=== PATIENT | female | born 1940 | race Caucasian/White ===

== ENCOUNTER → 2019-05-25 | Outpatient (CLI) | payer MEDICARE ==
--- NOTE | 2019-05-25 11:21 | Diagnostic Imaging Report ---
PROCEDURE: CT head without contrast. TECHNIQUE: Multiple contiguous axial images were obtained through the brain without the use of intravenous contrast. Auto Exposure Controls were utilized during the CT exam to meet ALARA standards for radiation dose reduction. INDICATION: Fall with head trauma, dizziness, headache and confusion. No prior examinations are available for comparison. FINDINGS: There is mild prominence of the ventricles and sulci. There is mild chronic microvascular disease. There is no hydrocephalus. No midline shift. There is no intracranial mass, hemorrhage or extra-axial fluid collection. The calvarium is intact. Sinuses and mastoid air cells are clear. IMPRESSION: Atrophy and mild chronic microvascular disease however no acute intracranial abnormality. Dictated by: Dictated on workstation # [id number]
== END ==
LOC: RAD FS 11:00
PROVIDERS: ATTEND Nurse Practitioner Family
DX: G31.9 Degenerative disease of nervous system, unspecified (principal); I67.82 Cerebral ischemia
CPT/HCPCS: 70450

== ENCOUNTER 2019-10-30 19:55 | Emergency (ER) | payer MEDICARE, OTHER ==
[~2019-10-30] VITALS: Ht 157.4 cm; Wt 71.9 kg
--- NOTE | 2019-10-30 20:42 | ED General ---
General Chief Complaint: Fever-Adult/Adol Stated Complaint: POSS FLU Nursing Triage Note: PT. HAD A TEMP OF 103 AT HOME THAT STARTED LEAST NIGHT WITH A COUGH. PT. HAS BEEN AROUND PEOPLE WHO HAVE THE FLU. PT. TOOK TO BABY ASA LAST NIGHT. Nursing Sepsis Screen: Possible Severe Sepsis Risk Source of Information: Patient, Family Exam Limitations: No Limitations History of Present Illness Date Seen by Provider: Oct 30, 2019 Time Seen by Provider: 20:39 Initial Comments Patient presents with onset of fever and body aches starting last night. This afternoon states her fever was over 100. Has had a slight cough and exposed to grandchildren with the flu recently. However, doesn't think she has the flu but a urinary tract infection as she states she normally feels like this when she has a UTI. Denies any chest pain or shortness of air, denies abdominal pain vomiting or diarrhea. Allergies and Home Medications Allergies Uncoded Allergies: PCN (Allergy, Unknown, 10/30/19) Home Medications Sulfamethoxazole/Trimethoprim 1 Each Tablet, 1 EACH PO BID Prescribed by: SAMMY CONTRERAS on 10/30/192104 Patient Home Medication List Home Medication List Reviewed: Yes Review of Systems Review of Systems Constitutional: see HPI, chills; No dizziness; fever, malaise; No weakness Respiratory: see HPI, cough; No short of breath, No wheezing Cardiovascular: see HPI; No chest pain, No edema, No palpitations Gastrointestinal: No abdominal pain, No constipation, No diarrhea, No loss of appetite, No nausea, No vomiting Genitourinary: see HPI; No dysuria; frequency; No hematuria, No hesitancy, No pain Musculoskeletal: No back pain, No joint pain Skin: No change in color, No rash Past Esbtlaw-Vttggg-Lalpwn Hx Past Med/Social Hx: Reviewed Nursing Past Med/Soc Hx Patient Social History Recent Foreign Travel: No Contact w/Someone Who Travel: No Recent Infectious Disease Expo: No Physical Exam Vital Signs Vital Signs - First Documented 10/30/19 10/30/19 20:31 21:09 Temp 38.5 Pulse 99 Resp 22 B/P (MAP) 148/73 (98) Pulse Ox 95 O2 Delivery Room Air Capillary Refill : Less Than 3 Seconds Height, Weight, BMI Height: '" Weight: lbs. oz. kg; 29.00 BMI Method: General Appearance: No Apparent Distress, WD/WN HEENT: PERRL/EOMI, TMs Normal, Normal ENT Inspection, Pharynx Normal Respiratory: Chest Non Tender, Lungs Clear, Rhonci (scattered rhonchi, faint) Cardiovascular: Regular Rate, Rhythm, No Edema, No Gallop Gastrointestinal: Normal Bowel Sounds, Non Tender, Soft Back: Normal Inspection, No CVA Tenderness Extremity: Normal Capillary Refill, Non Tender Neurologic/Psychiatric: Alert, Oriented x3 Skin: Normal Color, Warm/Dry Progress/Results/Core Measures Suspected Sepsis Recent Fever Within 48 Hours: Yes Infection Criteria Present: Suspected New Infection New/Unexplained Altered Menta: No Sepsis Screen: Possible Severe Sepsis Risk SIRS Temperature: Pulse: 99 Respiratory Rate: 22 Blood Pressure 148 /73 Mean: 98 Results/Orders Lab Results Laboratory Tests Test 10/30/19 20:40 Range/Units Urine Color YELLOW Urine Clarity SLT CLOUDY Urine pH 7.0 5-9 Urine Specific [place] 1.015 L 1.016-1.022 Urine Protein NEGATIVE NEGATIVE Urine Glucose (UA) NEGATIVE NEGATIVE Urine Ketones NEGATIVE NEGATIVE Urine Nitrite POSITIVE H NEGATIVE Urine Bilirubin NEGATIVE NEGATIVE Urine Urobilinogen >=8.0 < = 1.0 MG/DL Urine Leukocyte Esterase 1+ H NEGATIVE Urine RBC (Auto) NEGATIVE NEGATIVE Urine RBC NONE /HPF Urine WBC 10-25 H /HPF Urine Squamous Epithelial Cells 2-5 /HPF Urine Crystals NONE /LPF Urine Bacteria MODERATE H /HPF Urine Casts NONE /LPF Urine Mucus NONE /LPF Urine Culture Indicated YES Micro Results Microbiology 10/30/19 Influenza Types A,B Antigen (TIFFANY) - Final, Complete My Orders Orders - SAMMY CONTRERAS DO Influenza A And B Antigens (10/30/19 20:31) Acetaminophen Tablet (Tylenol Tablet) (10/30/19 20:45) Urinalysis (10/30/19 20:37) Urine Culture (10/30/19 20:40) Sulfamethoxazole/Trimet Ds Tab (Bactrim (10/30/19 21:15) Sulfamethoxazole/Trimet Ds Tab (Bactrim (10/30/19 21:08) Medications Given in ED Current Medications Medications Dose Ordered Sig/Krysten Route Start Time Stop Time Status Last Admin Dose Admin Acetaminophen 1,000 mg ONCE ONCE PO 10/30/19 20:45 10/30/19 20:46 DC 10/30/19 20:59 1,000 MG Trimethoprim/ Sulfamethoxazole 1 ea ONCE ONCE PO 10/30/19 21:15 10/30/19 21:17 DC 10/30/19 21:13 1 EA Vital Signs/I&O 10/30/19 10/30/19 20:31 21:09 Temp 38.5 38.5 Pulse 99 99 Resp 22 22 B/P (MAP) 148/73 (98) 148/73 (98) Pulse Ox 95 O2 Delivery Room Air Room Air Capillary Refill : Less Than 3 Seconds Blood Pressure Mean: 98 Departure Impression Primary Impression: UTI (urinary tract infection) Qualified Codes: N30.00 - Acute cystitis without hematuria Disposition: HOME, SELF-CARE Condition: Stable Departure-Patient Inst. Referrals: [facility] (PCP) Primary Care Physician TILA SHARMA APRN (Family) Primary Care Physician Patient Instructions: Urinary Tract Infections in Adults Scripts Sulfamethoxazole/Trimethoprim (Bactrim Ds Tablet) 1 Each Tablet 1 EACH PO BID for 7 Days, #14 TAB Prov: SAMMY CONTRERAS DO 10/30/19 SAMMY CONTRERAS DO Oct 30, 2019 20:42
[2019-10-30] MEDS ORDERED: ACETAMINOPHEN 500 MG TAB (TYLENOL) PO ONE (20:45)
[2019-10-30 20:55] LABS: BILIRUBIN,URINE NEGATIVE (NEGATIVE); CLARITY,URINE SLT CLOUDY; COLOR,URINE YELLOW; GLUCOSE, URINE (UA) NEGATIVE (NEGATIVE); KETONES,URINE NEGATIVE (NEGATIVE); LEUKOCYTE ESTERASE ,URINE 1+ (NEGATIVE); NITRITE,URINE POSITIVE (NEGATIVE); PROTEIN,URINE NEGATIVE (NEGATIVE)
[2019-10-30 20:56] LABS: BACTERIA,URINE MODERATE /HPF
[2019-10-30] MEDS ORDERED: SULF1TAB35 PO (21:05)
[2019-10-30] MEDS ORDERED: TRIM/SULFAMETH 160/800 (SEPTRA DS) TAB PO ONE ×2 (21:08→21:15)
[2019-10-30 21:09] VITALS: BP 148/73
== END 2019-10-30 21:17 | disposition home or self-care (01) ==
LOC: EDUNIT# 19:55 → ER FS 19:56
DX: N39.0 Urinary tract infection, site not specified (principal); Z88.0 Allergy status to penicillin
CPT/HCPCS: 81000; 87088; 87804

== ENCOUNTER → 2020-02-16 | Outpatient (CLI) | payer MEDICARE, OTHER ==
[~2020-02-16] MED LIST: CATHETER FLUSH 10 ML SYR IV PRN; HOLD METFORMIN - RECEIVED CONTRAST 20 ML VIAL IV SCH; IOHEXOL 350 MG/ML 150 ML (OMNIPAQUE 350) VIAL IV ONE; NS 100 ML (IVPB) BAG IV ONE; SULF1TAB35 PO
--- NOTE | 2020-02-16 11:30 | Diagnostic Imaging Report ---
PROCEDURE: CT angiography of the chest with contrast. TECHNIQUE: Multiple contiguous axial images were obtained through the chest after uneventful bolus administration of intravenous contrast. 3D reconstructed CTA MIP acquisitions were also performed. Auto Exposure Controls were utilized during the CT exam to meet ALARA standards for radiation dose reduction. INDICATION: Shortness of breath x2 weeks. Elevated D-dimer. COMPARISON: There are no prior studies available comparison. There is no defect within the pulmonary arteries to indicate a pulmonary embolus. The aorta is not abnormally dilated and there is no sign of a dissection. The heart size is borderline enlarged. Coronary artery calcifications are evident. There is a small amount of atelectasis/infiltrate and fluid in each lung base particularly the left lung base. The fluid in the left lung base measures approximately 1.2 cm in maximum depth. There is also generalized prominence of the interstitial densities in both lungs. This may well be chronic in nature. The possibility that there is an element of mild pulmonary congestion present should also be considered. There is a 1.6 x 1.6 cm low density lymph node in the right hilum. There is another node involving the right hilum measuring 1.0 x 1.3 cm. There is also a 1.2 x 1.4 cm lymph node in the left suprahilar region. A 1.2 x 2.0 cm aorticopulmonary window node is noted, as well. These nodes are slightly enlarged but nonspecific in appearance. Whether these are reactive nodes or less likely nodes involving neoplasm is not certain. Unless there are previous exams available to demonstrate that these findings are stable, then a short-term (three-month) follow-up CT chest exam should be obtained. The thyroid gland was not well visualized. There is no obvious breast mass. The sections through the upper abdomen show that the liver is prominent but not enlarged. However, there is splenomegaly. The etiology of the splenomegaly is not certain. There is no acute abnormality of the upper abdomen. The bone windows show no sign of a fracture or of a destructive lesion. IMPRESSION: 1. There is no evidence for any aortic dissection or for a pulmonary embolus. However, the borderline cardiomegaly and the prominence of the interstitial densities in both lungs does raise the question of mild pulmonary edema. There is also small amount of atelectasis/infiltrate and fluid in each lung base. 2. There is mediastinal and hilar adenopathy. This is nonspecific. Considerations and recommendations as above. 3. There is splenomegaly. Dictated by: Dictated on workstation # [id number]
== END ==
LOC: RAD FS 10:04
PROVIDERS: ATTEND Nurse Practitioner Family
DX: R79.1 Abnormal coagulation profile (principal); R06.02 Shortness of breath; R59.0 Localized enlarged lymph nodes; R16.1 Splenomegaly, not elsewhere classified
CPT/HCPCS: 71275

== ENCOUNTER → 2020-03-06 | Outpatient (CLI) | payer MEDICARE, OTHER ==
[~2020-03-06] VITALS: Ht 157 cm; Wt 72.0 kg
[~2020-03-06] MED LIST changes: -HOLD METFORMIN - RECEIVED CONTRAST 20 ML VIAL IV SCH; -IOHEXOL 350 MG/ML 150 ML (OMNIPAQUE 350) VIAL IV ONE; -NS 100 ML (IVPB) BAG IV ONE; +REGADENOSON 0.4 MG/5 ML SYR (LEXISCAN) IV ONE
[2020-03-06 09:37] VITALS: BP 122/72
--- NOTE | 2020-03-06 15:28 | Cardiology Stress Test Report ---
Stress Test Report Date of Procedure/Referring: Date of Procedure: Mar 06, 2020 PCP Mariposa Argueta MD Admitting Physician Center/[facility] Indications: CHF Baseline Heart Rate: 67 Baseline Blood Pressure: Blood Pressure Systolic: 122 Blood Pressure Diastolic: 72 Baseline EKG: Baseline EKG: atrial fibrillation Summary: Patient received 0.4 mg Lexiscan for stress test, ECG, heart rate and blood pressure were monitored continuously. Resting and stress dose of radio tracer were injected, imaging was acquired and reviewed in short axis, horizontal long axis and vertical long axis views. TID 1.06 SSS 6 SDS 3 EF 66 Conclusion: 1. Patient tolerated Lexiscan well 2. Baseline atrial fibrillation persisted throughout test 3. Breast attenuation with mild decrease uptake at the mid to apical anterolateral wall with mild reversibility. No significant ischemia was noted 4. Normal left ventricular size, currently ejection fraction 66 percent, underlying atrial fibrillation affecting the calculation of ejection fraction MARIPOSA ARGUETA MD Mar 06, 2020 15:28
== END ==
LOC: CARD 08:05
PROVIDERS: ATTEND Internal Medicine Cardiovascular Disease
DX: I11.0 Hypertensive heart disease with heart failure (principal); I50.32 Chronic diastolic (congestive) heart failure; E78.2 Mixed hyperlipidemia
CPT/HCPCS: 78452; 93017

== ENCOUNTER → 2020-03-07 | Outpatient (CLI) | payer MEDICARE, OTHER ==
[~2020-03-07] MED LIST changes: -CATHETER FLUSH 10 ML SYR IV PRN; -REGADENOSON 0.4 MG/5 ML SYR (LEXISCAN) IV ONE
== END ==
LOC: CARD 12:16
PROVIDERS: ATTEND Internal Medicine Cardiovascular Disease
DX: I11.0 Hypertensive heart disease with heart failure (principal); I50.32 Chronic diastolic (congestive) heart failure; E78.2 Mixed hyperlipidemia; I07.1 Rheumatic tricuspid insufficiency
CPT/HCPCS: 93306

== ENCOUNTER → 2020-03-26 | Outpatient (CLI) | payer MEDICARE, OTHER ==
[~2020-03-26] MED LIST changes: +HOLD METFORMIN - RECEIVED CONTRAST 20 ML VIAL IV SCH; +IOHEXOL 350 MG/ML 100 ML (OMNIPAQUE 350) VIAL IV ONE; +NS 100 ML (IVPB) BAG IV ONE; +RT-ALBUTEROL SULF 2.5 MG/3 ML PRE-MIX VIAL INH ONE
[2020-03-26 09:14] LABS: BUN/CREATININE RATIO 17; CREATININE SERUM 0.87 MG/DL (0.60-1.30); GFR ESTIMATED > 60
--- NOTE | 2020-03-26 12:06 | Diagnostic Imaging Report ---
EXAMINATION: CT Chest with intravenous contrast. TECHNIQUE: Multiple contiguous axial images were obtained through the chest after the uneventful administration of intravenous contrast. All CT scans use one or more of the following dose optimizing techniques: automated exposure control, MA and/or KvP adjustment based on a patient size and exam type, or iterative reconstruction. HISTORY: Heart failure COMPARISON: 02/16/2020 FINDINGS: There is mild septal line thickening and groundglass consistent with mild pulmonary edema. There is mild atelectasis in the bases. No pneumonia. No pleural effusion. No pneumothorax. No suspicious nodules. The left atrium is dilated. There is thrombus in the left atrial appendage. There are mild coronary artery calcifications. No pericardial effusion. Aorta is normal in caliber. There is no axillary or supraclavicular lymphadenopathy. Mildly enlarged hilar lymph nodes are likely reactive. Limited views of the upper abdomen show splenomegaly. Bile duct is mildly dilated likely related to prior gallbladder resection. There are no suspicious osseus lesions. IMPRESSION: 1. Mild septal line thickening and groundglass consistent with pulmonary edema. 2. Dilated left atrium with left atrial appendage thrombus. 3. Mildly enlarged hilar lymph nodes are likely reactive and are unchanged. 4. Splenomegaly. Report was called/faxed to Evy/PERRI Prince by diane at 12:05PM. Dictated by: Dictated on workstation # [id number]
== END ==
LOC: RT 08:34
PROVIDERS: ATTEND Internal Medicine Critical Care Medicine
DX: Z01.812 Encounter for preprocedural laboratory examination (principal); I50.20 Unspecified systolic (congestive) heart failure; I51.7 Cardiomegaly; I23.6 Thrombosis of atrium, auricular appendage, and ventricle as current complications following acute myocardial infarction; R16.1 Splenomegaly, not elsewhere classified; R59.0 Localized enlarged lymph nodes
CPT/HCPCS: 36415; 71260; 82565; 84520; 94060; 94726; 94729

== ENCOUNTER → 2020-06-03 | Outpatient (CLI) | payer MEDICARE, OTHER ==
[~2020-06-03] MED LIST changes: +ASPI-999 PO; +CHOL100048 PO; +DABI150C5 PO; +FURO20TA4 PO; -HOLD METFORMIN - RECEIVED CONTRAST 20 ML VIAL IV SCH; -IOHEXOL 350 MG/ML 100 ML (OMNIPAQUE 350) VIAL IV ONE; +LEVO100T7 PO; +METO50TA15 PO; -NS 100 ML (IVPB) BAG IV ONE; -RT-ALBUTEROL SULF 2.5 MG/3 ML PRE-MIX VIAL INH ONE; +RUXO10TA PO
== END ==
LOC: LABNPT 05:58
PROVIDERS: ATTEND Internal Medicine Cardiovascular Disease
DX: Z01.818 Encounter for other preprocedural examination (principal); Z20.828 Contact with and (suspected) exposure to other viral communicable diseases
CPT/HCPCS: 87635

== ENCOUNTER 2020-06-05 07:31 | Day surgery (SDC) | payer MEDICARE, OTHER ==
[~2020-06-05] VITALS: Ht 157.5 cm; Wt 70.5 kg
[2020-06-05] VITALS (11 sets, daily range): BP systolic 133–164; BP diastolic 60–93
[~2020-06-05 07:31] MED LIST changes: -ASPI-999 PO; -CHOL100048 PO; -DABI150C5 PO; -FURO20TA4 PO; -LEVO100T7 PO; +LIDOCAINE 2% VISCOUS 15 ML UDC ONE; -METO50TA15 PO; +NS IV 1000 ML 1,000 ML ONE; -RUXO10TA PO
[2020-06-05] MEDS ORDERED: NS IV 1000 ML 1,000 ML IV ONE (07:36)
[2020-06-05] MEDS ORDERED: LIDOCAINE 2% VISCOUS 15 ML UDC PO ONE (07:45)
[2020-06-05 08:23] LABS: HEMOGLOBIN 8.4 G/DL (11.5-16.0); MEAN PLATELET VOLUME 11.9 FL (7.4-10.4); RED CELL DISTRIBUTION WIDTH 12.9 % (10.0-14.5); WHITE BLOOD COUNT 4.7 10^3/uL (4.3-11.0)
--- NOTE | 2020-06-05 08:24 | Diagnostic Imaging Report ---
INDICATION: Atrial fibrillation COMPARISON: CT dated 03/26/2020 TECHNIQUE: Single frontal radiograph of the chest dated 06/05/2020 FINDINGS: The cardiac silhouette is within normal limits in size. Minimal central pulmonary vascular congestion. The lungs are clear of focal pulmonary opacity. No pleural effusion. No pneumothorax. No acute osseous abnormality. IMPRESSION: Minimal central pulmonary vascular congestion without significant interstitial edema or pleural effusion. Dictated by: Dictated on workstation # [id number]
[2020-06-05] MEDS ORDERED: proPOfol 200 MG/20 ML (DIPRIVAN) VIAL IV ONE (08:36)
[2020-06-05] MEDS ORDERED: MIDAZOLAM 2 MG/2 ML (VERSED) VIAL ONE (08:36)
[2020-06-05 08:37] LABS: PROTHROMBIN TIME PATIENT 23.4 SEC (12.2-14.7)
[2020-06-05 08:48] LABS: ALBUMIN 3.7 GM/DL (3.2-4.5); BILIRUBIN,TOTAL 0.9 MG/DL (0.1-1.0); CREATININE SERUM 1.01 MG/DL (0.60-1.30); POTASSIUM 3.9 MMOL/L (3.6-5.0); TOTAL PROTEIN 6.7 GM/DL (6.4-8.2)
[2020-06-05] MEDS ORDERED: METO50TA15 PO (09:09)
[2020-06-05] MEDS ORDERED: CHOL100048 PO (09:09)
[2020-06-05] MEDS ORDERED: LEVO100T7 PO (09:09)
[2020-06-05] MEDS ORDERED: DABI150C5 PO (09:09)
[2020-06-05] MEDS ORDERED: ASPI-999 PO (09:09)
[2020-06-05] MEDS ORDERED: RUXO10TA PO (09:09)
[2020-06-05] MEDS ORDERED: FURO20TA4 PO (09:09)
--- NOTE | 2020-06-05 10:22 | Cardiac Procedure Note-CS/ASA ---
Pre-Procedure Note Pre-Op Procedure Note H&P Reviewed The H&P was reviewed, patient examined and no changes noted. Date H&P Reviewed: Jun 05, 2020 Time H&P Reviewed: 09:00 Conscious Sedation Pre-Proced Time 09:00 ASA Score 3 For ASA 3 and 4: Consider anesthesia and medical clearance. Also, for patients with a history of failed moderate sedation consider anesthesia. Airway Lungs Heart ASA score ASA 1: a normal healthy patient ASA 2: a patient with a mild systemic disease (mid diabetes, controlled hypertension, obesity x ASA 3: a patient with a severe systemic disease that limits activity (angina, COPD, prior Myocardial infarction) ASA 4: a patient with an incapacitating disease that is a constant threat to life (CHF, renal failure) ASA 5: a moribund patient not expected to survive 24 hrs. (ruptured aneurysm) ASA 6: a declared brain- patient whose organs are being harvested. For emergent operations, add the letter E after the classification Mallampati Classification Grade 3 Sedation Plan Analgesia, Amnesia, Plan communicated to team members, Discussed options with patient/fam, Discussed risks with patient/fam The patient is an appropriate candidate to undergo the planned procedure, sedation, and anesthesia. The patient immediately re-assessed prior to indication. MARIPOSA GALLAGHER MD Jun 05, 2020 10:22 am
--- NOTE | 2020-06-05 10:23 | Clinic Account Progress/Dx ---
Clinic Account Progress/Dx DIAGNOSIS: Date Seen by Provider: Jun 05, 2020 Time Seen by Provider: 10:23 Paroxysmal atrial fibrillation Mitral regurgitation Shortness of breath Hypertension MARIPOSA GALLAGHER MD Jun 05, 2020 10:23 am
--- NOTE | 2020-06-05 10:25 | Anesthesia-General Post-Op ---
MAC Patient Condition Mental Status/LOC: Same as Preop Cardiovascular: Satisfactory Nausea/Vomiting: Absent Respiratory: Satisfactory Pain: Controlled Complications: Absent Post Op Complications Complications None Follow Up Care/Instructions Patient Instructions None needed. Anesthesiology Discharge Order Discharge Order Patient is doing well, no complaints, stable vital signs, no apparent adverse anesthesia problems. No complications reported per nursing. JUDY NO CRNA Jun 05, 2020 10:25
--- NOTE | 2020-06-05 10:26 | NUR ---
I SPOKE WITH THE PATIENT, WENT THROUGH THE MED LIST THEY PROVIDED FROM HOME, AND CALLED [facility] TO COMPLETE THIS MED REC. POTASSIUM CHLORIDE 20MEQ DIRECTIONS FROM PHARMACY ARE BID BUT PATIENT ONLY TAKES DAILY METOPROLOL 50MG DIRECTIONS FROM PHARMACY ARE TID BUT PATIENT TAKES BID LANTUS LAST FILLED 04/25/2020 112DS LEVOTHYROXINE 75MCG LAST FILLED 04/15/2020 #90 90DS ATORVASTATIN 40MG LAST FILLED 04/24/2020 #90 90DS METOPROLOL 50MG LAST FILLED 03/25/2020 #270 90DS LOSARTAN 100MG LAST FILLED 05/11/2020 #90 90DS METFORMIN 500MG LAST FILLED 05/31/2020 #180 90DS POTASSIUM CHLORIDE 20MEQ LAST FILLED 01/05/2020 #180 90DS BENZONATATE 100MG LAST FILLED 11/13/2019 #21 7DS OTC: ASPIRIN CALCIUM VITAMIN D ER FISH OIL
--- NOTE | 2020-06-05 10:40 | NUR ---
HERE PER CALL FOR CONSULT FOR ANEMIA. HERE AND SPOKE WITH PT AND HER FAMILY REGARDING PLAN OF CARE.
--- NOTE | 2020-06-05 20:23 | Consultation - Surgery ---
History of Present Illness History of Present Illness Patient Consulted On(bryson/time) 06/05/20 20:18 Date Seen by Provider: Jun 05, 2020 Time Seen by Provider: 11:35 History of Present Illness Consult requested by Dr. Argueta for anemia. Patient is a 79 year old female who has had recent drop in hgb to about the 8 range. She has been on Pradaxa. She has had atrial fib which she is currently on Aspirin and Pradaxa, but is not having aspirin stopped. Patient still on Pradaxa but Dr. Argueta told me it was okay to stop Pradax 2 days prio for EGD/Colonoscopy. Family does not believe she has ever had any endoscopy. No blood in stool to knowledge. Allergies and Home Medications Allergies Coded Allergies: Penicillins (Unverified Allergy, Unknown, 02/16/20) Home Medications Cholecalciferol (Vitamin D3) 25 Mcg Capsule, 25 MCG PO DAILY, (Reported) Dabigatran Etexilate Mesylate 150 Mg Capsule, 150 MG PO BID, (Reported) Furosemide 20 Mg Tablet, 20 MG PO DAILY, (Reported) Levothyroxine Sodium 100 Mcg Tablet, 100 MCG PO DAILY, (Reported) Metoprolol Tartrate 50 Mg Tablet, 50 MG PO DAILY, (Reported) Ruxolitinib Phosphate 10 Mg Tablet, 10 MG PO BID, (Reported) Patient Home Medication List Home Medication List Reviewed: Yes Past Nvjxnlp-Jezefm-Zaimbt Hx Patient Social History Alcohol Use: Denies Use Recreational Drug Use: No Smoking Status: Never a Smoker Recent Foreign Travel: No Contact w/Someone Who Travel: No Recent Hopitalizations: No Immunizations Up To Date Date of Pneumonia Vaccine: Jun 05, 2018 Seasonal Allergies Seasonal Allergies: No Surgeries History of Surgeries: No Surgeries: Appendectomy, Bladder Surgery, Gallbladder, Hysterectomy, Oophorectomy Respiratory History of Respiratory Disorde: Yes Respiratory Disorders: Pneumonia, Sleep Apnea Cardiovascular History of Cardiac Disorders: Yes Cardiac Disorders: Atrial Fibrillation, Hypertension Neurological History of Neurological Disord: Yes Neurological Disorders: Concussion Genitourinary History of Genitourinary Disor: Yes Genitourinary Disorders: Kidney Infection Gastrointestinal History of Gastrointestinal Di: No Musculoskeletal History of Musculoskeletal Dis: No Endocrine History of Endocrine Disorders: No HEENT History of HEENT Disorders: No Cancer History of Cancer: No Psychosocial History of Psychiatric Problem: No Integumentary History of Skin or Integumenta: No Blood Transfusions History of Blood Disorders: Yes (MYELDYSPLASTIC SYNDROME) Reviewed Nursing Assessment Reviewed/Agree w Nursing PMH: Yes Family Medical History Significant Family History: No Pertinent Family Hx Review of Systems-General Constitutional: weakness All Other Systems Reviewed Negative Unless Noted: Yes (Negative excepted noted.) Physical Exam-General Problems Physical Exam Vital Signs Vital Signs - First Documented 06/05/20 06/05/20 10:10 11:30 Temp 36.4 Pulse 71 Resp 18 B/P (MAP) 150/76 (100) Pulse Ox 100 O2 Delivery Simple Mask O2 Flow Rate 6.00 Capillary Refill : General Appearance: no apparent distress, thin HEENT: PERRL/EOMI, normal ENT inspection Neck: non-tender, supple, normal inspection Respiratory: chest non-tender, no respiratory distress, no accessory muscle use Cardiovascular: regular rate, rhythm, no edema Gastrointestinal: non tender, soft, no organomegaly Back: no CVA tenderness, no vertebral tenderness Extremities: non-tender, normal inspection Neurologic/Psychiatric: alert, normal mood/affect Skin: normal color, warm/dry Lymphatic: no adenopathy Data Review Labs Laboratory Tests 06/05/20 08:18: White Blood Count 4.7, Red Blood Count 2.25L, Hemoglobin 8.4L, Hematocrit 26L, Mean Corpuscular Volume 117H, Mean Corpuscular Hemoglobin 37H, Mean Corpuscular Hemoglobin Concent 32, Red Cell Distribution Width 12.9, Platelet Count 221, Mean Platelet Volume 11.9H, Prothrombin Time 23.4H, INR Comment 2.0H, Activated Partial Thromboplast Time 65H, Sodium Level 142, Potassium Level 3.9, Chloride Level 105, Carbon Dioxide Level 26, Anion Gap 11, Blood Urea Nitrogen 17, Creatinine 1.01, Estimat Glomerular Filtration Rate 53, BUN/Creatinine Ratio 17, Glucose Level 91, Calcium Level 9.0, Corrected Calcium 9.2, Total Bilirubin 0.9, Aspartate Amino Transf (AST/SGOT) 13, Alanine Aminotransferase (ALT/SGPT) 17, Alkaline Phosphatase 119, Total Protein 6.7, Albumin 3.7, Triglycerides Level 110, Cholesterol Level 121, LDL Cholesterol Direct 81, VLDL Cholesterol 22, HDL Cholesterol 23L Assessment/Plan Assessment/Plan Assessment/Plan anemia a fib patient to be scheduled for EGD/Colonoscopy Risks and benefits discussed with family and wish to be scheduled Miralax prep instructions to be provided. Dr. Ellie coffey'd to stop Pradax 2 days prior to procedure. To be scheduled - EGD/Colonoscopy REJI GRIFFIN DO Jun 05, 2020 20:23
== END 2020-06-05 12:55 | disposition home or self-care (01) ==
LOC: CATH 07:31 → SDC 11:27 → CATH 12:55
PROVIDERS: ATTEND Internal Medicine Cardiovascular Disease
DX: I48.0 Paroxysmal atrial fibrillation (principal); I11.0 Hypertensive heart disease with heart failure; I50.42 Chronic combined systolic (congestive) and diastolic (congestive) heart failure; G47.33 Obstructive sleep apnea (adult) (pediatric); E03.9 Hypothyroidism, unspecified; E78.2 Mixed hyperlipidemia; I65.23 Occlusion and stenosis of bilateral carotid arteries; Z79.899 Other long term (current) drug therapy; Z79.82 Long term (current) use of aspirin; Z88.1 Allergy status to other antibiotic agents; Z88.0 Allergy status to penicillin; Z90.710 Acquired absence of both cervix and uterus; Z90.49 Acquired absence of other specified parts of digestive tract; Z83.3 Family history of diabetes mellitus
CPT/HCPCS: 36415; 71045; 80053; 80061; 85027; 85610; 85730; 87081; 93005; 93312; 93320; 93325

== ENCOUNTER 2020-06-14 05:38 | Outpatient (RCR) | payer MEDICARE, OTHER ==
[~2020-06-14] VITALS: Ht 157.5 cm; Wt 68.2 kg
== END 2020-06-14 12:59 | disposition home or self-care (01) ==
LOC: PREOP 05:38
PROVIDERS: ATTEND Surgery
DX: Z01.818 Encounter for other preprocedural examination (principal)

== ENCOUNTER → 2020-06-14 | Outpatient (CLI) | payer MEDICARE, OTHER ==
[~2020-06-14] MED LIST changes: +ASPI-999 PO; +CHOL100048 PO; +DABI150C5 PO; +FURO20TA4 PO; +LEVO100T7 PO; -LIDOCAINE 2% VISCOUS 15 ML UDC ONE; +METO50TA15 PO; -NS IV 1000 ML 1,000 ML ONE; +RUXO10TA PO
== END ==
LOC: LAB FS 10:00
PROVIDERS: ATTEND Surgery
DX: Z01.818 Encounter for other preprocedural examination (principal); D64.9 Anemia, unspecified; Z20.828 Contact with and (suspected) exposure to other viral communicable diseases
CPT/HCPCS: 87635

== ENCOUNTER 2020-06-18 10:48 | Day surgery (SDC) | payer MEDICARE, OTHER ==
[2020-06-18] VITALS (7 sets, daily range): BP systolic 105–132; BP diastolic 51–71
[~2020-06-18] VITALS: Ht 157 cm; Wt 68.0 kg
[2020-06-18] MEDS ORDERED: LACTATED RINGERS 1,000 ML IV ONE (10:50)
[2020-06-18] MEDS ORDERED: LACTATED RINGERS 1,000 ML IV STA (10:51)
[2020-06-18] MEDS ORDERED: HURRICAINE EXT TUBE (BENZOCAINE) XX ONE (11:00)
[2020-06-18] MEDS ORDERED: LIDOCAINE JELLY 2% 6 ML SYRINGE MM PRN (11:00)
[2020-06-18] MEDS ORDERED: PROPOFOL INJECTION 50 ML IV ONE (11:03)
[2020-06-18] MEDS ORDERED: MIDAZOLAM 2 MG/2 ML (VERSED) VIAL ONE (11:04)
--- NOTE | 2020-06-18 11:19 | Progress Note-Pre Operative ---
Pre-Operative Progress Note H&P Reviewed The H&P was reviewed, patient examined and no changes noted. Date Seen by Provider: Jun 18, 2020 Time Seen by Provider: : Date H&P Reviewed: Jun 18, 2020 Time H&P Reviewed: : Pre-Operative Diagnosis: anemia REJI GRIFFIN DO Jun 18, 2020 11:19
--- NOTE | 2020-06-18 12:04 | Progress Note-Post Operative ---
Post-Operative Progess Note Surgeon (s)/Supervisor [employer] (s) Surgeon REJI GRIFFIN DO Supervisor [employer]: na Pre-Operative Diagnosis anemia Post-Operative Diagnosis normal egd, diverticulosis Procedure & Operative Findings Date of Procedure 06/18/20 Procedure Performed/Findings egd colonoscopy Anesthesia Type per oil and gas principal Estimated Blood Loss Estimated blood loss (mL): na Specimens/Packing Specimens Removed na REJI GRIFFIN DO Jun 18, 2020 12:04
--- NOTE | 2020-06-18 12:05 | Discharge Inst-Simple/Standard ---
Discharge Inst-Standard Patient Instructions/Follow Up Plan of Care/Instructions/FU: Follow up on as needed basis. Activity as Tolerated: Yes Discharge Diet: Regular Diet REJI GRIFFIN DO Jun 18, 2020 12:05
--- NOTE | 2020-06-18 13:53 | Anesthesia-General Post-Op ---
MAC Patient Condition Mental Status/LOC: Same as Preop Cardiovascular: Satisfactory Nausea/Vomiting: Absent Respiratory: Satisfactory Pain: Controlled Complications: Absent Post Op Complications Complications None Follow Up Care/Instructions Patient Instructions None needed. Anesthesiology Discharge Order Discharge Order Patient is doing well, no complaints, stable vital signs, no apparent adverse anesthesia problems. No complications reported per nursing. JULIA TIMMONS CRNA Jun 18, 2020 13:53
--- NOTE | 2020-06-18 20:57 | OPERATIVE REPORT ---
DATE OF SERVICE: 06/18/2020 PREOPERATIVE DIAGNOSIS: Anemia. POSTOPERATIVE DIAGNOSIS: Diverticulosis. PROCEDURE: EGD and colonoscopy. SURGEON: Reji Rod DO ANESTHESIA: Per CREAM TESTER. ESTIMATED BLOOD LOSS: None. COMPLICATIONS: None. INDICATIONS: The patient is a 79-year-old female with anemia. Dr. Argueta had requested that I do an EGD and colonoscopy for. She understands risks and benefits and wishes to proceed. Consent was signed in the chart. DESCRIPTION OF PROCEDURE: The patient was taken to the endoscopy suite, placed in left lateral recumbent position. Timeout was performed. Scope was inserted down the mouth, esophagus, stomach and into the duodenum without difficulty. No polyps, masses or ulcerations within the duodenum. Scope was slowly retracted back into the stomach where it was further insufflated. No polyps, masses or ulcerations. Scope was retroflexed noting no other pathology. Scope was returned to its normal position, slowly withdrawn to distal esophagus, which had normal appearance. No polyps, masses or ulcerations. Scope was slowly retracted back to completely remove noting no other pathology. Digital rectal exam was performed. There were no palpable polyps, masses or ulcerations. Scope was inserted in the rectum, advanced all the way to cecum with minimal difficulty. The terminal ileum was intubated noting no other pathology. Scope was retracted back into the stomach and the cecum had no polyps, masses or ulcerations. Scope was slowly retracted back. There were no polyps, masses or ulcerations within the ascending transverse and descending colon, sigmoid colon, minimal amount of diverticulosis. No polyps, masses or ulcerations. Scope was then continuously retracted back into the rectum, where it was also retroflexed noting no other pathology. Scope was then returned to its normal position, slowly retracted until completely removed. The patient tolerated procedure well without any complications. She was taken to recovery room in stable condition. RECOMMENDATIONS: No source of bleeding was found. If continued to be anemic or has blood in stools, would consider repeating endoscopy source found. We can also consider capsule endoscopy. At this time, we will discuss this in 2 weeks. Job ID: [id number] DocumentID: [id number] Dictated Date: 06/18/2020 14:54:55 Cash Accountant Date: 06/18/2020 20:56:45 Dictated By: REJI ROD DO
== END 2020-06-18 13:00 | disposition home or self-care (01) ==
LOC: ENDO 10:48
PROVIDERS: ATTEND Surgery
DX: K57.30 Diverticulosis of large intestine without perforation or abscess without bleeding (principal); D64.9 Anemia, unspecified; I10 Essential (primary) hypertension; I48.91 Unspecified atrial fibrillation; G47.33 Obstructive sleep apnea (adult) (pediatric); D46.9 Myelodysplastic syndrome, unspecified; Z88.0 Allergy status to penicillin; Z88.1 Allergy status to other antibiotic agents; Z79.890 Hormone replacement therapy; Z79.899 Other long term (current) drug therapy; Z79.01 Long term (current) use of anticoagulants; Z87.01 Personal history of pneumonia (recurrent)

== ENCOUNTER 2020-06-19 16:14 | Emergency (ER) | payer MEDICARE, OTHER ==
--- NOTE | 2020-06-19 16:28 | NUR ---
Patient arrived to ED at 1614 per POV with family and registration took basic information. ER aware of pt presenting as just rec'd call from Katy RN with [facility] clinic advising this 79 yo lady was asked to come to their clinic for a repeat CBC from last CBC on 06/11/20 being 7.8. Pt was referred for scopes and had a colonoscopy done yesterday but some unforeseen reason couldn't get EGD done with it. The patient is refusing to go to the clinic. Then the patient reported she had fallen and hit her head but also had N/V but not clarifying which started first. The pt was refered to come to ER for CT head and get her labs drawn. Hx of Thrombocytopenia and under care of Dr Winston.
--- NOTE | 2020-06-19 16:28 | NUR ---
The PCCT went to waiting room to bring pt back at 1620. Family stop staff to ask numerous questions as they are not allowed to be in waiting room or ED with pt r/t COVID policy of [facility]. The dgt states the grandchildren are here all wanting to donate blood to be given the patient. The pt and here family notified she is sent her for a medical work up with lab draws and a proposed CT head from [facility]. They are made aware we have emergency uncrossmatched blood and regular stable transfusions are done at the [facility] where crossmatching gets completed or the hospital appropriate for the patient's medical needs if not [facility]. The family immediately turn patient around to go out ED entrance to their POV stating, "We are not staying to be set on for like 2 hours to then get transferred when we can drive somewhere ourselves!" The family depart before a signature given on LWBS/Refusal Treatment/Medical Screening exam.
--- NOTE | 2020-06-19 16:45 | NUR ---
Reached the [facility] and spoke with Katy RAYO to report everything that just happened and unsure where the patient is going. They report family is on the telephone with their provider at this time.
[2020-06-20] MEDS ORDERED: NITR-65 PO (12:25)
[2020-06-20] MEDS ORDERED: FERR325T18 PO (12:25)
== END 2020-06-19 16:28 | disposition left against medical advice (07) ==
LOC: EDUNIT# 16:14 → ER FS 16:16
DX: D64.9 Anemia, unspecified (principal)

== ENCOUNTER 2020-06-19 17:18 | Inpatient (IN) | payer MEDICARE, OTHER ==
[~2020-06-19] VITALS: Ht 157.5 cm; Wt 75.0 kg
[2020-06-19 17:20] VITALS: BP 133/52
[2020-06-19 18:30] LABS: BASOPHILS % (AUTO) 0 % (0-10); EOSINOPHILS # (AUTO) 0.1 10^3/uL (0.0-0.3); EOSINOPHILS % (AUTO) 1 % (0-10); HEMATOCRIT 24 % (35-52); HEMOGLOBIN 7.8 G/DL (11.5-16.0); LYMPHOCYTES # (AUTO) 0.6 X 10^3 (1.0-4.0); LYMPHOCYTES % (AUTO) 11 % (12-44); MEAN CORPUSCULAR HEMOGLOBIN 36 PG (25-34); MEAN CORPUSCULAR HGB CONC 32 G/DL (32-36); MEAN CORPUSCULAR VOLUME 113 FL (80-99); MEAN PLATELET VOLUME 12.4 FL (7.4-10.4); MONOCYTES # (AUTO) 0.4 X 10^3 (0.0-1.0); MONOCYTES % (AUTO) 7 % (0-12); NEUTROPHILS # (AUTO) 4.8 X 10^3 (1.8-7.8); NEUTROPHILS % (AUTO) 81 % (42-75); PLATELET COUNT 200 10^3/uL (130-400); WHITE BLOOD COUNT 5.9 10^3/uL (4.3-11.0)
[2020-06-19 18:35] LABS: BILIRUBIN,URINE NEGATIVE (NEGATIVE); CLARITY,URINE CLEAR; COLOR,URINE YELLOW; GLUCOSE, URINE (UA) NEGATIVE (NEGATIVE); KETONES,URINE NEGATIVE (NEGATIVE); LEUKOCYTE ESTERASE ,URINE NEGATIVE (NEGATIVE); NITRITE,URINE NEGATIVE (NEGATIVE); PH,URINE 5.5 (5-9); PROTEIN,URINE TRACE (NEGATIVE)
[2020-06-19 18:40] LABS: INR 2.6 (0.8-1.4); PROTHROMBIN TIME PATIENT 27.9 SEC (12.2-14.7)
[2020-06-19 18:42] LABS: BACTERIA,URINE TRACE /HPF; HYALINE CASTS, URINE RARE /LPF; RENAL EPITHELIAL CELLS,URINE RARE /HPF; SQUAMOUS EPITHELIAL CELL,UR RARE /HPF; WBC,URINE 0-2 /HPF
[2020-06-19 18:42] LABS: ALBUMIN 3.2 GM/DL (3.2-4.5); BILIRUBIN,TOTAL 1.6 MG/DL (0.1-1.0); CALCIUM 7.9 MG/DL (8.5-10.1); CREATININE SERUM 0.93 MG/DL (0.60-1.30); POTASSIUM 3.2 MMOL/L (3.6-5.0); TOTAL PROTEIN 6.3 GM/DL (6.4-8.2)
--- NOTE | 2020-06-19 18:48 | ED General ---
General Chief Complaint: Trauma-Non Activation Stated Complaint: FALL Nursing Triage Note: PATIENT ARRIVES VIA WC TO ER WITH C/O A FALL YESTERDAY. SHE HIT HER HEAD. TODAY SHE HAS BEEN CONFUSED WELL. DOCTOR CALLED HER TODAY WITH COLONOSCOPY RESULTS FROM 06/18 WITH RESULT OF ANEMIA. PATIENT HAD COLONOSCOPY D/T BLOOD LOSS FROM UNKNOWN SOURCE. PATIENT ALSO C/O STOMACH PAIN AND NAUSEA Nursing Sepsis Screen: No Definite Risk Source of Information: Patient Exam Limitations: No Limitations History of Present Illness Date Seen by Provider: Jun 19, 2020 Time Seen by Provider: 18:15 Initial Comments Here with report of fall last evening and hit her head. She had colonoscopy yesterday. She's been on prep for the last few days before that and states that that caused her to be quite weak. She apparently was found to have a urinary tract infection at the clinic earlier this week and has not been able to take her medicine due to the colonoscopy prep. She may have had a dose or 2 after the colonoscopy that she states that she is not felt well so she is actually unsure of that. Reports feeling weak. Also complains of abdominal discomfort. Does have history of anemia. She is on Pradaxa. Denies blood in her stool. Colonoscopy did not reveal any significant findings per the patient. Timing/Duration: 2-3 Days, Getting Worse Severity: Moderate Associated Systoms: No Chest Pain; Fever/Chills; No Headaches; Nausea/Vomiting; No Shortness of Air; Weakness Allergies and Home Medications Allergies Coded Allergies: Penicillins (Unverified Allergy, Unknown, 02/16/20) Home Medications Cholecalciferol (Vitamin D3) 25 Mcg Capsule, 25 MCG PO DAILY, (Reported) Dabigatran Etexilate Mesylate 150 Mg Capsule, 150 MG PO BID, (Reported) Furosemide 20 Mg Tablet, 20 MG PO DAILY, (Reported) Levothyroxine Sodium 100 Mcg Tablet, 100 MCG PO DAILY, (Reported) Metoprolol Tartrate 50 Mg Tablet, 50 MG PO DAILY, (Reported) Ruxolitinib Phosphate 10 Mg Tablet, 10 MG PO BID, (Reported) Patient Home Medication List Home Medication List Reviewed: Yes Review of Systems Review of Systems Constitutional: see HPI; No chills; fever, weakness EENTM: no symptoms reported Respiratory: No cough, No short of breath Cardiovascular: No chest pain, No palpitations Gastrointestinal: abdominal pain, nausea Genitourinary: see HPI, dysuria : No Musculoskeletal: No back pain; muscle weakness Skin: no symptoms reported Hematologic/Lymphatic: Anemia; Denies Easy Bleeding All Other Systems Reviewed Negative Unless Noted: Yes Past Neipoet-Gcgees-Voobnv Hx Past Med/Social Hx: Reviewed Nursing Past Med/Soc Hx Patient Social History Alcohol Use: Denies Use Recreational Drug Use: No Recent Foreign Travel: No Contact w/Someone Who Travel: No Recent Infectious Disease Expo: No Recent Hopitalizations: No Physical Abuse: No Sexual Abuse: No Mistreated: No Fear: No Immunizations Up To Date Date of Pneumonia Vaccine: Jun 05, 2018 Seasonal Allergies Seasonal Allergies: No Past Medical History Surgeries: Yes Appendectomy, Bladder Surgery, Gallbladder, Hysterectomy, Oophorectomy Respiratory: Yes Pneumonia, Sleep Apnea Currently Using CPAP: Yes Cardiac: Yes Atrial Fibrillation, Hypertension Neurological: Yes Concussion Genitourinary: Yes Kidney Infection Gastrointestinal: No Musculoskeletal: No Endocrine: Yes HEENT: No Cancer: No Psychosocial: No Integumentary: No Blood Disorders: Yes (MYELDYSPLASTIC SYNDROME, anemia) Family Medical History Reviewed Nursing Family Hx No Pertinent Family Hx Physical Exam-Suspected Sepsis Physical Exam Vital Signs Vital Signs - First Documented 06/19/20 17:20 Temp 38.0 Pulse 98 Resp 18 B/P (MAP) 133/52 (79) Pulse Ox 94 O2 Delivery Room Air Capillary Refill : NONE Blood Pressure Mean: 79 Height, Weight, BMI Height: '" Weight: lbs. oz. kg; 247.00 BMI Method: General Appearance: No Apparent Distress, WD/WN HEENT: PERRL/EOMI, Pharynx Normal Neck: Non Tender, Supple Respiratory: Crackles (bilateral bases); No Wheezing Cardiovascular: Regular Rate, Rhythm, No Murmur Gastrointestinal: Normal Bowel Sounds, Non Tender, Soft Back: Normal Inspection, No CVA Tenderness, No Vertebral Tenderness Extremity: Normal Range of Motion, Non Tender Neurologic/Psychiatric: Alert, Oriented x3 Skin: warm/dry, pallor Focused Exam Lactate Level 06/19/20 18:25: Lactic Acid Level 0.89 Lactic Acid Level Laboratory Tests Test 06/19/20 18:25 Lactic Acid Level 0.89 MMOL/L (0.50-2.00) Progress/Results/Core Measures Suspected Sepsis Recent Fever Within 48 Hours: No Infection Criteria Present: None New/Unexplained Altered Menta: Yes Sepsis Screen: No Definite Risk SIRS Temperature: Pulse: 98 Respiratory Rate: 18 Laboratory Tests 06/19/20 17:40: White Blood Count 5.9 Blood Pressure 133 /52 Mean: 79 06/19/20 18:25: Lactic Acid Level 0.89 Laboratory Tests 06/19/20 17:40: Creatinine 0.93, INR Comment 2.6H, Platelet Count 200, Total Bilirubin 1.6H Results/Orders Lab Results Laboratory Tests Test 06/19/20 17:40 06/19/20 18:25 Range/Units White Blood Count 5.9 4.3-11.0 10^3/uL Red Blood Count 2.15 L 4.35-5.85 10^6/uL Hemoglobin 7.8 L 11.5-16.0 G/DL Hematocrit 24 L 35-52 % Mean Corpuscular Volume 113 H 80-99 FL Mean Corpuscular Hemoglobin 36 H 25-34 PG Mean Corpuscular Hemoglobin Concent 32 32-36 G/DL Red Cell Distribution Width 14.9 H 10.0-14.5 % Platelet Count 200 130-400 10^3/uL Mean Platelet Volume 12.4 H 7.4-10.4 FL Neutrophils (%) (Auto) 81 H 42-75 % Lymphocytes (%) (Auto) 11 L 12-44 % Monocytes (%) (Auto) 7 0-12 % Eosinophils (%) (Auto) 1 0-10 % Basophils (%) (Auto) 0 0-10 % Neutrophils # (Auto) 4.8 1.8-7.8 X 10^3 Lymphocytes # (Auto) 0.6 L 1.0-4.0 X 10^3 Monocytes # (Auto) 0.4 0.0-1.0 X 10^3 Eosinophils # (Auto) 0.1 0.0-0.3 10^3/uL Basophils # (Auto) 0.0 0.0-0.1 10^3/uL Prothrombin Time 27.9 H 12.2-14.7 SEC INR Comment 2.6 H 0.8-1.4 Activated Partial Thromboplast Time 85 H 24-35 SEC Sodium Level 138 135-145 MMOL/L Potassium Level 3.2 L 3.6-5.0 MMOL/L Chloride Level 103 98-107 MMOL/L Carbon Dioxide Level 26 21-32 MMOL/L Anion Gap 9 5-14 MMOL/L Blood Urea Nitrogen 10 7-18 MG/DL Creatinine 0.93 0.60-1.30 MG/DL Estimat Glomerular Filtration Rate 58 BUN/Creatinine Ratio 11 Glucose Level 109 H 70-105 MG/DL Calcium Level 7.9 L 8.5-10.1 MG/DL Corrected Calcium 8.5 8.5-10.1 MG/DL Total Bilirubin 1.6 H 0.1-1.0 MG/DL Aspartate Amino Transf (AST/SGOT) 12 5-34 U/L Alanine Aminotransferase (ALT/SGPT) 10 0-55 U/L Alkaline Phosphatase 80 40-136 U/L Total Protein 6.3 L 6.4-8.2 GM/DL Albumin 3.2 3.2-4.5 GM/DL Urine Color YELLOW Urine Clarity CLEAR Urine pH 5.5 5-9 Urine Specific Jasper 1.015 L 1.016-1.022 Urine Protein TRACE H NEGATIVE Urine Glucose (UA) NEGATIVE NEGATIVE Urine Ketones NEGATIVE NEGATIVE Urine Nitrite NEGATIVE NEGATIVE Urine Bilirubin NEGATIVE NEGATIVE Urine Urobilinogen 1.0 < = 1.0 MG/DL Urine Leukocyte Esterase NEGATIVE NEGATIVE Urine RBC (Auto) NEGATIVE NEGATIVE Urine RBC NONE /HPF Urine WBC 0-2 /HPF Urine Squamous Epithelial Cells RARE /HPF Urine Renal Epithelial Cells RARE /HPF Urine Crystals NONE /LPF Urine Bacteria TRACE /HPF Urine Casts PRESENT /LPF Urine Hyaline Casts RARE /LPF Urine Mucus MODERATE H /LPF Urine Culture Indicated CULTURE PENDING Lactic Acid Level 0.89 0.50-2.00 MMOL/L My Orders Orders - GIOVANNI JIMENEZ MD Cbc With Automated Diff (06/19/20 18:21) Comprehensive Metabolic Panel (06/19/20 18:21) Blood Culture (06/19/20 18:21) Sputum Culture (06/19/20 18:21) Urinalysis (06/19/20 18:21) Urine Culture (06/19/20 18:21) Protime With Inr (06/19/20 18:21) Partial Thromboplastin Time (06/19/20 18:21) Chest 1 View, Ap/Pa Only (06/19/20 18:21) Ed Iv/Invasive Line Start (06/19/20 18:21) Vital Signs Adult Sepsis Patie Q15M (06/19/20 18:21) O2 (06/19/20 18:21) Remove Rings In Anticipation O (06/19/20 18:21) Lactic Acid Analyzer (06/19/20 18:21) Ct Head Wo (06/19/20 18:21) Straight Cath For Spec.-Adult (06/19/20 18:23) Ns Iv 500 Ml (Sodium Chloride 0.9%) (06/19/20 18:49) Acetaminophen Tablet/Caplet (Tylenol T (06/19/20 18:49) Coronavirus Sars-Cov-2 So 2018 (06/19/20 19:38) Azithromycin Injection (Zithromax Inject (06/19/20 19:40) Ceftriaxone For Iv Use (Rocephin For I (06/19/20 19:40) Vital Signs/I&O 06/19/20 06/19/20 17:20 17:24 Temp 38.0 38.0 Pulse 98 98 Resp 18 18 B/P (MAP) 133/52 (79) 133/52 (79) Pulse Ox 94 94 O2 Delivery Room Air Capillary Refill : NONE Blood Pressure Mean: 79 Progress Note : Progress Note Seen and evaluated. Sepsis workup initiated. UA obtained via straight catheter. Tylenol 1 g by mouth ordered. Will saline 500 mL bolus. Monitor patient. 1740: Labs and x-ray reviewed. Concerns about possible pneumonia. I discussed the case with Dr. Kong. She is recommending COVID-19 swab. This was ordered. We will initiate Rocephin and azithromycin in standard community-acquired pneumonia order protocol. I did discuss all of this with the patient and she agrees with plan. Admit, inpatient status, personality under investigation for COVID-19. Patient agrees with plan. Diagnostic Imaging Diagonstic Imaging: Xray Plain Films/CT/US/NM/MRI: chest Comments [facility] [place] NAME: URIAH GALDAMEZ [facility] REC#: [id number] PT STATUS: REG ER : 1940 PHYSICIAN: GIOVANNI JIMENEZ MD ADMIT DATE: 06/19/20/ER Signed Date of Exam:06/19/20 CHEST 1 VIEW, AP/PA ONLY EXAMINATION: Chest radiograph, portable AP view. DATE: 06/19/2020 6:51 PM hours. INDICATION: 79-year-old female, sepsis. COMPARISON: June 05, 2020. FINDINGS: Heart size and mediastinal contours are unchanged. There is no identified pneumothorax. There is no large pleural effusion. There are multifocal bilateral predominantly interstitial appearing opacities, this appearance is similar to the prior chest radiograph. IMPRESSION: Bilateral interstitial appearing opacities which may relate to pulmonary interstitial edema or atypical infection. This is similar in appearance to June 05, 2020. Dictated by: Dictated on workstation # [id number] Dict: 06/19/201851 Trans: 06/19/201857 [facility] [id number] Interpreted by: MELANI NEELY MD Electronically signed by: MELANI NEELY MD 06/19/201857 Diagonstic Imaging: CT Plain Films/CT/US/NM/MRI: head Comments [facility] [place] NAME: URIAH GALDAMEZ [facility] REC#: [id number] PT STATUS: REG ER : 1940 PHYSICIAN: GIOVANNI JIMENEZ MD ADMIT DATE: 06/19/20/ER Signed Date of Exam:06/19/20 CT HEAD WO PROCEDURE: CT head without contrast. TECHNIQUE: Multiple contiguous axial images were obtained through the brain without the use of intravenous contrast. Auto Exposure Controls were utilized during the CT exam to meet ALARA standards for radiation dose reduction. DATE: June 19, 2020. COMPARISON: CT head May 25, 2019. INDICATION: 79-year-old female, fall. Hit head. Headache and dizziness. FINDINGS: There is a small CSF-like attenuation focus in the region of the right external capsule which may relate to a prominent perivascular cyst versus a remote prior infarct. This is unchanged since prior exam. The ventricles and cerebral spinal fluid spaces are of normal size and configuration for the patient's age. There is no mass effect or midline shift. There is no acute intracranial hemorrhage. There is no abnormal extra-axial fluid collection. There is nonspecific opacification in the posterior aspect of the left sphenoid sinus. This is also present on prior exam. IMPRESSION: No identified acute intracranial abnormality. Dictated by: Dictated on workstation # [id number] Dict: 06/19/20 184 Trans: 06/19/201857 [facility] [id number] Interpreted by: MELANI NEELY MD Electronically signed by: MELANI NEELY MD 06/19/201857 Departure Communication (Admissions) Time/Spoke to Admitting Phy: 17:40 Impression Primary Impression: Bilateral pneumonia Additional Impression: COVID-19 evaluation Disposition: ADMITTED INPATIENT Condition: Stable Admissions Decision to Admit Reason: Admit from ER (General) Decision to Admit/Date: Jun 19, 2020 Time/Decision to Admit Time: 17:40 Departure-Patient Inst. Referrals: [facility] (PCP) Primary Care Physician TILA SHARMA APRN (Family) Primary Care Physician GIOVANNI JIMENEZ MD Jun 19, 2020 18:48
[2020-06-19] MEDS ORDERED: ACETAMINOPHEN 325 MG TABLET PO STA (18:49)
[2020-06-19] MEDS ORDERED: NS IV 500 ML 500 ML IV ONE (18:49)
--- NOTE | 2020-06-19 18:54 | Diagnostic Imaging Report ---
PROCEDURE: CT head without contrast. TECHNIQUE: Multiple contiguous axial images were obtained through the brain without the use of intravenous contrast. Auto Exposure Controls were utilized during the CT exam to meet ALARA standards for radiation dose reduction. DATE: June 19, 2020. COMPARISON: CT head May 25, 2019. INDICATION: 79-year-old female, fall. Hit head. Headache and dizziness. FINDINGS: There is a small CSF-like attenuation focus in the region of the right external capsule which may relate to a prominent perivascular cyst versus a remote prior infarct. This is unchanged since prior exam. The ventricles and cerebral spinal fluid spaces are of normal size and configuration for the patient's age. There is no mass effect or midline shift. There is no acute intracranial hemorrhage. There is no abnormal extra-axial fluid collection. There is nonspecific opacification in the posterior aspect of the left sphenoid sinus. This is also present on prior exam. IMPRESSION: No identified acute intracranial abnormality. Dictated by: Dictated on workstation # [id number]
--- NOTE | 2020-06-19 18:58 | Diagnostic Imaging Report ---
EXAMINATION: Chest radiograph, portable AP view. DATE: 06/19/2020 6:51 PM hours. INDICATION: 79-year-old female, sepsis. COMPARISON: June 05, 2020. FINDINGS: Heart size and mediastinal contours are unchanged. There is no identified pneumothorax. There is no large pleural effusion. There are multifocal bilateral predominantly interstitial appearing opacities, this appearance is similar to the prior chest radiograph. IMPRESSION: Bilateral interstitial appearing opacities which may relate to pulmonary interstitial edema or atypical infection. This is similar in appearance to June 05, 2020. Dictated by: Dictated on workstation # [id number]
[2020-06-19] MEDS ORDERED: AZITHROMYCIN INJECTION 500 MG in NS (IVPB) 250 ML IV STA (19:40)
[2020-06-19] MEDS ORDERED: cefTRIAXone FOR IV USE 1,000 MG in WATER (STERILE) FOR INJECTION 10 ML IV STA (19:40)
--- NOTE | 2020-06-19 21:50 | NUR ---
URIAH GALDAMEZ admitted to room 424-1, with an admitting diagnosis of PNA, JEFF CONDON, on 06/19/20 from [place] via WHEELCHAIR, accompanied by STAFF.URIAH GALDAMEZ introduced to surroundings, call light, bed controls, phone, TV, temperature control, lights, meal times, smoking policy, visitor policy, side rail policy, bathrooms and showers. Patient Rights given to patient in the handbook. URIAH GALDAMEZ verbalizes understanding that [facility] is not responsible for the loss or damage to any personal effects or valuables that are kept in the patients posession during their hospitalization. URIAH GALDAMEZ verbalizes understanding of Interdisciplinary Patient Education. Patient and/or family were informed about the Rapid Response Team and its purpose.
[2020-06-19 21:51] VITALS: BP 111/54
[2020-06-19] MEDS ORDERED: ONDANSETRON 4 MG/2 ML (SDV) Z0FRAN IV PRN (22:45)
[2020-06-19] MEDS ORDERED: ACETAMINOPHEN 325 MG TABLET PO PRN (22:45)
--- NOTE | 2020-06-19 22:51 | NUR ---
pt states she takes Pradaxa 150mg PO BID, reports last dose was this morning. dosage verified over the phone with pt daughter and . Dr. Kong notified, ordered to restart it.
[2020-06-19] MEDS ORDERED: DABIGATRAN 150 MG (PRADAXA) CAPSULE PO ONE (22:55)
--- NOTE | 2020-06-19 23:10 | NUR ---
this nurse reviewed labs saw hgb 7.8, notified dr Kong about that and the Pradaxa, ordered to hold for now
[2020-06-19 23:31] VITALS: BP 106/50
[2020-06-19 23:36] VITALS: BP 133/52
--- NOTE | 2020-06-19 23:50 | NUR ---
Albuterol MDI prn. Initiate 02 to keep sats greater than 92%. RT to reevaluate or reassess in 72 hours or as needed. Addendum: 06/19/20 at 2350 by TORRI HALEY RT Amended: Links added.
[2020-06-20] VITALS (7 sets, daily range): BP systolic 97–148; BP diastolic 53–68
[2020-06-20] MEDS ORDERED: RT-ALBUTEROL INHALER HFA (VENTOLIN HFA) 18 GM IH PRN
[2020-06-20 05:49] LABS: BASOPHILS % (AUTO) 0 % (0-10); EOSINOPHILS # (AUTO) 0.1 10^3/uL (0.0-0.3); EOSINOPHILS % (AUTO) 2 % (0-10); HEMATOCRIT 24 % (35-52); HEMOGLOBIN 7.4 G/DL (11.5-16.0); LYMPHOCYTES # (AUTO) 0.4 X 10^3 (1.0-4.0); LYMPHOCYTES % (AUTO) 9 % (12-44); MEAN CORPUSCULAR HEMOGLOBIN 35 PG (25-34); MEAN CORPUSCULAR HGB CONC 31 G/DL (32-36); MEAN CORPUSCULAR VOLUME 113 FL (80-99); MEAN PLATELET VOLUME 11.5 FL (7.4-10.4); MONOCYTES # (AUTO) 0.2 X 10^3 (0.0-1.0); MONOCYTES % (AUTO) 5 % (0-12); NEUTROPHILS # (AUTO) 3.4 X 10^3 (1.8-7.8); NEUTROPHILS % (AUTO) 84 % (42-75); PLATELET COUNT 160 10^3/uL (130-400)
[2020-06-20 06:08] LABS: ALANINE AMINOTRANSFERASE 9 U/L (0-55); ALKALINE PHOSPHATASE 89 U/L (40-136); BILIRUBIN,TOTAL 1.2 MG/DL (0.1-1.0); BUN/CREATININE RATIO 13; CALCIUM 7.9 MG/DL (8.5-10.1); CARBON DIOXIDE 27 MMOL/L (21-32); CHLORIDE 106 MMOL/L (98-107); CREATININE SERUM 0.83 MG/DL (0.60-1.30); GFR ESTIMATED > 60; GLUCOSE 100 MG/DL (70-105); POTASSIUM 3.3 MMOL/L (3.6-5.0); SODIUM 142 MMOL/L (135-145)
[2020-06-20] MEDS ORDERED: DABIGATRAN 150 MG (PRADAXA) CAPSULE PO SCH (09:00)
--- NOTE | 2020-06-20 11:25 | NUR ---
pt denies any respiratory distress. no breathing tx given at this time. Addendum: 06/20/20 at 1128 by ADAM JIMENEZ RT Amended: Links added.
[2020-06-20] MEDS ORDERED: NITR-65 PO (12:25)
[2020-06-20] MEDS ORDERED: FERR325T18 PO (12:25)
--- NOTE | 2020-06-20 12:26 | NUR ---
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
[2020-06-20 13:08] LABS: HEMATOCRIT 23 % (35-52); HEMOGLOBIN 7.1 G/DL (11.5-16.0); MEAN CORPUSCULAR HEMOGLOBIN 36 PG (25-34); MEAN CORPUSCULAR HGB CONC 32 G/DL (32-36); MEAN CORPUSCULAR VOLUME 113 FL (80-99); MEAN PLATELET VOLUME 12.1 FL (7.4-10.4); PLATELET COUNT 173 10^3/uL (130-400); WHITE BLOOD COUNT 4.8 10^3/uL (4.3-11.0)
[2020-06-20 13:22] LABS: ABSOLUTE RETIC # 48 10e9/L (24-90); BASOPHILS % (AUTO) 0 % (0-10); EOSINOPHILS # (AUTO) 0.1 10^3/uL (0.0-0.3); EOSINOPHILS % (AUTO) 1 % (0-10); LYMPHOCYTES # (AUTO) 0.5 X 10^3 (1.0-4.0); LYMPHOCYTES % (AUTO) 10 % (12-44); MONOCYTES # (AUTO) 0.3 X 10^3 (0.0-1.0); MONOCYTES % (AUTO) 5 % (0-12); NEUTROPHILS % (AUTO) 83 % (42-75); RETICULOCYTE % 2.39 % (0.50-2.40)
[2020-06-20 14:49] LABS: NEUTROPHILS % (MANUAL) 86 %
[2020-06-20 14:50] LABS: ANISOCYTOSIS MODERATE; EOSINOPHILS % (MANUAL) 1 %; HYPOCHROMASIA MARKED; LYMPHOCYTES % (MANUAL) 9 %; METAMYELOCYTES % 1 %; MONOCYTES % (MANUAL) 3 %; NUCLEATED RED BLOOD CELLS 1
--- NOTE | 2020-06-20 15:58 | History & Physical ---
HPI History of Present Illness: 79 yo female came to ER due to lightheadedness, dizziness and weakness. She has been so dizzy that she fell forward when trying to use the toilet and hit her head against the wall in front of her. She does note she had progressively decreasing hemoglobin over the last few weeks or so, and due to that her Screening Technician had changed her from hydroxyurea to Jakafi for her polycythemia. She had bad side effects with Jakafi and felt terrible on it, so much that she asked him to take her off, which they did and she stopped it about a week ago. She has continued to feel weak and dizzy, however. She had a colonoscopy and EGD a few days ago to look for internal bleeding, and she states there were no abnor malities that she knows of, but she was told the doctor only saw the lower half of the colon. She also has had some issue going on with her heart, had an echo earlier this month and there was a possibility that she had a clot in her heart, but was not clearly diagnosed and she is not sure what is going on with that. She is usually on Pradaxa for atrial fibrillation and has been taking that since her colnoscopy, was off 2 days prior. She denies fever at home, cough, shortness of breath, nasal congestion. She admits sore throat after using CPAP at night sometimes, and occasional upper chest sharp pain. She did have cough and vomiting when she was drinking colonoscopy prep, but none since. Source: patient Date seen by provider: Jun 20, 2020 Time Seen by Provider: 15:57 Attending Physician Dom Kong MD [facility] [place] [facility] Consult Date of Admission Jun 19, 2020 at 19:45 Home Medications Home Medications Reviewed patient Home Medication Reconciliation performed by pharmacy medication reconciliations environmental health technician and/or nursing. Patients Allergies have been reviewed. Allergies Coded Allergies: Penicillins (Unverified Allergy, Unknown, 02/16/20) PVH-Vnoznq-Ijcyeq Hx Patient Social History Alcohol Use: Denies Use Recreational Drug Use: No Smoking Status: Never a Smoker Recent Foreign Travel: No Contact w/other who traveled: No Recent Hopitalizations: No Recent Infectious Disease Expo: No Immunizations Up To Date Date of Pneumonia Vaccine: Jun 05, 2018 Past Medical History PMHx: A fib ROM Polycythemia Family Medical History Significant Family History: No Pertinent Family Hx Review of Systems ([facility]) Constitutional: No fever EENTM: No nose congestion Respiratory: No cough, No short of breath Cardiovascular: see HPI Gastrointestinal: No abdominal pain, No constipation, No diarrhea Genitourinary: No dysuria Musculoskeletal: joint pain ("not enough to complain about") Skin: No rash Reviewed Test Results Reviewed Test Results Lab Laboratory Tests Test 06/19/20 17:40 06/19/20 18:25 06/19/20 19:45 06/20/20 05:05 Range/Units White Blood Count 5.9 4.0 L 4.3-11.0 10^3/uL Red Blood Count 2.15 L 2.09 L 4.35-5.85 10^6/uL Hemoglobin 7.8 L 7.4 L 11.5-16.0 G/DL Hematocrit 24 L 24 L 35-52 % Mean Corpuscular Volume 113 H 113 H 80-99 FL Mean Corpuscular Hemoglobin 36 H 35 H 25-34 PG Mean Corpuscular Hemoglobin Concent 32 31 L 32-36 G/DL Red Cell Distribution Width 14.9 H 15.0 H 10.0-14.5 % Platelet Count 200 160 130-400 10^3/uL Mean Platelet Volume 12.4 H 11.5 H 7.4-10.4 FL Neutrophils (%) (Auto) 81 H 84 H 42-75 % Lymphocytes (%) (Auto) 11 L 9 L 12-44 % Monocytes (%) (Auto) 7 5 0-12 % Eosinophils (%) (Auto) 1 2 0-10 % Basophils (%) (Auto) 0 0 0-10 % Neutrophils # (Auto) 4.8 3.4 1.8-7.8 X 10^3 Lymphocytes # (Auto) 0.6 L 0.4 L 1.0-4.0 X 10^3 Monocytes # (Auto) 0.4 0.2 0.0-1.0 X 10^3 Eosinophils # (Auto) 0.1 0.1 0.0-0.3 10^3/uL Basophils # (Auto) 0.0 0.0 0.0-0.1 10^3/uL Prothrombin Time 27.9 H 12.2-14.7 SEC INR Comment 2.6 H 0.8-1.4 Activated Partial Thromboplast Time 85 H 24-35 SEC Sodium Level 138 142 135-145 MMOL/L Potassium Level 3.2 L 3.3 L 3.6-5.0 MMOL/L Chloride Level 103 106 98-107 MMOL/L Carbon Dioxide Level 26 27 21-32 MMOL/L Anion Gap 9 9 5-14 MMOL/L Blood Urea Nitrogen 10 11 7-18 MG/DL Creatinine 0.93 0.83 0.60-1.30 MG/DL Estimat Glomerular Filtration Rate 58 > 60 BUN/Creatinine Ratio 11 13 Glucose Level 109 H 100 70-105 MG/DL Calcium Level 7.9 L 7.9 L 8.5-10.1 MG/DL Corrected Calcium 8.5 8.7 8.5-10.1 MG/DL Total Bilirubin 1.6 H 1.2 H 0.1-1.0 MG/DL Aspartate Amino Transf (AST/SGOT) 12 9 5-34 U/L Alanine Aminotransferase (ALT/SGPT) 10 9 0-55 U/L Alkaline Phosphatase 80 89 40-136 U/L Total Protein 6.3 L 6.0 L 6.4-8.2 GM/DL Albumin 3.2 3.0 L 3.2-4.5 GM/DL Urine Color YELLOW Urine Clarity CLEAR Urine pH 5.5 5-9 Urine Specific [place] 1.015 L 1.016-1.022 Urine Protein TRACE H NEGATIVE Urine Glucose (UA) NEGATIVE NEGATIVE Urine Ketones NEGATIVE NEGATIVE Urine Nitrite NEGATIVE NEGATIVE Urine Bilirubin NEGATIVE NEGATIVE Urine Urobilinogen 1.0 < = 1.0 MG/DL Urine Leukocyte Esterase NEGATIVE NEGATIVE Urine RBC (Auto) NEGATIVE NEGATIVE Urine RBC NONE /HPF Urine WBC 0-2 /HPF Urine Squamous Epithelial Cells RARE /HPF Urine Renal Epithelial Cells RARE /HPF Urine Crystals NONE /LPF Urine Bacteria TRACE /HPF Urine Casts PRESENT /LPF Urine Hyaline Casts RARE /LPF Urine Mucus MODERATE H /LPF Urine Culture Indicated CULTURE PENDING Lactic Acid Level 0.89 0.50-2.00 MMOL/L Coronavirus (COVID-19)(PCR) Negative Negative Test 06/20/20 06:05 06/20/20 13:00 Range/Units White Blood Count 4.8 4.3-11.0 10^3/uL Red Blood Count 1.99 L 4.35-5.85 10^6/uL Hemoglobin 7.1 L 11.5-16.0 G/DL Hematocrit 23 L 35-52 % Mean Corpuscular Volume 113 H 80-99 FL Mean Corpuscular Hemoglobin 36 H 25-34 PG Mean Corpuscular Hemoglobin Concent 32 32-36 G/DL Red Cell Distribution Width 14.9 H 10.0-14.5 % Platelet Count 173 130-400 10^3/uL Mean Platelet Volume 12.1 H 7.4-10.4 FL Neutrophils (%) (Auto) 83 H 42-75 % Lymphocytes (%) (Auto) 10 L 12-44 % Monocytes (%) (Auto) 5 0-12 % Eosinophils (%) (Auto) 1 0-10 % Basophils (%) (Auto) 0 0-10 % Neutrophils # (Auto) 4.0 1.8-7.8 X 10^3 Lymphocytes # (Auto) 0.5 L 1.0-4.0 X 10^3 Monocytes # (Auto) 0.3 0.0-1.0 X 10^3 Eosinophils # (Auto) 0.1 0.0-0.3 10^3/uL Basophils # (Auto) 0.0 0.0-0.1 10^3/uL Neutrophils % (Manual) 86 % Lymphocytes % (Manual) 9 % Monocytes % (Manual) 3 % Eosinophils % (Manual) 1 % Metamyelocytes % 1 % Nucleated Red Blood Cells 1 Hypochromasia MARKED Anisocytosis MODERATE Absolute Reticulocyte Count 48 24-90 10e9/L Percent Reticulocyte Count 2.39 0.50-2.40 % Radiology CT head 06/19 with no acute abnormalities CXR 06/19 IMPRESSION: Bilateral interstitial appearing opacities which may relate to pulmonary interstitial edema or atypical infection. This is similar in appearance to June 05, 2020. Physical Exam-([facility]) Physical Exam Vital Signs VS - Last 72 Hours, by Label 06/19/20 06/19/20 06/19/20 06/19/20 17:20 17:24 21:00 21:02 Temp 38.0 38.0 38.0 37.2 Pulse 98 98 98 80 Resp 18 18 18 17 B/P (MAP) 133/52 (79) 133/52 (79) 133/52 (79) 110/58 Pulse Ox 94 94 94 96 O2 Delivery Room Air Room Air 9/06/19/20 06/19/20 06/19/20 21:51 21:55 23:31 23:36 Temp 36.4 35.3 38.0 Pulse 88 75 98 Resp 20 20 B/P (MAP) 111/54 106/50 (68) Pulse Ox 96 94 94 O2 Delivery Room Air Room Air Room Air FiO2 21 06/20/20 06/20/20 06/20/20 06/20/20 03:23 07:53 08:00 09:16 Temp 35.7 36.1 37.3 Pulse 84 82 97 Resp 18 19 20 B/P (MAP) 127/61 (83) 148/65 (92) Pulse Ox 95 92 O2 Delivery Nasal Cannula Nasal Cannula Nasal Cannula Nasal Cannula O2 Flow Rate 2.00 2.00 2.00 2.00 06/20/20 06/20/20 06/20/20 12:11 14:42 14:43 Temp 37.6 36.5 36.5 Pulse 104 Resp 22 B/P (MAP) 127/58 (81) Pulse Ox 97 O2 Delivery Nasal Cannula O2 Flow Rate 2.00 Capillary Refill : Less Than 3 Seconds General Appearance: thin Respiratory: no respiratory distress, crackles; No rhonchi, No wheezing Cardiovascular: no murmur, irregularly irregular Gastrointestinal: normal bowel sounds, non tender, soft Extremities: no pedal edema Neurologic/Psychiatric: alert, normal mood/affect Skin: normal color, warm/dry Assessment/Plan Assessment/Plan Admission Status: Inpatient Order (span 2 midnights) Reason for Inpatient Admission: Pneumonia, severe anemia with multiple underlying comorbidities (1) Bilateral pneumonia Status: Acute Assessment & Plan: Started on ceftriaxone and azithromycin, suspect atypical pneumonia given CXR findings. She has been febrile overnight. No evidence of severe sepsis. No hypoxia currently. (2) Afib Status: Chronic Assessment & Plan: Holding Pradaxa due to marked anemia. Will try to resume beta constantin with caution as she does have mild tachycardia, but also normal to low normal blood pressure. Qualifiers: Qualified Codes: I48.11 - Longstanding persistent atrial fibrillation (3) Anemia Status: Acute Assessment & Plan: Suspect may be due to medications, hydroxyurea was already stopped, but Jakafi could also cause anemia, thrombocytopenia and neutropenia and was stopped more recently. Iron studies, B12, folate, peripheral smear and retic count pending. No clear source of bleeding on EGD/colo. Follow hemoglobin closely, will likely need transfusion given symptomatology and decreasing hemoglobin. Qualifiers: Qualified Codes: D64.9 - Anemia, unspecified (4) Hypertension Status: Chronic Assessment & Plan: Currently normal BP, resume home meds as needed. Qualifiers: Qualified Codes: I10 - Essential (primary) hypertension (5) Person under investigation for COVID-19 Status: Resolved Assessment & Plan: Due to fever and respiratory symptoms, COVID19 swab done, was negative. (6) Obstructive sleep apnea Status: Chronic Assessment & Plan: CPAP at night. (7) Hypothyroidism Status: Chronic (8) Polycythemia Status: Chronic Assessment & Plan: Currently not on suppressive treatment due to anemia. (9) DVT prophylaxis Status: Acute Assessment & Plan: No pharmacologic prophylaxis due to severe anemia. Clinical Quality Measures DVT/VTE Risk/Contraindication: Risk Factor Score Per Nursin RFS Level Per Nursing on Admit: 4+=Very High DOM KONG MD Jun 20, 2020 15:58
--- NOTE | 2020-06-20 16:30 | NUR ---
BP 98/[address] ANDERSON NOTIFIED AND WILL PLACE NEW ORDERS IN EMR. PT RESTING IN RECLINER AWAITING FOR DINNER, NEEDS MET AT THIS TIME.
[2020-06-20] MEDS ORDERED: NS IV 500 ML 500 ML IV SCH ×2 (16:32→16:45)
[2020-06-20] MEDS ORDERED: cefTRIAXone 1,000 MG/SWFI 10 ML IV PUSH IV SCH ×2 (20:00)
[2020-06-20] MEDS ORDERED: AZITHROMYCIN 500 MG/NS 250 ML IVPB IV SCH ×2 (21:00)
[2020-06-20] MEDS: meTOprolol TARTRATE 50 MG (LOPRESSOR) TAB PO SCH (21:00)
[2020-06-21 01:17] VITALS: BP 122/80
[2020-06-21 01:18] VITALS: BP 122/80
[2020-06-21 04:00] VITALS: BP 129/83
[2020-06-21 05:49] LABS: BASOPHILS % (AUTO) 0 % (0-10); EOSINOPHILS # (AUTO) 0.1 10^3/uL (0.0-0.3); EOSINOPHILS % (AUTO) 2 % (0-10); HEMATOCRIT 27 % (35-52); HEMOGLOBIN 8.6 G/DL (11.5-16.0); LYMPHOCYTES # (AUTO) 0.6 X 10^3 (1.0-4.0); LYMPHOCYTES % (AUTO) 13 % (12-44); MEAN CORPUSCULAR HGB CONC 32 G/DL (32-36); MEAN CORPUSCULAR VOLUME 100 FL (80-99); MEAN PLATELET VOLUME 12.3 FL (7.4-10.4); MONOCYTES # (AUTO) 0.3 X 10^3 (0.0-1.0); MONOCYTES % (AUTO) 6 % (0-12); NEUTROPHILS # (AUTO) 3.5 X 10^3 (1.8-7.8); NEUTROPHILS % (AUTO) 79 % (42-75); PLATELET COUNT 181 10^3/uL (130-400); WHITE BLOOD COUNT 4.4 10^3/uL (4.3-11.0)
[2020-06-21 05:55] LABS: MEAN CORPUSCULAR HEMOGLOBIN 32 PG (25-34)
[2020-06-21 06:04] LABS: CHLORIDE 105 MMOL/L (98-107); POTASSIUM 3.9 MMOL/L (3.6-5.0); SODIUM 139 MMOL/L (135-145)
[2020-06-21 06:06] LABS: GLUCOSE 97 MG/DL (70-105); TOTAL PROTEIN 6.2 GM/DL (6.4-8.2)
[2020-06-21 06:07] LABS: CARBON DIOXIDE 25 MMOL/L (21-32)
[2020-06-21 06:08] LABS: BILIRUBIN,TOTAL 1.5 MG/DL (0.1-1.0)
[2020-06-21 06:09] LABS: ALKALINE PHOSPHATASE 79 U/L (40-136)
[2020-06-21 06:10] LABS: CREATININE SERUM 0.79 MG/DL (0.60-1.30); GFR ESTIMATED > 60
[2020-06-21 06:11] LABS: BUN/CREATININE RATIO 14
[2020-06-21 06:12] LABS: ALANINE AMINOTRANSFERASE 12 U/L (0-55)
[2020-06-21 08:00] VITALS: BP 116/71
[2020-06-21] MEDS: meTOprolol TARTRATE 50 MG (LOPRESSOR) TAB PO SCH (08:28)
[2020-06-21] MEDS ORDERED: LEVOTHYROXINE 100 MCG (LEVOTHROID) TAB PO SCH (09:00)
--- NOTE | 2020-06-21 10:23 | Physical Therapy Evaluation ---
PT Evaluation-General Medical Diagnosis Admission Date Jun 19, 2020 at 19:45 Medical Diagnosis: pneumonia Onset Date: Jun 19, 2020 Therapy Diagnosis Therapy Diagnosis: debility/weakness Precautions Precautions/Isolations: Fall Prevention, Standard Precautions Referral Physician: Dilan Reason for Referral: Evaluation/Treatment Medical History Pertinent Medical History: Atrial Fib, HTN Current History ER secondary to fall at home/increased weakness and dizziness Reviewed History: Yes Social History Home: Single Level Current Living Status: Spouse Entry Into Home: Stairs With Railing PT Steps Into Home: 2 Prior Prior Level of Function SCALE: Activities may be completed with or without assistive devices. 7-Yoqwhpmyjl-bsfpcxm completes the activity by him/herself with no assistance from a helper. 5-Set-up or Clean-up Assistance-helper sets up or cleans up; patient completes activity. [place] assists only prior to or following the activity. 4-Supervision or Touching Assistance-helper provides verbal cues and/or touching/steadying and/or contact guard assistance as patient completes act ivity. Assistance may be provided throughout the activity or intermittently. 3-Partial/Moderate Assistance-helper does LESS THAN HALF the effort. [place] lifts, holds or supports trunk or limbs, but provides less than half the effort. 2-Substantial/Maximal Assistance-helper does MORE THAN HALF the effort. [place] lifts or holds trunk or limbs and provides more than half the effort. 5-Xuwbueaht-yqftyk does ALL the effort. Patient does none of the effort to complete the activity. Or, the assistance of 2 or more helpers is required for the patient to complete the activity. If activity was not attempted, code reason: 7-Patient Refused. 9-Not Applicable-not attempted and the patient did not perform the activity before the current illness, exacerbation or injury. 10-Not Attempted due to Environmental Limitations-(lack of equipment, weather restraints, etc.). 88-Not Attempted due to Medical Conditions or Safety Concerns. Bed Mobility: 6 Transfers (B,C,W/C): 6 Gait: 6 Stairs: 6 Indoor Mobility (Ambulation): Independent Stairs: Independent Prior Devices Use: Other-see list below Prior Device Use: 3 wheeled rollator PT Evaluation-Current Subjective Patient agrees to PT. She reports she is feeling better. Pain Numeric Pain Scale: 0-No Pain Location: No Pain Reported Objective Patient Orientation: Normal For Age Attachments: Oxygen ROM/Strength ROM Lower Extremities bilateral LE WFL Strength Lower Extremities 4/5 grossly bilateral LE Integumentary/Posture Integumentary refer to nursing notes Bowel Incontinence: No Bladder Incontinence: No (toileted self without difficulty) Posture WFL Neuromuscular (Tone, Coordination, Reflexes) grossly intact Sensory Vision: Wears Glasses Hearing: Functional Transfers Roll Left to Right (QC): 6 Sit to Lying (QC): 6 Lying to Sitting/Side of Bed(Q: 6 Sit to Stand (QC): 6 Chair/Qyu-ov-Fvnsw Xfer(QC): 6 Toilet Transfer (QC): 6 Gait Does the Patient Walk?: Yes Mode of Locomotion: Walk Anticipated Mode of Locomotion: Walk Walk 10 feet (QC): 6 Walk 50 ft with 2 Turns(QC): 6 Walk 150 ft (QC): 6 Distance: 400' Gait Assistive Device: FWW Comments/Gait Description safe and functional with no deviation Wheelchair Training Does the Pt Use a Wheelchair?: No Balance Sitting Static: Normal Sitting Dynamic: Normal Standing Static: Normal Standing Dynamic: Normal Assessment/Needs 79 y.o. female is currently at [facility] with all gross motor skills safely and does not require skilled therapy intervention. Rehab Potential: Fair PT Plan Treatment/Plan Treatment Plan: Discontinue PT, goals met Treatment Duration: Jun 21, 2020 Frequency: 1 time per week Estimated Hrs Per Day: .25 hour per day Patient and/or Family Agrees t: Yes Discharge Recommendations Therapy Discharge Recommendati: Home & Family Time/GCodes Time In: 923 Time Out: 940 Total Billed Treatment Time: 17 Total Billed Treatment 1 visit EVMod 17 min GUSTAVO PEGUERO PT Jun 21, 2020 10:23
[2020-06-21 12:00] VITALS: BP 96/59
[2020-06-21] MEDS ORDERED: FERROUS SULF 325 MG (IRON) TAB PO SCH (12:00)
[2020-06-21] MEDS ORDERED: METO-333 PO (12:24)
[2020-06-21] MEDS ORDERED: AZIT250T12 PO (12:24)
--- NOTE | 2020-06-21 13:16 | NUR ---
RD ASSESSMENT PMHx: afib; ROM PT INTERACTION: Pt was awake and pleasant during nutrition assessment. Pt states current appetite is "not good" and has been this way for the last 3mon. Note avg PO intake <10% x2meal, per chart review. Pt states following a regular diet at home, and has no issues with chewing/swallowing food. Note pt has dentures. Pt states some issues with nausea, vomiting, constipation, and diarrhea. Note last BM was 06/20 and pt not currently on bowel regimen per chart review. Pt states recent wt loss, but is unsure of amount/timeframe. Pt states it is intentional wt loss as she stated she needed to lose some weight. Note recent 7# wt gain x3mon, per chart review. ABNORMAL NUTRITION-RELATED LAB VALUES LOW: Ca 8.0; Pro 6.2; alb 3.0 HIGH: bili 1.5 Est. kcal needs: 1500 kcal | 20 kcal/kg Est. Pro needs: 60 g Pro | 0.8 g Pro/kg PES STATEMENT: Inadequate oral intake (NI-2.1) related to loss of appetite | nausea | vomiting | constipation | diarrhea as evidenced by pt interview | avg PO intake <10% x2meal INTERVENTION: Continue with current diet order of Regular diet. Pt may benefit from nutrition supplementation if PO intake remains low. Note pt does not prefer Ensure Enlive or HP, as she does not prefer milk products. If supplementation is needed, would recommend Ensure Clear. Ensure Clear provides 240 kcal and 8 g Pro per serving. Encouraged pt to eat when able. Will continue to follow and reassess as pt needs, intake, and status change. Loreto Guzmán, MS, RD, LD
--- NOTE | 2020-06-21 13:59 | Discharge Summary ---
Discharge Summary Hospital Course Problems/Diagnosis: (1) Bilateral pneumonia Status: Acute Assessment & Plan: Started on ceftriaxone and azithromycin, suspect atypical pneumonia given CXR findings. She has been febrile overnight. No evidence of severe sepsis. 06/21 discharged on azithromycin to complete course. (2) Afib Status: Chronic Assessment & Plan: Holding Pradaxa due to marked anemia. Will try to resume beta constantin with caution as she does have mild tachycardia, but also normal to low normal blood pressure. Pradaxa held on d/c, discussed with Dr. Argueta, will need to try to resume as soon as possible, but currently risk of severe anemia is too high. Resume metoprolol at 25 mg due to still having borderline low blood pressure. Qualifiers: Qualified Codes: I48.11 - Longstanding persistent atrial fibrillation (3) Anemia Status: Acute Assessment & Plan: Suspect may be due to medications, hydroxyurea was already stopped, but Jakafi could also cause anemia, thrombocytopenia and neutropenia and was stopped more recently. Iron studies, B12, folate, peripheral smear and retic count pending. No clear source of bleeding on EGD/colo. Follow hemoglobin closely, will likely need transfusion given symptomatology and decreasing hemoglobin. 06/21 transfused last night and feeling better today. Iron studies do not suggest iron deficiency, vitamin B12 and folate pending. Suspect medication related, unsure how long effects will last, will need repeat lab on Wednesday. Qualifiers: Qualified Codes: D64.9 - Anemia, unspecified (4) Hypertension Status: Chronic Qualifiers: Qualified Codes: I10 - Essential (primary) hypertension (5) Person under investigation for COVID-19 Status: Resolved Resolution Date/Time: 06/20/20 @ 16:31 Assessment & Plan: Due to fever and respiratory symptoms, COVID19 swab done, was negative. (6) Obstructive sleep apnea Status: Chronic Assessment & Plan: CPAP at night. (7) Hypothyroidism Status: Chronic (8) Polycythemia Status: Chronic Assessment & Plan: Currently not on suppressive treatment due to anemia. Hospital Course Date of Admission: Jun 19, 2020 at 19:45 Admission Diagnosis : See problem list Family Physician/Provider: Caridad Moses Aprn Date of Discharge: 06/21/20 Discharge Diagnosis: See problem list Hospital Course: See problem list Labs and Pending Lab Test: Laboratory Tests 06/21/20 05:34: White Blood Count 4.4, Red Blood Count 2.65L, Hemoglobin 8.6#L, Hematocrit 27L, Mean Corpuscular Volume 100H, Mean Corpuscular Hemoglobin 32, Mean Corpuscular Hemoglobin Concent 32, Red Cell Distribution Width , Platelet Count 181, Mean Platelet Volume 12.3H, Neutrophils (%) (Auto) 79H, Lymphocytes (%) (Auto) 13, Monocytes (%) (Auto) 6, Eosinophils (%) (Auto) 2, Basophils (%) (Auto) 0, Neutrophils # (Auto) 3.5, Lymphocytes # (Auto) 0.6L, Monocytes # (Auto) 0.3, Eosinophils # (Auto) 0.1, Basophils # (Auto) 0.0, Sodium Level 139, Potassium Level 3.9, Chloride Level 105, Carbon Dioxide Level 25, Anion Gap 9, Blood Urea Nitrogen 11, Creatinine 0.79, Estimat Glomerular Filtration Rate > 60, BUN/Creatinine Ratio 14, Glucose Level 97, Calcium Level 8.0L, Corrected Calcium 8.8, Total Bilirubin 1.5H, Aspartate Amino Transf (AST/SGOT) 19, Alanine Aminotransferase (ALT/SGPT) 12, Alkaline Phosphatase 79, Total Protein 6.2L, Albumin 3.0L, Vitamin B12 Level Pending, Folate [Pending] Microbiology 06/19/20 Blood Culture - Preliminary, Resulted No growth 06/19/20 Urine Culture - Final, Complete NO GROWTH Home Meds Active Azithromycin 250 Mg Tablet 250 Mg PO HS Metoprolol Tartrate 25 Mg Tablet 25 Mg PO BID Reported Macrobid 100 mg Capsule (Nitrofurantoin Monohyd/M-Cryst) 100 Mg Capsule 1 Tab PO BID FILLED 06-17-2020 #14/7 DAY SUPPLY Ferrous Sulfate 325 Mg Tablet 325 Mg PO 1200 Pradaxa (Dabigatran Etexilate Mesylate) 150 Mg Capsule 150 Mg PO BID Furosemide 20 Mg Tablet 20 Mg PO DAILY Levothyroxine Sodium 100 Mcg Tablet 100 Mcg PO DAILY Vitamin D3 (Cholecalciferol (Vitamin D3)) 25 Mcg Capsule 25 Mcg PO DAILY Assessment/Pt DC Instructions Follow up with Caridad Moses on 06/25 at 10 am. Get CBC drawn on Wednesday. Discharge Diet: Cardiac Diet Activity as Tolerated: Yes Discharge Physical Examination Allergies: Coded Allergies: Penicillins (Unverified Allergy, Unknown, 02/16/20) General Appearance: No Apparent Distress Respiratory: Lungs Clear, Normal Breath Sounds Cardiovascular: Irregularly Irregular Gastrointestinal: Normal Bowel Sounds, Non Tender, Soft Extremity: No Pedal Edema Skin: Normal Color, Warm/Dry Neurologic/Psychiatric: Alert, Normal Mood/Affect Copy Copies To 1: Caridad Moses APRN Clinical Quality Measures DVT/VTE Risk/Contraindication: Risk Factor Score Per Nursin RFS Level Per Nursing on Admit: 4+=Very High DOM ANDERSON MD Jun 21, 2020 13:55
[2020-06-21 16:25] VITALS: BP 96/59
[2020-06-21] MEDS ORDERED: AZITHROMYCIN 250 MG TAB (ZITHROMAX) PO SCH (21:00)
== END 2020-06-21 16:25 | disposition home or self-care (01) | DRG 194 ==
LOC: EDUNIT# 17:18 → ER 17:19 → 4TH 19:45
PROVIDERS: ADMIT Family Medicine; ATTEND Internal Medicine
DX: J18.9 Pneumonia, unspecified organism (principal); I48.11 Longstanding persistent atrial fibrillation; D75.1 Secondary polycythemia; S09.90XA Unspecified injury of head, initial encounter; R41.0 Disorientation, unspecified; R53.1 Weakness; G47.33 Obstructive sleep apnea (adult) (pediatric); E03.9 Hypothyroidism, unspecified; I10 Essential (primary) hypertension; D46.9 Myelodysplastic syndrome, unspecified; W19.XXXA Unspecified fall, initial encounter; Z20.828 Contact with and (suspected) exposure to other viral communicable diseases; Z79.01 Long term (current) use of anticoagulants
CPT/HCPCS: 36415; 51701; 70450; 71045; 80053; 81000; 82607; 82728; 82746; 83540; 83605; 85007; 85025; 85027; 85045; 85610; 85730; 86850; 86900; 86901; 86920; 87040; 87088; 87635

== ENCOUNTER → 2020-09-24 | Outpatient (CLI) | payer MEDICARE, OTHER ==
[~2020-09-24] MED LIST changes: +AZIT250T12 PO; +CATHETER FLUSH 10 ML SYR IV PRN; +FERR325T18 PO; +HOLD METFORMIN - RECEIVED CONTRAST 20 ML VIAL IV SCH; +IOHEXOL 350 MG/ML 150 ML (OMNIPAQUE 350) VIAL IV ONE; +METO-333 PO; +NITR-65 PO; +NS 100 ML (IVPB) BAG IV ONE
[2020-09-24 10:28] LABS: CARBON DIOXIDE 26 MMOL/L (21-32); CHLORIDE 106 MMOL/L (98-107); SODIUM 141 MMOL/L (135-145)
[2020-09-24 10:29] LABS: BUN/CREATININE RATIO 17; CALCIUM 9.3 MG/DL (8.5-10.1); CREATININE SERUM 1.04 MG/DL (0.60-1.30); GFR ESTIMATED 51; GLUCOSE 101 MG/DL (70-105)
[2020-09-24 10:30] LABS: ALANINE AMINOTRANSFERASE < 5 U/L (0-55); ALBUMIN 3.8 GM/DL (3.2-4.5); ALKALINE PHOSPHATASE 81 U/L (40-136); TOTAL PROTEIN 6.9 GM/DL (6.4-8.2)
--- NOTE | 2020-09-24 12:01 | Diagnostic Imaging Report ---
EXAMINATION: CT angiography of the chest. TECHNIQUE: Contrast enhanced thin section helical images were obtained through the chest with intravenous contrast timed for the optimal opacification of the arterial structures per CTA protocol. Post-processing, reconstructions and interpretation of angiographic images of the vessels was performed. 3D MIP reconstructions were performed and reviewed. All CT scans use one or more of the following dose optimizing techniques: automated exposure control, MA and/or KvP adjustment based on a patient size and exam type, or iterative reconstruction. HISTORY: Shortness of breath and cough. COMPARISON: 03/26/2020 FINDINGS: There is no pulmonary embolism. Paraseptal line thickening with fairly extensive groundglass throughout both lungs. No pleural effusion. No pneumothorax. No suspicious nodules. There is no axillary or supraclavicular lymphadenopathy. There are mildly enlarged hilar lymph nodes measuring up to 15 mm on the right and 12 mm on the left. Left atrium is dilated and there is thrombus within the left atrial appendage. There are mild coronary artery calcifications. No pericardial effusion. Aorta is normal in caliber. Limited views of the upper abdomen show splenomegaly. There is biliary ductal dilation which is likely related to prior cholecystectomy. There are no suspicious osseus lesions. IMPRESSION: 1. Septal line thickening and groundglass throughout both lungs most consistent with moderate pulmonary edema. 2. Splenomegaly of the upper abdomen. 2. Enlarged left atrium with thrombus in the left atrial appendage. 4. Hilar and mediastinal lymphadenopathy is likely reactive to cardiac disease. 5. No pulmonary embolism. Dictated by: Dictated on workstation # [id number]
== END ==
LOC: RAD FS 09:24
PROVIDERS: ATTEND Nurse Practitioner Family
DX: J98.4 Other disorders of lung (principal); I51.7 Cardiomegaly; R16.1 Splenomegaly, not elsewhere classified; R59.0 Localized enlarged lymph nodes
CPT/HCPCS: 36415; 71275; 80053

== ENCOUNTER 2021-01-19 20:05 | Inpatient (IN) | payer MEDICARE, OTHER ==
[~2021-01-19] VITALS: Ht 157.4 cm; Wt 36.9 kg
[~2021-01-19 20:05] MED LIST changes: -CATHETER FLUSH 10 ML SYR IV PRN; -HOLD METFORMIN - RECEIVED CONTRAST 20 ML VIAL IV SCH; -IOHEXOL 350 MG/ML 150 ML (OMNIPAQUE 350) VIAL IV ONE; -NS 100 ML (IVPB) BAG IV ONE
[2021-01-19 20:49] LABS: BASOPHILS # (AUTO) 0.1 10^3/uL (0.0-0.1); BASOPHILS % (AUTO) 0 % (0-10); EOSINOPHILS # (AUTO) 0.2 10^3/uL (0.0-0.3); EOSINOPHILS % (AUTO) 1 % (0-10); HEMATOCRIT 30 % (35-52); HEMOGLOBIN 8.8 g/dL (11.5-16.0); LYMPHOCYTES # (AUTO) 0.6 10^3/uL (1.0-4.0); LYMPHOCYTES % (AUTO) 3 % (12-44); MEAN CORPUSCULAR HEMOGLOBIN 33 pg (25-34); MEAN CORPUSCULAR HGB CONC 30 g/dL (32-36); MEAN CORPUSCULAR VOLUME 112 fL (80-99); MEAN PLATELET VOLUME 11.7 fL (9.0-12.2); MONOCYTES % (AUTO) 5 % (0-12); NEUTROPHILS # (AUTO) 17.9 10^3/uL (1.8-7.8); NEUTROPHILS % (AUTO) 89 % (42-75); PLATELET COUNT 814 10^3/uL (130-400)
--- NOTE | 2021-01-19 20:53 | ED Respiratory ---
General Chief Complaint: Respiratory Problems Stated Complaint: PUI, SOB,CONFUSED,WEAK,LOSS OF APPETITE,DIARRHEA Source: patient Exam Limitations: no limitations History of Present Illness Date Seen by Provider: Jan 19, 2021 Time Seen by Provider: 20:28 Initial Comments Patient is a 80-year-old female who presents to the emergency department today with a chief complaint of fever, shortness of breath, cough, generalized malaise and not feeling well for the course of the last week. Patient states that she believes she saw her primary care practitioner about a week ago and was diagnosed with a urinary tract infection. She states she was put on antibiotics at that time. Patient states she has continued to feel unwell over the course of the last week. Her children are the ones who convinced her to come to the emergency department this evening. Patient states she has not taken any Tylenol for her fever at home. She states that she does not believe she has been e xposed to anyone with coronavirus her is the one who goes out and does the shopping and he could have brought it home to her. Patient states she has not had the vaccine and does not wish to have it. Patient also did not have a flu vaccine this year. She denies abdominal pain, nausea or vomiting. She did have 3 falls last weekend and did hit her head she states "pretty hard". No loss of consciousness was reported. Patient describes a bruising to her bilateral lower extremities and left hip. She is chronically anticoagulated on Pradaxa. She has a history of atrial fibrillation and follows with Dr. Argueta as her domestic travel consultant. Patient is currently not having any chest pain. She reports no productive cough but is coughing in the room. She states that she has a "clot in her heart" and that is why she is on the blood thinner. She states it has been there for years. She is noted to have a temp on presentation of 101 oral. She is also tachycardic with atrial fibrillation with rapid ventricular response in the 120s. My plan is to give her some IV fluids and Tylenol for her fever and hopefully this will resolve on its own. Blood pressure is good. At this time she does meet sepsis criteria with her fever, tachycardia and shortness of breath. Timing/Duration: week, getting worse Severity: moderate Associated Symptoms: cough, shortness of breath Allergies and Home Medications Allergies Coded Allergies: Penicillins (Unverified Allergy, Unknown, 02/16/20) Home Medications Aspirin 81 Mg Tablet.dr, 162-243 MG PO DAILY PRN for PAIN-MILD (1-4), (Reported) Last Action: Continued Dabigatran Etexilate Mesylate 150 Mg Capsule, 150 MG PO BID, (Reported) Last Action: Held Ergocalciferol (Vitamin D2) 1,250 Mcg Capsule, 1,250 MCG PO WED, (Reported) Last Action: Held Furosemide 20 Mg Tablet, 40 MG PO DAILY, (Reported) TAKES 2 (20MG) TABS Last Action: Held Hydroxyurea 500 Mg Capsule, 500 MG PO BID, (Reported) Last Action: Held Levothyroxine Sodium 100 Mcg Tablet, 100 MCG PO DAILY, (Reported) Last Action: Continued Metoprolol Tartrate 25 Mg Tablet, 25 MG PO DAILY, (Reported) Last Action: Held Nitrofurantoin Monohyd/M-Cryst 100 Mg Capsule, 100 MG PO BID, (Reported) FILLED 01-15-2021 #14/7 DAY SUPPLY Last Action: Held Pantoprazole Sodium 40 Mg Tablet.dr, 40 MG PO DAILY, (Reported) Last Action: Continued Patient Home Medication List Home Medication List Reviewed: Yes Review of Systems Review of Systems Constitutional: see HPI, chills, fever, malaise, weakness EENTM: no symptoms reported Respiratory: cough, short of breath Cardiovascular: no symptoms reported Gastrointestinal: No abdominal pain, No diarrhea, No nausea, No vomiting Genitourinary: no symptoms reported Musculoskeletal: joint pain (knees and left hip from the fall) Skin: other (bruising) All Other Systems Reviewed Negative Unless Noted: Yes Past Tyciqfe-Xxfcxe-Elqsbv Hx Patient Social History Recent Hopitalizations: No Immunizations Up To Date Date of Pneumonia Vaccine: Jun 05, 2018 Seasonal Allergies Seasonal Allergies: No Past Medical History Surgeries: Yes Appendectomy, Bladder Surgery, Gallbladder, Hysterectomy, Oophorectomy Respiratory: Yes Pneumonia, Sleep Apnea Currently Using CPAP: Yes Cardiac: Yes Atrial Fibrillation, Hypertension Neurological: Yes Concussion Genitourinary: Yes Kidney Infection Gastrointestinal: No Musculoskeletal: No Endocrine: Yes HEENT: No Cancer: No Psychosocial: No Integumentary: No Blood Disorders: Yes (MYELDYSPLASTIC SYNDROME, anemia) Family Medical History No Pertinent Family Hx Physical Exam Vital Signs - First Documented 01/19/21 20:45 Temp 38.3 Pulse 124 Resp 22 B/P (MAP) 129/91 (104) Pulse Ox 86 O2 Delivery Room Air O2 Flow Rate 3.00 Capillary Refill : Height: '" Weight: lbs. oz. kg; 30.23 BMI Method: General Appearance: WD/WN, no apparent distress Eyes: Bilateral Eye Normal Inspection, Bilateral Eye PERRL, Bilateral Eye EOMI HEENT: PERRL/EOMI Neck: full range of motion Respiratory: rales (bilateral bases posteriorly), other (mild overall increased work of breathing; persistent cough) Cardiovascular: regular rate, rhythm Gastrointestinal: non tender, soft Extremities: non-tender, normal inspection, no calf tenderness Neurologic/Psychiatric: alert, normal mood/affect, oriented x 3 Skin: normal color, warm/dry Focused Exam Lactate Level 01/19/21 20:38: Lactic Acid Level 1.97 Lactic Acid Level Laboratory Tests Test 01/19/21 20:38 Lactic Acid Level 1.97 MMOL/L (0.50-2.00) Progress/Results/Core Measures Suspected Sepsis SIRS Temperature: Pulse: Respiratory Rate: Laboratory Tests 01/19/21 20:38: White Blood Count 20.0H Blood Pressure / Mean: 01/19/21 20:38: Lactic Acid Level 1.97 Laboratory Tests 01/19/21 20:38: Creatinine 1.25, INR Comment 2.1H, Platelet Count 814H, Total Bilirubin 2.4H Results/Orders Lab Results Laboratory Tests Test 01/19/21 20:38 01/19/21 21:11 01/19/21 21:21 Range/Units White Blood Count 20.0 H 4.3-11.0 10^3/uL Red Blood Count 2.66 L 3.80-5.11 10^6/uL Hemoglobin 8.8 L 11.5-16.0 g/dL Hematocrit 30 L 35-52 % Mean Corpuscular Volume 112 H 80-99 fL Mean Corpuscular Hemoglobin 33 25-34 pg Mean Corpuscular Hemoglobin Concent 30 L 32-36 g/dL Red Cell Distribution Width 17.4 H 10.0-14.5 % Platelet Count 814 H 130-400 10^3/uL Mean Platelet Volume 11.7 9.0-12.2 fL Immature Granulocyte % (Auto) 2 % Neutrophils (%) (Auto) 89 H 42-75 % Lymphocytes (%) (Auto) 3 L 12-44 % Monocytes (%) (Auto) 5 0-12 % Eosinophils (%) (Auto) 1 0-10 % Basophils (%) (Auto) 0 0-10 % Neutrophils # (Auto) 17.9 H 1.8-7.8 10^3/uL Lymphocytes # (Auto) 0.6 L 1.0-4.0 10^3/uL Monocytes # (Auto) 1.0 0.0-1.0 10^3/uL Eosinophils # (Auto) 0.2 0.0-0.3 10^3/uL Basophils # (Auto) 0.1 0.0-0.1 10^3/uL Immature Granulocyte # (Auto) 0.3 H 0.0-0.1 10^3/uL Neutrophils % (Manual) 86 % Lymphocytes % (Manual) 5 % Monocytes % (Manual) 9 % Polychromasia SLIGHT Blood Morphology Comment Prothrombin Time 23.8 H 12.2-14.7 SEC INR Comment 2.1 H 0.8-1.4 Activated Partial Thromboplast Time 75 H 24-35 SEC Sodium Level 134 L 135-145 MMOL/L Potassium Level 3.8 3.6-5.0 MMOL/L Chloride Level 98 98-107 MMOL/L Carbon Dioxide Level 19 L 21-32 MMOL/L Anion Gap 17 H 5-14 MMOL/L Blood Urea Nitrogen 21 H 7-18 MG/DL Creatinine 1.25 0.60-1.30 MG/DL Estimat Glomerular Filtration Rate 41 BUN/Creatinine Ratio 17 Glucose Level 91 70-105 MG/DL Lactic Acid Level 1.97 0.50-2.00 MMOL/L Calcium Level 8.2 L 8.5-10.1 MG/DL Corrected Calcium 8.8 8.5-10.1 MG/DL Total Bilirubin 2.4 H 0.1-1.0 MG/DL Aspartate Amino Transf (AST/SGOT) 31 5-34 U/L Alanine Aminotransferase (ALT/SGPT) 25 0-55 U/L Alkaline Phosphatase 122 40-136 U/L Total Protein 6.5 6.4-8.2 GM/DL Albumin 3.3 3.2-4.5 GM/DL Urine Color ORANGE Urine Clarity SL CLOUDY Urine pH 5.5 5-9 Urine Specific [place] 1.015 L 1.016-1.022 Urine Protein NEGATIVE NEGATIVE Urine Glucose (UA) NEGATIVE NEGATIVE Urine Ketones NEGATIVE NEGATIVE Urine Nitrite NEGATIVE NEGATIVE Urine Bilirubin NEGATIVE NEGATIVE Urine Urobilinogen 1.0 < = 1.0 MG/DL Urine Leukocyte Esterase TRACE H NEGATIVE Urine RBC (Auto) NEGATIVE NEGATIVE Urine RBC NONE /HPF Urine WBC 2-5 /HPF Urine Crystals PRESENT H /LPF Urine Amorphous Sediment RARE TATE URATES H /LPF Urine Bacteria TRACE /HPF Urine Casts NONE /LPF Urine Mucus NEGATIVE /LPF Urine Culture Indicated NO Coronavirus 2019 (BONNY) Not Detected Not Detecte Micro Results Microbiology 01/19/21 Urine Culture - Preliminary, Resulted Culture In Progress 01/19/21 Blood Culture - Preliminary, Resulted No growth 01/19/21 Influenza Types A,B Antigen (TIFFANY) - Final, Complete 01/19/21 Blood Culture - Preliminary, Resulted No growth My Orders Orders - SHIRAZ CASTRO MD Cbc With Automated Diff (01/19/21 20:39) Comprehensive Metabolic Panel (01/19/21 20:39) Blood Culture (01/19/21 20:39) Sputum Culture (01/19/21 20:39) Urinalysis (01/19/21 20:39) Urine Culture (01/19/21 20:39) Protime With Inr (01/19/21 20:39) Partial Thromboplastin Time (01/19/21 20:39) Chest 1 View, Ap/Pa Only (01/19/21 20:39) Ed Iv/Invasive Line Start (01/19/21 20:39) Ed Iv/Invasive Line Start (01/19/21 20:39) Vital Signs Adult Sepsis Patie Q15M (01/19/21 20:39) O2 (01/19/21 20:39) Remove Rings In Anticipation O (01/19/21 20:39) Lactic Acid Analyzer (01/19/21 20:39) Influenza A And B Antigens (01/19/21 20:39) Covid 19 Inhouse Test (01/19/21 20:39) Manual Differential (01/19/21 20:38) Ns Iv 1000 Ml (Sodium Chloride 0.9%) (01/19/21 21:45) Levofloxacin 750 Mg/150 Ml Iv (Levaquin (01/19/21 21:45) Acetaminophen Tablet (Tylenol Tablet) (01/19/21 22:00) Medications Given in ED Vital Signs/I&O 01/19/21 01/19/21 01/19/21 20:45 20:49 22:15 Temp 38.3 Pulse 124 116 Resp 18 B/P (MAP) 129/91 (104) 96/51 Pulse Ox 86 94 98 O2 Delivery Room Air Nasal Cannula Nasal Cannula O2 Flow Rate 3.00 3.00 Capillary Refill : Progress Note : Time: 22:39 Progress Note Reevaluated patient. Her blood pressure is down to about 92/65 with a heart rate of 104. Oxygen saturations are 96 to 99% on 2 L per nasal cannula. Patient states that she is feeling much better. She is no longer having chills. She is no longer quite as short of breath as she was. Patient has had 2 L of fluids IV bolus. She has had 750 mg of Levaquin IV. Case is discussed with Dr. Chung who accepts the patient for admission. Recommends continued fluid hydration. Continue Levaquin. Tylenol as needed for fever. Patient's lactic acid is less than 2 at this time. She has sepsis. Will be admitted to the cardiac stepdown with IV fluids running. Departure Communication (Admissions) Time/Spoke to Admitting Phy: 22:[address] Chung on for [facility], accepts the patient for admission. Impression Primary Impression: PNA (pneumonia) Qualified Codes: J18.9 - Pneumonia, unspecified organism Additional Impressions: Hypoxia Sepsis Qualified Codes: A41.9 - Sepsis, unspecified organism; R65.20 - Severe sepsis without septic shock; J96.01 - Acute respiratory failure with hypoxia Disposition: ADMITTED INPATIENT Condition: Stable Admissions Decision to Admit Reason: Admit from ER (General) Decision to Admit/Date: Jan 19, 2021 Time/Decision to Admit Time: 22:39 Departure-Patient Inst. Referrals: [facility] [place] (PCP) Primary Care Physician TILA SHARMA APRN (Family) Primary Care Physician SHIRAZ CASTRO MD Jan 19, 2021 20:53
--- NOTE | 2021-01-19 21:02 | Diagnostic Imaging Report ---
EXAMINATION: Chest 1 view. HISTORY: Covid, sepsis. COMPARISON: 06/19/2020. FINDINGS: The lung volumes are normal. Hazy opacities are visualized throughout the lungs. No large pleural effusion or pneumothorax is seen. There is cardiomegaly. No acute osseous abnormality is seen. IMPRESSION: 1. Hazy opacities throughout the lungs, consistent with history of Covid. Edema may also be present. 2. Cardiomegaly. Dictated by: Dictated on workstation # [id number]
[2021-01-19 21:04] LABS: INR 2.1 (0.8-1.4); PROTHROMBIN TIME PATIENT 23.8 SEC (12.2-14.7)
[2021-01-19 21:09] LABS: LYMPHOCYTES % (MANUAL) 5 %; MONOCYTES % (MANUAL) 9 %; NEUTROPHILS % (MANUAL) 86 %; POLYCHROMASIA SLIGHT
[2021-01-19 21:13] LABS: ALBUMIN 3.3 GM/DL (3.2-4.5); BILIRUBIN,TOTAL 2.4 MG/DL (0.1-1.0); CALCIUM 8.2 MG/DL (8.5-10.1); CREATININE SERUM 1.25 MG/DL (0.60-1.30); POTASSIUM 3.8 MMOL/L (3.6-5.0); TOTAL PROTEIN 6.5 GM/DL (6.4-8.2)
[2021-01-19 21:18] LABS: BILIRUBIN,URINE NEGATIVE (NEGATIVE); CLARITY,URINE SL CLOUDY; COLOR,URINE ORANGE; GLUCOSE, URINE (UA) NEGATIVE (NEGATIVE); KETONES,URINE NEGATIVE (NEGATIVE); LEUKOCYTE ESTERASE ,URINE TRACE (NEGATIVE); NITRITE,URINE NEGATIVE (NEGATIVE); PH,URINE 5.5 (5-9); PROTEIN,URINE NEGATIVE (NEGATIVE)
[2021-01-19 21:31] LABS: AMORPHOUS SEDIMENT,UR RARE AMOR URATES /LPF; BACTERIA,URINE TRACE /HPF
[2021-01-19] MEDS ORDERED: ACETAMINOPHEN 500 MG TAB (TYLENOL) PO ONE (22:00)
[2021-01-19] MEDS: NS IV 1000 ML 1,000 ML IV SCH (22:01)
[2021-01-19 23:05] VITALS: BP 98/59
[2021-01-19] MEDS ORDERED: ACETAMINOPHEN 325 MG TABLET PO PRN (23:45)
[2021-01-19] MEDS ORDERED: NS IV 1000 ML 1,000 ML IV SCH (23:45)
[2021-01-20] VITALS (25 sets, daily range): BP systolic 82–140; BP diastolic 41–104
[2021-01-20] MEDS: NS IV 1000 ML 1,000 ML IV SCH (00:17)
[2021-01-20] MEDS: DABIGATRAN 150 MG (PRADAXA) CAPSULE PO SCH ×3 (00:22→21:44)
[2021-01-20] MEDS ORDERED: NS IV 1000 ML 1,000 ML IV SCH (01:15)
[2021-01-20] MEDS ORDERED: RT-ALBUTEROL INHALER HFA (VENTOLIN HFA) 18 GM IH PRN (01:45)
[2021-01-20 02:29] LABS: BASOPHILS % (AUTO) 0 % (0-10); EOSINOPHILS # (AUTO) 0.2 10^3/uL (0.0-0.3); EOSINOPHILS % (AUTO) 1 % (0-10); HEMATOCRIT 23 % (35-52); LYMPHOCYTES # (AUTO) 0.5 10^3/uL (1.0-4.0); LYMPHOCYTES % (AUTO) 4 % (12-44); MEAN CORPUSCULAR HGB CONC 28 g/dL (32-36); MEAN CORPUSCULAR VOLUME 116 fL (80-99); MEAN PLATELET VOLUME 11.6 fL (9.0-12.2); MONOCYTES # (AUTO) 0.8 10^3/uL (0.0-1.0); MONOCYTES % (AUTO) 6 % (0-12); NEUTROPHILS # (AUTO) 11.9 10^3/uL (1.8-7.8); NEUTROPHILS % (AUTO) 88 % (42-75); PLATELET COUNT 481 10^3/uL (130-400); WHITE BLOOD COUNT 13.5 10^3/uL (4.3-11.0)
[2021-01-20 02:41] LABS: MEAN CORPUSCULAR HEMOGLOBIN 35 pg (25-34)
[2021-01-20] MEDS ORDERED: RT-ALBUTEROL INHALER HFA (VENTOLIN HFA) 18 GM IH SCH (03:00)
[2021-01-20] MEDS ORDERED: RT-ALBUTEROL SULF 2.5 MG/3 ML PRE-MIX VIAL ONE (03:07)
[2021-01-20] MEDS ORDERED: RT-ALBUTEROL SULF 2.5 MG/3 ML PRE-MIX VIAL INH PRN (03:30)
--- NOTE | 2021-01-20 04:27 | Pulmonary Consultation ---
History of Present Illness History of Present Illness Date Seen by Provider: Jan 20, 2021 Time Seen by Provider: 04:21 Date of Admission Allergies and Home Medications Allergies Coded Allergies: Penicillins (Unverified Allergy, Unknown, 02/16/20) Home Medications Azithromycin 250 Mg Tablet, 250 MG PO HS Prescribed by: DOM ANDERSON on 06/21/20 1224 Cholecalciferol (Vitamin D3) 25 Mcg Capsule, 25 MCG PO DAILY, (Reported) Ferrous Sulfate 325 Mg Tablet, 325 MG PO 1200, (Reported) Furosemide 20 Mg Tablet, 20 MG PO DAILY, (Reported) Levothyroxine Sodium 100 Mcg Tablet, 100 MCG PO DAILY, (Reported) Metoprolol Tartrate 25 Mg Tablet, 25 MG PO BID Prescribed by: DOM ANDERSON on 06/21/20 1224 Past Aydnatw-Wjdmqb-Zrbhfh Hx Patient Social History Alcohol Use: Denies Use Smoking Status: Never a Smoker Recent Infectious Disease Expo: No Recent Hopitalizations: No Have you traveled recently?: No Alcohol Use?: No Immunizations Up To Date Date of Pneumonia Vaccine: Jun 05, 2018 Seasonal Allergies Seasonal Allergies: No Past Medical History Surgeries: Yes Appendectomy, Bladder Surgery, Gallbladder, Hysterectomy, Oophorectomy Respiratory: Yes Pneumonia, Sleep Apnea Currently Using CPAP: Yes Cardiac: Yes Atrial Fibrillation, Hypertension Neurological: Yes Concussion Genitourinary: Yes Kidney Infection Gastrointestinal: No Musculoskeletal: No Endocrine: Yes HEENT: No Cancer: No Psychosocial: No Integumentary: No Blood Disorders: Yes (MYELDYSPLASTIC SYNDROME, anemia) Family Medical History No Pertinent Family Hx Review of Systems Time Seen by Provider: 04:29 Sepsis Event Evaluation Height, Weight, BMI Height: '" Weight: lbs. oz. kg; 28.13 BMI Method: Exam Exam Vital Signs Date Time Temp Pulse Resp B/P (MAP) Pulse Ox O2 Delivery O2 Flow Rate FiO2 01/20/21 03:46 36.6 Nasal Cannula 2.00 01/20/21 03:44 97 Nasal Cannula 2.00 01/20/21 03:11 98 2.00 01/20/21 03:07 92 16 82/41 (55) 96 Nasal Cannula 2.00 01/20/21 01:13 36.6 91 95 28 01/20/21 01:07 97 14 82/44 (57) 98 Nasal Cannula 2.00 01/20/21 00:32 97 Nasal Cannula 2.00 01/20/21 00:24 91 01/20/21 00:00 96 22 82/58 (66) 95 Nasal Cannula 2.00 01/19/21 23:05 36.6 106 21 98/59 (72) 99 Nasal Cannula 2.00 01/19/21 23:05 36.6 01/19/21 23:05 96 Nasal Cannula 2.00 01/19/21 23:04 97 Nasal Cannula 2.00 01/19/21 22:55 105 20 96/51 98 Nasal Cannula 01/19/21 22:15 116 18 96/51 98 Nasal Cannula 01/19/21 20:49 94 Nasal Cannula 3.00 01/19/21 20:45 38.3 124 22 129/91 (104) 86 Room Air 3.00 I & O 01/20/21 07:00 Intake Total 2270 ml Output Total 150 ml Balance 2120 ml Height & Weight Height: '" Weight: lbs. oz. kg; 28.13 BMI Method: Capillary Refill: Less Than 3 Seconds Results Lab Laboratory Tests 01/19/21 20:38 01/20/21 02:23 Assessment/Plan Assessment/Plan PNA with hypoxia and sepsis -Change IVF to LR -Change Levaquin to Cefepime -Garcia cultures pending -Chem pending Hypotension -s/p 4 liters [place] -KAYLEY Campos DO Jan 20, 2021 04:27
[2021-01-20 04:33] LABS: ALBUMIN 2.6 GM/DL (3.2-4.5); POTASSIUM 3.5 MMOL/L (3.6-5.0)
[2021-01-20 04:35] LABS: TOTAL PROTEIN 4.7 GM/DL (6.4-8.2)
[2021-01-20 04:37] LABS: BILIRUBIN,TOTAL 1.7 MG/DL (0.1-1.0)
[2021-01-20 04:38] LABS: PHOSPHORUS 3.6 MG/DL (2.3-4.7)
[2021-01-20 04:39] LABS: CREATININE SERUM 1.09 MG/DL (0.60-1.30)
[2021-01-20 04:42] LABS: MAGNESIUM 1.8 MG/DL (1.6-2.4)
[2021-01-20] MEDS: LACTATED RINGERS 1,000 ML IV SCH ×3 (05:49→17:51)
[2021-01-20] MEDS: POTASSIUM CL 10MEQ/50ML IVPB 50 ML IV SCH ×2 (05:49→05:50)
[2021-01-20] MEDS: LEVOTHYROXINE 100 MCG (LEVOTHROID) TAB PO SCH (05:50)
[2021-01-20] MEDS ORDERED: POTASSIUM CL 10MEQ/50ML IVPB 50 ML IV SCH (06:00)
[2021-01-20] MEDS ORDERED: MAGNESIUM 1 GM/100 ML IVPB 100 ML IV SCH (06:00)
[2021-01-20] MEDS ORDERED: KCL 20 MEQ TAB (K-DUR) PO SCH (06:00)
[2021-01-20] MEDS ORDERED: CEFEPIME 1 GM/10 ML (MAXIPIME) VIAL ONE ×2 (06:01→18:13)
[2021-01-20] MEDS ORDERED: WATER (STERILE) FOR INJECTION 10 ML ONE ×2 (06:01→18:13)
[2021-01-20] MEDS: CEFEPIME INJECTION 1,000 MG in WATER (STERILE) FOR INJECTION 10 ML IV SCH ×2 (06:09→18:23)
[2021-01-20] MEDS: NOREPINEPHRINE 8 MG/250 ML 250 ML IV SCH (06:17)
[2021-01-20] MEDS ORDERED: FUROSEMIDE 20 MG (LASIX) TAB PO SCH (07:00)
[2021-01-20] MEDS ORDERED: NS IV 500 ML 500 ML IV SCH (09:15)
[2021-01-20 09:28] LABS: RETICULOCYTE % 3.76 % (0.50-2.40)
--- NOTE | 2021-01-20 09:37 | Consultation-Cardiology ---
HPI-Cardiology Cardiology Consultation: Date of Consultation 01/20/21 Time Seen by a Provider: 09:15 Date of Admission 01-19-21 Attending Physician Lashonda Mcleod DO Admitting Physician [facility] Consulting Physician Lee Aguilar MD Primary Racking Machine Operator: Dr. Argueta HPI: Chief Complaint: Progressive dyspnea of undetermined etiology Ms. Galdamez is a 80 yr old female admitted to ICU 12 from the ED with increasing SOB. She reports she has had a cough, fever as high as 101 in the past, but none recently. She reports increasing weakness. She reports chest heaviness which has been present for several weeks. She reporting bilat LE swelling. No c/o palpitations. No c/o v/d. She does report nausea this morning and some abdominal discomfort Review of Systems-Cardiology Review of Systems Constitutional: chills, fever, malaise Eyes: No vision change Ears/Nose/Throat: No recent hearing loss Respiratory: As described under HPI Cardiovascular: As described under HPI Gastrointestinal: No constipation, No diarrhea; nausea; No vomiting Genitourinary: No dysuria Musculoskeletal: no symptoms reported Skin: No rash on exposed areas, No ulcerations on exposed areas Psychiatric/Neurological: No anxiety, No depression, No seizure, No focal weakness, No syncope Hematologic: No bleeding abnormalities All Other Systems Reviewed Negative Unless Noted: Yes GHW-Minvxt-Kwvswu Hx Patient Social History Smoking Status: Never a Smoker Have you traveled recently?: No Alcohol Use?: No Pt feels they are or have been: No Immunizations Up To Date Date of Pneumonia Vaccine: Jun 05, 2018 Past Medical History PMH As described under Assessment. Family Medical History Family Medical History: Reports family h/o mother having CAD. Allergies and Home Medications Allergies Coded Allergies: Penicillins (Unverified Allergy, Unknown, 02/16/20) Home Medications Aspirin 81 Mg Tablet.dr, 162-243 MG PO DAILY PRN for PAIN-MILD (1-4), (Reported) Last Action: Continued Dabigatran Etexilate Mesylate 150 Mg Capsule, 150 MG PO BID, (Reported) Last Action: Held Ergocalciferol (Vitamin D2) 1,250 Mcg Capsule, 1,250 MCG PO WED, (Reported) Last Action: Held Furosemide 20 Mg Tablet, 40 MG PO DAILY, (Reported) TAKES 2 (20MG) TABS Last Action: Held Hydroxyurea 500 Mg Capsule, 500 MG PO BID, (Reported) Last Action: Held Levothyroxine Sodium 100 Mcg Tablet, 100 MCG PO DAILY, (Reported) Last Action: Continued Metoprolol Tartrate 25 Mg Tablet, 25 MG PO DAILY, (Reported) Last Action: Held Nitrofurantoin Monohyd/M-Cryst 100 Mg Capsule, 100 MG PO BID, (Reported) FILLED 01-15-2021 #14/7 DAY SUPPLY Last Action: Held Pantoprazole Sodium 40 Mg Tablet.dr, 40 MG PO DAILY, (Reported) Last Action: Continued Physical Exam-Cardiology Physical Exam Vital Signs/I&O 01/20/21 01/20/21 01/20/21 01/21/21 22:51 23:00 23:42 00:00 Temp 36.8 Pulse 105 92 Resp 31 19 B/P (MAP) 136/73 (94) 113/70 (84) Pulse Ox 93 96 91 O2 Delivery Room Air Room Air Room Air 01/21/21 01/21/21 01/21/21 01/21/21 01:00 01:00 02:00 02:17 Pulse 86 92 99 Resp 19 25 B/P (MAP) 123/74 (90) 112/69 (83) Pulse Ox 91 91 97 O2 Delivery Room Air Room Air Room Air 01/21/21 01/21/21 01/21/21 01/21/21 03:13 03:39 04:00 04:00 Temp 36.5 Pulse 134 97 Resp 29 23 B/P (MAP) 134/93 (107) 122/64 (83) Pulse Ox 96 95 94 O2 Delivery Room Air Room Air Room Air Room Air 01/21/21 01/21/21 01/21/21 01/21/21 05:00 06:00 06:37 07:47 Temp 36.6 Pulse 73 85 143 Resp 32 B/P (MAP) 133/66 (88) 140/69 (92) Pulse Ox 90 89 O2 Delivery Room Air Room Air 01/21/21 01/21/21 08:00 09:35 Pulse 121 Resp 20 B/P (MAP) 135/72 (93) Pulse Ox 95 97 O2 Delivery Room Air Room Air 01/21/21 00:00 Intake Total 2405 ml Output Total 1500 ml Balance 905 ml Capillary Refill : Less Than 3 Seconds Constitutional: AAO x 3, well-developed, well-nourished HEENT: PERRL, hearing is well preserved, oral hygience is good Neck: No carotid bruit; carotid pulses are 2 + bilaterally Respiratory: No accessory muscle use, No respiratory distress; chest expansion is symmetric, chest is bilaterally symmetric, crackles (lower lobes), other (occ non-productive cough) Cardiovascular: irregularly irregular; No JVD; S1 and S2 Gastrointestinal: tender (epigastric tenderness), soft, round, audible bowel sounds Extremities: swelling (bilat LE swelling) Neurologic/Psychiatric: grossly intact (moves all extremities) Skin: No rash on exposed areas, No ulcerations on exposed areas Data Review Labs Laboratory Tests 01/21/21 03:12: White Blood Count 10.2, Red Blood Count 2.59L, Hemoglobin 8.4L, Hematocrit 29L, Mean Corpuscular Volume 110H, Mean Corpuscular Hemoglobin 32, Mean Corpuscular Hemoglobin Concent 30L, Red Cell Distribution Width 21.2H, Platelet Count 551H, Mean Platelet Volume 11.3, Immature Granulocyte % (Auto) 1, Neutrophils (%) (Auto) 81H, Lymphocytes (%) (Auto) 10L, Monocytes (%) (Auto) 5, Eosinophils (%) (Auto) 3, Basophils (%) (Auto) 1, Neutrophils # (Auto) 8.3H, Lymphocytes # (Auto) 1.0, Monocytes # (Auto) 0.5, Eosinophils # (Auto) 0.3, Basophils # (Auto) 0.1, Immature Granulocyte # (Auto) 0.1, Sodium Level 140, Potassium Level 3.3L, Chloride Level 106, Carbon Dioxide Level 22, Anion Gap 12, Blood Urea Nitrogen 18, Creatinine 1.07, Estimat Glomerular Filtration Rate 50, BUN/Creatinine Ratio 17, Glucose Level 100, Calcium Level 7.9L, Phosphorus Level 3.0, Magnesium Level 1.9 Microbiology 01/19/21 Urine Culture - Preliminary, Resulted Culture In Progress 01/19/21 Blood Culture - Preliminary, Resulted No growth 01/19/21 Influenza Types A,B Antigen (TIFFANY) - Final, Complete Radiology NAME: URIAH GALDAMEZ [facility] REC#: [id number] PT STATUS: REG ER : 1940 PHYSICIAN: SHIRAZ CASTRO MD ADMIT DATE: 01/19/21/ER Signed Date of Exam:01/19/21 CHEST 1 VIEW, AP/PA ONLY EXAMINATION: Chest 1 view. HISTORY: Covid, sepsis. COMPARISON: 06/19/2020. FINDINGS: The lung volumes are normal. Hazy opacities are visualized throughout the lungs. No large pleural effusion or pneumothorax is seen. There is cardiomegaly. No acute osseous abnormality is seen. IMPRESSION: 1. Hazy opacities throughout the lungs, consistent with history of Covid. Edema may also be present. 2. Cardiomegaly. Dictated by: Dictated on workstation # [id number] Dict: 01/19/212099 Trans: 01/19/212106 [facility] [id number] Interpreted by: AMAN GLORIA DO Electronically signed by: AMAN GLORIA DO 01/19/212106 ECG Impression ECG Initial ECG Impression: Atrial Fibrillation A/P-Cardiology Assessment/Admission Diagnosis Pneumonia with possible h/o COVID in the past - medical/pulmonary services managing Chronic Atrial fibrillation - rate controlled - [id number] score of 4, yearly risk of stroke without oral anticoagulation is 4 percent - Currently maintained on Pradaxa and ASA Echocardiogram showed normal LV size with EF 55-65 percent, left atrial dilatation 5.1 cm, [id number] tricuspid regurgitation, trivial aortic regurgitation, PA pressure 35-[address] Argueta in Jun 2020. [place] to not be a a candidate for SHEBA and cardioversion due to recurrent GI bleed Dyspnea on exertion H/O Stress test was abnormal with breast attenuation mild decrease uptake at the mid to apical anterolateral wall with mild reversibility. No significant ischemia, cardiac catheterization in the future if she become symptomatic at this time Dr. Argueta her primary sports intern has been avoiding cardiac catheterization due to the left atrial appendage thrombus. H/O severe anemia, with previous hospitalizations for blood transfusion - colonoscopy did not show the source - Underwent capsule endoscopy with Dr. Latif in the past - details unknown Hypertension Hyperlipidemia Hypothyroidism Mild bilateral carotid stenosis, ultrasound was done in February [address] Argueta History of cholecystectomy, hysterectomy, bladder surgery, all of nephrectomy and appendectomy History of myelodysplastic syndrome Discussion and Recomendations Echocardiogram today to eval structure and function Anemia - management per medical - plan to transfuse today Advise IV Lasix Management of pneumonia is per medical/ICU services Advise continuation of OAC d/t chronic a-fib, for stroke prophylaxis Monitor lab closely D/t Further recs will be based on her hospital course We would like to thank medical services for this consult Further recs will be based on her hospital course GALILEO SCHNEIDER Jan 20, 2021 09:37
[2021-01-20] MEDS: RT-ALBUTEROL SULF 2.5 MG/3 ML PRE-MIX VIAL INH SCH ×3 (09:45→18:29)
[2021-01-20] MEDS ORDERED: FUROSEMIDE 40 MG/4 ML INJ (LASIX) IVP ONE (10:00)
--- NOTE | 2021-01-20 10:01 | Diagnostic Imaging Report ---
EXAMINATION: CT head without contrast. TECHNIQUE: Multiple contiguous axial images were obtained through the brain without the use of intravenous contrast. All CT scans use one or more of the following dose optimizing techniques: automated exposure control, MA and/or KvP adjustment based on a patient size and exam type, or iterative reconstruction. HISTORY: Fall. COMPARISON: None available. FINDINGS: The graves-white matter differentiation is normal. No mass effect or midline shift. The ventricles are normal in size and configuration. Basilar cisterns are patent. There are no intra- or extra-axial fluid collections. There is no intracranial hemorrhage. The orbits are normal. There is sphenoid sinus debris. Mastoid air cells are clear. No soft tissue abnormality is seen. No osseus lesions or fractures are seen. IMPRESSION: No acute intracranial abnormality. Dictated by: Dictated on workstation # [id number]
--- NOTE | 2021-01-20 10:45 | History & Physical-Hospitalist ---
CARLOS RIVAS MED STUDENT 01/20/21 1045: History of Present Illness HPI/Chief Complaint CC: Fever, malaise, cough and shortness of breath HPI: Mrs. Page is a 80yoWF clinic pt of [facility] w/ hx of AFib, HTN, hypothyroidism, and myelodysplastic syndrome who presented to [facility] ED via EMS last night with a 1 week complaint of malaise, fever, cough and shortness of breath. She visited her pcp 1 week prior and was diagnosed with a UTI and given a course of abx. She reports multiple falls last weekend and one episode of hitting her head. In the ED she was found to be hypotensive, anemic, hypoxic with leukocytosis (20k) and in afib with RVR rate in the 120s. CXR negative but shows sign of post-COVID changes although the patient does not recall being ill. Rapid COVID and Influenza A and B were negative. Pt was admitted with IVF and IV abx to the ICU and did require pressors last night for hypotension. Cardiology is consulted to perform echo and treat afib. CT non-contrast of head will be performed to rule out injury from last weekend's falls. Hgb 7 today so will be given 1 unit PRBC and iron studies are pending. Patient is currently stable, feeling better with less shortness of air and maintained on 2L of O2. Source: patient, old records Exam Limitations: no limitations Date Seen 01/20/21 Attending Physician Lashonda Chávez DO [facility] Referring Physician Date of Admission Jan 20, 2021 at 03:14 Home Medications & Allergies Home Medications Reviewed patient Home Medication Reconciliation performed by pharmacy medication reconciliations debug technician and/or nursing. Patients Allergies have been reviewed. 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) Tobacco Use?: No Smoking Status: Never a Smoker Smokeless Tobacco Frequency: Never a User Use of E-Cig and/or Vaping dev: No Substance use?: No Alcohol Use?: No Pt stated abuse/neglect: No Immunizations Up To Date Influenza Vaccine Up-to-Date: No; Not Current Tetanus Booster (TDap): More Than 5 Years Hepatitis A: No Hepatitis B: No TB Skin Test: None Date of Pneumonia Vaccine: Jun 05, 2018 Current Status status: No status: No Do you have an Advance Directi: No Communicates: Verbally Primary Language: Pakistani Preferred Spoken Language: Pakistani Is interpretation needed?: No Sensory deficits: Vision impairment Past Medical History PMHx: A fib HTN Hypothyroidism Myelodysplastic syndrome Review of Systems Constitutional: No chills, No diaphoresis, No dizziness, No fever; malaise, weakness EENTM: hoarseness, other (post nasal drip); No ear pain, No double vision, No eye pain Respiratory: cough; No hemoptysis; phlegm, short of breath; No wheezing Cardiovascular: No chest pain, No syncope Gastrointestinal: No abdominal pain, No diarrhea, No nausea, No vomiting Genitourinary: No dysuria, No hematuria Musculoskeletal: No joint pain, No neck pain Skin: No dryness, No pruritus, No rash Psychiatric/Neurological: Denies Anxiety, Denies Depressed, Denies Headache, Denies Tingling Physical Exam Physical Exam Vital Signs Vital Signs - First Documented 01/19/21 01/20/21 20:45 01:13 Temp 38.3 Pulse 124 Resp 22 B/P (MAP) 129/91 (104) Pulse Ox 86 O2 Delivery Room Air O2 Flow Rate 3.00 FiO2 28 Capillary Refill : Less Than 3 Seconds Height, Weight, BMI Height: '" Weight: lbs. oz. kg; 28.13 BMI Method: General Appearance: No Apparent Distress, WD/WN HEENT: PERRL/EOMI, Moist Mucous Membranes Neck: Full Range of Motion, Normal Inspection, Non Tender Respiratory: Lungs Clear, Normal Breath Sounds, No Accessory Muscle Use, No Respiratory Distress Cardiovascular: No JVD, No Murmur, Normal Peripheral Pulses, Irregularly Irregular Gastrointestinal: Normal Bowel Sounds, No Pulsatile Mass, Non Tender, Soft Back: No CVA Tenderness, No Vertebral Tenderness Extremity: Normal Capillary Refill, Non Tender, No Calf Tenderness, Pedal Edema (1+ b/l) Neurologic/Psychiatric: Alert, Oriented x3, No Motor/Sensory Deficits, Normal Mood/Affect Skin: Normal Color, Warm/Dry Lymphatic: No Adenopathy Results Results/Procedures Labs Laboratory Tests 01/19/21 20:38 01/20/21 02:23 Patient resulted labs reviewed. Imaging: Reviewed Imaging Report Assessment/Plan Admission Diagnosis PNA with hypoxia and sepsis, afib, anemia Admission Status: Inpatient Order (span 2 midnights) Reason for Inpatient Admission: PNA and sepsis Hypoxia Afib Anemia Assessment and Plan Assessment: * Afib * Afib with RVR upon admission - RVR now resolved but afib continues. * Dr. 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 Will consult cardiology for echo and further guidance * Pradaxa 150 mg * PNA w sepsis and hypoxia * IV Cefepime * IVF (LR) * 2L NC * Hypotension * Required pressors in the night * NE as needed * Myelodysplastic syndrome * Anemic today hgb 7. Transfuse 1 unit PRBC * Iron studies ordered * Hx of HTN * Hold home meds * Hypothyroidism * Home meds * UTI * CXR post-COVID changes * Hx of recent fall and head injury * CT head non-contrast ordered Plan: ICU for close monitoring Echo and cardioversion Transfuse 1 unit of blood today CT head non-contrast Lasix per cardiology IV abx Continue IVF Diagnosis/Problems Diagnosis/Problems (1) Hypoxia Status: Acute (2) Afib Status: Chronic (3) Anemia Status: Chronic (4) Hypertension Status: Chronic (5) Hypothyroidism Status: Chronic (6) Myelodysplasia (myelodysplastic syndrome) Status: Chronic LASHONDA CHÁVEZ DO 01/21/21 0522: History of Present Illness HPI/Chief Complaint CC: Fever with SOB HPI: This is a 80yoWF [address] Dr[address] Argueta for chronic AF and Dr. Rey for myelodysplastic syndrome who presents with shortness or breath, fever, and hypoxia of 80%. CXR revealed post-Covid lung appearance. She does not recall getting Covid. Cefepime was initiated, changed over from Levaquin and AF with RVR will be managed by cardiology. Echocardiogram was ordered, Hgb was 7 so will give blood. 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) Review of Systems Constitutional: see HPI Physical Exam Physical Exam General Appearance: No Apparent Distress, Chronically ill Respiratory: Lungs Clear, Decreased Breath Sounds Cardiovascular: Irregularly Irregular, Tachycardia Neurologic/Psychiatric: Alert, Oriented x3 Assessment/Plan Admission Diagnosis Abx O2 ECHO Transfuse Admission Status: Inpatient Order (span 2 midnights) Reason for Inpatient Admission: pna Supervisory-Addendum Brief Verification & Attestation Participated in pt care: history, MDM, physical Personally performed: exam, history, MDM, supervision of care Care discussed with: Medical Student Procedures: n/a Results interpretation: Verified all documentation Verification and Attestation of Medical Student E/M Service A medical student performed and documented this service in my presence. I reviewed and verified all information documented by the medical student and made modifications to such information, when appropriate. I personally performed the physical exam and medical decision making. Lashonda Chávez, Jan 21, 2021,05:22 CARLOS RIVAS MED STUDENT Jan 20, 2021 10:45 LASHONDA CHÁVEZ DO Jan 21, 2021 05:22
[2021-01-20] MEDS ORDERED: METO-333 PO (11:12)
[2021-01-20] MEDS ORDERED: NITR100C10 PO (11:12)
[2021-01-20] MEDS ORDERED: HYDR500C2 PO (11:12)
[2021-01-20] MEDS ORDERED: DABI150C5 PO (11:12)
[2021-01-20] MEDS ORDERED: PANT40TA52 PO (11:12)
[2021-01-20] MEDS ORDERED: ERGO50006 PO (11:12)
[2021-01-20] MEDS ORDERED: ASPI-1238 PO (11:12)
[2021-01-20] MEDS ORDERED: NS (IVPB) 250 ML ONE (12:25)
[2021-01-20] MEDS ORDERED: FUROSEMIDE 40 MG/4 ML INJ (LASIX) ONE (16:18)
[2021-01-20] MEDS ORDERED: NYSTATIN ORAL SUSP 5 ML UDC ONE (17:23)
[2021-01-20] MEDS: NYSTATIN ORAL SUSP 5 ML UDC PO SCH ×2 (18:23→22:52)
--- NOTE | 2021-01-20 18:32 | Consultation-Cardiology ---
HPI-Cardiology Cardiology Consultation: Date of Consultation 01/20/21 Time Seen by a Provider: 09:30 Date of Admission Attending Physician Lashonda Mcleod DO Admitting Physician [place] Consulting Physician RODRI KESSLER MD, MA, FACP, FACC, FSCAI, CCDS HPI: Chief Complaint: CC: Progressive dyspnea of undetermined etiology HPI Ms. Page is a 80 yr old female admitted to ICU 12 from the ED with increasing SOB. She reports she has had a cough, fever as high as 101 in the past, but none recently. She reports increasing weakness. She reports chest heaviness which has been present for several weeks. She reporting bilat LE swelling. No c/o palpitations. No c/o v/d. She does report nausea this morning and some abdominal discomfort Review of Systems-Cardiology Review of Systems Constitutional: chills, fever, malaise Eyes: No vision change Ears/Nose/Throat: No recent hearing loss Respiratory: As described under HPI Cardiovascular: As described under HPI Gastrointestinal: No constipation, No diarrhea; nausea; No vomiting Genitourinary: No dysuria Musculoskeletal: no symptoms reported Skin: No rash on exposed areas, No ulcerations on exposed areas Psychiatric/Neurological: No anxiety, No depression, No seizure, No focal weakness, No syncope Hematologic: No bleeding abnormalities All Other Systems Reviewed Negative Unless Noted: Yes [id number] Hx Patient Social History Marrital Status: 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 Family Medical History Family Medical History: Reports family h/o mother having CAD. Allergies and Home Medications Allergies Coded Allergies: Penicillins (Unverified Allergy, Unknown, 02/16/20) Home Medications Aspirin 81 Mg Tablet.dr, 162-243 MG PO DAILY PRN for PAIN-MILD (1-4), (Reported) Last Action: Reviewed Dabigatran Etexilate Mesylate 150 Mg Capsule, 150 MG PO BID, (Reported) Last Action: Reviewed Ergocalciferol (Vitamin D2) 1,250 Mcg Capsule, 1,250 MCG PO WED, (Reported) Last Action: Reviewed Furosemide 20 Mg Tablet, 40 MG PO DAILY, (Reported) TAKES 2 (20MG) TABS Last Action: Reviewed Hydroxyurea 500 Mg Capsule, 500 MG PO BID, (Reported) Last Action: Reviewed Levothyroxine Sodium 100 Mcg Tablet, 100 MCG PO DAILY, (Reported) Last Action: Reviewed Metoprolol Tartrate 25 Mg Tablet, 25 MG PO DAILY, (Reported) Last Action: Reviewed Nitrofurantoin Monohyd/M-Cryst 100 Mg Capsule, 100 MG PO BID, (Reported) FILLED 01-15-2021 #14/7 DAY SUPPLY Last Action: Reviewed Pantoprazole Sodium 40 Mg Tablet.dr, 40 MG PO DAILY, (Reported) Last Action: Reviewed Patient Home Medication List Home Medication List Reviewed: Yes Physical Exam-Cardiology Physical Exam Vital Signs/I&O 01/20/21 01/20/21 01/20/21 01/20/21 07:00 07:00 07:04 08:00 Pulse 97 79 57 B/P (MAP) 96/58 (71) 97/57 (70) Pulse Ox 98 97 99 O2 Delivery Nasal Cannula Nasal Cannula Nasal Cannula O2 Flow Rate 2.00 2.00 2.00 01/20/21 01/20/21 01/20/21 01/20/21 09:00 09:45 10:00 11:00 Pulse 83 70 87 Resp 25 B/P (MAP) 103/80 (88) 109/58 (75) 112/62 (79) Pulse Ox 100 100 100 100 O2 Delivery Nasal Cannula Nasal Cannula Nasal Cannula Nasal Cannula O2 Flow Rate 2.00 1.50 2.00 2.00 01/20/21 01/20/21 01/20/21 01/20/21 12:00 12:00 13:00 13:00 Pulse 91 88 98 Resp 26 16 B/P (MAP) 112/51 (71) 115/60 (78) Pulse Ox 97 100 100 O2 Delivery Nasal Cannula Nasal Cannula Nasal Cannula O2 Flow Rate 2.00 2.00 2.00 01/20/21 01/20/21 01/20/21 01/20/21 13:03 13:20 14:00 15:00 Temp 36.8 37.0 Pulse 99 90 88 80 Resp 22 23 22 20 B/P (MAP) 124/84 115/60 119/63 (81) 126/71 (89) Pulse Ox 98 96 95 97 O2 Delivery Room Air Room Air Nasal Cannula Nasal Cannula O2 Flow Rate 2.00 2.00 01/20/21 01/20/21 01/20/21 01/20/21 15:17 15:48 16:00 16:00 Temp 36.9 Pulse 101 Resp 32 B/P (MAP) 122/104 (110) Pulse Ox 97 96 97 O2 Delivery Room Air Nasal Cannula Nasal Cannula O2 Flow Rate 2.00 2.00 01/20/21 01/20/21 01/20/21 16:31 17:00 18:00 Temp 37.0 Pulse 110 115 113 Resp 22 17 29 B/P (MAP) 123/67 133/63 (86) Pulse Ox 96 95 94 O2 Delivery Room Air Nasal Cannula Nasal Cannula O2 Flow Rate 2.00 2.00 01/20/21 00:00 Intake Total 1150 ml Balance 1150 ml Capillary Refill : Less Than 3 Seconds Constitutional: AAO x 3, well-developed, well-nourished HEENT: PERRL, hearing is well preserved, oral hygience is good Neck: No carotid bruit; carotid pulses are 2 + bilaterally Respiratory: No accessory muscle use, No respiratory distress; chest expansion is symmetric, chest is bilaterally symmetric, crackles (lower lobes), other (occ non-productive cough) Cardiovascular: irregularly irregular; No JVD; S1 and S2 Gastrointestinal: tender (epigastric tenderness), soft, round, audible bowel sounds Extremities: swelling (bilat LE swelling) Neurologic/Psychiatric: grossly intact (moves all extremities) Skin: No rash on exposed areas, No ulcerations on exposed areas Data Review Labs Laboratory Tests 01/19/21 20:38: White Blood Count 20.0H, Red Blood Count 2.66L, Hemoglobin 8.8L, Hematocrit 30L, Mean Corpuscular Volume 112H, Mean Corpuscular Hemoglobin 33, Mean Corpuscular Hemoglobin Concent 30L, Red Cell Distribution Width 17.4H, Platelet Count 814H, Mean Platelet Volume 11.7, Immature Granulocyte % (Auto) 2, Neutrophils (%) (Auto) 89H, Lymphocytes (%) (Auto) 3L, Monocytes (%) (Auto) 5, Eosinophils (%) (Auto) 1, Basophils (%) (Auto) 0, Neutrophils # (Auto) 17.9H, Lymphocytes # (Auto) 0.6L, Monocytes # (Auto) 1.0, Eosinophils # (Auto) 0.2, Basophils # (Auto) 0.1, Immature Granulocyte # (Auto) 0.3H, Neutrophils % (Manual) 86, Lymp hocytes % (Manual) 5, Monocytes % (Manual) 9, Polychromasia SLIGHT, Blood Morphology Comment , Prothrombin Time 23.8H, INR Comment 2.1H, Activated Partial Thromboplast Time 75H, Sodium Level 134L, Potassium Level 3.8, Chloride Level 98, Carbon Dioxide Level 19L, Anion Gap 17H, Blood Urea Nitrogen 21H, Creatinine 1.25, Estimat Glomerular Filtration Rate 41, BUN/Creatinine Ratio 17, Glucose Level 91, Lactic Acid Level 1.97, Calcium Level 8.2L, Corrected Calcium 8.8, Total Bilirubin 2.4H, Aspartate Amino Transf (AST/SGOT) 31, Alanine Aminotransferase (ALT/SGPT) 25, Alkaline Phosphatase 122, Total Protein 6.5, Albumin 3.3 01/19/21 21:11: Urine Color ORANGE, Urine Clarity SL CLOUDY, Urine pH 5.5, Urine Specific [place] 1.015L, Urine Protein NEGATIVE, Urine Glucose (UA) NEGATIVE, Urine Ke tones NEGATIVE, Urine Nitrite NEGATIVE, Urine Bilirubin NEGATIVE, Urine Urobilinogen 1.0, Urine Leukocyte Esterase TRACEH, Urine RBC (Auto) NEGATIVE, Urine RBC NONE, Urine WBC 2-5, Urine Crystals PRESENTH, Urine Amorphous Sediment RARE TATE URATESH, Urine Bacteria TRACE, Urine Casts NONE, Urine Mucus NEGATIVE, Urine Culture Indicated NO 01/19/21 21:21: Coronavirus 2019 (BONNY) Not Detected 01/20/21 02:23: White Blood Count 13.5H, Red Blood Count 1.93L, Hemoglobin 7.0L, Hematocrit 23L, Mean Corpuscular Volume 116H, Mean Corpuscular Hemoglobin 35H, Mean Corpuscular Hemoglobin Concent 28L, Red Cell Distribution Width 17.2H, Platelet Count 481H, Mean Platelet Volume 11.6, Immature Granulocyte % (Auto) 1, Neutrophils (%) (Auto) 88H, Lymphocytes (%) (Auto) 4L, Monocytes (%) (Auto) 6, Eosinophils (%) (Auto) 1, Basophils (%) (Auto) 0, Neutrophils # (Auto) 11.9H, Lymphocytes # (Auto) 0.5L, Monocytes # (Auto) 0.8, Eosinophils # (Auto) 0.2, Basophils # (Auto) 0.0, Immature Granulocyte # (Auto) 0.1, Sodium Level 135, Potassium Level 3.5L, Chloride Level 102, Carbon Dioxide Level 22, Anion Gap 11, Blood Urea Nitrogen 21H, Creatinine 1.09, Estimat Glomerular Filtration Rate 49, BUN/Creatinine Ratio 19, Glucose Level 108H, Calcium Level 7.0L, Corrected Calcium 8.1L, Total Bilirubin 1.7H, Aspartate Amino Transf (AST/SGOT) 18, Alanine Aminotransferase (ALT/SGPT) 16, Alkaline Phosphatase 82, Total Protein 4.7L, Albumin 2.6L, Absolute Reticulocyte Count 73, Percent Reticulocyte Count 3.76H, Phosphorus Level 3.6, Magnesium Level 1.8, Lactate Dehydrogenase 333H Microbiology 01/19/21 Urine Culture - Preliminary, Resulted Culture In Progress 01/19/21 Blood Culture - Preliminary, Resulted No growth 01/19/21 Influenza Types A,B Antigen (TIFFANY) - Final, Complete A/P-Cardiology Assessment/Admission Diagnosis Pneumonia with possible h/o COVID in the past - medical/pulmonary services managing Chronic Atrial fibrillation - rate controlled - [id number] score of 4, yearly risk of stroke without oral anticoagulation is 4 percent - Currently maintained on Pradaxa and ASA Echocardiogram showed normal LV size with EF 55-65 percent, left atrial dilatation 5.1 cm, [id number] tricuspid regurgitation, trivial aortic regurgitation, PA pressure 35-[address] Argueta in Jun 2020. Vergas to not be a a candidate for SHEBA and cardioversion due to recurrent GI bleed Dyspnea on exertion H/O abnormal stress test: breast attenuation mild decrease uptake at the mid to apical anterolateral wall with mild reversibility, no significant ischemia. Dr Argueta, her ranch manager, has recommended conservative therapy H/O severe anemia, with previous hospitalizations for blood transfusion - colonoscopy did not show the source - Underwent capsule endoscopy with Dr. Latif in the past - details unknown Hypertension Hyperlipidemia Hypothyroidism Mild bilateral carotid stenosis, ultrasound was done in February [address] Argueta History of cholecystectomy, hysterectomy, bladder surgery, all of nephrectomy and appendectomy History of myelodysplastic syndrome Discussion and Recomendations Echocardiogram today to eval structure and function Anemia - management per medical - plan to transfuse today Advise IV Lasix Management of pneumonia is per medical/ICU services Advise continuation of OAC d/t chronic a-fib, for stroke prophylaxis Monitor lab closely D/t Further recs will be based on her hospital course We would like to thank Medical services for this consult Further recs will be based on her hospital course RODRI KESSLER MD FACP FACC CCDS Jan 20, 2021 18:32
[2021-01-20] MEDS ORDERED: ASPIRIN E.C. 81 MG (ECOTRIN) TAB PO PRN (21:00)
[2021-01-21] VITALS (11 sets, daily range): BP systolic 112–146; BP diastolic 64–93
[2021-01-21] MEDS: RT-ALBUTEROL SULF 2.5 MG/3 ML PRE-MIX VIAL INH SCH ×4 (02:16→20:41)
[2021-01-21] MEDS: NOREPINEPHRINE 8 MG/250 ML 250 ML IV SCH (03:01)
[2021-01-21 03:21] LABS: BASOPHILS # (AUTO) 0.1 10^3/uL (0.0-0.1); BASOPHILS % (AUTO) 1 % (0-10); EOSINOPHILS # (AUTO) 0.3 10^3/uL (0.0-0.3); EOSINOPHILS % (AUTO) 3 % (0-10); HEMATOCRIT 29 % (35-52); HEMOGLOBIN 8.4 g/dL (11.5-16.0); LYMPHOCYTES % (AUTO) 10 % (12-44); MEAN CORPUSCULAR HEMOGLOBIN 32 pg (25-34); MEAN CORPUSCULAR HGB CONC 30 g/dL (32-36); MEAN CORPUSCULAR VOLUME 110 fL (80-99); MEAN PLATELET VOLUME 11.3 fL (9.0-12.2); MONOCYTES # (AUTO) 0.5 10^3/uL (0.0-1.0); MONOCYTES % (AUTO) 5 % (0-12); NEUTROPHILS # (AUTO) 8.3 10^3/uL (1.8-7.8); NEUTROPHILS % (AUTO) 81 % (42-75); PLATELET COUNT 551 10^3/uL (130-400); WHITE BLOOD COUNT 10.2 10^3/uL (4.3-11.0)
[2021-01-21 03:41] LABS: POTASSIUM 3.3 MMOL/L (3.6-5.0)
[2021-01-21 03:42] LABS: CALCIUM 7.9 MG/DL (8.5-10.1)
[2021-01-21 03:47] LABS: CREATININE SERUM 1.07 MG/DL (0.60-1.30)
[2021-01-21 03:49] LABS: MAGNESIUM 1.9 MG/DL (1.6-2.4)
--- NOTE | 2021-01-21 04:58 | Pulmonary Progress Note ---
Subjective Time Seen by a Provider: 04:56 Subjective/Events-last exam No complications noted. Sepsis Event Evaluation Height, Weight, BMI Height: '" Weight: lbs. oz. kg; 28.13 BMI Method: Focused Exam Lactate Level 01/19/21 20:38: Lactic Acid Level 1.97 Exam Exam Vital Signs Date Time Temp Pulse Resp B/P (MAP) Pulse Ox O2 Delivery O2 Flow Rate FiO2 01/21/21 04:00 95 Room Air 01/21/21 03:13 36.5 Room Air 01/21/21 02:17 97 Room Air 01/21/21 00:00 92 19 113/70 (84) 91 Room Air 01/20/21 23:42 96 Room Air 01/20/21 23:00 105 31 136/73 (94) 93 Room Air 01/20/21 22:51 36.8 01/20/21 22:00 117 26 140/91 (107) 96 Room Air 01/20/21 21:00 109 118/77 (91) 94 Room Air 01/20/21 20:29 37.2 01/20/21 20:00 97 Room Air 01/20/21 20:00 111 34 94 Room Air 01/20/21 19:00 Room Air 01/20/21 19:00 124 25 118/77 (91) 89 Room Air 01/20/21 19:00 124 01/20/21 18:30 97 Room Air 01/20/21 18:00 113 29 94 Nasal Cannula 2.00 01/20/21 17:00 115 17 133/63 (86) 95 Nasal Cannula 2.00 01/20/21 16:31 37.0 110 22 123/67 96 Room Air 01/20/21 16:00 97 Nasal Cannula 2.00 01/20/21 16:00 101 32 122/104 (110) 96 Nasal Cannula 2.00 01/20/21 15:48 36.9 01/20/21 15:17 97 Room Air 01/20/21 15:00 80 20 126/71 (89) 97 Nasal Cannula 2.00 01/20/21 14:00 88 22 119/63 (81) 95 Nasal Cannula 2.00 01/20/21 13:20 37.0 90 23 115/60 96 Room Air 01/20/21 13:03 36.8 99 22 124/84 98 Room Air 01/20/21 13:00 98 01/20/21 13:00 88 16 115/60 (78) 100 Nasal Cannula 2.00 01/20/21 12:00 91 26 112/51 (71) 100 Nasal Cannula 2.00 01/20/21 12:00 97 Nasal Cannula 2.00 01/20/21 11:00 87 25 112/62 (79) 100 Nasal Cannula 2.00 01/20/21 10:00 70 109/58 (75) 100 Nasal Cannula 2.00 01/20/21 09:45 100 Nasal Cannula 1.50 01/20/21 09:00 83 103/80 (88) 100 Nasal Cannula 2.00 01/20/21 08:00 57 97/57 (70) 99 Nasal Cannula 2.00 01/20/21 07:04 97 Nasal Cannula 2.00 01/20/21 07:00 79 01/20/21 07:00 97 96/58 (71) 98 Nasal Cannula 2.00 01/20/21 06:00 81 23 101/66 (78) 98 Nasal Cannula 2.00 01/20/21 05:00 78 15 93/56 (68) 100 Nasal Cannula 2.00 I & O 01/21/21 07:00 Intake Total 2725 ml Output Total 2625 ml Balance 100 ml Height & Weight Height: '" Weight: lbs. oz. kg; 28.13 BMI Method: General Appearance: No Apparent Distress, WD/WN HEENT: PERRL/EOMI, Moist Mucous Membranes Neck: Full Range of Motion, Normal Inspection, Non Tender Respiratory: Lungs Clear, Normal Breath Sounds, No Accessory Muscle Use, No Respiratory Distress Cardiovascular: No JVD, No Murmur, Normal Peripheral Pulses, Irregularly Irregular Capillary Refill: Less Than 3 Seconds Extremity: Normal Capillary Refill, Non Tender, No Calf Tenderness, Pedal Edema (1+ b/l) Neurologic/Psychiatric: Alert, Oriented x3, No Motor/Sensory Deficits, Normal Mood/Affect Skin: Normal Color, Warm/Dry Lymphatic: No Adenopathy Results Lab Laboratory Tests 01/19/21 20:38 01/20/21 02:23 01/21/21 03:12 Assessment/Plan Assessment/Plan PNA with hypoxia and sepsis -Change IVF to LR -Change Levaquin to Cefepime -Garcia cultures pending -Chem pending Hypokalemia -Replace Vaginal yeast infection -Pt is requesting tx -Will start Diflucan Afib -Pradaxa KAYLEY HALEY DO Jan 21, 2021 04:58
[2021-01-21] MEDS ORDERED: POTASSIUM CL 10MEQ/50ML IVPB 50 ML IV SCH (05:00)
[2021-01-21] MEDS ORDERED: FLUCONAZOLE 200 MG/100 ML 100 ML IV ONE (05:15)
[2021-01-21] MEDS ORDERED: CEFEPIME 1 GM/10 ML (MAXIPIME) VIAL ONE ×2 (06:15→18:14)
--- NOTE | 2021-01-21 06:22 | Diagnostic Imaging Report ---
EXAMINATION: Portable erect AP chest at 3:35 AM INDICATION: Respiratory distress, pneumonia The heart is stable in size when compared to the prior exam of 01/19/2021. The previous study did note alveolar/interstitial infiltrates involving both lungs. On this study, there has been an increase in the density in both lungs, particularly the right lung. This does suggest worsening pneumonia/atelectasis. There is still no significant pleural effusion identified. The mediastinum is not widened. The osseous structures are intact. IMPRESSION: The appearance of the chest has worsened since the prior exam as there is greater involvement of both lungs by pneumonia/atelectasis, particularly the right lung. A followup study would be recommended for continued evaluation. Dictated by: Dictated on workstation # [id number]
[2021-01-21] MEDS: NYSTATIN ORAL SUSP 5 ML UDC PO SCH ×3 (06:24→18:23)
[2021-01-21] MEDS: LEVOTHYROXINE 100 MCG (LEVOTHROID) TAB PO SCH (06:24)
[2021-01-21] MEDS: CEFEPIME INJECTION 1,000 MG in WATER (STERILE) FOR INJECTION 10 ML IV SCH ×2 (06:25→18:24)
[2021-01-21] MEDS ORDERED: KCL 20 MEQ TAB (K-DUR) PO ONE (08:00)
[2021-01-21] MEDS: PANTOPRAZOLE 40 MG (PROTONIX) TAB PO SCH (08:44)
[2021-01-21] MEDS: DABIGATRAN 150 MG (PRADAXA) CAPSULE PO SCH ×2 (08:44→19:55)
[2021-01-21] MEDS: meTOprolol TARTRATE 25 MG (LOPRESSOR) TABLET PO SCH ×2 (08:44→19:56)
[2021-01-21] MEDS ORDERED: LEVOTHYROXINE 100 MCG (LEVOTHROID) TAB PO SCH (09:00)
--- NOTE | 2021-01-21 10:27 | Progress Note - Cardiology ---
Cardiology SOAP Progress Note Objective: I&O/Vital Signs 01/22/21 01/22/21 01/22/21 01/22/21 00:09 02:04 08:00 08:00 Temp 36.5 36.3 Pulse 91 94 Resp 18 22 B/P (MAP) 157/74 (101) 139/72 (94) Pulse Ox 94 96 96 O2 Delivery Nasal Cannula Nasal Cannula Room Air Room Air O2 Flow Rate 1.00 1.00 01/22/21 00:00 Intake Total 1220 ml Output Total 300 ml Balance 920 ml Constitutional: AAO x 3, well-developed, well-nourished Respiratory: No accessory muscle use, No respiratory distress; chest expansion is symmetric, chest is bilaterally symmetric, crackles (lower lobes), other (occ non-productive cough) Cardiovascular: irregularly irregular; No JVD; S1 and S2 Gastrointestional: tender (epigastric tenderness), soft, round, audible bowel sounds Extremities: swelling (bilat LE swelling) Neurologic/Psychiatric: grossly intact (moves all extremities) Skin: No rash on exposed areas, No ulcerations on exposed areas Results/Procedures: Labs Laboratory Tests 01/22/21 06:27: White Blood Count 14.3H, Red Blood Count 3.04L, Hemoglobin 9.9L, Hematocrit 34L, Mean Corpuscular Volume 111H, Mean Corpuscular Hemoglobin 33, Mean Corpuscular Hemoglobin Concent 30L, Red Cell Distribution Width 20.6H, Platelet Count 626H, Mean Platelet Volume 11.0, Immature Granulocyte % (Auto) 2, Neutrophils (%) (Auto) 78H, Lymphocytes (%) (Auto) 10L, Monocytes (%) (Auto) 7, Eosinophils (%) (Auto) 3, Basophils (%) (Auto) 1, Neutrophils # (Auto) 11.1H, Lymphocytes # (Auto) 1.5, Monocytes # (Auto) 0.9, Eosinophils # (Auto) 0.5H, Basophils # (Auto) 0.1, Immature Granulocyte # (Auto) 0.3H, Sodium Level 137, Potassium Level 4.3, Chloride Level 104, Carbon Dioxide Level 23, Anion Gap 10, Blood Urea Nitrogen 14, Creatinine 1.09, Estimat Glomerular Filtration Rate 49, BUN/Creatinine Ratio 13, Glucose Level 110H, Calcium Level 8.8, Corrected Calcium 9.4, Total Bilirubin 1.4H, Aspartate Amino Transf (AST/SGOT) 19, Alanine Aminotransferase (ALT/SGPT) 19, Alkaline Phosphatase 104, Total Protein 6.2L, Albumin 3.2 Microbiology 01/19/21 Urine Culture - Final, Complete Strep anginosus 01/19/21 Blood Culture - Preliminary, Resulted No growth 01/19/21 Influenza Types A,B Antigen (TIFFANY) - Final, Complete A/P: Assessment: Pneumonia with probable h/o COVID in the past - medical/pulmonary services managing Chronic Atrial fibrillation - rate controlled - [id number] score of 4, yearly risk of stroke without oral anticoagulation is 4 percent - Currently maintained on Pradaxa and ASA Echocardiogram of 01-21-20 showed LVEF 55-60%. LA and RA dilated. Mod calcified mitral valve. Mild to mod TR. PASP 55-60mmHg [place] to not be a a candidate for SHEBA and cardioversion due to recurrent GI bleed per Dr. Argueta H/O abnormal stress test: breast attenuation mild decrease uptake at the mid to apical anterolateral wall with mild reversibility, no significant ischemia. 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 Latif in the past - details unknown Hypertension Hyperlipidemia Hypothyroidism Mild bilateral carotid stenosis, ultrasound was done in February [address] Argueta History of cholecystectomy, hysterectomy, bladder surgery, all of nephrectomy and appendectomy History of myelodysplastic syndrome Plan: Anemia - management per medical Management of pneumonia is with medical/pulmonary services IV diuretics as indicated Replace electrolytes Advise continuation of OAC d/t chronic a-fib, for stroke prophylaxis Monitor lab closely GALILEO SCHNEIDER Jan 21, 2021 10:27
--- NOTE | 2021-01-21 12:31 | Progress Note - Hospitalist ---
CARLOS RIVAS MED STUDENT 01/21/21 1231: Subjective HPI/CC On Admission Date Seen by Provider: Jan 21, 2021 Time Seen by Provider: 08:45 CC: Fever with SOB HPI: This is a 80yoWF [address] Dr[address] Argueta for chronic AF and Dr. Rey for myelodysplastic syndrome who presents with shortness or breath, fever, and hy poxia of 80%. CXR revealed post-Covid lung appearance. She does not recall getting Covid. Cefepime was initiated, changed over from Levaquin and AF with RVR will be managed by cardiology. Subjective/Events-last exam 01/21/21 Pt feeling much better today after transfusion yesterday (hgb 8.4 up from 7) Still in afib - rate getting into low 100s so home med Metoprolol restarted today Cardiology consulted; echo yesterday. Chronic afib and does not think pt candidate for cardioversion Oral thrush - given Nystatin rinse and Fluconazole CXR worsened and crackles now audible on exam Pt reports hourly use of IS Leukocytosis improving; on Cefepime will continue Will move to 4th floor today and have PT/OT Focused Exam Lactate Level 01/19/21 20:38: Lactic Acid Level 1.97 Objective Exam Vital Signs Vital Signs Date Time Temp Pulse Resp B/P (MAP) Pulse Ox O2 Delivery O2 Flow Rate FiO2 01/21/21 12:00 78 19 Room Air 01/21/21 09:35 97 01/21/21 07:47 36.6 01/20/21 18:00 2.00 01/20/21 01:13 28 Capillary Refill : Less Than 3 Seconds General Appearance: No Apparent Distress, WD/WN HEENT: PERRL/EOMI, Moist Mucous Membranes Neck: Full Range of Motion, Non Tender Respiratory: Chest Non Tender, No Accessory Muscle Use, No Respiratory Dis tress, Crackles (throughout R lung) Cardiovascular: Normal Peripheral Pulses, Irregularly Irregular, Tachycardia Gastrointestinal: Normal Bowel Sounds, Non Tender, Soft Extremity: Normal Capillary Refill, Non Tender, Pedal Edema (1+ b/l) Neurologic/Psychiatric: Alert, Oriented x3, Normal Mood/Affect Skin: Normal Color, Warm/Dry Lymphatic: No Adenopathy Results/Procedures Lab Laboratory Tests 01/21/21 03:12 Patient resulted labs reviewed. Imaging: Reviewed Imaging Report Assessment/Plan Assessment and Plan Assess & Plan/Chief Complaint Assessment: * Chronic Afib * Afib with RVR upon admission - RVR now resolved but afib continues * Dr. Argueta is her brusher hand. Echo performed; not a candidate for cardioversion * Pradaxa 150 mg * PNA w sepsis and hypoxia * IV Cefepime * IVF (LR) * 2L NC * Oral thrush * Oral Nystatin and Fluconazole * Hypotension * Resolved * NE d/c * Myelodysplastic syndrome * Today hgb 8.4 up from 7 after 1 unit PRBC yesterday * Iron studies ordered and WNL * Hx of HTN * Hold home meds * Hypothyroidism * Home meds * UTI * CXR post-COVID changes * Hx of recent fall and head injury * CT head non-contrast negative Plan: Move to 4th floor Monitor heart rate IV abx Continue IVF PT Encourage IS use Diagnosis/Problems Diagnosis/Problems (1) Hypoxia Status: Acute (2) Afib Status: Chronic (3) Anemia Status: Chronic (4) Hypertension Status: Chronic (5) Hypothyroidism Status: Chronic (6) Myelodysplasia (myelodysplastic syndrome) Status: Chronic LASHONDA CHÁVEZ DO 01/22/21 0626: Subjective Subjective/Events-last exam Pt doing a lot better Potassium 3.3 is being supplemented Hgb 8.4 after one unit of blood BP stable, off pressers Metoprolol was restarted Echocardiogram was reviewed Overall feels like she is doing okay Review of Systems General: Fatigue Objective Exam General Appearance: No Apparent Distress, WD/WN Respiratory: Crackles (throughout R lung) Cardiovascular: Irregularly Irregular Assessment/Plan Assessment and Plan Assess & Plan/Chief Complaint Monitor closely 4th floor status Supervisory-Addendum Brief Verification & Attestation Participated in pt care: history, MDM, physical Personally performed: exam, history, MDM, supervision of care Care discussed with: Medical Student Procedures: n/a Results interpretation: Verified all documentation Verification and Attestation of Medical Student E/M Service A medical student performed and documented this service in my presence. I reviewed and verified all information documented by the medical student and made modifications to such information, when appropriate. I personally performed the physical exam and medical decision making. Lashonda Chávez Jan 22, 2021,06:25 CARLOS RIVAS MED STUDENT Jan 21, 2021 12:31 LASHONDA CHÁVEZ DO Jan 22, 2021 06:26
[2021-01-21] MEDS ORDERED: WATER (STERILE) FOR INJECTION 10 ML ONE (18:14)
--- NOTE | 2021-01-21 18:16 | Progress Note - Cardiology ---
Cardiology SOAP Progress Note Subjective: Some gen malaise, but improving No cp or palp or syncope Some shortness of breath with exertion No n/v/d Objective: I&O/Vital Signs 01/21/21 01/21/21 01/21/21 01/21/21 06:37 07:47 08:00 08:00 Temp 36.6 Pulse 143 121 Resp 20 B/P (MAP) 135/72 (93) Pulse Ox 95 95 O2 Delivery Room Air Room Air 01/21/21 01/21/21 01/21/21 01/21/21 09:35 12:00 12:00 12:28 Pulse 78 86 Resp 19 B/P (MAP) Pulse Ox 97 95 O2 Delivery Room Air Room Air Room Air 01/21/21 01/21/21 14:42 16:16 Temp 36.2 Pulse 79 Resp 18 B/P (MAP) 139/84 (102) Pulse Ox 94 93 O2 Delivery Room Air Room Air 01/20/21 23:59 Intake Total 2405 ml Output Total 1500 ml Balance 905 ml Constitutional: AAO x 3, well-developed, well-nourished Respiratory: No accessory muscle use, No respiratory distress; chest expansion is symmetric, chest is bilaterally symmetric, crackles (lower lobes), other (occ non-productive cough) Cardiovascular: irregularly irregular; No JVD; S1 and S2 Gastrointestional: tender (epigastric tenderness), soft, round, audible bowel sounds Extremities: swelling (bilat LE swelling) Neurologic/Psychiatric: grossly intact (moves all extremities) Skin: No rash on exposed areas, No ulcerations on exposed areas Results/Procedures: Labs Laboratory Tests 01/21/21 03:12: White Blood Count 10.2, Red Blood Count 2.59L, Hemoglobin 8.4L, Hematocrit 29L, Mean Corpuscular Volume 110H, Mean Corpuscular Hemoglobin 32, Mean Corpuscular Hemoglobin Concent 30L, Red Cell Distribution Width 21.2H, Platelet Count 551H, Mean Platelet Volume 11.3, Immature Granulocyte % (Auto) 1, Neutrophils (%) (Auto) 81H, Lymphocytes (%) (Auto) 10L, Monocytes (%) (Auto) 5, Eosinophils (%) (Auto) 3, Basophils (%) (Auto) 1, Neutrophils # (Auto) 8.3H, Lymphocytes # (Auto) 1.0, Monocytes # (Auto) 0.5, Eosinophils # (Auto) 0.3, Basophils # (Auto) 0.1, Immature Granulocyte # (Auto) 0.1, Sodium Level 140, Potassium Level 3.3L, Chloride Level 106, Carbon Dioxide Level 22, Anion Gap 12, Blood Urea Nitrogen 18, Creatinine 1.07, Estimat Glomerular Filtration Rate 50, BUN/Creatinine Ratio 17, Glucose Level 100, Calcium Level 7.9L, Phosphorus Level 3.0, Magnesium Level 1.9 Microbiology 01/19/21 Urine Culture - Final, Complete Strep anginosus 01/19/21 Blood Culture - Preliminary, Resulted No growth 01/19/21 Influenza Types A,B Antigen (TIFFANY) - Final, Complete Laboratory Tests 01/19/21 20:38 01/20/21 02:23 01/21/21 03:12 A/P: Assessment: Pneumonia with probable h/o COVID in the past - medical/pulmonary services managing Chronic Atrial fibrillation - rate controlled - [id number] score of 4, yearly risk of stroke without oral anticoagulation is 4 percent - Currently maintained on Pradaxa and ASA Echocardiogram of 01-21-20 showed LVEF 55-60%. LA and RA dilated. Mod calcified mitral valve. Mild to mod TR. PASP 55-60mmHg [place] to not be a a candidate for SHEBA and cardioversion due to recurrent GI bleed per Dr. Argueta H/O abnormal stress test: breast attenuation mild decrease uptake at the mid to apical anterolateral wall with mild reversibility, no significant ischemia. 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 Latif in the past - details unknown Hypertension Hyperlipidemia Hypothyroidism Mild bilateral carotid stenosis, ultrasound was done in February [address] Argueta History of cholecystectomy, hysterectomy, bladder surgery, all of nephrectomy and appendectomy History of myelodysplastic syndrome Plan: Anemia - management per medical Management of pneumonia is with medical/pulmonary services IV diuretics as indicated Replace electrolytes Advise continuation of OAC d/t chronic a-fib, for stroke prophylaxis Monitor lab closely RODRI KESSLER MD FACP FAC CCDS Jan 21, 2021 18:16
[2021-01-22 00:09] VITALS: BP 157/74
[2021-01-22] MEDS: NYSTATIN ORAL SUSP 5 ML UDC PO SCH ×5 (00:18→23:24)
[2021-01-22] MEDS ORDERED: CALCIUM CARBONATE 500 MG (TUMS) TAB.CHEW ONE (01:09)
[2021-01-22] MEDS ORDERED: CALCIUM CARBONATE 500 MG (TUMS) TAB.CHEW PO PRN (01:15)
[2021-01-22] MEDS: RT-ALBUTEROL SULF 2.5 MG/3 ML PRE-MIX VIAL INH SCH ×2 (02:07→21:08)
[2021-01-22] MEDS ORDERED: CEFEPIME 1 GM/10 ML (MAXIPIME) VIAL ONE ×2 (05:44→18:16)
[2021-01-22] MEDS: PANTOPRAZOLE 40 MG (PROTONIX) TAB PO SCH (05:54)
[2021-01-22] MEDS: LEVOTHYROXINE 100 MCG (LEVOTHROID) TAB PO SCH (05:54)
[2021-01-22] MEDS: CEFEPIME INJECTION 1,000 MG in WATER (STERILE) FOR INJECTION 10 ML IV SCH ×2 (05:55→18:26)
[2021-01-22 06:39] LABS: BASOPHILS # (AUTO) 0.1 10^3/uL (0.0-0.1); BASOPHILS % (AUTO) 1 % (0-10); EOSINOPHILS # (AUTO) 0.5 10^3/uL (0.0-0.3); EOSINOPHILS % (AUTO) 3 % (0-10); HEMATOCRIT 34 % (35-52); HEMOGLOBIN 9.9 g/dL (11.5-16.0); LYMPHOCYTES # (AUTO) 1.5 10^3/uL (1.0-4.0); LYMPHOCYTES % (AUTO) 10 % (12-44); MEAN CORPUSCULAR HEMOGLOBIN 33 pg (25-34); MEAN CORPUSCULAR HGB CONC 30 g/dL (32-36); MEAN CORPUSCULAR VOLUME 111 fL (80-99); MONOCYTES # (AUTO) 0.9 10^3/uL (0.0-1.0); MONOCYTES % (AUTO) 7 % (0-12); NEUTROPHILS # (AUTO) 11.1 10^3/uL (1.8-7.8); NEUTROPHILS % (AUTO) 78 % (42-75); PLATELET COUNT 626 10^3/uL (130-400); WHITE BLOOD COUNT 14.3 10^3/uL (4.3-11.0)
[2021-01-22 07:01] LABS: ALBUMIN 3.2 GM/DL (3.2-4.5); POTASSIUM 4.3 MMOL/L (3.6-5.0)
[2021-01-22 07:02] LABS: CALCIUM 8.8 MG/DL (8.5-10.1)
[2021-01-22 07:03] LABS: TOTAL PROTEIN 6.2 GM/DL (6.4-8.2)
[2021-01-22 07:05] LABS: BILIRUBIN,TOTAL 1.4 MG/DL (0.1-1.0)
[2021-01-22 07:07] LABS: CREATININE SERUM 1.09 MG/DL (0.60-1.30)
[2021-01-22] MEDS: FLUCONAZOLE 200 MG/100 ML 50 ML, EMPTY IV BAG (PVC) 1 EA IV SCH ×2 (07:57)
[2021-01-22] MEDS: DABIGATRAN 150 MG (PRADAXA) CAPSULE PO SCH ×2 (07:57→20:17)
[2021-01-22] MEDS: meTOprolol TARTRATE 25 MG (LOPRESSOR) TABLET PO SCH ×2 (07:57→20:17)
[2021-01-22 08:00] VITALS: BP 139/72
--- NOTE | 2021-01-22 11:25 | Progress Note - Hospitalist ---
CARLOS RIVAS MED STUDENT 01/22/21 1125: Subjective HPI/CC On Admission Date Seen by Provider: Jan 22, 2021 Time Seen by Provider: 08:30 CC: Fever with SOB HPI: This is a 80yoWF who sees Dr. Argueta for chronic AF and Dr. Rey for myelodysplastic syndrome who presents with shortness or breath, fever, and hy poxia of 80%. CXR revealed post-Covid lung appearance. She does not recall getting Covid. Cefepime was initiated, changed over from Levaquin and AF with RVR will be managed by cardiology. Subjective/Events-last exam 01/22/21 Pt states that she is feeling much better Appears to have more energy WBC 14,300 up from 10,200 yesterday and maintained on Cefepime Thrombocytosis (platelets 626K) Has productive cough and reports hourly use of IS Developed diarrhea last night which she attributes to food she ate; will monitor this in case secondary to abx use Moving around well but feels weak PT/OT today possibly discharge tomorrow Focused Exam Lactate Level 01/19/21 20:38: Lactic Acid Level 1.97 Objective Exam Vital Signs Vital Signs Date Time Temp Pulse Resp B/P (MAP) Pulse Ox O2 Delivery O2 Flow Rate FiO2 01/22/21 10:09 96 Room Air 01/22/21 08:00 36.3 94 22 139/72 (94) 01/22/21 02:04 1.00 01/20/21 01:13 28 Capillary Refill : Less Than 3 Seconds General Appearance: No Apparent Distress HEENT: PERRL/EOMI, Moist Mucous Membranes Neck: Normal Inspection, Non Tender, Supple Respiratory: Chest Non Tender, No Accessory Muscle Use, No Respiratory Distress, Crackles (RLL) Cardiovascular: No Edema, No JVD, No Murmur, Normal Peripheral Pulses, Irregularly Irregular Gastrointestinal: Normal Bowel Sounds, Non Tender, Soft Extremity: Normal Capillary Refill, Non Tender, No Calf Tenderness, No Pedal Edema Neurologic/Psychiatric: Alert, Oriented x3, Normal Mood/Affect Skin: Normal Color, Warm/Dry Lymphatic: No Adenopathy Results/Procedures Lab Laboratory Tests 01/22/21 06:27 Patient resulted labs reviewed. 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 Echo performed; not a candidate for cardioversion * Pradaxa 150 mg * PNA w sepsis and hypoxia * Continue IV Cefepime * Breathing treatments * IS use encouraged * IVF (LR) * Oral thrush * Oral Nystatin and Fluconazole * Hypotension * Resolved * NE d/c * Myelodysplastic syndrome * Today hgb 9.9 up from 8.4 after 1 unit PRBC 2 days ago * Iron studies ordered and WNL * Hx of HTN * Hold home meds * Hypothyroidism * Home meds * UTI * CXR post-COVID changes * Hx of recent fall and head injury * CT head non-contrast negative Plan: PT/OT Monitor heart rate IV abx PT Monitor diarrhea frequency and send for culture if needed Encourage IS use Diagnosis/Problems Diagnosis/Problems (1) Hypoxia Status: Acute (2) Afib Status: Chronic (3) Anemia Status: Chronic (4) Hypertension Status: Chronic (5) Hypothyroidism Status: Chronic (6) Myelodysplasia (myelodysplastic syndrome) Status: Chronic LASHONDA CHÁVEZ DO 01/23/21 0532: Subjective Subjective/Events-last exam Pt doing a lot better Upright and in a chair and son are at the bedside Will initiated PT today since she is still a little bit weak IV antibiotics maintained on Cefepime Hgb 9.5 Review of Systems General: Fatigue, Malaise Pulmonary: Dyspnea, Cough Objective Exam General Appearance: No Apparent Distress, WD/WN, Chronically ill Respiratory: Crackles (RLL) Cardiovascular: Irregularly Irregular Neurologic/Psychiatric: Alert, Oriented x3, No Motor/Sensory Deficits, Normal Mood/Affect Assessment/Plan Assessment and Plan Assess & Plan/Chief Complaint PT OT Monitor lungs Check labs and CXR in am Supervisory-Addendum Brief Verification & Attestation Participated in pt care: history, MDM, physical Personally performed: exam, history, MDM, supervision of care Care discussed with: Medical Student Procedures: n/a Results interpretation: Verified all documentation Verification and Attestation of Medical Student E/M Service A medical student performed and documented this service in my presence. I reviewed and verified all information documented by the medical student and made modifications to such information, when appropriate. I personally performed the physical exam and medical decision making. Lashonda Chávez, Jan 23, 2021,05:31 CARLOS RIVAS MED STUDENT Jan 22, 2021 11:25 LASHONDA CHÁVEZ DO Jan 23, 2021 05:32
[2021-01-22] MEDS ORDERED: LOPERAMIDE 2 MG (IMODIUM) TABLET PO ONE (11:30)
[2021-01-22] MEDS ORDERED: LOPERAMIDE 2 MG (IMODIUM) TABLET PO PRN (11:30)
[2021-01-22 12:00] VITALS: BP 131/68
--- NOTE | 2021-01-22 13:23 | Progress Note - Cardiology ---
Cardiology SOAP Progress Note Subjective: No cp or palp or syncope No shortness of breath at rest Some gen malaise Has been having diarrhea today Objective: I&O/Vital Signs 01/22/21 01/22/21 01/22/21 01/22/21 02:04 08:00 08:00 10:09 Temp 36.3 Pulse 94 Resp 22 B/P (MAP) 139/72 (94) Pulse Ox 96 96 96 O2 Delivery Nasal Cannula Room Air Room Air Room Air O2 Flow Rate 1.00 01/22/21 12:00 Temp 35.8 Pulse 63 Resp 20 B/P (MAP) 131/68 (89) Pulse Ox 90 O2 Delivery Room Air 01/22/21 00:00 Intake Total 1220 ml Output Total 300 ml Balance 920 ml Constitutional: AAO x 3, well-developed, well-nourished Respiratory: No accessory muscle use, No respiratory distress; chest expansion is symmetric, chest is bilaterally symmetric, crackles (lower lobes), other (occ non-productive cough) Cardiovascular: irregularly irregular; No JVD; S1 and S2 Gastrointestional: tender (epigastric tenderness), soft, round, audible bowel sounds Extremities: swelling (bilat LE swelling) Neurologic/Psychiatric: grossly intact (moves all extremities) Skin: No rash on exposed areas, No ulcerations on exposed areas Results/Procedures: Labs Laboratory Tests 01/22/21 06:27: White Blood Count 14.3H, Red Blood Count 3.04L, Hemoglobin 9.9L, Hematocrit 34L, Mean Corpuscular Volume 111H, Mean Corpuscular Hemoglobin 33, Mean Corpuscular Hemoglobin Concent 30L, Red Cell Distribution Width 20.6H, Platelet Count 626H, Mean Platelet Volume 11.0, Immature Granulocyte % (Auto) 2, Neutrophils (%) (Auto) 78H, Lymphocytes (%) (Auto) 10L, Monocytes (%) (Auto) 7, Eosinophils (%) (Auto) 3, Basophils (%) (Auto) 1, Neutrophils # (Auto) 11.1H, Lymphocytes # (Auto) 1.5, Monocytes # (Auto) 0.9, Eosinophils # (Auto) 0.5H, Basophils # (Auto) 0.1, Immature Granulocyte # (Auto) 0.3H, Sodium Level 137, Potassium Level 4.3, Chloride Level 104, Carbon Dioxide Level 23, Anion Gap 10, Blood Urea Nitrogen 14, Creatinine 1.09, Estimat Glomerular Filtration Rate 49, BUN/Creatinine Ratio 13, Glucose Level 110H, Calcium Level 8.8, Corrected Calcium 9.4, Total Bilirubin 1.4H, Aspartate Amino Transf (AST/SGOT) 19, Alanine Aminotransferase (ALT/SGPT) 19, Alkaline Phosphatase 104, Total Protein 6.2L, Albumin 3.2 01/22/21 13:14: Lab Scanned Report Transfusion Reaction Form Microbiology 01/19/21 Urine Culture - Final, Complete Strep anginosus 01/19/21 Blood Culture - Preliminary, Resulted No growth 01/19/21 Influenza Types A,B Antigen (TIFFANY) - Final, Complete Laboratory Tests 01/21/21 03:12 01/22/21 06:27 A/P: Assessment: Pneumonia with probable h/o COVID in the past - medical/pulmonary services managing Chronic Atrial fibrillation - rate controlled - Currently maintained on Pradaxa and ASA Echocardiogram of 01-21-20 showed LVEF 55-60%. LA and RA dilated. Mod calcified mitral valve. Mild to mod TR. PASP 55-60mmHg H/O abnormal stress test: breast attenuation mild decrease uptake at the mid to apical anterolateral wall with mild reversibility, no significant ischemia. 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 Latif in the past - details unknown Hypertension Hyperlipidemia Hypothyroidism Mild bilateral carotid stenosis, ultrasound was done in February [address] Argueta History of cholecystectomy, hysterectomy, bladder surgery, all of nephrectomy and appendectomy History of myelodysplastic syndrome Plan: Anemia - eval and management per Medical svce Management of pneumonia is with Medical and Pulmonary services IV diuretics as indicated Monitor lab closely RODRI KESSLER MD [facility] Jan 22, 2021 13:23
--- NOTE | 2021-01-22 14:57 | Occupational Therapy Eval ---
OT Evaluation-General/PLF Medical Diagnosis Admission Date Jan 20, 2021 at 03:14 Medical Diagnosis: pneumonia, hypoxia, sepsis Onset Date: Jan 20, 2021 Therapy Diagnosis Therapy Diagnosis: weakness Precautions Precautions/Isolations: Fall Prevention, Standard Precautions Referral Physician: Harsha Martinez Reason: Evaluation/Treatment Medical History Pertinent Medical History: Atrial Fib, HTN, Hypothroidism Additional Medical History myelodysplastic syndrome Current History ED with c/o malaise, fever, cough, SOB x1 week Social History Home: Single Level Current Living Status: Spouse Entry Into Home: Stairs With Railing Steps Into Home: 3 ADL-Prior Level of Function SCALE: Activities may be completed with or without assistive devices. 8-Aogunvzebw-gxsnkod completes the activity by him/herself with no assistance from a helper. 5-Set-up or Clean-up Assistance-helper sets up or cleans up; patient completes activity. [place] assists only prior to or following the activity. 4-Supervision or Touching Assistance-helper provides verbal cues and/or touching/steadying and/or contact guard assistance as patient completes activity. Assistance may be provided throughout the activity or intermittently. 3-Partial/Moderate Assistance-helper does LESS THAN HALF the effort. [place] lifts, holds or supports trunk or limbs, but provides less than half the effort. 2-Substantial/Maximal Assistance-helper does MORE THAN HALF the effort. [place] lifts or holds trunk or limbs and provides more than half the effort. 8-Lkiqjkfyp-nbopia does ALL the effort. Patient does none of the effort to complete the activity. Or, the assistance of 2 or more helpers is required for the patient to complete the activity. If activity was not attempted, code reason: 7-Patient Refused. 9-Not Applicable-not attempted and the patient did not perform the activity before the current illness, exacerbation or injury. 10-Not Attempted due to Environmental Limitations-(lack of equipment, weather restraints, etc.). 88-Not Attempted due to Medical Conditions or Safety Concerns. ADL PLOF Comments Pt reports being independent with I/ADLs at PLOF including bathing, dressing, cooking, cleaning, toileting, and laundry. Pt has a tub/shower with a shower chair and uses a walker for functional mobility Self Care: Independent Functional Cognition: Independent DME/Equipment: Bath Chair, Shower DME/Equipment Comments walker OT Current Status Subjective Pt seated in recliner, agreeable to OT evaluation and tx. Mental Status/Objective Patient Orientation: Person, Place, Time, Situation Current Glasses/Contacts: Yes Hand Dominance: Right Upper Extremity ROM WFL Upper Extremity Coordination WFL Upper Extremity Sensation WFL Upper Extremity Strength WFL ADL-Treatment Eating (QC): 6 (Pt reports independent with lunch) Upper Body Dressing (QC): 6 (Per pt report, dressed self independently this AM) Lower Body Dressing (QC): 6 (Per pt report, dressed self independently this AM) On/Off Footwear (QC): 6 (Per pt report, dressed self independently this AM) Toileting Hygiene (QC): 6 (Pt reports being able to toilet herself independently.) Other Treatments Pt seated in recliner, agreeable to OT evaluation and tx. OT educated pt on purpose and benefit of OT, she verbalized understanding. Pt provided information about PLOF And home set up, and participated in UE Screen. Pt indicates she is able to complete toileting independently, and she dressed herself this AM independently. Pt has no concerns wtih her ability to complete ADLS upon returning home. She also feels like her UE strength is at PLOF, and has no concerns with UEs. No skilled OT services indicated at this time, as pt is at her PLOF and independent with ADLs. Post tx, pt seated in recliner, call light in reach and all needs met. Education OT Patient Education: Correct positioning, Modified ADL techniques, Progress toward Goal/Update tx plan, Purpose of tx/functional activities Teaching Recipient: Patient Teaching Methods: Discussion Response to Teaching: Verbalize Understanding OT Corrugator Operator Goals [facility] Goals 1=Demonstrate adherence to instructed precautions during ADL tasks. 2=Patient will verbalize/demonstrate understanding of assistive devices/modifications for ADL. 3=Patient will improve strength/tolerance for activity to enable patient to perform ADL's. OT Education/Plan Problem List/Assessment Assessment: No Skilled OT Needs ID'd No skilled OT services indicated at this time, as pt is at PLOF and independent with all ADLs, pt has no concerns with returning home. D/C from OT Discharge Recommendations Plan/Recommendations: Discharge/Goals Met Treatment Plan/Plan of Care Treatment,Training & Education: Yes Patient would benefit from OT for education, treatment and training to promote independence in ADL's, mobility, safety and/or upper extremity function for ADL's. Plan of Care: ADL Retraining Treatment Duration: Jan 22, 2021 Frequency: 1 time per week (eval only) Time/GCodes Start Time: 13:57 Stop Time: 14:10 Total Time Billed (hr/min): 13 Billed Treatment Time 1, THERESE NORRIS OT Jan 22, 2021 14:57
--- NOTE | 2021-01-22 15:05 | Physical Therapy Evaluation ---
PT Evaluation-General Medical Diagnosis Admission Date Jan 20, 2021 at 03:14 Medical Diagnosis: pneumonia, hypoxia, sepsis Onset Date: Jan 20, 2021 Therapy Diagnosis Therapy Diagnosis: NA, independent with mobility Precautions Precautions/Isolations: Fall Prevention, Standard Precautions Referral Physician: Harsha Reason for Referral: Evaluation/Treatment Medical History Pertinent Medical History: Atrial Fib, HTN, Hypothroidism Current History CC to ED secondary to SOB, fever, malaise Reviewed History: Yes Social History Home: Single Level Current Living Status: Spouse Entry Into Home: Stairs With Railing PT Steps Into Home: 3 Prior Prior Level of Function SCALE: Activities may be completed with or without assistive devices. 9-Otshfkisuu-rhmuzdi completes the activity by him/herself with no assistance from a helper. 5-Set-up or Clean-up Assistance-helper sets up or cleans up; patient completes activity. [place] assists only prior to or following the activity. 4-Supervision or Touching Assistance-helper provides verbal cues and/or touching/steadying and/or contact guard assistance as patient completes activity. Assistance may be provided throughout the activity or intermittently. 3-Partial/Moderate Assistance-helper does LESS THAN HALF the effort. [place] lifts, holds or supports trunk or limbs, but provides less than half the effort. 2-Substantial/Maximal Assistance-helper does MORE THAN HALF the effort. [place] lifts or holds trunk or limbs and provides more than half the effort. 4-Xryvzcilg-eolxyp does ALL the effort. Patient does none of the effort to complete the activity. Or, the assistance of 2 or more helpers is required for the patient to complete the activity. If activity was not attempted, code reason: 7-Patient Refused. 9-Not Applicable-not attempted and the patient did not perform the activity before the current illness, exacerbation or injury. 10-Not Attempted due to Environmental Limitations-(lack of equipment, weather restraints, etc.). 88-Not Attempted due to Medical Conditions or Safety Concerns. Bed Mobility: 6 Transfers (B,C,W/C): 6 Gait: 6 Stairs: 6 Indoor Mobility (Ambulation): Independent Stairs: Independent Prior Devices Use: None PT Evaluation-Current Subjective Patient reports muscle cramping in her L hip, sitting upright in recliner pre tx . Patient consents to therapy. Pt/Family Goals Independent with PLOF Objective Patient Orientation: Person, Place, Time, Normal For Age ROM/Strength ROM Lower Extremities WFL Strength Lower Extremities WFL Integumentary/Posture Integumentary see nursing report Bowel Incontinence: No Bladder Incontinence: No Posture mild kyphosis Sensory Vision: Wears Glasses Hearing: Functional Hand Dominance: Right Sensation Right Lower Extremit: Impaired Sensation Left Lower Extremity: Impaired Sensation Lower Extremities Patient reports numbness in feet that have been present prior to incident. Transfers Roll Left to Right (QC): 6 Sit to Lying (QC): 6 Lying to Sitting/Side of Bed(Q: 6 Sit to Stand (QC): 6 Chair/Mcv-zc-Tboht Xfer(QC): 6 Gait Does the Patient Walk?: Yes Mode of Locomotion: Walk Anticipated Mode of Locomotion: Walk Walk 10 feet (QC): 6 Walk 50 ft with 2 Turns(QC): 6 Walk 150 ft (QC): 6 Distance: 400' Gait Assistive Device: FWW Comments/Gait Description Patient is steady with gait, with fair pacing, maintains balance consistently. Smooth gait cycling occurs with no indication of antalgic pattern. Balance Sitting Static: Normal Sitting Dynamic: Normal Standing Static: Normal Standing Dynamic: Normal Assessment/Needs Patient maintains balance with all functional activity, has adequate endurance and LE strength for all independent needs. Rehab Potential: Good PT Plan Treatment/Plan Treatment Plan: Discontinue PT Treatment Duration: Jan 22, 2021 Frequency: Patient and/or Family Agrees t: Yes Safety Risks/Education Patient Education: Gait Training, Transfer Techniques, Correct Positioning, Safety Issues Teaching Recipient: Patient Teaching Methods: Demonstration, Discussion Response to Teaching: Reinforcement Needed Discharge Recommendations Plan Patient is at PLOF, safe with functional mobility, and demonstrates adequate independence with transfers/gait, further PT services not indicated at this time Time/GCodes Time In: 218 Time Out: 233 Total Billed Treatment Time: 15 Total Billed Treatment 1 visit: EVL: 15' NUZHAT PHIPPS PT Jan 22, 2021 15:05
--- NOTE | 2021-01-22 15:33 | Physician Query Clarification ---
Physician Query-General Query to Physician: The medical record reflects the following clinical scenario: The patient, in the setting of History/Risk factors, Sepsis, PNA possible hx of Covid (per chest x-ray) Clinical Findings RR 22 on admission later 20 -30's, O2 sat 86% on RA, ,Treatment Supplemental 02, albuterol, IV ABX, Question: Do you agree with the impression of Acute hypoxic respiratory failure per Hilario Wesley? If you agree, please document in Progress Notes or Discharge Summary. 1. Yes; will document Acute Hypoxic Respiratory Failure present on admission, now resolved 2. No; will to document Hypoxia in the Progress Notes 3. Other; will document explanation of clinical findings 4. Clinically undetermined; no explanation for clinical findings Please clarify and document your clinical opinion in the Progress Notes and Dis charge Summary including the definitive and/or presumptive diagnosis, (suspected or probable), related to the above clinical findings. Please include clinical findings supporting your diagnosis. In responding to this query, please exercise your independent professional judgment. The purpose of this communication is to more accurately reflect the complexity of your patients condition. The fact that a question is asked does not imply that any particular answer is desired or expected. Please remember a lack of response to the above will prompt a phone page by CDI/coding staff Thank you for timely response to this clarification. Kelly Hernandez [phone] PHYSICIAN RESPONSE: Based on the clinical findings in the record, please respond to the query above on this document as an addendum. Physician Response: Physician Response 1 If you have questions please contact: Ham Boner: Ext: Thank you for your time and cooperation. Clinical Principle Industrial Hygienist/Ham Boner This is a permanent part of the medical record KELLY HERNANDEZ Jan 22, 2021 15:33 HERLINDA CHÁVEZ DO Jan 22, 2021 20:23
[2021-01-22 16:00] VITALS: BP 139/61
[2021-01-22] MEDS ORDERED: WATER (STERILE) FOR INJECTION 10 ML ONE (18:16)
[2021-01-22] MEDS ORDERED: guaiFENesin/CODEINE (ROBITUSSIN AC) 10ML UDC PO PRN (19:45)
[2021-01-22] MEDS: BENZONATATE 100 MG (TESSALON) CAPSULE PO SCH (20:16)
[2021-01-22 23:28] VITALS: BP 124/72
[2021-01-23] MEDS: RT-ALBUTEROL SULF 2.5 MG/3 ML PRE-MIX VIAL INH SCH (02:10)
[2021-01-23] MEDS ORDERED: CEFEPIME 1 GM/10 ML (MAXIPIME) VIAL ONE (04:50)
[2021-01-23] MEDS: CEFEPIME INJECTION 1,000 MG in WATER (STERILE) FOR INJECTION 10 ML IV SCH (05:02)
[2021-01-23] MEDS: LEVOTHYROXINE 100 MCG (LEVOTHROID) TAB PO SCH (05:02)
[2021-01-23] MEDS: NYSTATIN ORAL SUSP 5 ML UDC PO SCH (05:02)
[2021-01-23] MEDS: PANTOPRAZOLE 40 MG (PROTONIX) TAB PO SCH (05:02)
[2021-01-23 06:07] LABS: BASOPHILS # (AUTO) 0.1 10^3/uL (0.0-0.1); BASOPHILS % (AUTO) 1 % (0-10); EOSINOPHILS # (AUTO) 0.2 10^3/uL (0.0-0.3); EOSINOPHILS % (AUTO) 2 % (0-10); HEMATOCRIT 32 % (35-52); HEMOGLOBIN 9.2 g/dL (11.5-16.0); LYMPHOCYTES # (AUTO) 1.6 10^3/uL (1.0-4.0); LYMPHOCYTES % (AUTO) 13 % (12-44); MEAN CORPUSCULAR HEMOGLOBIN 32 pg (25-34); MEAN CORPUSCULAR HGB CONC 29 g/dL (32-36); MEAN CORPUSCULAR VOLUME 112 fL (80-99); MEAN PLATELET VOLUME 11.6 fL (9.0-12.2); MONOCYTES # (AUTO) 0.9 10^3/uL (0.0-1.0); MONOCYTES % (AUTO) 8 % (0-12); NEUTROPHILS # (AUTO) 8.8 10^3/uL (1.8-7.8); NEUTROPHILS % (AUTO) 74 % (42-75); PLATELET COUNT 425 10^3/uL (130-400); WHITE BLOOD COUNT 11.9 10^3/uL (4.3-11.0)
[2021-01-23 06:17] LABS: ALBUMIN 2.9 GM/DL (3.2-4.5)
[2021-01-23 06:18] LABS: CALCIUM 8.4 MG/DL (8.5-10.1)
[2021-01-23 06:20] LABS: TOTAL PROTEIN 5.7 GM/DL (6.4-8.2)
[2021-01-23 06:21] LABS: BILIRUBIN,TOTAL 1.1 MG/DL (0.1-1.0)
[2021-01-23 06:23] LABS: CREATININE SERUM 1.03 MG/DL (0.60-1.30)
[2021-01-23 07:17] VITALS: BP 121/59
[2021-01-23] MEDS: FLUCONAZOLE 200 MG/100 ML 50 ML, EMPTY IV BAG (PVC) 1 EA IV SCH ×2 (07:42)
[2021-01-23] MEDS: meTOprolol TARTRATE 25 MG (LOPRESSOR) TABLET PO SCH (07:42)
[2021-01-23] MEDS: DABIGATRAN 150 MG (PRADAXA) CAPSULE PO SCH (07:42)
[2021-01-23] MEDS: BENZONATATE 100 MG (TESSALON) CAPSULE PO SCH (07:42)
--- NOTE | 2021-01-23 08:05 | Diagnostic Imaging Report ---
Indication: Follow-up pneumonia COMPARISON STUDY: Chest from 2 days ago. FINDINGS: Frontal and lateral views of the chest demonstrates improvement of the bilateral pulmonary infiltrates which is greater centrally. The heart size is within normal limits. No significant effusions are seen. IMPRESSION: There are improving bilateral pulmonary infiltrates. Dictated by: Dictated on workstation # [id number]
--- NOTE | 2021-01-23 10:34 | Progress Note - Cardiology ---
Cardiology SOAP Progress Note Subjective: No cp or palp or syncope No shortness of breath at rest Malaise improving No n/v/d Objective: I&O/Vital Signs 01/22/21 01/23/21 01/23/21 01/23/21 23:28 02:10 07:17 08:00 Temp 36.3 36.6 Pulse 91 82 Resp 22 20 B/P (MAP) 124/72 (89) 121/59 (79) Pulse Ox 90 94 90 O2 Delivery Room Air Room Air Room Air Room Air 01/23/21 09:52 Pulse Ox 94 O2 Delivery Room Air 01/23/21 00:00 Intake Total 1240 ml Balance 1240 ml Constitutional: AAO x 3, well-developed, well-nourished Respiratory: No accessory muscle use, No respiratory distress; chest expansion is symmetric, chest is bilaterally symmetric, crackles (lower lobes), other (occ non-productive cough) Cardiovascular: irregularly irregular; No JVD; S1 and S2 Gastrointestional: tender (epigastric tenderness), soft, round, audible bowel sounds Extremities: swelling (bilat LE swelling) Neurologic/Psychiatric: grossly intact (moves all extremities) Skin: No rash on exposed areas, No ulcerations on exposed areas Results/Procedures: Labs Laboratory Tests 01/22/21 13:14: Lab Scanned Report Transfusion Reaction Form 01/23/21 05:27: White Blood Count 11.9H, Red Blood Count 2.84L, Hemoglobin 9.2L, Hematocrit 32L, Mean Corpuscular Volume 112H, Mean Corpuscular Hemoglobin 32, Mean Corpuscular Hemoglobin Concent 29L, Red Cell Distribution Width 20.2H, Platelet Count 425H, Mean Platelet Volume 11.6, Immature Granulocyte % (Auto) 3, Neutrophils (%) (Auto) 74, Lymphocytes (%) (Auto) 13, Monocytes (%) (Auto) 8, Eosinophils (%) (Auto) 2, Basophils (%) (Auto) 1, Neutrophils # (Auto) 8.8H, Lymphocytes # (Auto) 1.6, Monocytes # (Auto) 0.9, Eosinophils # (Auto) 0.2, Basophils # (Auto) 0.1, Immature Granulocyte # (Auto) 0.3H, Sodium Level 137, Potassium Level 4.0, Chloride Level 107, Carbon Dioxide Level 23, Anion Gap 7, Blood Urea Nitrogen 10, Creatinine 1.03, Estimat Glomerular Filtration Rate 52, BUN/Creatinine Ratio 10, Glucose Level 95, Calcium Level 8.4L, Corrected Calcium 9.3, Total Bilirubin 1.1H, Aspartate Amino Transf (AST/SGOT) 14, Alanine Aminotransferase (ALT/SGPT) 16, Alkaline Phosphatase 119, Total Protein 5.7L, Albumin 2.9L Microbiology 01/19/21 Urine Culture - Final, Complete Strep anginosus 01/19/21 Blood Culture - Preliminary, Resulted No growth 01/19/21 Influenza Types A,B Antigen (TIFFANY) - Final, Complete Laboratory Tests 01/22/21 06:27 01/23/21 05:27 A/P: Assessment: Pneumonia with probable h/o COVID in the past - Medical and Pulmonary services managing Chronic Atrial fibrillation - rate controlled - Currently maintained on Pradaxa and ASA Echocardiogram of 01-21-20 showed LVEF 55-60%. LA and RA dilated. Mod calcified mitral valve. Mild to mod TR. PASP 55-60mmHg H/O abnormal stress test: breast attenuation mild decrease uptake at the mid to apical anterolateral wall with mild reversibility, no significant ischemia. Dr Argueta, her heddle machine operator, has recommended conservative therapy H/O severe anemia, with previous hospitalizations for blood transfusion - colonoscopy did not show the source - Underwent capsule endoscopy with Dr. Latif in the past - details unknown Hypertension Hyperlipidemia Hypothyroidism Mild bilateral carotid stenosis, ultrasound was done in February [address] Argueta History of cholecystectomy, hysterectomy, bladder surgery, all of nephrectomy and appendectomy History of myelodysplastic syndrome Plan: Anemia - eval and management per Medical svce Management of pneumonia is with Medical and Pulmonary services Monitor labs Outpt cardiac f/u with RODRI Ambrocio MD FACP FAC CCDS Jan 23, 2021 10:34
[2021-01-23 11:28] VITALS: BP 121/59
[2021-01-23] MEDS ORDERED: CEFD300C3 PO (11:53)
[2021-01-23] MEDS ORDERED: METO-333 PO (11:53)
[2021-01-23] MEDS ORDERED: BENZ100C18 PO (11:53)
[2021-01-23] MEDS ORDERED: NYST1000 PO (11:53)
[2021-01-23] MEDS ORDERED: FLUC100T PO (11:54)
--- NOTE | 2021-01-23 11:54 | Discharge Summary ---
Discharge Summary Hospital Course Was the Problem List Reviewed?: Yes Problems/Dx: (1) Hypoxia Status: Acute (2) Afib Status: Chronic (3) Anemia Status: Chronic (4) Hypertension Status: Chronic (5) Hypothyroidism Status: Chronic (6) Myelodysplasia (myelodysplastic syndrome) Status: Chronic Hospital Course Date of Admission: Jan 20, 2021 at 03:14 Admission Diagnosis : Family Physician/Provider: Caridad Moses Galley Stripper Date of Discharge: 01/23/21 Discharge Diagnosis: PNA, hypoxia, AF RVR, anemia, myelodysplastic syndrome Hospital Course: Hospital Course: Pt had an uneventful hospital course for pneumonia requiring 1 unit of blood due to severe anemia and she recovered well. PT and OT saw her and pt was back to baseline and was ready for DC. Labs and Pending Lab Test: Laboratory Tests 01/22/21 13:14: Lab Scanned Report Transfusion Reaction Form 01/23/21 05:27: White Blood Count 11.9H, Red Blood Count 2.84L, Hemoglobin 9.2L, Hematocrit 32L, Mean Corpuscular Volume 112H, Mean Corpuscular Hemoglobin 32, Mean Corpuscular Hemoglobin Concent 29L, Red Cell Distribution Width 20.2H, Platelet Count 425H, Mean Platelet Volume 11.6, Immature Granulocyte % (Auto) 3, Neutrophils (%) (Auto) 74, Lymphocytes (%) (Auto) 13, Monocytes (%) (Auto) 8, Eosinophils (%) (Auto) 2, Basophils (%) (Auto) 1, Neutrophils # (Auto) 8.8H, Lymphocytes # (Auto) 1.6, Monocytes # (Auto) 0.9, Eosinophils # (Auto) 0.2, Basophils # (Auto) 0.1, Immature Granulocyte # (Auto) 0.3H, Sodium Level 137, Potassium Level 4.0, Chloride Level 107, Carbon Dioxide Level 23, Anion Gap 7, Blood Urea Nitrogen 10, Creatinine 1.03, Estimat Glomerular Filtration Rate 52, BUN/Creatinine Ratio 10, Glucose Level 95, Calcium Level 8.4L, Corrected Calcium 9.3, Total Bilirubin 1.1H, Aspartate Amino Transf (AST/SGOT) 14, Alanine Aminotransferase (ALT/SGPT) 16, Alkaline Phosphatase 119, Total Protein 5.7L, Albumin 2.9L Microbiology 01/19/21 Urine Culture - Final, Complete Strep anginosus 01/19/21 Blood Culture - Preliminary, Resulted No growth 01/19/21 Influenza Types A,B Antigen (TIFFANY) - Final, Complete Home Meds Active Reported Aspirin EC (Aspirin) 81 Mg Tablet.dr 162-243 Mg PO DAILY PRN Pradaxa (Dabigatran Etexilate Mesylate) 150 Mg Capsule 150 Mg PO BID Vitamin D2 (Ergocalciferol (Vitamin D2)) 1,250 Mcg Capsule 1,250 Mcg PO WED Nitrofurantoin [place]-Mcr 100 mg (Nitrofurantoin Monohyd/M-Cryst) 100 Mg Capsule 100 Mg PO BID FILLED 01-15-2021 #14/7 DAY SUPPLY Hydroxyurea 500 Mg Capsule 500 Mg PO BID Metoprolol Tartrate 25 Mg Tablet 25 Mg PO DAILY Pantoprazole Sodium 40 Mg Tablet.dr 40 Mg PO DAILY Furosemide 20 Mg Tablet 40 Mg PO DAILY TAKES 2 (20MG) TABS Levothyroxine Sodium 100 Mcg Tablet 100 Mcg PO DAILY Assessment/Pt Instructions [facility] 1 week Discharge Planning: <30 minutes discharge planning Discharge Instructions Discharge Diet: No Restrictions Activity as Tolerated: Yes Discharge Physical Examination Vital Signs Vital Signs Date Time Temp Pulse Resp B/P (MAP) Pulse Ox O2 Delivery O2 Flow Rate FiO2 01/23/21 11:28 36.6 70 94 21 01/23/21 09:52 Room Air 01/23/21 07:17 20 121/59 (79) 01/22/21 02:04 1.00 General Appearance: No Apparent Distress, WD/WN Respiratory: Lungs Clear Cardiovascular: Regular Rate, Rhythm Allergies: Coded Allergies: Penicillins (Unverified Allergy, Unknown, 02/16/20) Discharge Summary Date of Admission Jan 20, 2021 at 03:14 Date of Discharge Discharge Date: Jan 23, 2021 Admission Diagnosis Abx O2 ECHO Transfuse Discharge Diagnosis PT OT Monitor lungs Check labs and CXR in am (1) Hypoxia Status: Acute (2) Afib Status: Chronic (3) Anemia Status: Chronic (4) Hypertension Status: Chronic (5) Hypothyroidism Status: Chronic (6) Myelodysplasia (myelodysplastic syndrome) Status: Chronic HERLINDA CHÁVEZ DO Jan 23, 2021 11:54
--- NOTE | 2021-01-23 12:49 | Progress Note ---
CARLOS RIVAS MED STUDENT 01/23/21 1249: Progress Note CC: Fever, malaise, cough and shortness of breath HPI: Mrs. Page is a 80yoWF clinic pt of [facility] w/ hx of AFib, HTN, hypothyroidism, and myelodysplastic syndrome who presented to [facility] ED via EMS with a 1 week complaint of malaise, fever, cough and shortness of breath. She visited her pcp 1 week prior and was diagnosed with a UTI and given a course of abx. She reported multiple falls the previous weekend and one episode of hitting her head. In the ED she was found to be hypotensive, anemic, hypoxic with leukocyt osis (20k) and in afib with RVR rate in the 120s. CXR negative but showed signs of post-COVID changes although the patient does not recall being ill. Rapid COVID and Influenza A and B were negative. Pt was admitted with IVF and IV abx to the ICU and did require pressors transiently for hypotension but this quickly resolved the next day. Cardiology was consulted regarding afib and echo showed normal EF with dilated atria but patient was not a candidate for cardioversion. Patient has chronic afib with rate controlled and will continue management with Pradaxa. CT non-contrast of head was negative and ruled out injury from falls. Patient was anemic but had normal iron studies. She received 1 unit PRBC which improved hgb and overall strength significantly. Ms. Page was moved to 4th floor on day 3 of her stay and pneumonia continued to improve with IV Cefepime and breathing treatments. Patient developed diarrhea and was kept for an additional day to monitor strength and work with PT. Diarrhea has subsided today, CXR is improving and she feels "wonderful". She will be discharged home with instructions to continue daily use of IS, resume home meds as well as 6 days of Cefdinir, Tessalon for cough and 3 days of Diflucan for thrush that was incidentally found. Patient should return if shortness of breath returns or she develops any other worsening symptoms. LASHONDA CHÁVEZ DO 01/24/21 0537: Supervisory-Addendum Brief Verification & Attestation Participated in pt care: history, MDM, physical Personally performed: exam, history, MDM, supervision of care Care discussed with: Medical Student Procedures: n/a Results interpretation: Verified all documentation Verification and Attestation of Medical Student E/M Service A medical student performed and documented this service in my presence. I reviewed and verified all information documented by the medical student and made modifications to such information, when appropriate. I personally performed the physical exam and medical decision making. Lashonda Chávez, Jan 24, 2021,05:37 CARLOS RIVAS MED STUDENT Jan 23, 2021 12:49 LASHONDA CHÁVEZ DO Jan 24, 2021 05:37
[2021-01-23 13:12] VITALS: BP 121/59
== END 2021-01-23 13:12 | disposition home or self-care (01) | DRG 871 ==
LOC: EDUNIT# 20:05 → ER 20:10 → CSD 22:37 → OBSVTOIN 01-20 03:14 → ICU 01-20 04:33 → 4TH 01-21 15:19
PROVIDERS: ADMIT Internal Medicine; ATTEND Internal Medicine
DX: A41.9 Sepsis, unspecified organism (principal); J18.9 Pneumonia, unspecified organism; J96.01 Acute respiratory failure with hypoxia; B37.0 Candidal stomatitis; I48.20 Chronic atrial fibrillation, unspecified; I10 Essential (primary) hypertension; G47.39 Other sleep apnea; I95.9 Hypotension, unspecified; E03.9 Hypothyroidism, unspecified; D46.9 Myelodysplastic syndrome, unspecified; Z20.822 Contact with and (suspected) exposure to COVID-19; D69.6 Thrombocytopenia, unspecified; B37.3 Candidiasis of vulva and vagina; E87.6 Hypokalemia; I65.23 Occlusion and stenosis of bilateral carotid arteries; Z87.440 Personal history of urinary (tract) infections; B94.8 Sequelae of other specified infectious and parasitic diseases; Z90.5 Acquired absence of kidney; Z88.0 Allergy status to penicillin; Z79.82 Long term (current) use of aspirin; Z90.49 Acquired absence of other specified parts of digestive tract
CPT/HCPCS: 36415; 36430; 70450; 71045; 71046; 80048; 80053; 81000; 82728; 83540; 83550; 83605; 83615; 83735; 84100; 85007; 85025; 85027; 85045; 85610; 85730; 86850; 86900; 86901; 86920; 87040; 87077; 87088; 87635; 87804; 93306; 94640; 94760; 96374

== ENCOUNTER 2021-07-03 18:50 | Inpatient (IN) | payer MEDICARE, OTHER ==
[~2021-07-03] VITALS: Ht 157 cm; Wt 66.0 kg
[~2021-07-03 18:50] MED LIST changes: +ASPI-1238 PO; +BENZ100C18 PO; +CEFD300C3 PO; +ERGO1250 PO; +FLUC100T PO; +HYDR500C2 PO; +NITR100C10 PO; +NYST1000 PO; +PANT40TA52 PO; -SULF1TAB35 PO; +SULF1TAB38 PO
[2021-07-03] MEDS ORDERED: FUROSEMIDE 40 MG/4 ML INJ (LASIX) IVP ONE (19:30)
--- NOTE | 2021-07-03 19:38 | ED Dyspnea ---
General Chief Complaint: Cardiac/General Problems Stated Complaint: CP Source of Information: Patient Exam Limitations: No Limitations History of Present Illness Date Seen by Provider: Jul 03, 2021 Time Seen by Provider: 18:57 Initial Comments 81-year-old female with past medical history of chronic A. fib on Pradaxa, hypertension, hypothyroidism, myelodysplastic syndrome, and recent hospital admission for pneumonia coming in due to shortness of breath and general weakness. Around 6 PM she began feeling more short of breath and felt like her arms were heavy. She rubbed Vicks over her chest and this did not help. She then called an ambulance. She says this feels somewhat similar to the last time she was admitted to the hospital care in January when she says she had pneumonia. Denies any fever, cough, nausea, vomiting, diarrhea, chest pain but does endorse some tightness, focal weakness, or any other concerns. She says she is supposed to take Lasix daily, has missed it for roughly 3 days because she does not like to take it when she has different doctors appointments, because it makes her have to urinate when she is driving. She says she has noticed a significant amount of swelling in her legs since missing these doses and she believes she has gained some water weight. Also, she has not taken her hydroxyurea and almost 3 weeks and just took it for the first time today. Allergies and Home Medications Allergies Coded Allergies: Penicillins (Unverified Allergy, Unknown, 02/16/20) Patient Home Medication List Home Medication List Reviewed: Yes Aspirin (Aspirin EC) 81 Mg Tablet.dr, 162-243 MG PO DAILY PRN for PAIN-MILD (1- 4), (Reported) Entered as Reported by: HAILEE GONZALEZ on 01/20/21 1112 Benzonatate (Tessalon Perles) 100 Mg Capsule, 100 MG PO TID Prescribed by: HERLINDA CHÁVEZ on 01/23/21 115 Cefdinir (Cefdinir) 300 Mg Capsule, 300 MG PO BID Prescribed by: HERLINDA CHÁVEZ on 01/23/21 1153 Dabigatran Etexilate Mesylate (Pradaxa) 150 Mg Capsule, 150 MG PO BID, (Reported) Entered as Reported by: HAILEE GONZALEZ on 01/20/21 1112 Ergocalciferol (Vitamin D2) (Vitamin D2) 1,250 Mcg Capsule, 1,250 MCG PO WED, (Reported) Entered as Reported by: HAILEE GONZALEZ on 01/20/21 111 Fluconazole (Diflucan) 100 Mg Tablet, 100 MG PO DAILY Prescribed by: HERLINDA CHÁVEZ on 01/23/21 1154 Furosemide (Furosemide) 20 Mg Tablet, 40 MG PO DAILY, (Reported) Entered as Reported by: JAYLEN MCKOY on 06/05/20 0909 Hydroxyurea (Hydroxyurea) 500 Mg Capsule, 500 MG PO BID, (Reported) Entered as Reported by: HAILEE GONZALEZ on 01/20/21 111 Levothyroxine Sodium (Levothyroxine Sodium) 100 Mcg Tablet, 100 MCG PO DAILY, (Reported) Entered as Reported by: JAYLEN MCKOY on 06/05/20 0909 Metoprolol Tartrate (Metoprolol Tartrate) 25 Mg Tablet, 25 MG PO BID Prescribed by: HERLINDA CHÁVEZ on 01/23/21 115 Nystatin (Nystatin) 100,000 Unit/1 Ml Oral.susp, 5 ML PO Q6HR Prescribed by: HERLINDA CHÁVEZ on 01/23/21 1153 Pantoprazole Sodium (Pantoprazole Sodium) 40 Mg Tablet.dr, 40 MG PO DAILY, (Reported) Entered as Reported by: HAILEE GONZALEZ on 01/20/21 111 Review of Systems Review of Systems Constitutional: No chills, No fever EENTM: No nose congestion Respiratory: No cough; short of breath Cardiovascular: No chest pain, No palpitations, No syncope Gastrointestinal: No abdominal pain, No constipation, No diarrhea, No nausea, No vomiting Genitourinary: No dysuria : Yes Musculoskeletal: No back pain Skin: no symptoms reported Psychiatric/Neurological: No Symptoms Reported Endocrine: No Symptoms Reported Hematologic/Lymphatic: Anemia All Other Systems Reviewed Negative Unless Noted: Yes Past Ulayycb-Tzimze-Rfrojt Hx Patient Social History Tobacco Use?: No Seasonal Allergies Seasonal Allergies: No Past Medical History Surgeries: Yes Appendectomy, Bladder Surgery, Gallbladder, Hysterectomy, Oophorectomy Respiratory: Yes Pneumonia, Sleep Apnea Currently Using CPAP: Yes Cardiac: Yes Atrial Fibrillation, Hypertension Neurological: Yes Concussion Genitourinary: Yes Kidney Infection Gastrointestinal: No Musculoskeletal: No Endocrine: Yes HEENT: No Cancer: No Psychosocial: No Integumentary: No Blood Disorders: Yes (MYELDYSPLASTIC SYNDROME, anemia) Family Medical History No Pertinent Family Hx Physical Exam Vital Signs Vital Signs - First Documented 07/03/21 07/03/21 19:05 19:40 Temp 36.9 Pulse 93 Resp 20 B/P (MAP) 100/83 (89) Pulse Ox 97 O2 Delivery Nasal Cannula O2 Flow Rate 2.00 Capillary Refill : Height, Weight, BMI Height: '" Weight: lbs. oz. kg; 28.13 BMI Method: General Appearance: No Apparent Distress, WD/WN HEENT: PERRL/EOMI, Normal ENT Inspection, Pharynx Normal Neck: Full Range of Motion, Normal Inspection, Non Tender, Supple Respiratory: Chest Non Tender, No Accessory Muscle Use, No Respiratory Distress, Crackles Cardiovascular: No Murmur, Normal Peripheral Pulses, Irregularly Irregular, Other (2+ pitting edema) Gastrointestinal: Normal Bowel Sounds, Non Tender, Soft; No Distended, No Guarding Extremity: Normal Capillary Refill, Normal Inspection, Normal Range of Motion, Non Tender, No Calf Tenderness, Pedal Edema Neurologic/Psychiatric: Alert, Oriented x3, No Motor/Sensory Deficits, Normal Mood/Affect, tube depatcher II-XII Norm as Tested; No Abnormal Gait, No Motor Weakness, No Sensory Deficit; Other (Normal [id number], no pronator drift) Skin: Normal Color, Warm/Dry Lymphatic: No Adenopathy Focused Exam Lactate Level 07/03/21 19:20: Lactic Acid Level 2.84*H Lactic Acid Level Laboratory Tests Test 07/03/21 19:20 Lactic Acid Level 2.84 MMOL/L (0.50-2.00) *H Progress/Results/Core Measures Results/Orders Lab Results Laboratory Tests Test 07/03/21 19:16 07/03/21 19:20 Range/Units White Blood Count 21.4 H 4.3-11.0 10^3/uL Red Blood Count 2.87 L 3.80-5.11 10^6/uL Hemoglobin 9.5 L 11.5-16.0 g/dL Hematocrit 32 L 35-52 % Mean Corpuscular Volume 111 H 80-99 fL Mean Corpuscular Hemoglobin 33 25-34 pg Mean Corpuscular Hemoglobin Concent 30 L 32-36 g/dL Red Cell Distribution Width 17.6 H 10.0-14.5 % Platelet Count 1342 *H 130-400 10^3/uL Mean Platelet Volume 11.1 9.0-12.2 fL Immature Granulocyte % (Auto) 3 % Neutrophils (%) (Auto) 81 H 42-75 % Lymphocytes (%) (Auto) 8 L 12-44 % Monocytes (%) (Auto) 4 0-12 % Eosinophils (%) (Auto) 2 0-10 % Basophils (%) (Auto) 1 0-10 % Neutrophils # (Auto) 17.4 H 1.8-7.8 X 10^3 Lymphocytes # (Auto) 1.8 1.0-4.0 X 10^3 Monocytes # (Auto) 0.9 0.0-1.0 X 10^3 Eosinophils # (Auto) 0.5 H 0.0-0.3 10^3/uL Basophils # (Auto) 0.1 0.0-0.1 10^3/uL Immature Granulocyte # (Auto) 0.7 H 0.0-0.1 10^3/uL Neutrophils % (Manual) 63 % Lymphocytes % (Manual) 7 % Monocytes % (Manual) 4 % Eosinophils % (Manual) 1 % Basophils % (Manual) 1 % Myelocytes % 1 % Band Neutrophils 21 % Atypical Lymphocytes 2 % Platelet Estimate INCREASED Polychromasia SLIGHT Hypochromasia 1+ Poikilocytosis 1+ Macrocytosis 3+ Elliptocytes SLIGHT Prothrombin Time 41.2 H 12.2-14.7 SEC INR Comment 4.3 H 0.8-1.4 Activated Partial Thromboplast Time 118 *H 24-35 SEC Sodium Level 139 135-145 MMOL/L Potassium Level 3.5 L 3.6-5.0 MMOL/L Chloride Level 102 98-107 MMOL/L Carbon Dioxide Level 25 21-32 MMOL/L Anion Gap 12 5-14 MMOL/L Blood Urea Nitrogen 21 H 7-18 MG/DL Creatinine 1.70 H 0.60-1.30 MG/DL Estimat Glomerular Filtration Rate 29 BUN/Creatinine Ratio 12 Glucose Level 189 H 70-105 MG/DL Calcium Level 8.4 L 8.5-10.1 MG/DL Corrected Calcium 8.6 8.5-10.1 MG/DL Magnesium Level 2.2 1.6-2.4 MG/DL Total Bilirubin 0.7 0.1-1.0 MG/DL Aspartate Amino Transf (AST/SGOT) 17 5-34 U/L Alanine Aminotransferase (ALT/SGPT) 10 0-55 U/L Alkaline Phosphatase 116 40-136 U/L Troponin I < 0.30 <0.30 NG/ML Pro-B-Type Natriuretic Peptide 9321.0 H <75.0 PG/ML Total Protein 6.7 6.4-8.2 GM/DL Albumin 3.7 3.2-4.5 GM/DL Lactic Acid Level 2.84 *H 0.50-2.00 MMOL/L Influenza Type A Antigen NEGATIVE NEGATIVE Influenza Type B Antigen NEGATIVE NEGATIVE My Orders Orders - ANH CASON MD Cbc With Automated Diff (07/03/21 19:08) Comprehensive Metabolic Panel (07/03/21 19:08) Magnesium (07/03/21 19:08) Protime With Inr (07/03/21 19:08) Partial Thromboplastin Time (07/03/21 19:08) Influenza A & B Antigens (07/03/21 19:08) Ekg Tracing (07/03/21 19:08) O2 (07/03/21 19:08) Monitor-Rhythm Ecg Trace Only (07/03/21 19:08) Covid 19 Inhouse Test (07/03/21 19:08) Chest 1 View Ap/Pa Only (07/03/21 19:08) Ed Iv/Invasive Line Start (07/03/21 19:08) Troponin I Fs (07/03/21 19:08) Probnp Fs (07/03/21 19:08) Lactic Acid Analyzer (07/03/21 19:08) Blood Culture (07/03/21 19:08) Furosemide Injection (Lasix Injection) (07/03/21 19:30) Manual Differential (07/03/21 19:16) Levofloxacin 750 Mg/150 Ml Iv (Levaquin (07/03/21 20:15) Medications Given in ED Current Medications Medications Dose Ordered Sig/Krysten Route Start Time Stop Time Status Last Admin Dose Admin Furosemide 40 mg ONCE ONCE IVP 07/03/21 19:30 07/03/21 19:31 DC 07/03/21 19:22 40 MG Vital Signs/I&O 07/03/21 07/03/21 19:05 19:40 Temp 36.9 Pulse 93 Resp 20 B/P (MAP) 100/83 (89) Pulse Ox 97 97 O2 Delivery Nasal Cannula Nasal Cannula O2 Flow Rate 2.00 2.00 Progress Progress Note : Progress Note 81-year-old female with above history coming in due to shortness of breath and general weakness in the setting of increasing weight gain from missing several days of Lasix doses. ABCs were intact and vitals were stable on presentation although she was 87% on room air for EMS. They placed her on 2 L with good improvement. We tried to titrate down to room air while in the emergency department and she desatted to 87% again. She does not wear oxygen at home. She is in A. fib with the rate in the 90s. I will give her home dose of metoprolol to hopefully avoid her going into RVR. She has crackles on lung exam, 2+ pitting edema, B-lines on [id number] ultrasound that I performed consistent with pulmonary edema, and a large IVC consistent with volume overload as well. Because of this, she was given IV Lasix. Has no fever or cough otherwise that would concern me for significant pneumonia. Covid test sent given the hypoxia. Chest x-ray radiology read as pulmonary edema versus atypical pneumonia. She was given Levaquin given confirmed allergy to penicillin with airway swelling. proBNP is over 9000 also consistent with her being volume overloaded. Patient admitted to [facility] for further evaluation management. Initial ECG Impression Date: Jul 03, 2021 Initial ECG Impression Time: 19:09 Initial ECG Rate: 97 Initial ECG Rhythm: A Fib/Flutter Comment Narrow QRS, normal axis, no significant ST changes, Q waves anteriorly, appears similar to previous EKG Diagnostic Imaging Diagonstic Imaging: Xray Plain Films/CT/US/NM/MRI: chest Comments [facility] [place], [place] NAME: URIAH GALDAMEZ [facility] REC#: [id number] PT STATUS: REG ER : 1940 PHYSICIAN: ANH CASON MD ADMIT DATE: 07/03/21/ER FS Signed Date of Exam:07/03/21 CHEST 1 VIEW AP/PA ONLY EXAMINATION: Chest 1 view HISTORY: SOB, appears volume overloaded on exam COMPARISON: 01/21/2021 FINDINGS: Heart size is normal. There is prominence of pulmonary vasculature. There are diffuse interstitial opacities seen throughout both lungs. No pleural effusion or pneumothorax. The osseous structures are intact. IMPRESSION: 1. Diffuse interstitial opacities of both lungs concerning for pulmonary edema or atypical infection. Dictated by: Dictated on workstation # [id number] Dict: 07/03/211937 Trans: 07/03/211955 CVB [id number] Interpreted by: DARIO MENDOZA DO Electronically signed by: DARIO MENDOZA DO 07/03/211955 Departure Impression Primary Impression: Respiratory failure Qualified Codes: J96.01 - Acute respiratory failure with hypoxia Additional Impressions: Pneumonia Qualified Codes: J18.9 - Pneumonia, unspecified organism Pulmonary edema Qualified Codes: J81.0 - Acute pulmonary edema Disposition: 30 STILL A PATIENT Condition: Stable Transfer Transfer Reason: Patient preference Time Spoke to Accepting Phy: 20:10 Transfer Progress Notes Spoke with Dr. Domínguez who will admit to [facility] as inpatient with tele to med/surg. Transfer Facility: [facility] Method of Transfer: EMS Departure-Patient Inst. Referrals: [facility] (PCP) Primary Care Physician TILA SHARMA APRN (Family) Primary Care Physician ANH CASON MD Jul 03, 2021 19:38
--- NOTE | 2021-07-03 19:41 | Diagnostic Imaging Report ---
EXAMINATION: Chest 1 view HISTORY: SOB, appears volume overloaded on exam COMPARISON: 01/21/2021 FINDINGS: Heart size is normal. There is prominence of pulmonary vasculature. There are diffuse interstitial opacities seen throughout both lungs. No pleural effusion or pneumothorax. The osseous structures are intact. IMPRESSION: 1. Diffuse interstitial opacities of both lungs concerning for pulmonary edema or atypical infection. Dictated by: Dictated on workstation # [id number]
[2021-07-03 19:47] LABS: INR 4.3 (0.8-1.4); PROTHROMBIN TIME PATIENT 41.2 SEC (12.2-14.7)
[2021-07-03 19:49] LABS: HEMATOCRIT 32 % (35-52); HEMOGLOBIN 9.5 g/dL (11.5-16.0); MEAN CORPUSCULAR HEMOGLOBIN 33 pg (25-34); MEAN CORPUSCULAR HGB CONC 30 g/dL (32-36); MEAN CORPUSCULAR VOLUME 111 fL (80-99); WHITE BLOOD COUNT 21.4 10^3/uL (4.3-11.0)
[2021-07-03 19:50] LABS: BASOPHILS % (AUTO) 1 % (0-10); EOSINOPHILS % (AUTO) 2 % (0-10); LYMPHOCYTES % (AUTO) 8 % (12-44); MEAN PLATELET VOLUME 11.1 fL (9.0-12.2); MONOCYTES % (AUTO) 4 % (0-12); NEUTROPHILS % (AUTO) 81 % (42-75); PLATELET COUNT 1342 10^3/uL (130-400)
[2021-07-03 19:51] LABS: BASOPHILS # (AUTO) 0.1 10^3/uL (0.0-0.1); EOSINOPHILS # (AUTO) 0.5 10^3/uL (0.0-0.3); LYMPHOCYTES # (AUTO) 1.8 X 10^3 (1.0-4.0); MONOCYTES # (AUTO) 0.9 X 10^3 (0.0-1.0); NEUTROPHILS # (AUTO) 17.4 X 10^3 (1.8-7.8)
[2021-07-03 20:01] LABS: CARBON DIOXIDE 25 MMOL/L (21-32); CHLORIDE 102 MMOL/L (98-107); POTASSIUM 3.5 MMOL/L (3.6-5.0); SODIUM 139 MMOL/L (135-145)
[2021-07-03 20:02] LABS: ALANINE AMINOTRANSFERASE 10 U/L (0-55); ALBUMIN 3.7 GM/DL (3.2-4.5); ALKALINE PHOSPHATASE 116 U/L (40-136); BILIRUBIN,TOTAL 0.7 MG/DL (0.1-1.0); BUN/CREATININE RATIO 12; CALCIUM 8.4 MG/DL (8.5-10.1); GFR ESTIMATED 29; GLUCOSE 189 MG/DL (70-105); MAGNESIUM 2.2 MG/DL (1.6-2.4); TOTAL PROTEIN 6.7 GM/DL (6.4-8.2)
[2021-07-03 20:06] LABS: ATYPICAL LYMPHOCYTES 2 %; BAND NEUTROPHILS 21 %; BASOPHILS % (MANUAL) 1 %; EOSINOPHILS % (MANUAL) 1 %; LYMPHOCYTES % (MANUAL) 7 %; MONOCYTES % (MANUAL) 4 %; MYELOCYTES % 1 %; NEUTROPHILS % (MANUAL) 63 %
[2021-07-03 20:07] LABS: ELLIPT/OVALOCYTES SLIGHT; HYPOCHROMASIA 1+; PLATELET ESTIMATE INCREASED; POIKILOCYTOSIS 1+; POLYCHROMASIA SLIGHT
[2021-07-03 23:13] VITALS: BP 162/72
[2021-07-03] MEDS ORDERED: CATHETER FLUSH 10 ML SYR IV PRN (23:15)
[2021-07-04] VITALS (7 sets, daily range): BP systolic 98–122; BP diastolic 55–83
[2021-07-04] MEDS ORDERED: RT-ALBUTEROL SULF 2.5 MG/3 ML PRE-MIX VIAL INH PRN (00:15)
[2021-07-04] MEDS: HYDROXYUREA 500 MG CAP (HYDREA) PO SCH ×3 (00:16→20:18)
[2021-07-04 05:41] LABS: BASOPHILS # (AUTO) 0.1 10^3/uL (0.0-0.1); BASOPHILS % (AUTO) 1 % (0-10); EOSINOPHILS # (AUTO) 0.3 10^3/uL (0.0-0.3); EOSINOPHILS % (AUTO) 2 % (0-10); HEMATOCRIT 29 % (35-52); HEMOGLOBIN 8.7 g/dL (11.5-16.0); LYMPHOCYTES # (AUTO) 1.2 10^3/uL (1.0-4.0); LYMPHOCYTES % (AUTO) 7 % (12-44); MEAN CORPUSCULAR HEMOGLOBIN 33 pg (25-34); MEAN CORPUSCULAR HGB CONC 30 g/dL (32-36); MEAN CORPUSCULAR VOLUME 110 fL (80-99); MEAN PLATELET VOLUME 10.9 fL (9.0-12.2); MONOCYTES % (AUTO) 6 % (0-12); NEUTROPHILS # (AUTO) 14.5 10^3/uL (1.8-7.8); NEUTROPHILS % (AUTO) 83 % (42-75); PLATELET COUNT 725 10^3/uL (130-400); WHITE BLOOD COUNT 17.6 10^3/uL (4.3-11.0)
[2021-07-04 05:57] LABS: POTASSIUM 3.5 MMOL/L (3.6-5.0)
[2021-07-04 05:58] LABS: CALCIUM 8.8 MG/DL (8.5-10.1)
[2021-07-04 06:02] LABS: CREATININE SERUM 1.39 MG/DL (0.60-1.30)
[2021-07-04] MEDS: CATHETER FLUSH 10 ML SYR IV SCH ×3 (06:52→20:19)
[2021-07-04] MEDS: KCL 20 MEQ TAB (K-DUR) PO SCH (06:52)
[2021-07-04] MEDS: meTOprolol TARTRATE 25 MG (LOPRESSOR) TABLET PO SCH ×2 (08:13→20:18)
[2021-07-04] MEDS: DABIGATRAN 150 MG (PRADAXA) CAPSULE PO SCH ×2 (08:13→20:18)
[2021-07-04] MEDS: FUROSEMIDE 40 MG/4 ML INJ (LASIX) IV SCH ×2 (08:13→16:35)
--- NOTE | 2021-07-04 11:32 | History & Physical-Hospitalist ---
History of Present Illness HPI/Chief Complaint Chief complaint: Shortness of breath History of present illness: This is a 81-year-old white female who presented to the ER with shortness of breath found to have pneumonia with volume overload. Patient has a history of chronic atrial fibrillation and sees Dr. Argueta on a regular basis. She remains on 2 L of oxygen currently. Covid swab was negative. Pulmonary and cardiology will be consulted. Echocardiogram ordered and IV Lasix initiated. Source: patient, family Exam Limitations: no limitations Date Seen 07/04/21 Time Seen by a Provider: 11:00 Attending Physician Bruna Domínguez MD PCP Center/[facility] Referring Physician Date of Admission Jul 03, 2021 at 20:19 Home Medications & Allergies Home Medications Reviewed patient Home Medication Reconciliation performed by pharmacy medication reconciliations renal technician and/or nursing. Patients Allergies have been reviewed. Allergies Allergies Coded Allergies Penicillins (Unverified Allergy, Unknown, 02/16/20) Past Hiirnxu-Trddtf-Ufkddu Hx Patient Social History Marrital Status: Employed/Student: retired Tobacco Use?: No Smoking Status: Never a Smoker Smokeless Tobacco Frequency: Never a User Use of E-Cig and/or Vaping dev: No Substance use?: No Alcohol Use?: No Pt feels they are or have been: No Immunizations Up To Date First/Initial COVID19 Vaccinat: NA Second COVID19 Vaccination Boom: NA Tetanus Booster (TDap): More Than 5 Years Hepatitis A: No Hepatitis B: No Date of Pneumonia Vaccine: Jun 05, 2018 Seasonal Allergies Seasonal Allergies: No Current Status status: Unknown Advance Directives: No Communicates: Verbally Primary Language: Chinese Preferred Spoken Language: Chinese Is interpretation needed?: No Implanted or Applied Medical D: None Past Medical History Surgeries: Appendectomy, Bladder Surgery, Gallbladder, Hysterectomy, Oophorectomy Pneumonia, Sleep Apnea Currently Using CPAP: Yes Atrial Fibrillation, Hypertension Concussion Kidney Infection Arthritis Blood Disorders: Yes (MYELDYSPLASTIC SYNDROME, anemia) PMHx: A fib HTN Hypothyroidism Myelodysplastic syndrome Family Medical History No Pertinent Family Hx Review of Systems Constitutional: see HPI EENTM: no symptoms reported Respiratory: dyspnea on exertion Cardiovascular: no symptoms reported Gastrointestinal: no symptoms reported Musculoskeletal: no symptoms reported Skin: no symptoms reported Psychiatric/Neurological: No Symptoms Reported All Other Systems Reviewed Negative Unless Noted: Yes Physical Exam Physical Exam Vital Signs Vital Signs - First Documented 07/03/21 18:53 Temp 36.9 Pulse 90 Resp 20 B/P (MAP) 100/83 Pulse Ox 97 O2 Delivery Nasal Cannula O2 Flow Rate 2.00 Capillary Refill : Less Than 3 Seconds Height, Weight, BMI Height: '" Weight: lbs. oz. kg; 27.46 BMI Method: General Appearance: No Apparent Distress, Chronically ill Eyes: Right Eye Normal Inspection, Right Eye PERRL HEENT: PERRL/EOMI, Normal ENT Inspection, Pharynx Normal, Moist Mucous Membranes Neck: Full Range of Motion, Normal Inspection, Non Tender Respiratory: Chest Non Tender, Lungs Clear, No Accessory Muscle Use, No Respiratory Distress, Decreased Breath Sounds Cardiovascular: No Edema, No Gallop, No JVD, No Murmur, Normal Peripheral Pulses, Irregularly Irregular Gastrointestinal: Normal Bowel Sounds, No Organomegaly, No Pulsatile Mass, Non Tender, Soft Back: Normal Inspection, No CVA Tenderness, No Vertebral Tenderness Extremity: Normal Capillary Refill, Normal Inspection, Normal Range of Motion, Non Tender, No Calf Tenderness, No Pedal Edema Neurologic/Psychiatric: Alert, Oriented x3, No Motor/Sensory Deficits, Normal Mood/Affect Skin: Normal Color, Warm/Dry Lymphatic: No Adenopathy Results Results/Procedures Labs Laboratory Tests 07/03/21 19:16 07/04/21 05:10 Patient resulted labs reviewed. Assessment/Plan Admission Diagnosis Assessment: Shortness of breath Pneumonia Volume overload Chronic atrial fibrillation Anticoagulation maintained Hypoxia Myeloproliferative syndrome managed by Dr. Winston Plan: Home meds Pulmonary consult Cardiology consult Oxygen Antibiotics Admission Status: Inpatient Order (span 2 midnights) Reason for Inpatient Admission: Pneumonia with hypoxia Diagnosis/Problems Diagnosis/Problems (1) PNA (pneumonia) (2) Respiratory failure Status: Acute Qualifiers: Chronicity: acute Respiratory failure complication: hypoxia Qualified Codes: J96.01 - Acute respiratory failure with hypoxia (3) Myelodysplasia (myelodysplastic syndrome) Status: Chronic (4) Hypoxia Status: Acute Clinical Quality Measures AMI/AHF: ASA po Prior to arrival: HERLINDA Hall DO Jul 04, 2021 11:32
[2021-07-04] MEDS ORDERED: METO-333 PO (11:43)
[2021-07-04] MEDS ORDERED: DABI150C5 PO (11:43)
--- NOTE | 2021-07-04 12:16 | Consultation-Cardiology ---
HPI-Cardiology Cardiology Consultation: Date of Consultation 07/04/21 Time Seen by a Provider: 12:20 Date of Admission 07-03-21 Attending Physician Bruna Domínguez MD Admitting Physician [place] Consulting Physician Lee Aguilar MD Primary Laboratory Equipment Installer: Dr. Argueta HPI: Chief Complaint: Progressive dyspnea Ms. Galdamez is a 81 yr old female who was admitted to [facility] from [facility] ED. She reports progressive dyspnea on exertion over the course of the last 3-4 days. She reports chest heaviness which is constant over the last several days. She states she has not taken her diuretics for the last several days d/t appointments. She reports progressive LE swelling. She states she has not been taking Hydroxurea for the last 3 weeks d/t being out of the medication. She denies any palpitations, syncope or near syncope. She reports she has had a day of diarrhea yesterday. She denies any fever or chills. She denies any cough. She states her breathing is better at this time. Review of Systems-Cardiology Review of Systems Constitutional: No chills, No fever; malaise Eyes: No vision change Ears/Nose/Throat: No epistaxis, No recent hearing loss Respiratory: As described under HPI Cardiovascular: As described under HPI Gastrointestinal: No constipation; diarrhea; No nausea, No vomiting Genitourinary: No dysuria, No hematuria : Yes Musculoskeletal: no symptoms reported Skin: No rash on exposed areas, No ulcerations on exposed areas Psychiatric/Neurological: No anxiety, No depression, No seizure, No focal weakness, No syncope Hematologic: No bleeding abnormalities All Other Systems Reviewed Negative Unless Noted: Yes [id number] Hx Patient Social History Smoking Status: Never a Smoker Have you traveled recently?: No Alcohol Use?: No Pt feels they are or have been: No Immunizations Up To Date Date of Pneumonia Vaccine: Jun 05, 2018 Past Medical History PMH As described under Assessment. Family Medical History Family Medical History: Reports family h/o mother having CAD. Allergies and Home Medications Allergies Coded Allergies: Penicillins (Unverified Allergy, Unknown, 02/16/20) Patient Home Medication List Dabigatran Etexilate Mesylate (Pradaxa) 150 Mg Capsule, 150 MG PO BID, (Reported) Entered as Reported by: HAILEE GONZALEZ on 07/04/21 1209 Last Action: Reviewed Furosemide (Furosemide) 20 Mg Tablet, 40 MG PO DAILY, (Reported) Entered as Reported by: JAYLEN MCKOY on 06/05/20908 Last Action: Reviewed Hydroxyurea (Hydroxyurea) 500 Mg Capsule, 500 MG PO BID, (Reported) Entered as Reported by: HAILEE GONZALEZ on 01/20/211111 Last Action: Reviewed Levothyroxine Sodium (Levothyroxine Sodium) 100 Mcg Tablet, 100 MCG PO DAILY, (Reported) Entered as Reported by: JAYLEN MCKOY on 06/05/20908 Last Action: Reviewed Metoprolol Tartrate (Metoprolol Tartrate) 25 Mg Tablet, 25 MG PO BID, (Reported) Entered as Reported by: HAILEE GONZALEZ on 07/04/211142 Last Action: Reviewed Pantoprazole Sodium (Pantoprazole Sodium) 40 Mg Tablet.dr, 40 MG PO HS, (Reported) Entered as Reported by: HAILEE GONZALEZ on 01/20/211111 Last Action: Reviewed Discontinued Medications Aspirin (Aspirin EC) 81 Mg Tablet.dr, 162-243 MG PO DAILY PRN for PAIN-MILD (1- 4), (Reported) Discontinued Reason: No Longer Taking Entered as Reported by: HAILEE GONZALEZ on 01/20/211111 Last Action: Discontinued Benzonatate (Tessalon Perles) 100 Mg Capsule, 100 MG PO TID Discontinued Reason: No Longer Taking Prescribed by: HERLINDA CHÁVEZ on 01/23/211152 Last Action: Discontinued Cefdinir (Cefdinir) 300 Mg Capsule, 300 MG PO BID Discontinued Reason: No Longer Taking Prescribed by: HERLINDA CHÁVEZ on 01/23/211152 Last Action: Discontinued Dabigatran Etexilate Mesylate (Pradaxa) 150 Mg Capsule, 150 MG PO BID, (Reported) Discontinued Reason: No Longer Taking Entered as Reported by: HAILEE GONZALEZ on 01/20/211111 Last Action: Discontinued Ergocalciferol (Vitamin D2) (Vitamin D2) 1,250 Mcg Capsule, 1,250 MCG PO WED, (Reported) Discontinued Reason: No Longer Taking Entered as Reported by: HAILEE GONZALEZ on 01/20/211111 Last Action: Discontinued Fluconazole (Diflucan) 100 Mg Tablet, 100 MG PO DAILY Discontinued Reason: No Longer Taking Prescribed by: HERLINDA CHÁVEZ on 01/23/21 1154 Last Action: Discontinued Nystatin (Nystatin) 100,000 Unit/1 Ml Oral.susp, 5 ML PO Q6HR Discontinued Reason: No Longer Taking Prescribed by: HERLINDA CHÁVEZ on 01/23/21 1153 Last Action: Discontinued Physical Exam-Cardiology Physical Exam Vital Signs/I&O 07/04/21 07/04/21 07/04/21 07/04/21 04:00 07:00 08:00 08:11 Temp 36.0 36.2 Pulse 87 89 85 Resp 16 17 B/P (MAP) 105/65 (78) 122/69 (86) Pulse Ox 96 98 98 O2 Delivery Nasal Cannula Nasal Cannula Nasal Cannula O2 Flow Rate 2.00 2.00 2.00 07/04/21 07/04/21 08:27 12:13 Temp 36.7 Pulse 88 Resp 18 B/P (MAP) 120/74 (89) Pulse Ox 99 O2 Delivery Nasal Cannula Nasal Cannula O2 Flow Rate 2.00 2.00 Capillary Refill : Less Than 3 Seconds Constitutional: AAO x 3, well-developed, well-nourished HEENT: PERRL, hearing is well preserved, oral hygience is good Neck: No carotid bruit; carotid pulses are 2 + bilaterally Respiratory: No accessory muscle use, No respiratory distress; chest expansion is symmetric, chest is bilaterally symmetric, other (bi-basilar crackles) Cardiovascular: irregularly irregular; No JVD Gastrointestinal: No tender; soft, round, audible bowel sounds Extremities: other (bilat pitting lower extermity edema) Neurologic/Psychiatric: grossly intact (moves all extremities) Skin: No rash on exposed areas, No ulcerations on exposed areas Data Review Labs Laboratory Tests 07/03/21 19:16: White Blood Count 21.4H, Red Blood Count 2.87L, Hemoglobin 9.5L, Hematocrit 32L, Mean Corpuscular Volume 111H, Mean Corpuscular Hemoglobin 33, Mean Corpuscular Hemoglobin Concent 30L, Red Cell Distribution Width 17.6H, Platelet Count 1342*H , Mean Platelet Volume 11.1, Immature Granulocyte % (Auto) 3, Neutrophils (%) (Auto) 81H, Lymphocytes (%) (Auto) 8L, Monocytes (%) (Auto) 4, Eosinophils (%) (Auto) 2, Basophils (%) (Auto) 1, Neutrophils # (Auto) 17.4H, Lymphocytes # (Auto) 1.8, Monocytes # (Auto) 0.9, Eosinophils # (Auto) 0.5H, Basophils # (Auto) 0.1, Immature Granulocyte # (Auto) 0.7H, Neutrophils % (Manual) 63, Lymphocytes % (Manual) 7, Monocytes % (Manual) 4, Eosinophils % (Manual) 1, Basophils % (Manual) 1, Myelocytes % 1, Band Neutrophils 21, Atypical Lymphocytes 2, Platelet Estimate INCREASED, Polychromasia SLIGHT, Hypochromasia 1+, Poikilocytosis 1+, Macrocytosis 3+, Elliptocytes SLIGHT, Prothrombin Time 41.2H, INR Comment 4.3H, Activated Partial Thromboplast Time 118*H, Sodium Level 139, Potassium Level 3.5L, Chloride Level 102, Carbon Dioxide Level 25, Anion Gap 12, Blood Urea Nitrogen 21H, Creatinine 1.70H, Estimat Glomerular Filtration Rate 29, BUN/Creatinine Ratio 12, Glucose Level 189H, Calcium Level 8.4L, Corrected Calcium 8.6, Magnesium Level 2.2, Total Bilirubin 0.7, Aspartate Amino Transf (AST/SGOT) 17, Alanine Aminotransferase (ALT/SGPT) 10, Alkaline Phosphatase 116, Troponin I < 0.30, Pro-B-Type Natriuretic Peptide 9321.0H, Total Protein 6.7, Albumin 3.7 07/03/21 19:20: Lactic Acid Level 2.84*H, Influenza Type A Antigen NEGATIVE, Influenza Type B Antigen NEGATIVE, SARS-CoV-2 RNA (RT-PCR) Not Detected 07/03/21 21:20: Lactic Acid Level 1.67 07/04/21 05:10: White Blood Count 17.6H, Red Blood Count 2.63L, Hemoglobin 8.7L, Hematocrit 29L, Mean Corpuscular Volume 110H, Mean Corpuscular Hemoglobin 33, Mean Corpuscular Hemoglobin Concent 30L, Red Cell Distribution Width 17.0H, Platelet Count 725H, Mean Platelet Volume 10.9, Immature Granulocyte % (Auto) 3, Neutrophils (%) (Auto) 83H, Lymphocytes (%) (Auto) 7L, Monocytes (%) (Auto) 6, Eosinophils (%) (Auto) 2, Basophils (%) (Auto) 1, Neutrophils # (Auto) 14.5H, Lymphocytes # (Auto) 1.2, Monocytes # (Auto) 1.0, Eosinophils # (Auto) 0.3, Basophils # (Auto) 0.1, Immature Granulocyte # (Auto) 0.5H, Sodium Level 139, Potassium Level 3.5L, Chloride Level 103, Carbon Dioxide Level 25, Anion Gap 11, Blood Urea Nitrogen 19H, Creatinine 1.39H, Estimat Glomerular Filtration Rate 37, BUN/Creatinine Ratio 14, Glucose Level 94, Calcium Level 8.8, B-Type Natriuretic Peptide 506.3H , Procalcitonin 0.15H Radiology NAME: URIAH GALDAMEZ [facility] REC#: [id number] PT STATUS: REG ER : 1940 PHYSICIAN: ANH CASON MD ADMIT DATE: 07/03/21/ER FS Signed Date of Exam:07/03/21 CHEST 1 VIEW AP/PA ONLY EXAMINATION: Chest 1 view HISTORY: SOB, appears volume overloaded on exam COMPARISON: 01/21/2021 FINDINGS: Heart size is normal. There is prominence of pulmonary vasculature. There are diffuse interstitial opacities seen throughout both lungs. No pleural effusion or pneumothorax. The osseous structures are intact. IMPRESSION: 1. Diffuse interstitial opacities of both lungs concerning for pulmonary edema or atypical infection. Dictated by: Dictated on workstation # [id number] Dict: 07/03/211937 Trans: 07/03/211955 [id number] [id number] Interpreted by: DARIO MENDOZA DO Electronically signed by: DARIO MENDOZA DO 07/03/211955 ECG Impression ECG Initial ECG Impression: Atrial Fibrillation A/P-Cardiology Assessment/Admission Diagnosis Pneumonia - mangement per medical services Acute renal insufficiency Acute on chronic diastolic CHF - tx with diuretics H/O Severe anemia - was hospitalized January 2021 and received blood transfusion, colonoscopy did not show the source. Underwent capsule endoscopy with Dr. Latif - Followed by Dr. Rod Persistent Atrial fibrillation - Maintained on Pradaxa - Left atrial appendage thrombus noted on CT scan of the chest done on March 26, 2020, was only on oral anticoagulation for 3 weeks with few days interruption during that period. - Echocardiogram 01-20-21 showed LVEF 55-60%. LA and RA dilated. Calcified mitral valve. Mild to mod TR. PASP 55-60 mmHg - Stress test in March [address] Argueta was abnormal with breast attenuation mild decrease uptake at the mid to apical anterolateral wall with mild reversibility. No significant ischemia. Pulmonary hypertension - undetermined etiology Hypertension - controlled Hyperlipidemia - statin Hypothyroidism - followed and managed by primary care physician Carotid dz - Mild bilateral carotid stenosis, ultrasound was done in February [address] Argueta Surgery hx - History of cholecystectomy, hysterectomy, bladder surgery, all of nephrectomy and appendectomy History of myelodysplastic syndrome - managed [facility] oncology Discussion and Recomendations Multi-factorial SOB likely d/t pneumonia and acute diastolic CHF Treat CHF with diuretics Monitor lab closely Replace electrolytes as indicated Management of pneumonia per medical services Chronic a-fib with controlled rate - continue Pradaxa for stroke prophylaxis Continue home dose of BB Managment of myodysplastic syndrome with medical services We would like to thank medical services for this consult Further recs will be based on her hospital course Clinical Quality Measures AMI/AHF: ASA po Prior to arrival: GALILEO Villegas Jul 04, 2021 12:16
--- NOTE | 2021-07-04 15:24 | Diagnostic Imaging Report ---
EXAMINATION: Chest, one view. HISTORY: Pneumonia. COMPARISON: 07/03/2021. FINDINGS: Interstitial opacities have increased from the prior exam. Heart size is mildly enlarged. No pleural effusion or pneumothorax. IMPRESSION: 1. Increasing interstitial opacities compared to prior exam. While this may represent atypical infection, it is suggestive of edema as well. Dictated by: Dictated on workstation # [id number]
[2021-07-04] MEDS ORDERED: ACETAMINOPHEN 325 MG TABLET PO PRN (16:30)
[2021-07-04] MEDS ORDERED: ACETAMINOPHEN 325 MG TABLET ONE (16:32)
--- NOTE | 2021-07-04 17:35 | Consultation-Cardiology ---
HPI-Cardiology Cardiology Consultation: Date of Consultation 07/04/21 Time Seen by a Provider: 17:00 Date of Admission Attending Physician Bruna Domínguez MD Admitting Physician [place] Consulting Physician RODRI KESSLER MD, MA, FACP, FACC, FSCAI, CCDS HPI: Chief Complaint: Progressive dyspnea Ms. Page is a 81 yr old female who was admitted to [facility] from [facility] ED. She reports progressive dyspnea on exertion over the course of the last 3-4 days. She reports chest heaviness which is constant over the last several days. She states she has not taken her diuretics for the last several days d/t appointments. She reports progressive LE swelling. She states she has not been taking Hydroxurea for the last 3 weeks d/t being out of the medication. She denies any palpitations, syncope or near syncope. She reports she has had a day of diarrhea yesterday. She denies any fever or chills. She denies any cough. She states her breathing is better at this time. Review of Systems-Cardiology Review of Systems Constitutional: No chills, No fever; malaise Eyes: No vision change Ears/Nose/Throat: No epistaxis, No recent hearing loss Respiratory: As described under HPI Cardiovascular: As described under HPI Gastrointestinal: No constipation; diarrhea; No nausea, No vomiting Genitourinary: No dysuria, No hematuria : Yes Musculoskeletal: no symptoms reported Skin: No rash on exposed areas, No ulcerations on exposed areas Psychiatric/Neurological: No anxiety, No depression, No seizure, No focal weakness, No syncope Hematologic: No bleeding abnormalities All Other Systems Reviewed Negative Unless Noted: Yes [id number] Hx Patient Social History Smoking Status: Never a Smoker Have you traveled recently?: No Alcohol Use?: No Pt feels they are or have been: No Immunizations Up To Date Date of Pneumonia Vaccine: Jun 05, 2018 Past Medical History PMH As described under Assessment. Family Medical History Family Medical History: Reports family h/o mother having CAD. Allergies and Home Medications Allergies Coded Allergies: Penicillins (Unverified Allergy, Unknown, 02/16/20) Patient Home Medication List Home Medication List Reviewed: Yes Dabigatran Etexilate Mesylate (Pradaxa) 150 Mg Capsule, 150 MG PO BID, (Reported) Entered as Reported by: HAILEE GONZALEZ on 07/04/21 1143 Last Action: Reviewed Furosemide (Furosemide) 20 Mg Tablet, 40 MG PO DAILY, (Reported) Entered as Reported by: JAYLEN MCKOY on 06/05/20908 Last Action: Reviewed Hydroxyurea (Hydroxyurea) 500 Mg Capsule, 500 MG PO BID, (Reported) Entered as Reported by: HAILEE GONZALEZ on 01/20/211111 Last Action: Reviewed Levothyroxine Sodium (Levothyroxine Sodium) 100 Mcg Tablet, 100 MCG PO DAILY, (Reported) Entered as Reported by: JAYLEN MCKOY on 06/05/20908 Last Action: Reviewed Metoprolol Tartrate (Metoprolol Tartrate) 25 Mg Tablet, 25 MG PO BID, (Reported) Entered as Reported by: HAILEE GONZALEZ on 07/04/211142 Last Action: Reviewed Pantoprazole Sodium (Pantoprazole Sodium) 40 Mg Tablet.dr, 40 MG PO HS, (Reported) Entered as Reported by: HAILEE GONZALEZ on 01/20/211111 Last Action: Reviewed Discontinued Medications Aspirin (Aspirin EC) 81 Mg Tablet.dr, 162-243 MG PO DAILY PRN for PAIN-MILD (1- 4), (Reported) Discontinued Reason: No Longer Taking Entered as Reported by: HAILEE GONZALEZ on 01/20/211111 Last Action: Discontinued Benzonatate (Tessalon Perles) 100 Mg Capsule, 100 MG PO TID Discontinued Reason: No Longer Taking Prescribed by: HERLINDA CHÁVEZ on 01/23/211152 Last Action: Discontinued Cefdinir (Cefdinir) 300 Mg Capsule, 300 MG PO BID Discontinued Reason: No Longer Taking Prescribed by: HERLINDA CHÁVEZ on 01/23/211152 Last Action: Discontinued Dabigatran Etexilate Mesylate (Pradaxa) 150 Mg Capsule, 150 MG PO BID, (Reported) Discontinued Reason: No Longer Taking Entered as Reported by: HAILEE GONZALEZ on 01/20/211111 Last Action: Discontinued Ergocalciferol (Vitamin D2) (Vitamin D2) 1,250 Mcg Capsule, 1,250 MCG PO WED, (Reported) Discontinued Reason: No Longer Taking Entered as Reported by: HAILEE GONZALEZ on 01/20/211111 Last Action: Discontinued Fluconazole (Diflucan) 100 Mg Tablet, 100 MG PO DAILY Discontinued Reason: No Longer Taking Prescribed by: HERLINDA CHÁVEZ on 01/23/21 1154 Last Action: Discontinued Nystatin (Nystatin) 100,000 Unit/1 Ml Oral.susp, 5 ML PO Q6HR Discontinued Reason: No Longer Taking Prescribed by: HERLINDA CHÁVEZ on 01/23/21 1153 Last Action: Discontinued Physical Exam-Cardiology Physical Exam Vital Signs/I&O 07/04/21 07/04/21 07/04/21 07/04/21 07:00 08:00 08:11 08:27 Temp 36.2 Pulse 89 85 Resp 17 B/P (MAP) 122/69 (86) Pulse Ox 98 98 O2 Delivery Nasal Cannula Nasal Cannula Nasal Cannula O2 Flow Rate 2.00 2.00 2.00 07/04/21 07/04/21 07/04/21 12:13 13:00 15:36 Temp 36.7 38.2 Pulse 88 80 82 Resp 18 20 B/P (MAP) 120/74 (89) 120/57 (78) Pulse Ox 99 97 O2 Delivery Nasal Cannula Nasal Cannula O2 Flow Rate 2.00 2.00 Capillary Refill : Less Than 3 Seconds Constitutional: AAO x 3, well-developed, well-nourished HEENT: PERRL, hearing is well preserved, oral hygience is good Neck: No carotid bruit; carotid pulses are 2 + bilaterally Respiratory: No accessory muscle use, No respiratory distress; chest expansion is symmetric, chest is bilaterally symmetric, other (bi-basilar crackles) Cardiovascular: irregularly irregular; No JVD Gastrointestinal: No tender; soft, round, audible bowel sounds Extremities: other (bilat pitting lower extermity edema) Neurologic/Psychiatric: grossly intact (moves all extremities) Skin: No rash on exposed areas, No ulcerations on exposed areas Data Review Labs Laboratory Tests 07/03/21 19:16: White Blood Count 21.4H, Red Blood Count 2.87L, Hemoglobin 9.5L, Hematocrit 32L, Mean Corpuscular Volume 111H, Mean Corpuscular Hemoglobin 33, Mean Corpuscular Hemoglobin Concent 30L, Red Cell Distribution Width 17.6H, Platelet Count 1342*H , Mean Platelet Volume 11.1, Immature Granulocyte % (Auto) 3, Neutrophils (%) (Auto) 81H, Lymphocytes (%) (Auto) 8L, Monocytes (%) (Auto) 4, Eosinophils (%) (Auto) 2, Basophils (%) (Auto) 1, Neutrophils # (Auto) 17.4H, Lymphocytes # (Auto) 1.8, Monocytes # (Auto) 0.9, Eosinophils # (Auto) 0.5H, Basophils # (Auto) 0.1, Immature Granulocyte # (Auto) 0.7H, Neutrophils % (Manual) 63, Lymphocytes % (Manual) 7, Monocytes % (Manual) 4, Eosinophils % (Manual) 1, Basophils % (Manual) 1, Myelocytes % 1, Band Neutrophils 21, Atypical Lymphocytes 2, Platelet Estimate INCREASED, Polychromasia SLIGHT, Hypochromasia 1+, Poikilocytosis 1+, Macrocytosis 3+, Elliptocytes SLIGHT, Prothrombin Time 41.2H, INR Comment 4.3H, Activated Partial Thromboplast Time 118*H, Sodium Level 139, Potassium Level 3.5L, Chloride Level 102, Carbon Dioxide Level 25, Anion Gap 12, Blood Urea Nitrogen 21H, Creatinine 1.70H, Estimat Glomerular Filtration Rate 29, BUN/Creatinine Ratio 12, Glucose Level 189H, Calcium Level 8.4L, Corrected Calcium 8.6, Magnesium Level 2.2, Total Bilirubin 0.7, Aspartate Amino Transf (AST/SGOT) 17, Alanine Aminotransferase (ALT/SGPT) 10, Alkaline Phosphatase 116, Troponin I < 0.30, Pro-B-Type Natriuretic Peptide 9321.0H, Total Protein 6.7, Albumin 3.7 07/03/21 19:20: Lactic Acid Level 2.84*H, Influenza Type A Antigen NEGATIVE, Influenza Type B A ntigen NEGATIVE, SARS-CoV-2 RNA (RT-PCR) Not Detected 07/03/21 21:20: Lactic Acid Level 1.67 07/04/21 05:10: White Blood Count 17.6H, Red Blood Count 2.63L, Hemoglobin 8.7L, Hematocrit 29L, Mean Corpuscular Volume 110H, Mean Corpuscular Hemoglobin 33, Mean Corpuscular Hemoglobin Concent 30L, Red Cell Distribution Width 17.0H, Platelet Count 725H, Mean Platelet Volume 10.9, Immature Granulocyte % (Auto) 3, Neutrophils (%) (Auto) 83H, Lymphocytes (%) (Auto) 7L, Monocytes (%) (Auto) 6, Eosinophils (%) (Auto) 2, Basophils (%) (Auto) 1, Neutrophils # (Auto) 14.5H, Lymphocytes # (Auto) 1.2, Monocytes # (Auto) 1.0, Eosinophils # (Auto) 0.3, Basophils # (Auto) 0.1, Immature Granulocyte # (Auto) 0.5H, Sodium Level 139, Potassium Level 3.5L, Chloride Level 103, Carbon Dioxide Level 25, Anion Gap 11, Blood Urea Nitrogen 19H, Creatinine 1.39H, Estimat Glomerular Filtration Rate 37, BUN/Creatinine Ratio 14, Glucose Level 94, Calcium Level 8.8, B-Type Natriuretic Peptide 506.3H , Procalcitonin 0.15H Microbiology 07/03/21 Blood Culture - Preliminary, Resulted No growth A/P-Cardiology Assessment/Admission Diagnosis Pneumonia - mangement per medical services Acute renal insufficiency Acute on chronic diastolic CHF - tx with diuretics H/O Severe anemia - was hospitalized January 2021 and received blood transfusion, colonoscopy did not show the source. Underwent capsule endoscopy with Dr. Latif - Followed by Dr. Rod Persistent Atrial fibrillation - Maintained on Pradaxa - Left atrial appendage thrombus noted on CT scan of the chest done on March 26, 2020, was only on oral anticoagulation for 3 weeks with few days interruption during that period. - Echocardiogram 01-20-21 showed LVEF 55-60%. LA and RA dilated. Calcified mitral valve. Mild to mod TR. PASP 55-60 mmHg - Stress test in March [address] Argueta was abnormal with breast attenuation mild decrease uptake at the mid to apical anterolateral wall with mild reversibility. No significant ischemia. Pulmonary hypertension - undetermined etiology Hypertension - controlled Hyperlipidemia - statin Hypothyroidism - followed and managed by primary care physician Carotid dz - Mild bilateral carotid stenosis, ultrasound was done in February [address] Argueta Surgery hx - History of cholecystectomy, hysterectomy, bladder surgery, all of nephrectomy and appendectomy History of myelodysplastic syndrome - managed [facility] oncology Discussion and Recomendations Multi-factorial SOB likely d/t pneumonia and acute diastolic CHF Treat CHF with diuretics Monitor lab closely Replace electrolytes as indicated Management of pneumonia per medical services Chronic a-fib with controlled rate - continue Pradaxa for stroke prophylaxis Continue home dose of BB Managment of myodysplastic syndrome with medical services We would like to thank medical services for this consult Further recs will be based on her hospital course Clinical Quality Measures AMI/AHF: ASA po Prior to arrival: RODRI Graham MD [facility] CCDS Jul 04, 2021 17:35
[2021-07-05 03:34] VITALS: BP 101/66
[2021-07-05] MEDS: KCL 20 MEQ TAB (K-DUR) PO SCH (06:12)
[2021-07-05] MEDS: CATHETER FLUSH 10 ML SYR IV SCH ×2 (06:12→08:47)
[2021-07-05 06:59] LABS: BASOPHILS # (AUTO) 0.1 10^3/uL (0.0-0.1); BASOPHILS % (AUTO) 0 % (0-10); EOSINOPHILS # (AUTO) 0.2 10^3/uL (0.0-0.3); EOSINOPHILS % (AUTO) 1 % (0-10); HEMATOCRIT 29 % (35-52); HEMOGLOBIN 8.8 g/dL (11.5-16.0); LYMPHOCYTES # (AUTO) 1.2 10^3/uL (1.0-4.0); LYMPHOCYTES % (AUTO) 7 % (12-44); MEAN CORPUSCULAR HEMOGLOBIN 33 pg (25-34); MEAN CORPUSCULAR HGB CONC 30 g/dL (32-36); MEAN CORPUSCULAR VOLUME 110 fL (80-99); MEAN PLATELET VOLUME 11.4 fL (9.0-12.2); MONOCYTES % (AUTO) 6 % (0-12); NEUTROPHILS % (AUTO) 84 % (42-75); PLATELET COUNT 490 10^3/uL (130-400); WHITE BLOOD COUNT 16.7 10^3/uL (4.3-11.0)
[2021-07-05] MEDS ORDERED: LEVOTHYROXINE 100 MCG (LEVOTHROID) TAB PO SCH (07:00)
[2021-07-05 07:13] LABS: ALBUMIN 2.9 GM/DL (3.2-4.5); POTASSIUM 3.9 MMOL/L (3.6-5.0)
[2021-07-05 07:14] VITALS: BP 111/56
[2021-07-05 07:14] LABS: CALCIUM 8.6 MG/DL (8.5-10.1)
[2021-07-05 07:16] LABS: TOTAL PROTEIN 5.7 GM/DL (6.4-8.2)
[2021-07-05 07:17] LABS: BILIRUBIN,TOTAL 0.9 MG/DL (0.1-1.0)
[2021-07-05 07:19] LABS: CREATININE SERUM 1.35 MG/DL (0.60-1.30)
--- NOTE | 2021-07-05 08:04 | Progress Note - Hospitalist ---
Subjective HPI/CC On Admission Date Seen by Provider: Jul 05, 2021 Chief complaint: Shortness of breath History of present illness: This is a 81-year-old white female who presented to the ER with shortness of breath found to have pneumonia with volume overload. Patient has a history of chronic atrial fibrillation and sees Dr. Argueta on a regular basis. She remains on 2 L of oxygen currently. Covid swab was negative. Pulmonary and cardiology will be consulted. Echocardiogram ordered and IV Lasix initiated. Focused Exam Lactate Level 07/03/21 19:20: Lactic Acid Level 2.84*H 07/03/21 21:20: Lactic Acid Level 1.67 Objective Exam Vital Signs Vital Signs Date Time Temp Pulse Resp B/P (MAP) Pulse Ox O2 Delivery O2 Flow Rate FiO2 07/05/21 11:52 36.0 97 16 101/61 (74) 95 Room Air 07/05/21 09:48 0.00 Capillary Refill : Less Than 3 Seconds Results/Procedures Lab Laboratory Tests 07/05/21 06:52 Patient resulted labs reviewed. Diagnosis/Problems Diagnosis/Problems (1) PNA (pneumonia) (2) Respiratory failure Status: Acute Qualifiers: Chronicity: acute Respiratory failure complication: hypoxia Qualified Codes: J96.01 - Acute respiratory failure with hypoxia (3) Myelodysplasia (myelodysplastic syndrome) Status: Chronic (4) Hypoxia Status: Acute Clinical Quality Measures AMI/AHF: ASA po Prior to arrival: HERLINDA Hall DO Jul 05, 2021 08:04
[2021-07-05] MEDS: FUROSEMIDE 40 MG/4 ML INJ (LASIX) IV SCH (08:46)
[2021-07-05] MEDS: HYDROXYUREA 500 MG CAP (HYDREA) PO SCH (08:46)
[2021-07-05] MEDS: DABIGATRAN 150 MG (PRADAXA) CAPSULE PO SCH (08:47)
[2021-07-05] MEDS: meTOprolol TARTRATE 25 MG (LOPRESSOR) TABLET PO SCH (08:47)
[2021-07-05] MEDS ORDERED: HYDROXYUREA 500 MG CAP (HYDREA) PO SCH (09:00)
[2021-07-05] MEDS ORDERED: DABIGATRAN 150 MG (PRADAXA) CAPSULE PO SCH (09:00)
[2021-07-05] MEDS ORDERED: meTOprolol TARTRATE 25 MG (LOPRESSOR) TABLET PO SCH (09:00)
[2021-07-05 11:52] VITALS: BP 101/61
[2021-07-05] MEDS ORDERED: LEVO750T39 PO (12:34)
--- NOTE | 2021-07-05 12:35 | Discharge Summary ---
Discharge Summary Hospital Course Was the Problem List Reviewed?: Yes Problems/Dx: (1) PNA (pneumonia) (2) Respiratory failure Status: Acute Qualifiers: Qualified Codes: J96.01 - Acute respiratory failure with hypoxia (3) Myelodysplasia (myelodysplastic syndrome) Status: Chronic (4) Hypoxia Status: Acute Hospital Course Date of Admission: Jul 03, 2021 at 20:19 Admission Diagnosis : Family Physician/Provider: Caridad Moses Aprn Date of Discharge: 07/05/21 Discharge Diagnosis: Dyspnea, pneumonia, volume overload due to diastolic congestive heart failure, myelodysplastic syndrome Hospital Course: Patient had a short hospital course she was admitted for dyspnea from [place] [facility] placed on Levaquin oxygen supplementation and IV Lasix. Cardiology consulted who agreed with the IV Lasix. Patient's labs consistent with myelodysplastic syndrome. Overall she improved was off oxygen and ambulating around and was ready for discharge. Labs and Pending Lab Test: Laboratory Tests 07/05/21 06:52: White Blood Count 16.7H, Red Blood Count 2.64L, Hemoglobin 8.8L, Hematocrit 29L, Mean Corpuscular Volume 110H, Mean Corpuscular Hemoglobin 33, Mean Corpuscular Hemoglobin Concent 30L, Red Cell Distribution Width 17.2H, Platelet Count 490H, Mean Platelet Volume 11.4, Immature Granulocyte % (Auto) 2, Neutrophils (%) (Au to) 84H, Lymphocytes (%) (Auto) 7L, Monocytes (%) (Auto) 6, Eosinophils (%) (Auto) 1, Basophils (%) (Auto) 0, Neutrophils # (Auto) 14.0H, Lymphocytes # (Auto) 1.2, Monocytes # (Auto) 1.0, Eosinophils # (Auto) 0.2, Basophils # (Auto) 0.1, Immature Granulocyte # (Auto) 0.4H, Sodium Level 140, Potassium Level 3.9, Chloride Level 101, Carbon Dioxide Level 29, Anion Gap 10, Blood Urea Nitrogen 21H, Creatinine 1.35H, Estimat Glomerular Filtration Rate 38, BUN/Creatinine Ratio 16, Glucose Level 93, Calcium Level 8.6, Corrected Calcium 9.5, Total Bilirubin 0.9, Aspartate Amino Transf (AST/SGOT) 15, Alanine Aminotransferase (ALT/SGPT) 10, Alkaline Phosphatase 80, Total Protein 5.7L, Albumin 2.9L Microbiology 07/03/21 Blood Culture - Preliminary, Resulted No growth Home Meds Active Levofloxacin 750 Mg Tablet 750 Mg PO Q48H Reported Pradaxa (Dabigatran Etexilate Mesylate) 150 Mg Capsule 150 Mg PO BID Metoprolol Tartrate 25 Mg Tablet 25 Mg PO BID Hydroxyurea 500 Mg Capsule 500 Mg PO BID Pantoprazole Sodium 40 Mg Tablet.dr 40 Mg PO HS LAST FILLED 02-19-2021 #90/90 DAY SUPPLY Furosemide 20 Mg Tablet 40 Mg PO DAILY TAKES 2 (20MG) TABS Levothyroxine Sodium 100 Mcg Tablet 100 Mcg PO DAILY Assessment/Pt Instructions PCP in 1 week Discharge Planning: <30 minutes discharge planning Discharge Instructions Discharge Diet: No Restrictions Discharge Physical Examination Vital Signs Vital Signs Date Time Temp Pulse Resp B/P (MAP) Pulse Ox O2 Delivery O2 Flow Rate FiO2 07/05/21 11:52 36.0 97 16 101/61 (74) 95 Room Air 07/05/21 09:48 0.00 General Appearance: No Apparent Distress, WD/WN, Chronically ill Allergies: Coded Allergies: Penicillins (Unverified Allergy, Unknown, 02/16/20) Discharge Summary Date of Admission Jul 03, 2021 at 20:19 Date of Discharge Discharge Date: Jul 05, 2021 Admission Diagnosis Assessment: Shortness of breath Pneumonia Volume overload Chronic atrial fibrillation Anticoagulation maintained Hypoxia Myeloproliferative syndrome managed by Dr. Winston Plan: Home meds Pulmonary consult Cardiology consult Oxygen Antibiotics Discharge Diagnosis (1) PNA (pneumonia) (2) Respiratory failure Status: Acute Qualifiers: Qualified Codes: J96.01 - Acute respiratory failure with hypoxia (3) Myelodysplasia (myelodysplastic syndrome) Status: Chronic (4) Hypoxia Status: Acute Clinical Quality Measures AMI/AHF: ASA po Prior to arrival: HERLINDA Hall DO Jul 05, 2021 12:35
--- NOTE | 2021-07-05 13:49 | Progress Note - Cardiology ---
Cardiology SOAP Progress Note Subjective: No cp or palp or syncope Shortness of breath is better No n/v/d Wishes to go home Objective: I&O/Vital Signs 07/05/21 07/05/21 07/05/21 07/05/21 03:34 07:14 08:43 09:48 Temp 36.2 36.7 Pulse 76 70 Resp 18 18 B/P (MAP) 101/66 (78) 111/56 (74) Pulse Ox 96 99 95 O2 Delivery Nasal Cannula Nasal Cannula Room Air Room Air O2 Flow Rate 2.00 2.00 0.00 07/05/21 07/05/21 07/05/21 07/05/21 09:54 10:49 11:52 12:57 Temp 36.0 Pulse 97 95 Resp 16 B/P (MAP) 101/61 (74) Pulse Ox 95 93 95 O2 Delivery Room Air Room Air Room Air 07/05/21 00:00 Intake Total 1660 ml Output Total 4600 ml Balance -2940 ml Constitutional: AAO x 3, well-developed, well-nourished Respiratory: No accessory muscle use, No respiratory distress; chest expansion is symmetric, chest is bilaterally symmetric, other (bi-basilar crackles) Cardiovascular: irregularly irregular; No JVD Gastrointestional: No tender; soft, round, audible bowel sounds Extremities: other (bilat pitting lower extermity edema) Neurologic/Psychiatric: grossly intact (moves all extremities) Skin: No rash on exposed areas, No ulcerations on exposed areas Results/Procedures: Labs Laboratory Tests 07/05/21 06:52: White Blood Count 16.7H, Red Blood Count 2.64L, Hemoglobin 8.8L, Hematocrit 29L, Mean Corpuscular Volume 110H, Mean Corpuscular Hemoglobin 33, Mean Corpuscular Hemoglobin Concent 30L, Red Cell Distribution Width 17.2H, Platelet Count 490H, Mean Platelet Volume 11.4, Immature Granulocyte % (Auto) 2, Neutrophils (%) (Auto) 84H, Lymphocytes (%) (Auto) 7L, Monocytes (%) (Auto) 6, Eosinophils (%) (Auto) 1, Basophils (%) (Auto) 0, Neutrophils # (Auto) 14.0H, Lymphocytes # (Au to) 1.2, Monocytes # (Auto) 1.0, Eosinophils # (Auto) 0.2, Basophils # (Auto) 0.1, Immature Granulocyte # (Auto) 0.4H, Sodium Level 140, Potassium Level 3.9, Chloride Level 101, Carbon Dioxide Level 29, Anion Gap 10, Blood Urea Nitrogen 21H, Creatinine 1.35H, Estimat Glomerular Filtration Rate 38, BUN/Creatinine Ratio 16, Glucose Level 93, Calcium Level 8.6, Corrected Calcium 9.5, Total Bilirubin 0.9, Aspartate Amino Transf (AST/SGOT) 15, Alanine Aminotransferase (ALT/SGPT) 10, Alkaline Phosphatase 80, Total Protein 5.7L, Albumin 2.9L Microbiology 07/03/21 Blood Culture - Preliminary, Resulted No growth Laboratory Tests 07/03/21 19:16 07/04/21 05:10 07/05/21 06:52 A/P: Assessment: Pneumonia - mangement per medical services Acute renal insufficiency Acute on chronic diastolic CHF - tx with diuretics H/O Severe anemia - was hospitalized January 2021 and received blood transfusion, colonoscopy did not show the source. Underwent capsule endoscopy with Dr. Latif - Followed by Dr. Rod Persistent Atrial fibrillation - Maintained on Pradaxa - Left atrial appendage thrombus noted on CT scan of the chest done on March 26, 2020, was only on oral anticoagulation for 3 weeks with few days interruption during that period. - Echocardiogram 01-20-21 showed LVEF 55-60%. LA and RA dilated. Calcified mitral valve. Mild to mod TR. PASP 55-60 mmHg - Stress test in March [address] Argueta was abnormal with breast attenuation mild decrease uptake at the mid to apical anterolateral wall with mild reversibility. No significant ischemia. Pulmonary hypertension - undetermined etiology Hypertension - controlled Hyperlipidemia - statin Hypothyroidism - followed and managed by primary care physician Carotid dz - Mild bilateral carotid stenosis, ultrasound was done in February [address] Argueta Surgery hx - History of cholecystectomy, hysterectomy, bladder surgery, all of nephrectomy and appendectomy History of myelodysplastic syndrome - managed [facility]ology Plan: * Ok for d/c from cardiac standpoint * Continue current regimen * F/u with Dr Argueta in cardiac f/u in 1-2 weeks Clinical Quality Measures AMI/AHF: ASA po Prior to arrival: RODRI Graham MD FACP [facility] CCDS Jul 05, 2021 13:49
[2021-07-05 13:50] VITALS: BP 101/61
[2021-07-05] MEDS ORDERED: PANTOPRAZOLE 40 MG (PROTONIX) TAB PO SCH (21:00)
== END 2021-07-05 14:30 | disposition home or self-care (01) | DRG 193 ==
LOC: EDUNIT# 18:50 → ER FS 18:51 → 4TH 20:19 → ER FS 21:45
PROVIDERS: ADMIT Family Medicine; ATTEND Family Medicine
DX: J18.9 Pneumonia, unspecified organism (principal); I50.33 Acute on chronic diastolic (congestive) heart failure; J96.01 Acute respiratory failure with hypoxia; J81.0 Acute pulmonary edema; I13.0 Hypertensive heart and chronic kidney disease with heart failure and stage 1 through stage 4 chronic kidney disease, or unspecified chronic kidney disease; I48.19 Other persistent atrial fibrillation; G47.30 Sleep apnea, unspecified; D46.9 Myelodysplastic syndrome, unspecified; N18.9 Chronic kidney disease, unspecified; E78.5 Hyperlipidemia, unspecified; I27.20 Pulmonary hypertension, unspecified; E03.9 Hypothyroidism, unspecified; I65.23 Occlusion and stenosis of bilateral carotid arteries; I08.1 Rheumatic disorders of both mitral and tricuspid valves; Z20.822 Contact with and (suspected) exposure to COVID-19; Z79.82 Long term (current) use of aspirin; Z79.01 Long term (current) use of anticoagulants; Z79.890 Hormone replacement therapy; Z79.899 Other long term (current) drug therapy; Z86.718 Personal history of other venous thrombosis and embolism; Z88.0 Allergy status to penicillin
CPT/HCPCS: 36415; 71045; 80048; 80053; 83605; 83735; 83880; 84145; 84484; 85007; 85025; 85027; 85610; 85730; 87040; 87636; 87804; 93005; 93041; 93306; 96374

== ENCOUNTER → 2021-08-21 | Outpatient (CLI) | payer MEDICARE, OTHER ==
[~2021-08-21] MED LIST changes: +LEVO750T39 PO
--- NOTE | 2021-08-21 14:11 | Diagnostic Imaging Report ---
PROCEDURE: CT chest without contrast. TECHNIQUE: Multiple contiguous axial images were obtained through the chest without the use of intravenous contrast. Auto Exposure Controls were utilized during the CT exam to meet ALARA standards for radiation dose reduction. INDICATION: 80-year-old female, shortness of breath. CORRELATION: CTA chest PE 09/24/2020 FINDINGS: Heart size is rather significantly enlarged and appears increased in severity. Dense calcification of the mitral valve. Moderate calcification of the aortic valve as well as scattered mild coronary artery calcification. No pericardial effusion. There does appear to be a scattered prominent in number mediastinal lymph nodes. Hilar lymphadenopathy cannot be well assessed given lack of contrast. The central, main pulmonary arteries are abnormally dilated. Thoracic aorta with mild wall calcification, otherwise normal in contour. There is again demonstration rather prominent and somewhat progressed of groundglass opacities throughout both lung dominguez. No mulu lobar consolidation. Prominent interstitial changes are also noted. Additionally, there is what appears be extensive innumerable, micronodularity throughout the bilateral lung dominguez. No significant pleural effusion. Partially visualized spleen is enlarged. Intrahepatic bile duct dilatation likely owing to cholecystectomy changes. The visualized osseous structures demonstrate no acute findings. IMPRESSION: 1. Findings do suggest underlying pulmonary edema, adversely increased from prior. Rather pronounced cardiac enlargement. 2. There is suggestion of what appears be extensive micro-nodularity throughout the bilateral lung dominguez in a miliary appearance. This finding is nonspecific but can be seen with multiple etiologies. This would include infection including atypical type infection such as tuberculosis, fungal and viral-type infections. Can also be reflective of underlying miliary metastasis particularly with the thyroid, renal, breast and/or pancreatic neoplasms. Alternatively more remote etiologies such as sarcoidosis also consideration. 3. Prominent central pulmonary arteries suggestive of underlying pulmonary arterial hypertension. Dictated by: Dictated on workstation # [id number]
== END ==
LOC: CARD 13:00
PROVIDERS: ATTEND Nurse Practitioner Family
DX: I51.7 Cardiomegaly (principal)
CPT/HCPCS: 71250; 93306

== ENCOUNTER → 2022-01-26 | Outpatient (CLI) | payer MEDICARE, OTHER ==
--- NOTE | 2022-01-26 17:35 | Diagnostic Imaging Report ---
MRI THORACIC SPINE W/O CON INDICATION: Back pain, fall 4 months ago. COMPARISON: Lumbar spine MRI performed concurrently. TECHNIQUE: Multiplanar, multisequence MR imaging of the cervical spine was performed without contrast. FINDINGS: There is mild dilation of the central canal of the lower cervical cord and upper thoracic cord. This extends from the C4-C5 level through T4-T5. The central canal of the thoracic cord measures no more than 2 mm in diameter. There is no associated T2 hyperintense signal within the cervical cord around the site of central canal dilatation. The distal thoracic cord is normal in appearance. No fracture within the lumbar vertebrae. No spondylolisthesis. No concerning marrow replacing process. No disc bulges or herniations. No spinal canal stenosis or neuroforaminal narrowing. Paravertebral musculature is normal. No extradural fluid collection. IMPRESSION: 1. No fracture within the thoracic spine. 2. Incidental note is made of mild dilation of the central canal of the spinal cord from level C4-C5 through T4-T5. This is most likely due to a syrinx and there is no associated T2 hyperintense signal within the spinal cord itself. Consider follow-up thoracic spine MRI with IV contrast to exclude the very small possibility of a cystic spinal cord neoplasm. Dictated by: Dictated on workstation # [id number]
--- NOTE | 2022-01-26 17:49 | Diagnostic Imaging Report ---
PROCEDURE: MRI lumbar spine. TECHNIQUE: Multiplanar, multisequence MRI of the lumbar spine was performed without contrast. INDICATION: Back pain with fall 4 months ago. COMPARISON: MRI thoracic spine performed concurrently. FINDINGS: Normal alignment of the lumbar spine. No fracture or concerning marrow replacing process. No sacral insufficiency fracture. No extradural fluid collection. Paravertebral musculature is normal in appearance. Distal thoracic cord is normal. At L3-L4 and L4-L5, there is small disc bulges, facet osteoarthritis and ligamentum flavum hypertrophy causing mild spinal stenosis and mild bilateral neuroforaminal narrowing. However, there is no high-grade spinal canal stenosis or sites of potential nerve impingement. IMPRESSION: 1. No fracture or malalignment within the lumbar spine. 2. No high-grade spinal stenosis or neuroforaminal narrowing. 3. Degenerative disc disease causes mild spinal stenosis and neuroforaminal narrowing at L3-L4 and L4-L5. Dictated by: Dictated on workstation # [id number]
== END ==
LOC: RAD 14:00
PROVIDERS: ATTEND Nurse Practitioner Family
DX: M51.36 Other intervertebral disc degeneration, lumbar region (principal); M48.061 Spinal stenosis, lumbar region without neurogenic claudication
CPT/HCPCS: 72146; 72148

== ENCOUNTER 2022-08-17 12:16 | Inpatient (IN) | payer MEDICARE, OTHER ==
[~2022-08-17] VITALS: Ht 157 cm; Wt 62.8 kg
[~2022-08-17 12:16] MED LIST changes: +LEVO750T PO; -LEVO750T39 PO
[2022-08-17 12:40] LABS: BASOPHILS # (AUTO) 0.2 10^3/uL (0.0-0.1); BASOPHILS % (AUTO) 1 % (0-10); EOSINOPHILS % (AUTO) 3 % (0-10); HEMATOCRIT 26 % (35-52); HEMOGLOBIN 7.6 g/dL (11.5-16.0); LYMPHOCYTES # (AUTO) 2.1 10^3/uL (1.0-4.0); LYMPHOCYTES % (AUTO) 7 % (12-44); MEAN CORPUSCULAR HEMOGLOBIN 33 pg (25-34); MEAN CORPUSCULAR HGB CONC 30 g/dL (32-36); MEAN CORPUSCULAR VOLUME 111 fL (80-99); MEAN PLATELET VOLUME 12.2 fL (9.0-12.2); MONOCYTES # (AUTO) 0.7 10^3/uL (0.0-1.0); MONOCYTES % (AUTO) 3 % (0-12); NEUTROPHILS # (AUTO) 24.3 10^3/uL (1.8-7.8); NEUTROPHILS % (AUTO) 83 % (42-75); PLATELET COUNT 996 10^3/uL (130-400); WHITE BLOOD COUNT 29.3 10^3/uL (4.3-11.0)
--- NOTE | 2022-08-17 12:49 | ED GI ---
General Chief Complaint: Abdominal/GI Problems Stated Complaint: RECTAL BLEEDING Nursing Triage Note: PT TO RM 7 BY WC WITH C/O BRIGHT RED BLOOD COMING FROM RECTUM THIS MORNING ABOUT 30 MINUTES RN ON SITE. PT STATES THIS HAS NEVER HAPPENED BEFORE AND DENIES PAIN Source of Information: Patient Exam Limitations: No Limitations History of Present Illness Date Seen by Provider: Aug 17, 2022 Time Seen by Provider: 12:48 Initial Comments To ER with reports of large volume of bright red blood per rectum onset this morning. This lasted for about 30 minutes. She has associated generalized weakness and shortness of breath. She felt fine last night. No history of this. She has had a colonoscopy within the past year she states, it was done here, she is not sure who did it. She denies fevers or chills but does have some lower abdominal cramping type pain. No vomiting. She also reports that she is on Pradaxa for atrial fibrillation and has a history of myelodysplastic syndromebut was told by her oncologist in [place] that it was beyond the point of treatment so all medications were stopped 3 months ago. Last hemoglobin last week was 8.8. Timing/Duration: 4-6 Hours Severity/Quality: Moderate Location: Suprapubic Radiation: No Radiation Activities at Onset: None Associated Symptoms: Denies Symptoms Allergies and Home Medications Allergies Coded Allergies: Penicillins (Unverified Allergy, Unknown, 02/16/20) Patient Home Medication List Home Medication List Reviewed: Yes Dabigatran Etexilate Mesylate (Pradaxa) 150 Mg Capsule, 150 MG PO BID, (Reported) Entered as Reported by: HAILEE GONZALEZ on 07/04/21 1143 Furosemide (Furosemide) 20 Mg Tablet, 40 MG PO DAILY, (Reported) Entered as Reported by: JAYLEN MCKOY on 06/05/20 0909 Hydroxyurea (Hydroxyurea) 500 Mg Capsule, 500 MG PO BID, (Reported) Entered as Reported by: HAILEE GONZALEZ on 01/20/21 1112 Levofloxacin (Levofloxacin) 750 Mg Tablet, 750 MG PO Q48H Prescribed by: HERLINDA CHÁVEZ on 07/05/21 1234 Levothyroxine Sodium (Levothyroxine Sodium) 100 Mcg Tablet, 100 MCG PO DAILY, (Reported) Entered as Reported by: JAYLEN MCKOY on 06/05/20 0909 Metoprolol Tartrate (Metoprolol Tartrate) 25 Mg Tablet, 25 MG PO BID, (Reported) Entered as Reported by: HAILEE GONZALEZ on 07/04/21 1143 Pantoprazole Sodium (Pantoprazole Sodium) 40 Mg Tablet.dr, 40 MG PO HS, (Reported) Entered as Reported by: HAILEE GONZALEZ on 01/20/21 1112 Review of Systems Review of Systems Constitutional: see HPI EENTM: No Symptoms Reported Respiratory: No Symptoms Reported Cardiovascular: No Symptoms Reported Gastrointestinal: See HPI, Abdominal Pain, Nausea Genitourinary: No Symptoms Reported Musculoskeletal: no symptoms reported Skin: no symptoms reported Psychiatric/Neurological: No Symptoms Reported Endocrine: No Symptoms Reported Hematologic/Lymphatic: No Symptoms Reported Past Klmwcoz-Nozukh-Egouwd Hx Patient Social History Tobacco Use?: No Substance use?: No Alcohol Use?: No Pt feels they are or have been: No Immunizations Up To Date Influenza Vaccine Up-to-Date: No; Not Current First/Initial COVID19 Vaccinat: NA Second COVID19 Vaccination Boom: NA Third COVID19 Vaccination Date: NA Seasonal Allergies Seasonal Allergies: No Past Medical History Surgery/Hospitalization HX: AFIB, CHF, THYROID, HYSTO, APPY, JOVI, Surgeries: Yes Appendectomy, Bladder Surgery, Gallbladder, Hysterectomy, Oophorectomy Respiratory: Yes Pneumonia, Sleep Apnea Currently Using CPAP: Yes Cardiac: Yes Atrial Fibrillation, Hypertension Neurological: Yes Concussion Genitourinary: Yes Kidney Infection Gastrointestinal: No Musculoskeletal: No Arthritis Endocrine: Yes HEENT: No Cancer: No Psychosocial: No Integumentary: No Blood Disorders: Yes (MYELDYSPLASTIC SYNDROME, anemia) Family Medical History No Pertinent Family Hx Physical Exam Vital Signs Vital Signs - First Documented 08/17/22 12:25 Temp 36.3 Pulse 86 Resp 14 B/P (MAP) 98/44 (62) Capillary Refill : Height/Weight/BMI Height: '" Weight: lbs. oz. kg; 27.46 BMI Method: General Appearance: WD/WN, no apparent distress, other (Hypotensive, 85-90 systolic over 40s diastolic. GCS 15 alert and oriented speaks in full sentences) HEENT: PERRL/EOMI, normal ENT inspection Neck: non-tender, full range of motion, other (No JVD) Respiratory: normal breath sounds, no respiratory distress, no accessory muscle use Cardiovascular: regular rate, rhythm, no murmur Gastrointestinal: normal bowel sounds, soft, tenderness Rectal: other (Small but persistently oozing area of blood left side of the anus anteriorly. Appears to be a small tear or fissure. Gauze roll applied and will squirt some LET solution on it) Extremities: normal range of motion, non-tender, other (3+ pitting edema bilateral lower extremities up to the knees) Neurologic/Psychiatric: alert, normal mood/affect, oriented x 3 Skin: normal color, warm/dry Focused Exam Lactate Level 08/17/22 13:05: Lactic Acid Level 1.78 Lactic Acid Level Laboratory Tests Test 08/17/22 13:05 Lactic Acid Level 1.78 MMOL/L (0.50-2.00) Progress/Results/Core Measures Results/Orders Lab Results Laboratory Tests Test 08/17/22 12:20 08/17/22 12:30 08/17/22 13:05 Range/Units White Blood Count 29.3 H 4.3-11.0 10^3/uL Red Blood Count 2.31 L 3.80-5.11 10^6/uL Hemoglobin 7.6 L 11.5-16.0 g/dL Hematocrit 26 L 35-52 % Mean Corpuscular Volume 111 H 80-99 fL Mean Corpuscular Hemoglobin 33 25-34 pg Mean Corpuscular Hemoglobin Concent 30 L 32-36 g/dL Red Cell Distribution Width 20.6 H 10.0-14.5 % Platelet Count 996 H 130-400 10^3/uL Mean Platelet Volume 12.2 9.0-12.2 fL Immature Granulocyte % (Auto) 3 % Neutrophils (%) (Auto) 83 H 42-75 % Lymphocytes (%) (Auto) 7 L 12-44 % Monocytes (%) (Auto) 3 0-12 % Eosinophils (%) (Auto) 3 0-10 % Basophils (%) (Auto) 1 0-10 % Neutrophils # (Auto) 24.3 H 1.8-7.8 10^3/uL Lymphocytes # (Auto) 2.1 1.0-4.0 10^3/uL Monocytes # (Auto) 0.7 0.0-1.0 10^3/uL Eosinophils # (Auto) 1.0 H 0.0-0.3 10^3/uL Basophils # (Auto) 0.2 H 0.0-0.1 10^3/uL Immature Granulocyte # (Auto) 0.9 H 0.0-0.1 10^3/uL Neutrophils % (Manual) 85 % Lymphocytes % (Manual) 8 % Monocytes % (Manual) 1 % Eosinophils % (Manual) 1 % Basophils % (Manual) 1 % Myelocytes % 2 % Band Neutrophils 1 % Nucleated Red Blood Cells 1 Reactive Lymphocytes 1 % Platelet Estimate INCREASED Polychromasia SLIGHT Hypochromasia SLIGHT Poikilocytosis SLIGHT Anisocytosis MODERATE Elliptocytes MODERATE Prothrombin Time 65.0 *H 12.2-14.7 SEC INR Comment 7.6 *H 0.8-1.4 Activated Partial Thromboplast Time 131 *H 24-35 SEC Sodium Level 138 135-145 MMOL/L Potassium Level 4.1 3.6-5.0 MMOL/L Chloride Level 105 98-107 MMOL/L Carbon Dioxide Level 22 21-32 MMOL/L Anion Gap 11 5-14 MMOL/L Blood Urea Nitrogen 40 H 7-18 MG/DL Creatinine 2.93 H 0.60-1.30 MG/DL Estimat Glomerular Filtration Rate 16 BUN/Creatinine Ratio 14 Glucose Level 106 H 70-105 MG/DL Calcium Level 8.7 8.5-10.1 MG/DL Corrected Calcium 9.3 8.5-10.1 MG/DL Total Bilirubin 0.7 0.1-1.0 MG/DL Aspartate Amino Transf (AST/SGOT) 16 5-34 U/L Alanine Aminotransferase (ALT/SGPT) 9 0-55 U/L Alkaline Phosphatase 87 40-136 U/L Total Protein 6.2 L 6.4-8.2 GM/DL Albumin 3.2 3.2-4.5 GM/DL B-Type Natriuretic Peptide 878.7 H <100.0 PG/ML Lactic Acid Level 1.78 0.50-2.00 MMOL/L My Orders Orders - SAVANA SOL[address] [employer]PERVIS[employer] Cbc With Automated Diff (08/17/22 12:27) Comprehensive Metabolic Panel (08/17/22 12:27) Partial Thromboplastin Time (08/17/22 12:27) Protime With Inr (08/17/22 12:27) Ed Iv/Invasive Line Start (08/17/22 12:27) Red Cells Leukocytes Reduced (08/17/22 12:27) Type And Screen (08/17/22 12:27) Manual Differential (08/17/22 12:20) Bnp Jerrell (08/17/22 12:46) Chest 1 View, Ap/Pa Only (08/17/22 12:46) Blood Culture (08/17/22 12:46) Lactic Acid Analyzer (08/17/22 12:46) Procalcitonin (Pct) (08/17/22 12:46) Ua Culture If Indicated (08/17/22 12:56) Let Solution (Let Solution) (08/17/22 13:45) Let Solution (Let Solution) (08/17/22 13:39) Vital Signs/I&O 08/17/22 12:25 Temp 36.3 Pulse 86 Resp 14 B/P (MAP) 98/44 (62) Blood Pressure Mean: 62 Departure Communication (Admissions) 1346-her INR is 7.6. However I discussed with pharmacist Willie, her Pradaxa will skew the coagulation studies and this is not a reliable indicator of Pradaxa's activity. She should not be given vitamin K or FFP based on this reading alone, we do have Praxbind available if she becomes hemodynamically unstable and needs rapid reversal prior to surgery. Her blood pressure is consistently 85/56. Son at the bedside states she always runs a little low. I spoke with Dr. Rod, he will consult. Her oncologist Dr. Dumont is in [facility], I spoke with his office nurse Blue at [phone]. She states they have not had any particular treatment plan for Dahlia, they have been supporting with as needed blood transfusions. I did discuss CODE STATUS with the patient. Asked if we enter the room and find her to be not breathing and without a pulse which she want us to resuscitate her or leave her be as an DO NOT RESUSCITATE status. She replies "well that is a tough question". She states she will think about it. Family Conversation NAME: DAHLIA GALDAMEZ MED REC#: [id number] PT STATUS: REG ER : 1940 PHYSICIAN: SAVANA SOLITARIO APRN ADMIT DATE: 08/17/22/ER Draft Date of Exam:08/17/22 CHEST 1 VIEW, AP/PA ONLY INDICATION: 82-year-old female, bright red blood from rectum.. TECHNIQUE: Single view chest 1:15 PM. CORRELATION STUDY: 07/04/2021 FINDINGS: Heart size, mediastinum and vasculature overall appear prominent. However, less severe from prior. Mildly prominent interstitial markings. No evidence for infiltrate or effusion. IMPRESSION: 1. Question very mild edema but overall appears less pronounced from prior. Dictated on workstation # [id number] Dict: 08/17/22 1317 Trans: 08/17/22 1319 [facility] [id number] Interpreted by: FAHEEM PARRY DO Electronically signed by: Alert and oriented mentating well blood pressure 90/48, heart rate 76 atrial fibrillation. Oxygen 93% room air. Records show minimal diverticulosis on colonoscopy in 2019. Impression Primary Impression: Myelodysplasia (myelodysplastic syndrome) Additional Impressions: Anemia GI bleed Afib Disposition: ADMITTED INPATIENT Condition: Stable Admissions Decision to Admit Reason: Admit from ER (General) Decision to Admit/Date: Aug 17, 2022 Time/Decision to Admit Time: 12:55 Departure-Patient Inst. Referrals: TILA SHARMA APRN (PCP) Primary Care Physician [facility] (Family) Primary Care Physician SAVANA SOLITARIO APRN Aug 17, 2022 12:49
[2022-08-17 12:50] LABS: ALBUMIN 3.2 GM/DL (3.2-4.5)
[2022-08-17 12:51] LABS: POTASSIUM 4.1 MMOL/L (3.6-5.0)
[2022-08-17 12:52] LABS: CALCIUM 8.7 MG/DL (8.5-10.1)
[2022-08-17 12:53] LABS: TOTAL PROTEIN 6.2 GM/DL (6.4-8.2)
[2022-08-17 12:55] LABS: ANISOCYTOSIS MODERATE; BAND NEUTROPHILS 1 %; BASOPHILS % (MANUAL) 1 %; BILIRUBIN,TOTAL 0.7 MG/DL (0.1-1.0); EOSINOPHILS % (MANUAL) 1 %; HYPOCHROMASIA SLIGHT; LYMPHOCYTES % (MANUAL) 8 %; MONOCYTES % (MANUAL) 1 %; MYELOCYTES % 2 %; NEUTROPHILS % (MANUAL) 85 %; NUCLEATED RED BLOOD CELLS 1; POIKILOCYTOSIS SLIGHT; POLYCHROMASIA SLIGHT; REACTIVE LYMPHOCYTES 1 %
[2022-08-17 12:56] LABS: ELLIPT/OVALOCYTES MODERATE; PLATELET ESTIMATE INCREASED
[2022-08-17 12:57] LABS: CREATININE SERUM 2.93 MG/DL (0.60-1.30)
[2022-08-17 13:08] LABS: INR 7.6 (0.8-1.4)
--- NOTE | 2022-08-17 13:20 | Diagnostic Imaging Report ---
INDICATION: 82-year-old female, bright red blood from rectum.. TECHNIQUE: Single view chest 1:15 PM. CORRELATION STUDY: 07/04/2021 FINDINGS: Heart size, mediastinum and vasculature overall appear prominent. However, less severe from prior. Mildly prominent interstitial markings. No evidence for infiltrate or effusion. IMPRESSION: 1. Question very mild edema but overall appears less pronounced from prior. Dictated by: Dictated on workstation # [id number]
[2022-08-17] MEDS ORDERED: L.E.T. SOLUTION 3 ML SYR ONE (13:39)
[2022-08-17] MEDS ORDERED: L.E.T. SOLUTION 3 ML SYR TOP ONE (13:45)
--- NOTE | 2022-08-17 14:42 | Consultation - Surgery ---
JENNY CRUMP 08/17/22 1442: History of Present Illness History of Present Illness Patient Consulted On(bryson/time) 08/17/22 14:34 Date Seen by Provider: Aug 17, 2022 Time Seen by Provider: 14:34 History of Present Illness Consult requested per Navneet Peterson APRN. Patient is a 82 year old female with a past medical history of A-fib, HTN, and myelodysplastic syndrome that presented to the ER today with bright red blood per rectum this morning. She woke up this morning to use the restroom and had an episode of diarrhea. When she went to wipe she noticed bright red blood on the toilet paper as well as a large volume of blood in the toilet bowl. She tried to use a maxi pad to help stop the bleeding but it persisted for 30 minutes to an hour. Her son then convinced her she needed to come in and be seen. She felt well this morning and denies having any lightheadedness, palpitations, fever, chills, or abdominal pain. She has never had an episode like this before. Patient had a colonoscopy done by Dr. Griffin in 2019 which showed diverticulosis for anemia but no source of bleeding was found. She sees oncology in [place] for her myelodysplastic syndrome but without any current plan to treat, only has her labs monitored every 2 weeks and is infused as needed. She is currently on Pradaxa for her A-fib. Her last hemoglobin from the oncologist office was 8.8 last Wednesday and is 7.6 today. Allergies and Home Medications Allergies Coded Allergies: Penicillins (Unverified Allergy, Unknown, 02/16/20) Patient Home Medication List Home Medication List Reviewed: Yes Dabigatran Etexilate Mesylate (Pradaxa) 150 Mg Capsule, 150 MG PO BID, (Reported) Entered as Reported by: HAILEE GONZALEZ on 07/04/21 1143 Furosemide (Furosemide) 20 Mg Tablet, 40 MG PO DAILY, (Reported) Entered as Reported by: JAYLEN MCKOY on 06/05/20 0909 Hydroxyurea (Hydroxyurea) 500 Mg Capsule, 500 MG PO BID, (Reported) Entered as Reported by: HAILEE GONZALEZ on 01/20/21 1112 Levofloxacin (Levofloxacin) 750 Mg Tablet, 750 MG PO Q48H Prescribed by: HERLINDA CHÁVEZ on 07/05/21 1234 Levothyroxine Sodium (Levothyroxine Sodium) 100 Mcg Tablet, 100 MCG PO DAILY, (Reported) Entered as Reported by: JAYLEN MCKOY on 06/05/20 0909 Metoprolol Tartrate (Metoprolol Tartrate) 25 Mg Tablet, 25 MG PO BID, (Reported) Entered as Reported by: HAILEE GONZALEZ on 07/04/21 1143 Pantoprazole Sodium (Pantoprazole Sodium) 40 Mg Tablet.dr, 40 MG PO HS, (Reported) Entered as Reported by: HAILEE GONZALEZ on 01/20/21 1112 Past Dyhkije-Sygsku-Absvnk Hx Patient Social History Smoking Status: Never a Smoker Recent Hopitalizations: No Alcohol Use?: No Have you traveled recently?: No Immunizations Up To Date Date of Pneumonia Vaccine: Jun 05, 2018 Seasonal Allergies Seasonal Allergies: No Surgeries History of Surgeries: Yes Surgeries: Appendectomy, Bladder Surgery, Gallbladder, Hysterectomy, Oophorectomy Respiratory History of Respiratory Disorde: Yes Respiratory Disorders: Pneumonia, Sleep Apnea Cardiovascular History of Cardiac Disorders: Yes Cardiac Disorders: Atrial Fibrillation, Hypertension Neurological History of Neurological Disord: Yes Neurological Disorders: Concussion Genitourinary History of Genitourinary Disor: Yes Genitourinary Disorders: Kidney Infection Gastrointestinal History of Gastrointestinal Di: Yes Gastrointestinal Disorders: Diverticulosis Musculoskeletal History of Musculoskeletal Dis: Yes Musculoskeletal Disorders: Arthritis Endocrine History of Endocrine Disorders: Yes HEENT History of HEENT Disorders: No Cancer History of Cancer: Yes (Meylodysplastic syndrome) Psychosocial History of Psychiatric Problem: No Integumentary History of Skin or Integumenta: No Blood Transfusions History of Blood Disorders: Yes (MYELDYSPLASTIC SYNDROME, anemia) Family Medical History Significant Family History: No Pertinent Family Hx Review of Systems-General Constitutional: No diaphoresis, No fever; malaise, weakness EENTM: blurred vision; No hearing loss, No ear pain Respiratory: No cough, No hemoptysis, No phlegm Cardiovascular: No chest pain; edema; No palpitations Gastrointestinal: No abdominal pain, No constipation; diarrhea; No hematemesis Genitourinary: No decreased output, No discharge Musculoskeletal: back pain (Chronic); No joint swelling Skin: No change in color, No change in hair/nails Psychiatric/Neurological: Denies Anxiety, Denies Depressed All Other Systems Reviewed Negative Unless Noted: Yes Physical Exam-General Problems Physical Exam Vital Signs Vital Signs - First Documented 08/17/22 12:25 Temp 36.3 Pulse 86 Resp 14 B/P (MAP) 98/44 (62) Capillary Refill : General Appearance: WD/WN, no apparent distress Eyes: Bilateral Eye EOMI, Bilateral Eye Conjunctivae Pale HEENT: PERRL/EOMI; No scleral icterus (R), No scleral icterus (L); pale conjunctivae (R), pale conjunctivae (L) Neck: non-tender, supple Respiratory: chest non-tender, lungs clear, normal breath sounds Cardiovascular: normal peripheral pulses, regular rate, rhythm, no gallop Peripheral Pulses: 2+ Radial Pulses (R), 2+ Radial Pulses (L) Gastrointestinal: normal bowel sounds, non tender, soft Rectal: other (Small but persistently oozing area of blood left side of the anus anteriorly. Appears to be a puncture of an external hemorrhoid. Gauze roll applied with surgical seal) Back: normal inspection, no CVA tenderness Extremities: normal range of motion, non-tender, pedal edema (+2 pitting edema bilateral lower extremity) Neurologic/Psychiatric: alert, normal mood/affect, oriented x 3 Skin: normal color, warm/dry Lymphatic: no adenopathy Data Review Labs Laboratory Tests 08/17/22 12:20: White Blood Count 29.3H, Red Blood Count 2.31L, Hemoglobin 7.6L, Hematocrit 26L, Mean Corpuscular Volume 111H, Mean Corpuscular Hemoglobin 33, Mean Corpuscular Hemoglobin Concent 30L, Red Cell Distribution Width 20.6H, Platelet Count 996H, Mean Platelet Volume 12.2, Immature Granulocyte % (Auto) 3, Neutrophils (%) (Auto) 83H, Lymphocytes (%) (Auto) 7L, Monocytes (%) (Auto) 3, Eosinophils (%) (Auto) 3, Basophils (%) (Auto) 1, Neutrophils # (Auto) 24.3H, Lymphocytes # (Auto) 2.1, Monocytes # (Auto) 0.7, Eosinophils # (Auto) 1.0H, Basophils # (Auto) 0.2H, Immature Granulocyte # (Auto) 0.9H, Neutrophils % (Manual) 85, Lymphocytes % (Manual) 8, Monocytes % (Manual) 1, Eosinophils % (Manual) 1, Basophils % (Manual) 1, Myelocytes % 2, Band Neutrophils 1, Nucleated Red Blood Cells 1, Reactive Lymphocytes 1, Platelet Estimate INCREASED, Polychromasia SLIGHT, Hypochromasia SLIGHT, Poikilocytosis SLIGHT, Anisocytosis MODERATE, Elliptocytes MODERATE, Prothrombin Time 65.0*H, INR Comment 7.6*H, Activated Partial Thromboplast Time 131*H, Sodium Level 138, Potassium Level 4.1, Chloride Level 105, Carbon Dioxide Level 22, Anion Gap 11, Blood Urea Nitrogen 40H, Creatinine 2.93H, Estimat Glomerular Filtration Rate 16, BUN/Creatinine Ratio 14, Glucose Level 106H, Calcium Level 8.7, Corrected Calcium 9.3, Total Bilirubin 0.7, Aspartate Amino Transf (AST/SGOT) 16, Alanine Aminotransferase (ALT/SGPT) 9, Alkaline Phosphatase 87, Total Protein 6.2L, Albumin 3.2 08/17/22 12:30: B-Type Natriuretic Peptide 878.7H, Procalcitonin 0.13H 08/17/22 13:05: Lactic Acid Level 1.78 Radiology Date of Exam:08/17/22 CHEST 1 VIEW, AP/PA ONLY INDICATION: 82-year-old female, bright red blood from rectum.. TECHNIQUE: Single view chest 1:15 PM. CORRELATION STUDY: 07/04/2021 FINDINGS: Heart size, mediastinum and vasculature overall appear prominent. However, less severe from prior. Mildly prominent interstitial markings. No evidence for infiltrate or effusion. IMPRESSION: 1. Question very mild edema but overall appears less pronounced from prior. Assessment/Plan Assessment/Plan Assessment/Plan Puncture of external hemorrhoid Anemia- Hemoglobin currently 7.6 from 8.8 last Wednesday Myelodysplastic syndrome A-fib Diverticulosis Hold Pradaxa Apply surgical seal and packed gauze Track and trend hemoglobin Transfuse as needed Continue supportive care REJI GRIFFIN DO 08/17/22 1845: History of Present Illness History of Present Illness History of Present Illness Consult requested by Dr. Chávez for GI bleed. Patient is a 82-year-old female who began having bright red blood this morning. She went to have a bowel movement which was diarrhea. When she wiped she started having bright red blood on toilet paper and then also noticed it in the toilet bowl. Patient tried to hold pressure by using a maxi pad that did not really help her. She states that it continued to kind of ooze and since that she went to the emergency department for further evaluation. She is on anticoagulation of Pradaxa due to A. fib. Patient has a history of diverticulosis on her last colonoscopy and she has myelodysplastic syndrome. Patient with no other complaints at this time. She has no abdominal pain. She denies any nausea vomiting fever sweats chills shortness of breath or chest pain. Her hemoglobin is 7.6. Allergies and Home Medications Allergies Coded Allergies: Penicillins (Unverified Allergy, Unknown, 02/16/20) Patient Home Medication List Home Medication List Reviewed: Yes Dabigatran Etexilate Mesylate (Pradaxa) 150 Mg Capsule, 150 MG PO BID, (Reported) Entered as Reported by: HAILEE GONZALEZ on 07/04/21 1143 Furosemide (Furosemide) 20 Mg Tablet, 40 MG PO DAILY, (Reported) Entered as Reported by: JAYLEN MCKOY on 06/05/20 0909 Hydroxyurea (Hydroxyurea) 500 Mg Capsule, 500 MG PO BID, (Reported) Entered as Reported by: HAILEE GONZALEZ on 01/20/21 1112 Levofloxacin (Levofloxacin) 750 Mg Tablet, 750 MG PO Q48H Prescribed by: HERLINDA CHÁVEZ on 07/05/21 1234 Levothyroxine Sodium (Levothyroxine Sodium) 100 Mcg Tablet, 100 MCG PO DAILY, (Reported) Entered as Reported by: JAYLEN MCKYO on 06/05/20 0909 Metoprolol Tartrate (Metoprolol Tartrate) 25 Mg Tablet, 25 MG PO BID, (Reported) Entered as Reported by: HAILEE GONZALEZ on 07/04/21 1143 Pantoprazole Sodium (Pantoprazole Sodium) 40 Mg Tablet.dr, 40 MG PO HS, (Repo rted) Entered as Reported by: HAILEE GONZALEZ on 01/20/21 1112 Past Zqfthow-Rgtgsr-Tbjphb Hx Reviewed Nursing Assessment Reviewed/Agree w Nursing PMH: Yes Family Medical History Significant Family History: No Pertinent Family Hx Review of Systems-General Constitutional: No diaphoresis, No fever; malaise, weakness EENTM: No hearing loss, No ear pain Respiratory: No cough, No hemoptysis, No phlegm Cardiovascular: No chest pain, No palpitations Gastrointestinal: No abdominal pain, No constipation; diarrhea; No hematemesis; other (blood per rectum) Genitourinary: No decreased output, No discharge Musculoskeletal: back pain (Chronic); No joint swelling Skin: No change in color, No change in hair/nails Psychiatric/Neurological: Denies Anxiety, Denies Depressed, Denies Emotional Problems All Other Systems Reviewed Negative Unless Noted: Yes (Negative excepted noted.) Physical Exam-General Problems Physical Exam General Appearance: WD/WN, no apparent distress HEENT: PERRL/EOMI; No scleral icterus (R), No scleral icterus (L) Neck: non-tender, supple Respiratory: chest non-tender, no respiratory distress, no accessory muscle use Cardiovascular: regular rate, rhythm, no gallop Gastrointestinal: non tender, soft Rectal: other (Small but persistently oozing area of blood left side of the anus anteriorly. Appears to be a puncture of an external hemorrhoid. female nurse in room during exam) Back: normal inspection, no CVA tenderness Extremities: normal range of motion, non-tender, pedal edema (+2 pitting edema bilateral lower extremity) Skin: warm/dry, pallor Lymphatic: no adenopathy Assessment/Plan Assessment/Plan Assessment/Plan Gi bleed lower, feel likely from puncture of external hemorrhoid Anemia- Hemoglobin currently 7.6 from 8.8 last Wednesday Myelodysplastic syndrome A-fib Diverticulosis Hold Pradaxa Apply surgicell and packed gauze Track and trend hemoglobin Transfuse as needed Feel will likely stop with anticoagulation held and use of pressure/surgicel, if not may need to go to or and cauterize or ligate area. Continue supportive care Supervisory-Addendum Brief Verification & Attestation Participated in pt care: history, MDM, physical Personally performed: exam, history, MDM, supervision of care Care discussed with: Medical Student Procedures: n/a Results interpretation: Verified all documentation Verification and Attestation of Medical Student E/M Service A medical student performed and documented this service in my presence. I reviewed and verified all information documented by the medical student and made modifications to such information, when appropriate. I personally performed the physical exam and medical decision making. Reji Griffin, Aug 17, 2022,18:51 JENNY CRUMP Aug 17, 2022 14:42 REJI GRIFFIN DO Aug 17, 2022 18:45
[2022-08-17] MEDS ORDERED: ONDANSETRON 4 MG/2 ML (SDV) Z0FRAN IV PRN (15:15)
[2022-08-17] MEDS ORDERED: ACETAMINOPHEN 325 MG TABLET PO PRN (15:15)
[2022-08-17] MEDS ORDERED: BISACODYL 10 MG SUPP (DULCOLAX) PR PRN (15:15)
[2022-08-17] MEDS ORDERED: polyethylene glycoL POWDER 17 GM (MIRALAX) PACK PO PRN (15:15)
[2022-08-17] MEDS ORDERED: NS IV 500 ML 500 ML IV PRN (15:15)
[2022-08-17] MEDS ORDERED: CALCIUM CARBONATE 500 MG (TUMS) TAB.CHEW PO PRN (15:15)
[2022-08-17] MEDS ORDERED: MILK OF MAGNESIA 400 MG/5 ML 30 ML UDC PO PRN (15:15)
[2022-08-17] MEDS ORDERED: HYDROmorphone 2 MG/ML VIAL (DILAUDID) IV PRN (15:15)
[2022-08-17] MEDS ORDERED: diphenhydrAMINE 25 MG TAB (BENADRYL) PO PRN (15:15)
[2022-08-17] MEDS ORDERED: MELATONIN 3 MG TABLET PO PRN (15:15)
[2022-08-17] MEDS ORDERED: LACTULOSE SYRUP 10GM/15ML (ENULOSE) 30ML UDC PO PRN (15:15)
[2022-08-17] MEDS ORDERED: diphenhydrAMINE 50 MG/ML INJ (BENADRYL) IVP PRN (15:15)
[2022-08-17] MEDS ORDERED: ANTACID SUSP 30 ML UDC (MYLANTA) PO PRN (15:15)
[2022-08-17] MEDS ORDERED: ONDANSETRON 4 MG (ZOFRAN) ORAL DISSOLVE TAB PO PRN (15:15)
[2022-08-17] MEDS: NOREPINEPHRINE 8 MG/250 ML 250 ML IV SCH (16:00)
[2022-08-17] MEDS: NS IV 1000 ML 1,000 ML IV SCH (16:25)
[2022-08-17 16:47] VITALS: BP 98/44
[2022-08-17] MEDS ORDERED: RT-ALBUTEROL SULF 2.5 MG/3 ML PRE-MIX VIAL INH PRN (17:00)
[2022-08-17] MEDS ORDERED: NS IV 1000 ML 500 ML IV SCH (17:15)
--- NOTE | 2022-08-17 17:18 | History & Physical-Hospitalist ---
HARMONYSUSAN 08/17/22 1718: History of Present Illness HPI/Chief Complaint Patient is an 82-year-old female with a history of myelodysplastic syndrome, HTN, and afib who presented to the ED on 08/17 with chief complaint of bright red blood per rectum. The patient states that when she went to the bathroom this morning she noticed the blood on the toilet paper and quite a bit in the bowl. The patient states the bleeding continued for approximately 30 minutes while she tried to slow the bleeding with a maxi pad. She has never had a similar episode. She reports her last colonoscopy was in 2019 for anemia and showed diverticulosis, but no areas of active bleeding. The patient reports having some fatigue, but has no other complaints. The patient follows with an oncologist in [place] for her myelodysplastic syndrome and receives blood transfusions as needed. Her labs are checked every 2 weeks and she reports her last transfusion was at the end of May and required 4 bags. Her hemoglobin was measured at 8.8 on 08/12 and is currently 7.6. The patient has edema in the b/l lower extremities which she states is a chronic issue. Source: patient, family, RN/MD, EMS notes reviewed Exam Limitations: no limitations Date Seen 08/17/22 Time Seen by a Provider: 04:30 Attending Physician Caridad Moses Aprn PCP Admitting Physician: Lashonda Mcleod DO Attending Physician: Lashonda Mcleod DO Referring Physician Date of Admission Aug 17, 2022 at 14:23 Home Medications & Allergies Home Medications Reviewed patient Home Medication Reconciliation performed by pharmacy medication reconciliations orthotics prosthetics technician and/or nursing. Patients Allergies have been reviewed. Allergies Allergies Coded Allergies Penicillins (Unverified Allergy, Unknown, 02/16/20) Past Nhlrdoi-Tetawq-Zldkbr Hx Patient Social History Tobacco Use?: No Smoking Status: Never a Smoker Use of E-Cig and/or Vaping dev: No Substance use?: No Alcohol Use?: No Pt feels they are or have been: No Immunizations Up To Date First/Initial COVID19 Vaccinat: NA Second COVID19 Vaccination Boom: NA Tetanus Booster (TDap): More Than 5 Years Hepatitis A: No Hepatitis B: No Date of Pneumonia Vaccine: Jun 05, 2018 Seasonal Allergies Seasonal Allergies: No Current Status Advance Directives: No Communicates: Verbally Primary Language: Malawian Preferred Spoken Language: Malawian Is interpretation needed?: No Sensory deficits: Vision impairment, Hearing impairment Implanted or Applied Medical D: None Past Medical History Surgeries: Appendectomy, Bladder Surgery, Gallbladder, Hysterectomy, Oophorectomy Pneumonia, Sleep Apnea Currently Using CPAP: Yes Atrial Fibrillation, Hypertension Concussion Kidney Infection Diverticulosis Arthritis Blood Disorders: Yes (MYELDYSPLASTIC SYNDROME, anemia) PMHx: A fib HTN Hypothyroidism Myelodysplastic syndrome Family Medical History No Pertinent Family Hx Review of Systems Constitutional: No chills, No fever; weakness EENTM: No blurred vision, No eye pain Respiratory: No cough, No short of breath Cardiovascular: No chest pain; edema (b/l chronic) Gastrointestinal: No abdominal pain, No nausea, No vomiting Genitourinary: No hematuria, No pain Skin: No change in color, No rash Psychiatric/Neurological: Denies Numbness; Weakness Physical Exam Physical Exam Vital Signs Vital Signs - First Documented 08/17/22 08/17/22 08/17/22 12:25 14:43 16:47 Temp 36.3 Pulse 86 Resp 14 B/P (MAP) 98/44 (62) Pulse Ox 92 O2 Delivery Nasal Cannula O2 Flow Rate 2.00 FiO2 21 Capillary Refill : Height, Weight, BMI Height: '" Weight: lbs. oz. kg; 24.74 BMI Method: General Appearance: No Apparent Distress, WD/WN HEENT: PERRL/EOMI, Pale Conjunctivae (L), Pale Conjunctivae (R) Neck: Non Tender, Supple Respiratory: Chest Non Tender, Lungs Clear Cardiovascular: Regular Rate, Rhythm, Normal Peripheral Pulses Gastrointestinal: Non Tender, Soft Back: Normal Inspection, No Vertebral Tenderness Extremity: Normal Capillary Refill, Pedal Edema (b/l) Neurologic/Psychiatric: Alert, Oriented x3, Other (small lesion around edge of rectum) Skin: Warm/Dry, Pallor Lymphatic: No Adenopathy Results Results/Procedures Labs Laboratory Tests 08/17/22 12:20 08/17/22 20:00 08/18/22 04:09 Patient resulted labs reviewed. Assessment/Plan Admission Diagnosis Admission Status: Observation Assessment and Plan Anemia GI bleed HTN PAUL Afib Diverticulosis Hypothyroidism Obstructive sleep apnea Monitor Hg, transfuse as needed Surgery consulted Continue IV fluids Monitor BUN and creatinine, currently 40 and 2.93 Hold pradaxa Clinical Quality Measures DVT/VTE Risk/Contraindication: Contraindications-Pharm: Other *list below* Other: MARTIN LASHONDA MCLEOD DO 08/19/22 0506: History of Present Illness Source: patient, family, RN/MD Exam Limitations: no limitations Past Dbcbkce-Rmfxzz-Ykkfca Hx Patient Social History Marrital Status: single Employed/Student: retired Smoking Status: Never a Smoker Past Medical History Atrial Fibrillation, High Cholesterol, Hypertension Renal Failure Review of Systems Constitutional: see HPI Physical Exam Physical Exam General Appearance: No Apparent Distress, Chronically ill, Thin Respiratory: Lungs Clear, Normal Breath Sounds Cardiovascular: Regular Rate, Rhythm Extremity: Pedal Edema (b/l) Neurologic/Psychiatric: Alert, Oriented x3 Assessment/Plan Admission Diagnosis Assessment: GI bleed Atrial fibrillation Chronic renal failure Myelodysplastic syndrome Advanced age Frail status Plan: Supportive care Transfuse General surgery consulted Cardiology consult Admission Status: Inpatient Order (span 2 midnights) Reason for Inpatient Admission: GI bleed with hypotension Supervisory-Addendum Brief Verification & Attestation Participated in pt care: history, MDM, physical Personally performed: exam, history, MDM, supervision of care Care discussed with: Medical Student Procedures: n/a Results interpretation: Verified all documentation Verification and Attestation of Medical Student E/M Service A medical student performed and documented this service in my presence. I reviewed and verified all information documented by the medical student and made modifications to such information, when appropriate. I personally performed the physical exam and medical decision making. Lashonda Mcleod, Aug 19, 2022,05:05 SUSAN ANTUNEZ Aug 17, 2022 17:18 LASHONDA MCLEOD DO Aug 19, 2022 05:06
--- NOTE | 2022-08-17 17:33 | Tele-ICU Consult ---
History of Present Illness History of Present Illness Date Seen by Provider: Aug 17, 2022 Time Seen by Provider: 17:30 Date of Admission (Tele-ICU Physician , consultation as per request of PCP Service provided via interactive audio and video telecommunications E-CARE system to a patient admitted to ICU bed in [facility]. Available chart/ vitals / labs / Images reviewed H&P is from ER notes Patient's information available about PMH, Shx, Fhx allergy reviewed inEMR. ROS as per chart and RN report Now in ICU, hemodynamically stable Video assessment done using teleICU camera, rest of exam as per RN Discussed with RN. Consultants: Hospital course: (08/17) 82 y/o female admitted for GIB, elevated INR A/P GIB , on Pradaxa - s/p colonoscopy done by Dr. Rod in 2019 which showed diverticulosis for anemia but no source of bleeding was found - ppi - sx consulted - suspected hemorrhoidal with external hemorrhoid Borderline hypotension - monitor after IVF bolus 500 and transfusion - if shock , consider FFP Coagulopathy - on pradaxa and INR > 7 Anemia - acute on chronic - transfusion 2 u prbc - follow post transfusion Hb - as per RN - PCP discussed with other treathing MDs - no reversal of coagulopathy considered at present PAUL - cont hydration with IVF and give pRBC A fib - rate controlled -on Pradaxa- on hold -Echocardiogram 01-20-21 showed LVEF 55-60%. Pulm HTN myelodysplastic syndrome Lines : periph , (Central Line Necessity Reviewed) Jones: + OG: Nutrition: Analgesia: Anxiety/ delirium VTE Prophylaxis: NA Stress Ulcer Prophylaxis: NA Glycemic Control: Plans in collaboration with bedside consultants and IM MDs. Discussed with RN to reach out if any questions or concerns A total of 34 minutes of critical care time was devoted to this patient today, required to treat and/or prevent further deterioration of critical care condition ( as above ) . I am remotely monitoring this patient from another state. I am unable to do the bedside exam, and history/physical and pertinent information is taken from other notes in the computer and bedside staff. . Allergies and Home Medications Allergies Coded Allergies: Penicillins (Unverified Allergy, Unknown, 02/16/20) Home Medications Dabigatran Etexilate Mesylate 150 Mg Capsule, 150 MG PO BID, (Reported) Furosemide 20 Mg Tablet, 40 MG PO DAILY, (Reported) TAKES 2 (20MG) TABS Hydroxyurea 500 Mg Capsule, 500 MG PO BID, (Reported) Levofloxacin 750 Mg Tablet, 750 MG PO Q48H Prescribed by: HERLINDA CHÁVEZ on 07/05/21 1234 Levothyroxine Sodium 100 Mcg Tablet, 100 MCG PO DAILY, (Reported) Metoprolol Tartrate 25 Mg Tablet, 25 MG PO BID, (Reported) Pantoprazole Sodium 40 Mg Tablet.dr, 40 MG PO HS, (Reported) LAST FILLED 02-19-2021 #90/90 DAY SUPPLY Past Medical/Social/Family Hx Patient Social History Tobacco Use?: No Smoking Status: Never a Smoker Use of E-Cig and/or Vaping dev: No Substance use?: No Alcohol Use?: No Pt stated abuse/neglect: No Immunizations Up To Date Influenza Vaccine Up-to-Date: No; Not Current First/Initial COVID19 Vaccinat: NA Second COVID19 Vaccination Boom: NA Tetanus Booster (TDap): More Than 5 Years Hepatitis A: No Hepatitis B: No TB Skin Test: None Date of Pneumonia Vaccine: Jun 05, 2018 Current Status Advance Directives: No Communicates: Verbally Primary Language: Armenian Preferred Spoken Language: Armenian Is interpretation needed?: No Sensory deficits: Vision impairment, Hearing impairment Implanted or Applied Medical D: None Past Medical History PMHx: A fib HTN Hypothyroidism Myelodysplastic syndrome Review of Systems Constitutional: see HPI Focused Exam Lactate Level 08/17/22 13:05: Lactic Acid Level 1.78 Height, Weight, BMI Height: '" Weight: lbs. oz. kg; 24.74 BMI Method: Exam Exam Patient acknowledged, consented, and participated in this virtual visit which was conducted using real time audio/video Vital Signs Date Time Temp Pulse Resp B/P (MAP) Pulse Ox O2 Delivery O2 Flow Rate FiO2 08/17/22 16:55 Nasal Cannula 2.00 08/17/22 16:47 36.3 86 93 21 08/17/22 16:15 69 20 95/41 (59) Nasal Cannula 2.00 08/17/22 16:00 70 22 96/56 (69) Nasal Cannula 2.00 08/17/22 15:48 72 08/17/22 15:45 73 98/64 (75) Nasal Cannula 2.00 08/17/22 14:43 73 18 106/59 92 Nasal Cannula 2.00 08/17/22 12:25 36.3 86 14 98/44 (62) Height & Weight Height: '" Weight: lbs. oz. kg; 24.74 BMI Method: General Appearance: No Apparent Distress Peripheral Pulses: 2+ Radial Pulses (R), 2+ Radial Pulses (L) Gastrointestinal: normal bowel sounds, non tender, soft Results Lab Laboratory Tests 08/17/22 12:20 Assessment/Plan Assessment/Plan 1 EDWARD LOGAN MD Aug 17, 2022 17:32
[2022-08-17 17:39] VITALS: BP 87/54
[2022-08-17 17:52] VITALS: BP 92/52
[2022-08-17 19:28] VITALS: BP 103/54
[2022-08-17 20:06] LABS: BASOPHILS # (AUTO) 0.3 10^3/uL (0.0-0.1); BASOPHILS % (AUTO) 1 % (0-10); EOSINOPHILS # (AUTO) 0.7 10^3/uL (0.0-0.3); EOSINOPHILS % (AUTO) 3 % (0-10); HEMATOCRIT 28 % (35-52); HEMOGLOBIN 8.4 g/dL (11.5-16.0); LYMPHOCYTES # (AUTO) 2.1 10^3/uL (1.0-4.0); LYMPHOCYTES % (AUTO) 8 % (12-44); MEAN CORPUSCULAR HEMOGLOBIN 33 pg (25-34); MEAN CORPUSCULAR HGB CONC 30 g/dL (32-36); MEAN CORPUSCULAR VOLUME 111 fL (80-99); MONOCYTES # (AUTO) 0.8 10^3/uL (0.0-1.0); MONOCYTES % (AUTO) 3 % (0-12); NEUTROPHILS # (AUTO) 21.3 10^3/uL (1.8-7.8); NEUTROPHILS % (AUTO) 83 % (42-75); PLATELET COUNT 690 10^3/uL (130-400); WHITE BLOOD COUNT 25.7 10^3/uL (4.3-11.0)
[2022-08-17] MEDS: SENNOSIDES 8.6 MG (SENOKOT) TAB PO SCH (21:42)
[2022-08-17] MEDS: DOCUSATE SODIUM 100 MG (COLACE) CAP PO SCH (21:42)
--- NOTE | 2022-08-17 22:14 | Procedure/Intervention Note ---
Procedures/Interventions Lumen: triple Central Line Procedure: betadine prep, sterile drapes applied, sterile dressing applied Position: internal jugular (R) Anesthesia: local Volume Anesthetic (ccs): 4 Complications: none Post Position: sutured, good blood return, position confirmed w/ CXR Called to ICU by housekeeping lead for central line placement due to hypotension. Pressure in the 70s. Used ultrasound to place a right internal jugular central line. SAVANA SOLITARIO INSTRUCTIONAL MATERIALS DIRECTOR Aug 17, 2022 22:14
[2022-08-18] MEDS: NOREPINEPHRINE 8 MG/250 ML 250 ML IV SCH (00:21)
[2022-08-18 04:18] LABS: BASOPHILS # (AUTO) 0.2 10^3/uL (0.0-0.1); BASOPHILS % (AUTO) 1 % (0-10); EOSINOPHILS # (AUTO) 1.1 10^3/uL (0.0-0.3); EOSINOPHILS % (AUTO) 4 % (0-10); HEMATOCRIT 27 % (35-52); HEMOGLOBIN 8.3 g/dL (11.5-16.0); LYMPHOCYTES # (AUTO) 2.3 10^3/uL (1.0-4.0); LYMPHOCYTES % (AUTO) 8 % (12-44); MEAN CORPUSCULAR HEMOGLOBIN 33 pg (25-34); MEAN CORPUSCULAR HGB CONC 31 g/dL (32-36); MEAN CORPUSCULAR VOLUME 106 fL (80-99); MEAN PLATELET VOLUME 11.9 fL (9.0-12.2); MONOCYTES # (AUTO) 1.1 10^3/uL (0.0-1.0); MONOCYTES % (AUTO) 4 % (0-12); NEUTROPHILS # (AUTO) 23.4 10^3/uL (1.8-7.8); NEUTROPHILS % (AUTO) 80 % (42-75); PLATELET COUNT 961 10^3/uL (130-400); WHITE BLOOD COUNT 29.2 10^3/uL (4.3-11.0)
[2022-08-18 05:04] LABS: ABG BASE EXCESS -1.3 MMOL/L (-2.5-2.5); ABG OXYGEN SATURATION 101 % (94-100); ABG PCO2 45 MMHG (35-45); ABG PO2 160 MMHG (79-93); ABG TCO2 25.2 MMOL/L (21.0-31.0)
[2022-08-18 05:05] LABS: ALLENS TEST YES-POS; INSPIRED O2 2 L; PATIENT TEMP 36.7; VENTILATOR NO
[2022-08-18 05:06] LABS: ABG PH 7.34 (7.37-7.43)
[2022-08-18 05:27] LABS: ALBUMIN 2.8 GM/DL (3.2-4.5); BILIRUBIN,TOTAL 1.1 MG/DL (0.1-1.0); CREATININE SERUM 2.66 MG/DL (0.60-1.30); PHOSPHORUS 4.5 MG/DL (2.3-4.7); POTASSIUM 4.3 MMOL/L (3.6-5.0); TOTAL PROTEIN 5.3 GM/DL (6.4-8.2)
[2022-08-18] MEDS ORDERED: POTASSIUM CL 10MEQ/50ML IVPB 50 ML IV SCH (06:00)
[2022-08-18] MEDS ORDERED: MAGNESIUM 1 GM/100 ML IVPB 100 ML IV SCH (06:00)
[2022-08-18] MEDS ORDERED: KCL 20 MEQ TAB (K-DUR) PO SCH (06:00)
[2022-08-18] MEDS: NS IV 1000 ML 1,000 ML IV SCH ×2 (06:36→20:48)
--- NOTE | 2022-08-18 07:16 | Progress Note - Surgery ---
JENNY CRUMP 08/18/22 0716: Subjective Date Seen by a Provider: Aug 18, 2022 Time Seen by a Provider: 07:10 Subjective/Events-last exam Patient is laying comfortably in bed this morning Patient denies any N/V/D, chills, or SOB No other complaints at this time Patient was given 1 unit of PRBC last night Is currently on Levophed, blood pressure stable Looks much improved today Has not had a bowel movement since yesterday morning Packed gauze in place, no active bleed at this time Labs reviewed Focused Exam Lactate Level 08/17/22 13:05: Lactic Acid Level 1.78 Objective Exam Vital Signs Date Time Temp Pulse Resp B/P (MAP) Pulse Ox O2 Delivery O2 Flow Rate FiO2 08/18/22 06:00 80 102/65 (77) 97 Nasal Cannula 2.00 08/18/22 05:00 76 108/70 (83) 97 Nasal Cannula 2.00 08/18/22 04:15 67 28 107/67 (81) 97 Nasal Cannula 2.00 08/18/22 04:00 36.5 77 15 89/51 (64) 97 Nasal Cannula 2.00 08/18/22 04:00 95 Nasal Cannula 2.00 08/18/22 03:15 69 22 95/60 (70) 97 Nasal Cannula 2.00 08/18/22 02:15 67 92/55 (71) 96 Nasal Cannula 2.00 08/18/22 01:00 77 08/18/22 01:00 77 14 97/49 (73) 97 Nasal Cannula 2.00 08/18/22 00:30 74 10 94/51 (67) 95 Nasal Cannula 2.00 08/18/22 00:22 36.3 71 86/49 (61) Nasal Cannula 2.00 08/18/22 00:21 71 86/49 08/17/22 23:59 96 Nasal Cannula 2.00 08/17/22 23:00 68 18 96/48 (70) 97 Nasal Cannula 2.00 08/17/22 22:19 73 16 109/69 (86) 94 Nasal Cannula 2.00 08/17/22 21:00 65 20 85/54 (69) 96 Nasal Cannula 2.00 08/17/22 20:00 70 21 83/71 (73) 95 Nasal Cannula 2.00 08/17/22 20:00 95 Nasal Cannula 2.00 08/17/22 19:28 36.6 61 20 103/54 95 Nasal Cannula 2.00 08/17/22 19:00 86 08/17/22 19:00 36.6 64 20 103/54 (70) 94 Nasal Cannula 2.00 08/17/22 18:00 76 14 90/61 (71) Nasal Cannula 2.00 08/17/22 17:52 36.3 70 20 92/52 97 Nasal Cannula 2.00 08/17/22 17:45 73 24 91/58 (69) Nasal Cannula 2.00 08/17/22 17:39 36.4 77 19 87/54 96 Nasal Cannula 2.00 08/17/22 17:30 73 14 87/54 (65) Nasal Cannula 2.00 08/17/22 17:15 70 19 92/50 (64) Nasal Cannula 2.00 08/17/22 17:00 68 19 94/56 (69) Nasal Cannula 2.00 08/17/22 16:55 Nasal Cannula 2.00 08/17/22 16:47 36.3 86 93 21 08/17/22 16:45 64 8 92/50 (64) Nasal Cannula 2.00 08/17/22 16:30 64 12 85/57 (66) 100 Nasal Cannula 2.00 08/17/22 16:15 69 20 95/41 (59) Nasal Cannula 2.00 08/17/22 16:00 70 22 96/56 (69) Nasal Cannula 2.00 08/17/22 16:00 98 Nasal Cannula 2.00 08/17/22 15:48 72 08/17/22 15:45 73 98/64 (75) Nasal Cannula 2.00 08/17/22 14:43 73 18 106/59 92 Nasal Cannula 2.00 08/17/22 12:25 36.3 86 14 98/44 (62) I & O 08/18/22 07:00 Intake Total 2064 ml Output Total 725 ml Balance 1339 ml Capillary Refill : Less Than 3 Seconds General Appearance: No Apparent Distress, Chronically ill HEENT: PERRL/EOMI, Moist Mucous Membranes; No Pale Conjunctivae (L), No Pale Conjunctivae (R) Neck: Non Tender, Supple Respiratory: Chest Non Tender, Lungs Clear, No Accessory Muscle Use Cardiovascular: Normal Peripheral Pulses, Irregularly Irregular Peripheral Pulses: 2+ Radial Pulses (R), 2+ Radial Pulses (L) Gastrointestinal: non tender, soft Extremity: Normal Capillary Refill, Pedal Edema (Bilaterally +1 pitting edema) Neurologic/Psychiatric: Alert, Oriented x3, Other (Small lesion around edge of rectum, not activly bleeding at this time. Coverd with surgicell.) Skin: Warm/Dry, Pallor (Improved color from yesterday) Lymphatic: No Adenopathy Results Lab Laboratory Tests 08/17/22 12:20: White Blood Count 29.3H, Red Blood Count 2.31L, Hemoglobin 7.6L, Hematocrit 26L, Mean Corpuscular Volume 111H, Mean Corpuscular Hemoglobin 33, Mean Corpuscular Hemoglobin Concent 30L, Red Cell Distribution Width 20.6H, Platelet Count 996H, Mean Platelet Volume 12.2, Immature Granulocyte % (Auto) 3, Neutrophils (%) (Auto) 83H, Lymphocytes (%) (Auto) 7L, Monocytes (%) (Auto) 3, Eosinophils (%) (Auto) 3, Basophils (%) (Auto) 1, Neutrophils # (Auto) 24.3H, Lymphocytes # (Auto) 2.1, Monocytes # (Auto) 0.7, Eosinophils # (Auto) 1.0H, Basophils # (Auto) 0.2H, Immature Granulocyte # (Auto) 0.9H, Neutrophils % (Manual) 85, Lymphocytes % (Manual) 8, Monocytes % (Manual) 1, Eosinophils % (Manual) 1, Basophils % (Manual) 1, Myelocytes % 2, Band Neutrophils 1, Nucleated Red Blood Cells 1, Reactive Lymphocytes 1, Platelet Estimate INCREASED, Polychromasia SLIGHT, Hypochromasia SLIGHT, Poikilocytosis SLIGHT, Anisocytosis MODERATE, Elliptocytes MODERATE, Prothrombin Time 65.0*H, INR Comment 7.6*H, Activated Partial Thromboplast Time 131*H, Sodium Level 138, Potassium Level 4.1, Chloride Level 105, Carbon Dioxide Level 22, Anion Gap 11, Blood Urea Nitrogen 40H, Creatinine 2.93H, Estimat Glomerular Filtration Rate 16, BUN/Creatinine Ratio 14, Glucose Level 106H, Calcium Level 8.7, Corrected Calcium 9.3, Total Bilirubin 0.7, Aspartate Amino Transf (AST/SGOT) 16, Alanine Aminotransferase (ALT/SGPT) 9, Alkaline Phosphatase 87, Total Protein 6.2L, Albumin 3.2 08/17/22 12:30: B-Type Natriuretic Peptide 878.7H, Procalcitonin 0.13H 08/17/22 13:05: Lactic Acid Level 1.78 08/17/22 20:00: White Blood Count 25.7H, Red Blood Count 2.52L, Hemoglobin 8.4L, Hematocrit 28L, Mean Corpuscular Volume 111H, Mean Corpuscular Hemoglobin 33, Mean Corpuscular Hemoglobin Concent 30L, Red Cell Distribution Width 20.6H, Platelet Count 690H, Mean Platelet Volume 12.0, Immature Granulocyte % (Auto) 2, Neutrophils (%) (Auto) 83H, Lymphocytes (%) (Auto) 8L, Monocytes (%) (Auto) 3, Eosinophils (%) (Auto) 3, Basophils (%) (Auto) 1, Neutrophils # (Auto) 21.3H, Lymphocytes # (Auto) 2.1, Monocytes # (Auto) 0.8, Eosinophils # (Auto) 0.7H, Basophils # (Auto) 0.3H, Immature Granulocyte # (Auto) 0.6H 08/18/22 04:09: White Blood Count 29.2H, Red Blood Count 2.49L, Hemoglobin 8.3L, Hematocrit 27L, Mean Corpuscular Volume 106H, Mean Corpuscular Hemoglobin 33, Mean Corpuscular Hemoglobin Concent 31L, Red Cell Distribution Width 21.2H, Platelet Count 961H, Mean Platelet Volume 11.9, Immature Granulocyte % (Auto) 4, Neutrophils (%) (Auto) 80H, Lymphocytes (%) (Auto) 8L, Monocytes (%) (Auto) 4, Eosinophils (%) (Auto) 4, Basophils (%) (Auto) 1, Neutrophils # (Auto) 23.4H, Lymphocytes # (Auto) 2.3, Monocytes # (Auto) 1.1H, Eosinophils # (Auto) 1.1H, Basophils # (Auto) 0.2H, Immature Granulocyte # (Auto) 1.1H, Sodium Level 141, Potassium Level 4.3, Chloride Level 108H, Carbon Dioxide Level 21, Anion Gap 12, Blood Urea Nitrogen 39H, Creatinine 2.66H, Estimat Glomerular Filtration Rate 18, BUN/Creatinine Ratio 15, Glucose Level 89, Calcium Level 8.0L, Corrected Calcium 9.0, Phosphorus Level 4.5, Magnesium Level 2.0, Total Bilirubin 1.1H, Aspartate Amino Transf (AST/SGOT) 13, Alanine Aminotransferase (ALT/SGPT) 6, Alkaline Phosphatase 87, Total Protein 5.3L, Albumin 2.8L 08/18/22 04:37: Blood Gas Puncture Site R RAD, Blood Gas Patient Temperature 36.7, Arterial Blood pH 7.34*L, Arterial Blood Partial Pressure CO2 45, Arterial Blood Partial Pressure O2 160H, Arterial Blood HCO3 24, Arterial Blood Total CO2 25.2, Art erial Blood Oxygen Saturation 101H, Arterial Blood Base Excess -1.3, Too Test YES-POS, Blood Gas Ventilator Setting NO, Blood Gas Inspired Oxygen 2 L Assessment/Plan Assessment/Plan Assessment/Plan GI bleed- likely from puncture of external hemorrhoid Anemia- Hemoglobin currently 8.3 from 7.6 yesterday Myelodysplastic syndrome A-fib Diverticulosis Hold Pradaxa Continue with surgicel and packed gauze Track and trend hemoglobin Transfuse as needed-Given 1 Unit of PRBC last night (08-17-2022) Monitor bleed- currently no active bleed, continue with pressure/surgicel. Cauterize if needed Continue supportive care Clinical Quality Measures DVT/VTE Risk/Contraindication: Contraindications-Pharm: Other *list below* Other: BERNABE MONAHAN DO 08/18/22 1703: Subjective Subjective/Events-last exam Not having any bleeding today. Was transfused prbc lastn ight. Levophed on occasion for hypotension. Hgb stable. No new complaints. Denies n/v fever sweats chills shortness of breath or chest pain. Objective Exam General Appearance: No Apparent Distress, Chronically ill HEENT: PERRL/EOMI, Moist Mucous Membranes, Pale Conjunctivae (L) Neck: Non Tender, Supple Respiratory: Chest Non Tender, No Accessory Muscle Use, No Respiratory Distress Cardiovascular: No JVD, Irregularly Irregular Gastrointestinal: non tender, soft Extremity: Normal Capillary Refill, Pedal Edema (Bilaterally +1 pitting edema) Neurologic/Psychiatric: Alert, Oriented x3, Other (Small hemorrhoid around edge of anus, not activly bleeding at this time. Coverd with surgicell.) Skin: Warm/Dry, Pallor (Improved color from yesterday) Lymphatic: No Adenopathy Assessment/Plan Assessment/Plan Assessment/Plan GI bleed- likely from puncture of external hemorrhoid Anemia- Hemoglobin currently 8.3 from 7.6 yesterday Myelodysplastic syndrome A-fib Diverticulosis Hold Pradaxa Continue with surgicel and packed gauze Track and trend hemoglobin Transfuse as needed-Given 1 Unit of PRBC last night (08-17-2022) Monitor bleed- currently no active bleed, continue with pressure/surgicel. Cauterize if needed Continue supportive care Supervisory-Addendum Brief Verification & Attestation Participated in pt care: history, MDM, physical Personally performed: exam, history, MDM, supervision of care Care discussed with: Medical Student Procedures: n/a Results interpretation: Verified all documentation Verification and Attestation of Medical Student E/M Service A medical student performed and documented this service in my presence. I reviewed and verified all information documented by the medical student and made modifications to such information, when appropriate. I personally performed the physical exam and medical decision making. Bernabe Rod, Aug 18, 2022,17:02 JENNY CRUMP Aug 18, 2022 07:16 BERNABE ROD DO Aug 18, 2022 17:03
--- NOTE | 2022-08-18 07:37 | Diagnostic Imaging Report ---
INDICATION: Central line placement. TECHNIQUE: Single view chest 10:35 PM. CORRELATION STUDY: 08/17/2022 FINDINGS: Right IJ central has been placed tip at the high right atrium. Heart size and mediastinum are stable. Increasing severity pulmonary vascular congestion overall edema from prior. Mild prominent interstitial opacities. No appreciable pneumothorax. IMPRESSION: 1. Right IJ central has been placed tip projected over the high right atrium. 2. Increasing severity of fluid overload or failure. Dictated by: Dictated on workstation # [id number]
--- NOTE | 2022-08-18 08:05 | Diagnostic Imaging Report ---
INDICATION: Hypoxia. TECHNIQUE: Single view chest 6:24 AM. CORRELATION STUDY: 08/17/2022 FINDINGS: Right IJ central line tip over the high right atrium. Heart size and mediastinum remain enlarged and prominent. Vasculature appears perhaps minimally improved. Lung dominguez generally stable with elevated right diaphragm. IMPRESSION: 1. Fluid overload/failure again demonstrated but appears perhaps minimally improved from prior. Dictated by: Dictated on workstation # [id number]
[2022-08-18] MEDS: PANTOPRAZOLE 40 MG (PROTONIX) VIAL IV SCH (08:18)
[2022-08-18] MEDS: DOCUSATE SODIUM 100 MG (COLACE) CAP PO SCH ×2 (08:18→20:50)
[2022-08-18] MEDS: SENNOSIDES 8.6 MG (SENOKOT) TAB PO SCH ×2 (08:18→20:50)
--- NOTE | 2022-08-18 11:02 | Physical Therapy Evaluation ---
PT Evaluation-General Medical Diagnosis Admission Date Aug 17, 2022 at 14:23 Medical Diagnosis: A-fib/GI bleed/myelodysplasia Onset Date: Aug 17, 2022 Therapy Diagnosis Therapy Diagnosis: generalized weakness/debility Precautions Precautions/Isolations: Fall Prevention, Standard Precautions, Pressure Ulcer Referral Physician: Harsha Reason for Referral: Evaluation/Treatment Medical History Pertinent Medical History: Atrial Fib, Heart Failure, HTN, Hypothroidism Current History ER secondary to rectal bleeding Reviewed History: Yes Social History Home: Apartment Current Living Status: Children Prior Prior Level of Function SCALE: Activities may be completed with or without assistive devices. 0-Dawjlhwbiy-njfhyzo completes the activity by him/herself with no assistance from a helper. 5-Set-up or Clean-up Assistance-helper sets up or cleans up; patient completes activity. [place] assists only prior to or following the activity. 4-Supervision or Touching Assistance-helper provides verbal cues and/or to uching/steadying and/or contact guard assistance as patient completes activity. Assistance may be provided throughout the activity or intermittently. 3-Partial/Moderate Assistance-helper does LESS THAN HALF the effort. [place] lifts, holds or supports trunk or limbs, but provides less than half the effort. 2-Substantial/Maximal Assistance-helper does MORE THAN HALF the effort. [place] lifts or holds trunk or limbs and provides more than half the effort. 5-Bvcoxiryd-heqvvg does ALL the effort. Patient does none of the effort to complete the activity. Or, the assistance of 2 or more helpers is required for the patient to complete the activity. If activity was not attempted, code reason: 7-Patient Refused. 9-Not Applicable-not attempted and the patient did not perform the activity before the current illness, exacerbation or injury. 10-Not Attempted due to Environmental Limitations-(lack of equipment, weather restraints, etc.). 88-Not Attempted due to Medical Conditions or Safety Concerns. Bed Mobility: 6 Transfers (B,C,W/C): 6 Gait: 6 Stairs: 9 Indoor Mobility (Ambulation): Independent Prior Devices Use: Walker (3WW) PT Evaluation-Current Subjective Patient agrees to PT. Objective Patient Orientation: Normal For Age Attachments: IV ROM/Strength ROM Lower Extremities bilateral LE WFL Strength Lower Extremities 3/5 grossly bilateral LE all planes Integumentary/Posture Bowel Incontinence: Yes Bladder Incontinence: Yes Posture WFL Neuromuscular (Tone, Coordination, Reflexes) grossly intact Sensory Vision: Wears Glasses Hearing: Functional Transfers Lying to Sitting/Side of Bed(Q: 4 Sit to Stand (QC): 4 Chair/Ihs-wi-Wbuii Xfer(QC): 4 Toilet Transfer (QC): 4 Gait Mode of Locomotion: Walk Anticipated Mode of Locomotion: Walk Walk 10 feet (QC): 4 Walk 50 ft with 2 Turns(QC): 4 Walk 150 ft (QC): 4 Distance: 200' Gait Assistive Device: FWW Comments/Gait Description very slow, functional gait sequence Balance Sitting Static: Normal Sitting Dynamic: Normal Standing Static: Normal Standing Dynamic: Normal Assessment/Needs Patient will be seen short term by skilled PT to address functional strength and mobility to improve current LOF to safely return to home with son at maximum LOF. Rehab Potential: Fair PT [facility] Goals Telephone Exchange Operator Goals PT [facility] Goals Time Frame: Aug 29, 2022 Roll Left & Right (QC): 6 Sit to Lying (QC): 6 Lying-Sitting on Side/Bed(QC): 6 Sit to Stand (QC): 6 Chair/Xah-zg-Dhphq Xfer(QC): 6 Toilet Transfer (QC): 6 Walk 10 feet (QC): 6 Walk 50ft with 2 Turns (QC): 6 Walk 150 ft (QC): 6 PT Plan Problem List Problem List: Activity Tolerance, Functional Strength, Safety, Balance, Gait, Transfer, Bed Mobility Treatment/Plan Treatment Plan: Continue Plan of Care Treatment Plan: Bed Mobility, Education, Functional Activity Johan, Functional Strength, Gait, Safety, Therapeutic Exercise, Transfers Treatment Duration: Aug 29, 2022 Frequency: 6 times per week Estimated Hrs Per Day: .25 hour per day Patient and/or Family Agrees t: Yes Time Time In: 1035 Time Out: 1051 DATE: Aug 18, 2022 Total Billed Treatment Time: 16 Total Billed Treatment 1 visit [facility] 16 min GUSTAVO PEGUERO PT Aug 18, 2022 11:02
[2022-08-18] MEDS ORDERED: CHOL20002 PO (11:07)
[2022-08-18] MEDS ORDERED: LEVO125T6 PO (11:07)
[2022-08-18] MEDS ORDERED: POTA-177 PO (11:07)
[2022-08-18] MEDS ORDERED: IBUP-2473 PO (11:07)
--- NOTE | 2022-08-18 12:03 | Occupational Therapy Eval ---
OT Evaluation-General/PLF Medical Diagnosis Admission Date Aug 17, 2022 at 14:23 Medical Diagnosis: A-fib/GI bleed/myelodysplasia Onset Date: Aug 17, 2022 Therapy Diagnosis Therapy Diagnosis: N/a Precautions Precautions/Isolations: Fall Prevention, Standard Precautions, Pressure Ulcer Referral Physician: Harsha Martinez Reason: Evaluation/Treatment Medical History Pertinent Medical History: Atrial Fib, Heart Failure, HTN, Hypothroidism Current History Pt came to ER with c/o of blood coming from rectum. Pt lives with her son in a multilevel home. She lives on the ground floor and never goes upstairs. She was independent with all ADLs and IADLs. She uses a walker at baseline. She uses 2 L of oxygen at home only at night. Reviewed History: Yes Social History Home: Apartment Current Living Status: Children Steps Into Home: 1 ADL-Prior Level of Function SCALE: Activities may be completed with or without assistive devices. 8-Kpxfmvyaxu-uwkhbgw completes the activity by him/herself with no assistance from a helper. 5-Set-up or Clean-up Assistance-helper sets up or cleans up; patient completes activity. [place] assists only prior to or following the activity. 4-Supervision or Touching Assistance-helper provides verbal cues and/or touching/steadying and/or contact guard assistance as patient completes activity. Assistance may be provided throughout the activity or intermittently. 3-Partial/Moderate Assistance-helper does LESS THAN HALF the effort. [place] lifts, holds or supports trunk or limbs, but provides less than half the effort. 2-Substantial/Maximal Assistance-helper does MORE THAN HALF the effort. [place] lifts or holds trunk or limbs and provides more than half the effort. 6-Cacdbjcvn-mjhuhv does ALL the effort. Patient does none of the effort to complete the activity. Or, the assistance of 2 or more helpers is required for the patient to complete the activity. If activity was not attempted, code reason: 7-Patient Refused. 9-Not Applicable-not attempted and the patient did not perform the activity before the current illness, exacerbation or injury. 10-Not Attempted due to Environmental Limitations-(lack of equipment, weather restraints, etc.). 88-Not Attempted due to Medical Conditions or Safety Concerns. Self Care: Independent Functional Cognition: Independent DME/Equipment: Shower OT Current Status Subjective Pt sitting up in recliner with 2 son's present in room. She agrees to therapy eval. Appearance Pt was left sitting in recliner with feet up. All needs within reach. Mental Status/Objective Patient Orientation: Person, Place, Time, Situation Attachments: Central Line, IV, Oxygen, Telemetry Current Glasses/Contacts: Yes Hearing Aids: Yes (lost them in the move-son stated they should be there somewhere) Dentures/Partials: Yes Hand Dominance: Right Upper Extremity ROM ~165 degrees at shoulders- per pt this is baseline Upper Extremity Strength 4-/5 at shoulders minimally impaired precision lens grinder apprentice strength ADL-Treatment Eating (QC): 5 Lower Body Dressing (QC): 5 On/Off Footwear (QC): 5 Toileting Hygiene (QC): 5 Sit<>stand: SBA. She shows good dynamic standing balance without holding onto walker. Pt able to reach both feet to doff/don bilateral socks without effort. Pt and pt's sons report that patient is at baseline for adls. Pt reports that she is able to do everything the same as she was at home and that she has no concerns with any self-care tasks. Her son reported that he lives upstairs and he can assist with anything that she needs, but she normally never needs anything. All functional tasks that pt was asked to perform was all performed safely and with no concerns. Pt will be d/c from skilled OT services at this time secondary to being at baseline with ADLs. Education OT Patient Education: Correct positioning, Energy conservation, Progress toward Goal/Update tx plan, Purpose of tx/functional activities, Reviewed precautions, Rehab process Teaching Recipient: Patient, Family Teaching Methods: Demonstration, Discussion Response to Teaching: Verbalize Understanding, Return Demonstration OT Multi Spindle Operator Goals Multi Spindle Operator Goals 1=Demonstrate adherence to instructed precautions during ADL tasks. 2=Patient will verbalize/demonstrate understanding of assistive devices/modifications for ADL. 3=Patient will improve strength/tolerance for activity to enable patient to perform ADL's. OT Education/Plan Problem List/Assessment Assessment: No Skilled OT Needs ID'd Discharge Recommendations Plan/Recommendations: Discontinue OT Therapy Discharge Recommendati: Homemaker Support, Home & Family Equpiment Recommendations-D/C: Bath Chair Treatment Plan/Plan of Care Treatment,Training & Education: Yes Patient would benefit from OT for education, treatment and training to promote independence in ADL's, mobility, safety and/or upper extremity function for ADL's. Plan of Care: ADL Retraining, Functional Mobility Treatment Duration: Aug 18, 2022 Frequency: 1 time per week Estimated Hrs Per Day: .25 hour per day Agreement: Yes Rehab Potential: Fair Time Start Time: 11:31 Stop Time: 11:44 DATE: Aug 18, 2022 Total Time Billed (hr/min): 13 Billed Treatment Time 1 visit Shima Duff OT Aug 18, 2022 12:03
--- NOTE | 2022-08-18 12:21 | Progress Note - Hospitalist ---
HARMONYSUSAN 08/18/22 1221: Subjective HPI/CC On Admission Patient is an 82-year-old female with a history of myelodysplastic syndrome, HTN, and afib who presented to the ED on 08/17 with chief complaint of bright red blood per rectum. The patient states that when she went to the bathroom this morning she noticed the blood on the toilet paper and quite a bit in the bowl. The patient states the bleeding continued for approximately 30 minutes while she tried to slow the bleeding with a maxi pad. She has never had a similar episode. She reports her last colonoscopy was in 2019 for anemia and showed diverticulosis, but no areas of active bleeding. The patient reports having some fatigue, but has no other complaints. The patient follows with an oncologist in [place] for her myelodysplastic syndrome and receives blood transfusions as needed. Her labs are checked every 2 weeks and she reports her last transfusion was at the end of May and required 4 bags. Her hemoglobin was measured at 8.8 on 08/12 and is currently 7.6. The patient has edema in the b/l lower extremities which she states is a chronic issue. Subjective/Events-last exam Patient is awake and alert in her bed this morning, sons at bedside. Patient reports that she is feeling better today and has not had any more bleeding. The lesion on her rectum is currently packed with gauze and is not painful. The patient was transfused with 1 unit of PRBCs yesterday after which her hemoglobin improved to 8.4 and is currently 8.3 this morning. The patient had some hypotension last night requiring vasopressors that were discontinued this morning. The patient appears improved from yesterday and has no new complaints. Focused Exam Lactate Level 08/17/22 13:05: Lactic Acid Level 1.78 Objective Exam Vital Signs Vital Signs Date Time Temp Pulse Resp B/P (MAP) Pulse Ox O2 Delivery O2 Flow Rate FiO2 08/18/22 12:00 36.4 08/18/22 11:52 Nasal Cannula 2.00 08/18/22 11:00 71 21 110/69 (83) 100 08/17/22 16:47 21 Capillary Refill : Less Than 3 Seconds General Appearance: No Apparent Distress, WD/WN HEENT: PERRL/EOMI, Pale Conjunctivae (L), Pale Conjunctivae (R) Neck: Non Tender, Supple Respiratory: Chest Non Tender, Normal Breath Sounds Cardiovascular: Regular Rate, Rhythm, Normal Peripheral Pulses Gastrointestinal: Non Tender, Soft Rectal: Other (Lesion around edge of rectum, currently packed, not bleeding) Back: No Vertebral Tenderness Extremity: Normal Capillary Refill, Non Tender, Pedal Edema (b/l) Neurologic/Psychiatric: Alert, Oriented x3 Skin: Warm/Dry, Pallor Lymphatic: No Adenopathy Results/Procedures Lab Laboratory Tests 08/17/22 20:00 08/18/22 04:09 Patient resulted labs reviewed. Assessment/Plan Assessment and Plan Assess & Plan/Chief Complaint Anemia GI bleed External hemorrhoid HTN PAUL Afib Diverticulosis Hypothyroidism Obstructive sleep apnea Myelodysplastic syndrome Monitor Hg, transfuse as needed Surgery consulted Continue IV fluids Continue protonix Monitor BUN and creatinine, slowly improving Hold pradaxa Clinical Quality Measures DVT/VTE Risk/Contraindication: Contraindications-Pharm: Other *list below* Other: LASHONDA PORRAS DO 08/19/22 0543: Supervisory-Addendum Brief Verification & Attestation Participated in pt care: history, MDM, physical Personally performed: exam, history, MDM, supervision of care Care discussed with: Medical Student Procedures: n/a Results interpretation: Verified all documentation Verification and Attestation of Medical Student E/M Service A medical student performed and documented this service in my presence. I reviewed and verified all information documented by the medical student and made modifications to such information, when appropriate. I personally performed the physical exam and medical decision making. Lashonda Mcleod, Aug 19, 2022,05:43 SUSAN ANTUNEZ Aug 18, 2022 12:21 LASHONDA MCLEOD DO Aug 19, 2022 05:43
--- NOTE | 2022-08-18 12:42 | Consultation-Cardiology ---
HPI-Cardiology Cardiology Consultation Date of Consultation 08/18/22 Date of Admission Time Seen by Provider: 12:37 Indication: Atrial fibrillation, tachycardia HPI 82 years old lady with history of MDS, hypertension, paroxysmal atrial fibrillation. Has been maintained on Pradaxa. Came into the emergency room after having bright red blood per rectum. She denied any chest pain or shortness of breath. No palpitation. She was noted to be actively bleeding, had mild anemia. Home Medications & Allergies Allergies: Coded Allergies: Penicillins (Unverified Allergy, Unknown, 02/16/20) Home Medication List Reviewed: Yes YEW-Rdtodd-Eabhge Hx Patient Social History Marital Status: single Employed/Student: retired Smoking Status: Never a Smoker Recent Hopitalizations: No Have you traveled recently?: No Alcohol Use?: No Immunizations Up To Date Date of Pneumonia Vaccine: Jun 05, 2018 Past Medical History Discussed below Family Medical History Significant Family History: No Pertinent Family Hx Review of Systems-General Review of Systems Constitutional: see HPI; No chills, No fever; weakness EENTM: see HPI; No blurred vision, No eye pain Respiratory: No cough, No short of breath Cardiovascular: see HPI; No chest pain; edema (b/l chronic) Gastrointestinal: see HPI; No abdominal pain, No nausea, No vomiting Genitourinary: see HPI; No hematuria, No pain Musculoskeletal: back pain (Chronic); No joint swelling Skin: No change in color, No rash Psychiatric/Neurological: Denies Numbness; Weakness All Other Systems Reviewed Negative Unless Noted: Yes (Negative excepted noted.) Reviewed Test Results Reviewed Test Results Lab Laboratory Tests Test 08/17/22 13:05 08/17/22 20:00 08/18/22 04:09 08/18/22 04:37 Range/Units Lactic Acid Level 1.78 0.50-2.00 MMOL/L White Blood Count 25.7 H 29.2 H 4.3-11.0 10^3/uL Red Blood Count 2.52 L 2.49 L 3.80-5.11 10^6/uL Hemoglobin 8.4 L 8.3 L 11.5-16.0 g/dL Hematocrit 28 L 27 L 35-52 % Mean Corpuscular Volume 111 H 106 H 80-99 fL Mean Corpuscular Hemoglobin 33 33 25-34 pg Mean Corpuscular Hemoglobin Concent 30 L 31 L 32-36 g/dL Red Cell Distribution Width 20.6 H 21.2 H 10.0-14.5 % Platelet Count 690 H 961 H 130-400 10^3/uL Mean Platelet Volume 12.0 11.9 9.0-12.2 fL Immature Granulocyte % (Auto) 2 4 % Neutrophils (%) (Auto) 83 H 80 H 42-75 % Lymphocytes (%) (Auto) 8 L 8 L 12-44 % Monocytes (%) (Auto) 3 4 0-12 % Eosinophils (%) (Auto) 3 4 0-10 % Basophils (%) (Auto) 1 1 0-10 % Neutrophils # (Auto) 21.3 H 23.4 H 1.8-7.8 10^3/uL Lymphocytes # (Auto) 2.1 2.3 1.0-4.0 10^3/uL Monocytes # (Auto) 0.8 1.1 H 0.0-1.0 10^3/uL Eosinophils # (Auto) 0.7 H 1.1 H 0.0-0.3 10^3/uL Basophils # (Auto) 0.3 H 0.2 H 0.0-0.1 10^3/uL Immature Granulocyte # (Auto) 0.6 H 1.1 H 0.0-0.1 10^3/uL Sodium Level 141 135-145 MMOL/L Potassium Level 4.3 3.6-5.0 MMOL/L Chloride Level 108 H 98-107 MMOL/L Carbon Dioxide Level 21 21-32 MMOL/L Anion Gap 12 5-14 MMOL/L Blood Urea Nitrogen 39 H 7-18 MG/DL Creatinine 2.66 H 0.60-1.30 MG/DL Estimat Glomerular Filtration Rate 18 BUN/Creatinine Ratio 15 Glucose Level 89 70-105 MG/DL Calcium Level 8.0 L 8.5-10.1 MG/DL Corrected Calcium 9.0 8.5-10.1 MG/DL Phosphorus Level 4.5 2.3-4.7 MG/DL Magnesium Level 2.0 1.6-2.4 MG/DL Total Bilirubin 1.1 H 0.1-1.0 MG/DL Aspartate Amino Transf (AST/SGOT) 13 5-34 U/L Alanine Aminotransferase (ALT/SGPT) 6 0-55 U/L Alkaline Phosphatase 87 40-136 U/L Total Protein 5.3 L 6.4-8.2 GM/DL Albumin 2.8 L 3.2-4.5 GM/DL Blood Gas Puncture Site R RAD Blood Gas Patient Temperature 36.7 Arterial Blood pH 7.34 *L 7.37-7.43 Arterial Blood Partial Pressure CO2 45 35-45 MMHG Arterial Blood Partial Pressure O2 160 H 79-93 MMHG Arterial Blood HCO3 24 23-27 MMOL/L Arterial Blood Total CO2 25.2 21.0-31.0 MMOL/L Arterial Blood Oxygen Saturation 101 H 94-100 % Arterial Blood Base Excess -1.3 -2.5-2.5 MMOL/L Too Test YES-POS Blood Gas Ventilator Setting NO Blood Gas Inspired Oxygen 2 L Test 08/18/22 12:21 Range/Units Lab Scanned Report Transfusion Reaction Form [id number] Radiology Date of Exam:08/17/22 CHEST 1 VIEW, AP/PA ONLY INDICATION: 82-year-old female, bright red blood from rectum.. TECHNIQUE: Single view chest 1:15 PM. CORRELATION STUDY: 07/04/2021 FINDINGS: Heart size, mediastinum and vasculature overall appear prominent. However, less severe from prior. Mildly prominent interstitial markings. No evidence for infiltrate or effusion. IMPRESSION: 1. Question very mild edema but overall appears less pronounced from prior. Physical Exam Physical Exam Vital Signs Vital Signs - First Documented 08/17/22 08/17/22 08/17/22 12:25 14:43 16:47 Temp 36.3 Pulse 86 Resp 14 B/P (MAP) 98/44 (62) Pulse Ox 92 O2 Delivery Nasal Cannula O2 Flow Rate 2.00 FiO2 21 Capillary Refill : Less Than 3 Seconds Height, Weight, BMI Height: '" Weight: lbs. oz. kg; 25.55 BMI Method: General Appearance: No Apparent Distress, WD/WN Eyes: Bilateral Eye EOMI, Bilateral Eye Conjunctivae Pale HEENT: PERRL/EOMI, Pale Conjunctivae (L), Pale Conjunctivae (R) Neck: Non Tender, Supple Respiratory: Chest Non Tender, Normal Breath Sounds Cardiovascular: Regular Rate, Rhythm, Normal Peripheral Pulses Gastrointestinal: Non Tender, Soft Rectal: Other (Lesion around edge of rectum, currently packed, not bleeding) Back: No Vertebral Tenderness Extremity: Normal Capillary Refill, Non Tender, Pedal Edema (b/l) Neurologic/Psychiatric: Alert, Oriented x3 Skin: Warm/Dry, Pallor Lymphatic: No Adenopathy A/P-Cardiology Admission Diagnosis Lower GI bleed Anemia Persistent atrial fibrillation Hypotension Assessment/Plan Lower GI bleed, probably exacerbated by the use of Pradaxa Currently on hold, continue to monitor Anemia, no significant drop in H&H, has history of myelodysplastic syndrome, has been following with [place]. Continue to monitor and transfuse as needed, surgical consult was ordered. Stress test in March 2020 was abnormal with breast attenuation mild decrease uptake at the mid to apical anterolateral wall with mild reversibility. No significant ischemia, stress score is 6, SDS 3, feeling better at this time we discussed the need for possible cardiac catheterization in the future if she become symptomatic. Peripheral edema- 2D Echo done 07/04/21 showing EF 55-65%, LA mildly dilated, mild to mod calcified Mitral valve, mild to mod TR, PA 50-55mmHg. Continue on Lasix, discussed limiting salt in her diet. Persistent Atrial fibrillation, patient is not tolerating oral anticoagulation She was evaluated in [place] with Dr. Bowden for possible watchman and she was deemed not a suitable candidate Rate is controlled. [id number] score of 4, yearly risk of stroke without oral anticoagulation is 4 percent. Was on Pradaxa, currently off due to anemia Hypertension, currently borderline hypotensive. Hold all antihypertensive medication monitor blood pressure Hyperlipidemia, monitor lipids Hypothyroidism, followed and managed by primary care physician Mild bilateral carotid stenosis, ultrasound was done in May 2021. History of cholecystectomy, hysterectomy, bladder surgery, all of nephrectomy and appendectomy Clinical Quality Measures DVT/VTE Risk/Contraindication: Contraindications-Pharm: Other *list below* Other: MARIPOSA MCCRAY MD Aug 18, 2022 12:42
--- NOTE | 2022-08-18 12:57 | Tele-ICU Progress Note ---
Subjective Date Seen by a Provider: Aug 18, 2022 Subjective/Events-last exam (Tele-ICU Physician , consultation) Available chart/ vitals / labs / Images reviewed H&P is from ER notes Patient's information available about PMH, allergy reviewed in EMR. ROS as per chart and RN report Video assessment done using teleICU camera, rest of exam as per RN Discussed with RN. Patient currently resting comfortably. She has a borderline blood pressure which is expected with this kind of patient with chronic myelodysplastic syndrome. She has a history of chronic atrial fibrillation was on Pradaxa but it is on hold due to related GI bleed. Currently not actively bleeding. She was transfused 1 unit of packed red blood cells. We will repeat a CBC this afternoon. She is on a low-dose Levophed to maintain MAP over 65 Sepsis Event Evaluation Height, Weight, BMI Height: '" Weight: lbs. oz. kg; 25.55 BMI Method: Focused Exam Lactate Level 08/17/22 13:05: Lactic Acid Level 1.78 Exam Exam Patient acknowledged, consented, and participated in this virtual visit which was conducted using real time audio/video Vital Signs Date Time Temp Pulse Resp B/P (MAP) Pulse Ox O2 Delivery O2 Flow Rate FiO2 08/18/22 12:00 36.4 08/18/22 11:52 Nasal Cannula 2.00 08/18/22 11:00 71 21 110/69 (83) 100 Nasal Cannula 2.00 08/18/22 10:00 68 18 95/61 (72) 99 Nasal Cannula 2.00 08/18/22 09:00 71 20 105/97 (100) 100 Nasal Cannula 2.00 08/18/22 08:00 75 25 94/64 (74) Nasal Cannula 2.00 08/18/22 07:55 Nasal Cannula 2.00 08/18/22 07:53 36.6 08/18/22 07:00 81 19 97/60 (72) 96 Nasal Cannula 2.00 08/18/22 07:00 71 08/18/22 06:00 80 102/65 (77) 97 Nasal Cannula 2.00 08/18/22 05:00 76 108/70 (83) 97 Nasal Cannula 2.00 08/18/22 04:15 67 28 107/67 (81) 97 Nasal Cannula 2.00 08/18/22 04:00 36.5 77 15 89/51 (64) 97 Nasal Cannula 2.00 08/18/22 04:00 95 Nasal Cannula 2.00 08/18/22 03:15 69 22 95/60 (70) 97 Nasal Cannula 2.00 08/18/22 02:15 67 92/55 (71) 96 Nasal Cannula 2.00 08/18/22 01:00 77 08/18/22 01:00 77 14 97/49 (73) 97 Nasal Cannula 2.00 08/18/22 00:30 74 10 94/51 (67) 95 Nasal Cannula 2.00 08/18/22 00:22 36.3 71 86/49 (61) Nasal Cannula 2.00 08/18/22 00:21 71 86/49 08/17/22 23:59 96 Nasal Cannula 2.00 08/17/22 23:00 68 18 96/48 (70) 97 Nasal Cannula 2.00 08/17/22 22:19 73 16 109/69 (86) 94 Nasal Cannula 2.00 08/17/22 21:00 65 20 85/54 (69) 96 Nasal Cannula 2.00 08/17/22 20:00 70 21 83/71 (73) 95 Nasal Cannula 2.00 08/17/22 20:00 95 Nasal Cannula 2.00 08/17/22 19:28 36.6 61 20 103/54 95 Nasal Cannula 2.00 08/17/22 19:00 86 08/17/22 19:00 36.6 64 20 103/54 (70) 94 Nasal Cannula 2.00 08/17/22 18:00 76 14 90/61 (71) Nasal Cannula 2.00 08/17/22 17:52 36.3 70 20 92/52 97 Nasal Cannula 2.00 08/17/22 17:45 73 24 91/58 (69) Nasal Cannula 2.00 08/17/22 17:39 36.4 77 19 87/54 96 Nasal Cannula 2.00 08/17/22 17:30 73 14 87/54 (65) Nasal Cannula 2.00 08/17/22 17:15 70 19 92/50 (64) Nasal Cannula 2.00 08/17/22 17:00 68 19 94/56 (69) Nasal Cannula 2.00 08/17/22 16:55 Nasal Cannula 2.00 08/17/22 16:47 36.3 86 93 21 08/17/22 16:45 64 8 92/50 (64) Nasal Cannula 2.00 08/17/22 16:30 64 12 85/57 (66) 100 Nasal Cannula 2.00 08/17/22 16:15 69 20 95/41 (59) Nasal Cannula 2.00 08/17/22 16:00 70 22 96/56 (69) Nasal Cannula 2.00 08/17/22 16:00 98 Nasal Cannula 2.00 08/17/22 15:48 72 08/17/22 15:45 73 98/64 (75) Nasal Cannula 2.00 08/17/22 14:43 73 18 106/59 92 Nasal Cannula 2.00 I & O 08/18/22 07:00 Intake Total 2064 ml Output Total 725 ml Balance 1339 ml Height & Weight Height: '" Weight: lbs. oz. kg; 25.55 BMI Method: General Appearance: No Apparent Distress, WD/WN HEENT: PERRL/EOMI, Pale Conjunctivae (L), Pale Conjunctivae (R) Neck: Non Tender, Supple Respiratory: Chest Non Tender, Normal Breath Sounds Cardiovascular: Regular Rate, Rhythm, Normal Peripheral Pulses Capillary Refill: Less Than 3 Seconds Peripheral Pulses: 2+ Radial Pulses (R), 2+ Radial Pulses (L) Gastrointestinal: non tender, soft Extremity: Normal Capillary Refill, Non Tender, Pedal Edema Neurologic/Psychiatric: Alert, Oriented x3 Skin: Warm/Dry, Pallor Lymphatic: No Adenopathy Results Lab Laboratory Tests 08/17/22 12:20 08/17/22 20:00 08/18/22 04:09 Assessment/Plan Assessment/Plan 1. Hypotension probably due to GI bleed on low-dose Levophed 2. Acute on chronic anemia secondary to lower GI bleed received 1 unit of packed red blood cells 3. Chronic atrial fibrillation. Anticoagulation is on hold due to lower GI bleed 4. Chronic malnutrition. Recommendations 1. We will repeat a CBC this afternoon. 2. Atrial fibrillation management per cardiology 3. GI prophylaxis. 4. Wean Levophed as tolerated. collaboration of care with bedside physicians and consultants. Critical Care: Critically Ill Patient Time spent with patient (mins): 15 YANE CHAMBERLAIN MD Aug 18, 2022 12:57
[2022-08-18 14:59] LABS: BASOPHILS # (AUTO) 0.1 10^3/uL (0.0-0.1); BASOPHILS % (AUTO) 1 % (0-10); EOSINOPHILS # (AUTO) 0.7 10^3/uL (0.0-0.3); EOSINOPHILS % (AUTO) 3 % (0-10); HEMATOCRIT 26 % (35-52); HEMOGLOBIN 8.2 g/dL (11.5-16.0); LYMPHOCYTES # (AUTO) 1.7 10^3/uL (1.0-4.0); LYMPHOCYTES % (AUTO) 7 % (12-44); MEAN CORPUSCULAR HEMOGLOBIN 34 pg (25-34); MEAN CORPUSCULAR HGB CONC 31 g/dL (32-36); MEAN CORPUSCULAR VOLUME 107 fL (80-99); MEAN PLATELET VOLUME 11.5 fL (9.0-12.2); MONOCYTES # (AUTO) 0.8 10^3/uL (0.0-1.0); MONOCYTES % (AUTO) 3 % (0-12); NEUTROPHILS # (AUTO) 19.7 10^3/uL (1.8-7.8); NEUTROPHILS % (AUTO) 83 % (42-75); PLATELET COUNT 712 10^3/uL (130-400); WHITE BLOOD COUNT 23.9 10^3/uL (4.3-11.0)
[2022-08-18 15:19] LABS: EOSINOPHILS % (MANUAL) 5 %; LYMPHOCYTES % (MANUAL) 4 %; MONOCYTES % (MANUAL) 2 %; NEUTROPHILS % (MANUAL) 89 %
[2022-08-18 15:20] LABS: ELLIPT/OVALOCYTES MODERATE; POLYCHROMASIA SLIGHT
[2022-08-18 17:51] VITALS: BP 95/53
[2022-08-18 19:01] LABS: BILIRUBIN,URINE NEGATIVE (NEGATIVE); CLARITY,URINE CLOUDY; COLOR,URINE YELLOW; GLUCOSE, URINE (UA) NEGATIVE (NEGATIVE); KETONES,URINE NEGATIVE (NEGATIVE); LEUKOCYTE ESTERASE ,URINE 1+ (NEGATIVE); NITRITE,URINE NEGATIVE (NEGATIVE); PH,URINE 5.5 (5-9); PROTEIN,URINE NEGATIVE (NEGATIVE)
[2022-08-18 19:13] VITALS: BP 94/55
[2022-08-18 19:13] LABS: AMORPHOUS SEDIMENT,UR RARE AMOR URATES /LPF; BACTERIA,URINE TRACE /HPF; SQUAMOUS EPITHELIAL CELL,UR RARE /HPF; URIC ACID CRYSTALS,URINE RARE /LPF
[2022-08-18 23:18] VITALS: BP 94/55
[2022-08-19 04:07] VITALS: BP 95/58
[2022-08-19 05:23] LABS: BASOPHILS # (AUTO) 0.2 10^3/uL (0.0-0.1); BASOPHILS % (AUTO) 1 % (0-10); EOSINOPHILS # (AUTO) 0.8 10^3/uL (0.0-0.3); EOSINOPHILS % (AUTO) 3 % (0-10); HEMATOCRIT 27 % (35-52); HEMOGLOBIN 8.5 g/dL (11.5-16.0); LYMPHOCYTES # (AUTO) 2.2 10^3/uL (1.0-4.0); LYMPHOCYTES % (AUTO) 8 % (12-44); MEAN CORPUSCULAR HEMOGLOBIN 34 pg (25-34); MEAN CORPUSCULAR HGB CONC 31 g/dL (32-36); MEAN CORPUSCULAR VOLUME 108 fL (80-99); MEAN PLATELET VOLUME 11.8 fL (9.0-12.2); MONOCYTES # (AUTO) 0.9 10^3/uL (0.0-1.0); MONOCYTES % (AUTO) 3 % (0-12); NEUTROPHILS # (AUTO) 22.8 10^3/uL (1.8-7.8); NEUTROPHILS % (AUTO) 81 % (42-75); PLATELET COUNT 797 10^3/uL (130-400); WHITE BLOOD COUNT 28.2 10^3/uL (4.3-11.0)
[2022-08-19 05:50] LABS: ALANINE AMINOTRANSFERASE < 6 U/L (0-55); ALBUMIN 2.8 GM/DL (3.2-4.5); ALKALINE PHOSPHATASE 92 U/L (40-136); BILIRUBIN,TOTAL 0.7 MG/DL (0.1-1.0); BUN/CREATININE RATIO 15; CARBON DIOXIDE 20 MMOL/L (21-32); CHLORIDE 110 MMOL/L (98-107); CREATININE SERUM 2.33 MG/DL (0.60-1.30); GFR ESTIMATED 21; GLUCOSE 85 MG/DL (70-105); POTASSIUM 4.2 MMOL/L (3.6-5.0); SODIUM 140 MMOL/L (135-145); TOTAL PROTEIN 5.4 GM/DL (6.4-8.2)
--- NOTE | 2022-08-19 07:11 | Progress Note - Surgery ---
JENNY CRUMP 08/19/22 0711: Subjective Date Seen by a Provider: Aug 19, 2022 Time Seen by a Provider: 07:05 Subjective/Events-last exam Patient is laying comfortably in bed this morning Patient denies any N/V/D, chills, or SOB No other complaints at this time, is just hungry Looks improved today Had a bowel movement late last night, was diarrhea but had no hematochezia. No blood on toilet paper Gauze pack is no longer in place, no active bleed at this time Labs reviewed Focused Exam Lactate Level 08/17/22 13:05: Lactic Acid Level 1.78 Objective Exam Vital Signs Date Time Temp Pulse Resp B/P (MAP) Pulse Ox O2 Delivery O2 Flow Rate FiO2 08/19/22 04:07 36.4 84 20 95/58 (70) 96 Nasal Cannula 1.00 08/19/22 01:00 78 08/18/22 23:18 36.8 82 18 94/55 (68) 99 Nasal Cannula 1.00 08/18/22 20:50 Nasal Cannula 2.00 08/18/22 19:13 36.2 78 18 94/55 (68) 100 Room Air 2.00 08/18/22 19:01 78 08/18/22 18:39 Nasal Cannula 2.00 08/18/22 17:51 36.6 76 18 95/53 (67) 100 Nasal Cannula 2.00 08/18/22 17:31 36.0 08/18/22 17:00 66 14 100/58 (72) 100 Nasal Cannula 2.00 08/18/22 16:05 Nasal Cannula 2.00 08/18/22 16:00 63 26 88/53 (65) 100 Nasal Cannula 2.00 08/18/22 15:00 77 19 106/65 (79) 97 Nasal Cannula 2.00 08/18/22 14:00 77 23 102/60 (74) 98 Nasal Cannula 2.00 08/18/22 13:00 72 16 106/59 (75) 100 Nasal Cannula 2.00 08/18/22 13:00 69 08/18/22 12:00 76 13 99/58 (72) 100 Nasal Cannula 2.00 08/18/22 12:00 36.4 08/18/22 11:52 Nasal Cannula 2.00 08/18/22 11:00 71 21 110/69 (83) 100 Nasal Cannula 2.00 08/18/22 10:00 68 18 95/61 (72) 99 Nasal Cannula 2.00 08/18/22 09:00 71 20 105/97 (100) 100 Nasal Cannula 2.00 08/18/22 08:00 75 25 94/64 (74) Nasal Cannula 2.00 08/18/22 07:55 Nasal Cannula 2.00 08/18/22 07:53 36.6 l I & O 08/19/22 07:00 Intake Total 1670 ml Output Total 200 ml Balance 1470 ml Capillary Refill : Less Than 3 Seconds General Appearance: No Apparent Distress, Chronically ill, Thin HEENT: PERRL/EOMI, Moist Mucous Membranes; No Pale Conjunctivae (L), No Pale Conjunctivae (R) Neck: Non Tender, Supple Respiratory: Lungs Clear, Normal Breath Sounds Cardiovascular: No No Edema; No Murmur, Irregularly Irregular Peripheral Pulses: 2+ Radial Pulses (R), 2+ Radial Pulses (L) Gastrointestinal: non tender, soft Extremity: Normal Capillary Refill, Non Tender, No Calf Tenderness, Pedal Edema (Bilateral +1) Neurologic/Psychiatric: Alert, Oriented x3 Skin: Warm/Dry, Pallor (Improved color from yesterday) Lymphatic: No Adenopathy Results Lab Laboratory Tests 08/18/22 12:21: Lab Scanned Report Transfusion Reaction Form 08/18/22 14:50: White Blood Count 23.9H, Red Blood Count 2.44L, Hemoglobin 8.2L, Hematocrit 26L, Mean Corpuscular Volume 107H, Mean Corpuscular Hemoglobin 34, Mean Corpuscular Hemoglobin Concent 31L, Red Cell Distribution Width 20.5H, Platelet Count 712H, Mean Platelet Volume 11.5, Immature Granulocyte % (Auto) 4, Neutrophils (%) (Auto) 83H, Lymphocytes (%) (Auto) 7L, Monocytes (%) (Auto) 3, Eosinophils (%) (Auto) 3, Basophils (%) (Auto) 1, Neutrophils # (Auto) 19.7H, Lymphocytes # (Auto) 1.7, Monocytes # (Auto) 0.8, Eosinophils # (Auto) 0.7H, Basophils # (Auto) 0.1, Immature Granulocyte # (Auto) 0.8H, Neutrophils % (Manual) 89, Lymphocytes % (Manual) 4, Monocytes % (Manual) 2, Eosinophils % (Manual) 5, Polychromasia SLIGHT, Elliptocytes MODERATE 08/18/22 18:57: Urine Color YELLOW, Urine Clarity CLOUDY, Urine pH 5.5, Urine Specific [place] 1.020, Urine Protein NEGATIVE, Urine Glucose (UA) NEGATIVE, Urine Ketones NEGATIVE, Urine Nitrite NEGATIVE, Urine Bilirubin NEGATIVE, Urine Urobilinogen 0.2, Urine Leukocyte Esterase 1+H, Urine RBC (Auto) TRACE-IH, Urine RBC NONE, Urine WBC 5-10H, Urine Squamous Epithelial Cells RARE, Urine Crystals PRESENTH, Urine Uric Acid Crystals RAREH, Urine Amorphous Sediment RARE TATE URATESH, Urine Bacteria TRACE, Urine Casts NONE, Urine Mucus NEGATIVE, Urine Culture Indicated YES 08/19/22 05:06: White Blood Count 28.2H, Red Blood Count 2.52L, Hemoglobin 8.5L, Hematocrit 27L, Mean Corpuscular Volume 108H, Mean Corpuscular Hemoglobin 34, Mean Corpuscular Hemoglobin Concent 31L, Red Cell Distribution Width 21.0H, Platelet Count 797H, Mean Platelet Volume 11.8, Immature Granulocyte % (Auto) 4, Neutrophils (%) (Auto) 81H, Lymphocytes (%) (Auto) 8L, Monocytes (%) (Auto) 3, Eosinophils (%) (Auto) 3, Basophils (%) (Auto) 1, Neutrophils # (Auto) 22.8H, Lymphocytes # (Auto) 2.2, Monocytes # (Auto) 0.9, Eosinophils # (Auto) 0.8H, Basophils # (Auto) 0.2H, Immature Granulocyte # (Auto) 1.2H, Sodium Level 140, Potassium Level 4.2, Chloride Level 110H, Carbon Dioxide Level 20L, Anion Gap 10, Blood Urea Nitrogen 34H, Creatinine 2.33H, Estimat Glomerular Filtration Rate 21, BUN/Creatinine Ratio 15, Glucose Level 85, Calcium Level 8.0L, Corrected Calcium 9.0, Magnesium Level 2.0, Total Bilirubin 0.7, Aspartate Amino Transf (AST/SGOT) 12, Alanine Aminotransferase (ALT/SGPT) < 6, Alkaline Phosphatase 92, Total Protein 5.4L, Albumin 2.8L Microbiology 08/18/22 Urine Culture - Preliminary, Resulted Gram Negative Sherwin See Comments 08/17/22 Blood Culture - Preliminary, Resulted No growth Assessment/Plan Assessment/Plan Assessment/Plan GI bleed- likely from puncture of external hemorrhoid Anemia- Hemoglobin currently 8.5 from 8.3 yesterday Myelodysplastic syndrome A-fib Diverticulosis Hold Pradaxa Track and trend hemoglobin Transfuse as needed Monitor bleed- currently no active bleed. Packed gauze no longer in place Continue supportive care Clinical Quality Measures DVT/VTE Risk/Contraindication: Contraindications-Pharm: Other *list below* Other: REJI MONAHAN DO 08/19/22 1716: Subjective Subjective/Events-last exam No more bleeding. Had bm without bleeding. Hgb stable. No new complaints. Denies n/v fever sweats chills shortness of breath or chest pain. Objective Exam General Appearance: No Apparent Distress, Chronically ill HEENT: PERRL/EOMI, Normal ENT Inspection Neck: Non Tender, Supple Respiratory: Chest Non Tender, No Accessory Muscle Use, No Respiratory Distress Cardiovascular: No JVD, Irregularly Irregular Gastrointestinal: non tender, soft Extremity: Non Tender, No Calf Tenderness, Pedal Edema (Bilateral +1) Neurologic/Psychiatric: Alert, Oriented x3 Skin: Warm/Dry, Pallor (Improved color from yesterday) Lymphatic: No Adenopathy Assessment/Plan Assessment/Plan Assessment/Plan GI bleed- likely from puncture of external hemorrhoid Anemia- Hemoglobin stable Myelodysplastic syndrome A-fib Diverticulosis Hold Pradaxa Monitor bleed- currently no active bleed. Packed gauze no longer in place Patient being discharged. If has return of bleeding will need to return to hospital. Patient understands and agrees with plan. Supervisory-Addendum Brief Verification & Attestation Participated in pt care: history, MDM, physical Personally performed: exam, history, MDM, supervision of care Care discussed with: Medical Student Procedures: n/a Results interpretation: Verified all documentation Verification and Attestation of Medical Student E/M Service A medical student performed and documented this service in my presence. I reviewed and verified all information documented by the medical student and made modifications to such information, when appropriate. I personally performed the physical exam and medical decision making. Reji Rod, Aug 19, 2022,17:16 JENNY CRUMP Aug 19, 2022 07:11 REJI ROD DO Aug 19, 2022 17:16
[2022-08-19 07:41] VITALS: BP 111/62
[2022-08-19] MEDS: PANTOPRAZOLE 40 MG (PROTONIX) VIAL IV SCH (08:10)
--- NOTE | 2022-08-19 08:56 | Cardiology Progress Note ---
Subjective Date Seen by Provider: Aug 19, 2022 Time Seen by Provider: 08:54 Subjective/Events-last exam Patient sitting up in bed, no new complaints. Denies any chest pain or dyspnea Focused Exam Lactate Level 08/17/22 13:05: Lactic Acid Level 1.78 Objective-Cardiology Exam Last Set of Vital Signs Vital Signs 08/17/22 08/19/22 08/19/22 08/19/22 08/19/22 16:47 07:41 07:42 09:08 09:24 Temp 36.8 Pulse 92 Resp 16 B/P (MAP) 111/62 (78) Pulse Ox 96 O2 Delivery Nasal Cannula O2 Flow Rate 2.00 FiO2 21 I&O Intake and Output 08/19/22 00:00 Intake Total 2570 ml Output Total 325 ml Balance 2245 ml Intake Oral 1570 ml IV Total 1000 ml Output Urine Total 325 ml # Voids 4 # Bowel Movements 2 General: Alert, Oriented X3, Cooperative HEENT: PERRLA Lungs: Clear to Auscultation, Normal Air Movement Heart: Regular Rate Abdomen: Soft, No Tenderness Extremities: Other (+1 edema BLE) Skin: No Rashes, No Significant Lesion Neuro: Normal Speech, Cranial Nerves 3-12 NL Psych/Mental Status: Mental Status NL, Mood NL Results Lab Laboratory Tests 08/18/22 14:50 08/19/22 05:06 A/P-Cardiology Admission Diagnosis Lower GI bleed Anemia Persistent atrial fibrillation Hypotension Assessment/Plan Lower GI bleed, probably exacerbated by the use of Pradaxa Currently on hold, continue to monitor Anemia, no significant drop in H&H, has history of myelodysplastic syndrome, has been following with [place]. Transfused, continue to monitor H/H Peripheral edema, acute on chronic renal failure Ordered 20 mg IV Lasix Continue to monitor renal function Stress test in March 2020 was abnormal with breast attenuation mild decrease uptake at the mid to apical anterolateral wall with mild reversibility. No significant ischemia, stress score is 6, SDS 3, feeling better at this time we discussed the need for possible cardiac catheterization in the future if she become symptomatic. Peripheral edema- 2D Echo done 07/04/21 showing EF 55-65%, LA mildly dilated, mild to mod calcified Mitral valve, mild to mod TR, PA 50-55mmHg. Discussed limiting salt in her diet. Persistent Atrial fibrillation, patient is not tolerating oral anticoagulation She was evaluated in [place] with Dr. Bowden for possible watchman and she was deemed not a suitable candidate Rate is controlled. [id number] score of 4, yearly risk of stroke without oral anticoagulation is 4 percent. Was on Pradaxa, currently off due to anemia Hypertension, currently borderline hypotensive. Hold all antihypertensive medication monitor blood pressure Hyperlipidemia, monitor lipids Hypothyroidism, followed and managed by primary care physician Mild bilateral carotid stenosis, ultrasound was done in May 2021. History of cholecystectomy, hysterectomy, bladder surgery, all of nephrectomy and appendectomy Supervisory-Addendum Brief Supervisory Addendum Participated in pt care: history, MDM, physical Personally performed: exam, history, MDM Care discussed with: FLORENCIO Results interpretation: Verified all documentation Notes: Patient was seen and evaluated with Marcell, examination performed, management plan was discussed, agree with the current scribed note, I made few changes to the note using Italic font Patient was seen at bedside, laying down comfortably, feeling better. No new complaint. Still having pedal edema, I will give Lasix 20 mg IV and evaluate tolerance and response MARCELL MCCLAIN Aug 19, 2022 08:56 MARIPOSA GALLAGHER MD Aug 19, 2022 11:33
[2022-08-19] MEDS ORDERED: cefTRIAXone 1 GM PRE-MIX 50 ML IV SCH (09:30)
[2022-08-19] MEDS: SENNOSIDES 8.6 MG (SENOKOT) TAB PO SCH (09:54)
[2022-08-19] MEDS: DOCUSATE SODIUM 100 MG (COLACE) CAP PO SCH (09:54)
[2022-08-19] MEDS: NS IV 1000 ML 1,000 ML IV SCH (09:58)
--- NOTE | 2022-08-19 11:27 | Progress Note ---
JAGRUTIJAMESHiwotSUSAN 08/19/22 1127: Progress Note Patient is an 82-year-old female with a history of myelodysplastic syndrome, HTN, and afib who presented to the ED on 08/17 with chief complaint of bright red blood per rectum. The patient states that when she went to the bathroom this morning she noticed the blood on the toilet paper and quite a bit in the bowl. The patient states the bleeding continued for approximately 30 minutes while she tried to slow the bleeding with a maxi pad. She had never had a prior episode of hematochezia. She reports her last colonoscopy was in 2019 for anemia and showed diverticulosis, but no areas of active bleeding. The patient additionally reported feeling fatigued on admission, but had no other complaints. The patient follows with an oncologist in [place] for her myelodysplastic syndrome and receives blood transfusions as needed. Her labs are checked every 2 weeks and she reports her last transfusion was at the end of May and required 4 bags. H er hemoglobin was measured at 8.8 on 08/12 and was 7.6 on admission. The patient was given one unit of PRBCs which improved her hemoglobin to 8.4 and remained in that range for the rest of her hospital stay. The patient is on pradaxa for her afib, and this was held during her stay due to the GI bleed. Surgery was consulted and the patient was found to have a small external hemorrhoid that had appeared to have been punctured and had a small continuous amount of blood draining from it. This was packed with gauze and surgicell, and no further bleeding was noted. On 08/18, the patient began having diarrhea and knocked the gauze out, however, the patient reports that there was no blood in the bowl or on the toilet paper. The area was not repacked with gauze and no further bleeding has been seen. Edema was noted b/l in the lower extremities which the patient states is a chronic issue and did improve slightly throughout her stay. Cardiology was consulted due to the patient's history. The patient's BUN and creatinine were found to be elevated on admission at 40 and 2.93, this improved throughout the course of her stay after IV fluid resuscitation and is currently 34 and 2.33. The patient was found to have a UTI with a urine culture growing gram negative rods, and the patient was started on IV antibiotics. The patient is preparing for discharge home today with her son. LASHONDA CHÁVEZ DO 08/20/22 0550: Supervisory-Addendum Brief Verification & Attestation Participated in pt care: history, MDM, physical Personally performed: exam, history, MDM, supervision of care Care discussed with: Medical Student Procedures: n/a Results interpretation: Verified all documentation Verification and Attestation of Medical Student E/M Service A medical student performed and documented this service in my presence. I reviewed and verified all information documented by the medical student and made modifications to such information, when appropriate. I personally performed the physical exam and medical decision making. Lashonda Chávez, Aug 20, 2022,05:50 SUSAN ANTUNEZ Aug 19, 2022 11:27 LASHONDA CHÁVEZ DO Aug 20, 2022 05:50
[2022-08-19] MEDS ORDERED: FUROSEMIDE 40 MG/4 ML INJ (LASIX) IVP NR (11:30)
[2022-08-19 11:44] VITALS: BP 132/77
--- NOTE | 2022-08-19 11:47 | Physical Therapy Daily Note ---
PT Daily Note-Current Subjective Patient in bed pre-tx, reports no pain currently, agrees to PT. Pain Section J - Health Conditions 1. Rarely or not at all 2. Occasionally 3. Frequently 4. Almost constantly 8. Unable to answer Pain Effect on Sleep: 1 Pain Interference with Therapy: 1 Pain Interference w/Day-to-Day: 1 Appearance Patient in bed post-tx with nurse call, phone, tray, all needs met. Mental Status Patient Orientation: Person, Place, Situation Attachments: Oxygen, IV Transfers SCALE: Activities may be completed with or without assistive devices. 2-Cbvjkhgrkk-nhmgfsr completes the activity by him/herself with no assistance from a helper. 5-Set-up or Clean-up Assistance-helper sets up or cleans up; patient completes activity. [place] assists only prior to or following the activity. 4-Supervision or Touching Assistance-helper provides verbal cues and/or touching/steadying and/or contact guard assistance as patient completes activity. Assistance may be provided throughout the activity or intermittently. 3-Partial/Moderate Assistance-helper does LESS THAN HALF the effort. [place] lifts, holds or supports trunk or limbs, but provides less than half the effort. 2-Substantial/Maximal Assistance-helper does MORE THAN HALF the effort. [place] lifts or holds trunk or limbs and provides more than half the effort. 5-Kwopwwjcx-paztga does ALL the effort. Patient does none of the effort to complete the activity. Or, the assistance of 2 or more helpers is required for the patient to complete the activity. If activity was not attempted, code reason: 7-Patient Refused. 9-Not Applicable-not attempted and the patient did not perform the activity before the current illness, exacerbation or injury. 10-Not Attempted due to Environmental Limitations-(lack of equipment, weather restraints, etc.). 88-Not Attempted due to Medical Conditions or Safety Concerns. Roll Left & Right (QC): 4 Sit to Lying (QC): 4 Lying to Sitting/Side of Bed(Q: 4 Sit to Stand (QC): 4 SBA Weight Bearing Right Lower Extremity: Right Full Weight Bearing Left Lower Extremity: Left Full Weight Bearing Gait Training Distance: 200' Walk 10 feet (QC): 4 Walk 50 ft with 2 Turns(QC): 4 Walk 150 ft (QC): 4 Gait Persons Needed: 1 Gait Assistive Device: FWW Patient walks with antalgic gait on left side, decreased step length, decreased gait speed, decreased foot clearance. Patient reports pain on LLE with ambulation. Exercises Supine Ex: Ankle pumps, Heel Slides Supine Reps: 15 Treatments Ambulation, LE Strengthening Assessment Current Status: Fair Progress Patient is steady with ambulation, has good standing and sitting balance. Patient LLE swollen, but patient reports it has always been this way. Patient reports the only thing that seems to help decrease the swelling is elevating it. PT Rating Clerk Goals Rating Clerk Goals PT Rating Clerk Goals Time Frame: Aug 29, 2022 Roll Left & Right (QC): 6 Sit to Lying (QC): 6 Lying-Sitting on Side/Bed(QC): 6 Sit to Stand (QC): 6 Chair/Iko-pa-Smsms Xfer(QC): 6 Toilet Transfer (QC): 6 Walk 10 feet (QC): 6 Walk 50ft with 2 Turns (QC): 6 Walk 150 ft (QC): 6 PT Plan Problem List Problem List: Activity Tolerance, Functional Strength, Safety, Balance, Gait, Transfer, Bed Mobility, ROM Treatment/Plan Treatment Plan: Continue Plan of Care Treatment Plan: Bed Mobility, Education, Functional Activity Johan, Functional Strength, Gait, Safety, Therapeutic Exercise, Transfers Treatment Duration: Aug 29, 2022 Frequency: 6 times per week Estimated Hrs Per Day: .25 hour per day Patient and/or Family Agrees t: Yes Safety Risks/Education Patient Education: Gait Training, Transfer Techniques, Correct Positioning, Safety Issues Teaching Recipient: Patient Teaching Methods: Demonstration, Discussion Response to Teaching: Reinforcement Needed Time Time In: 1102 Time Out: 1117 DATE: Aug 19, 2022 Total Billed Treatment Time: 15 Total Billed Treatment 1 visit FA 15min NUZHAT PHIPPS PT Aug 19, 2022 11:47
[2022-08-19] MEDS ORDERED: PANT40TA52 PO (12:05)
--- NOTE | 2022-08-19 12:06 | Discharge Summary ---
Discharge Summary Hospital Course Was the Problem List Reviewed?: Yes Problems/Dx: (1) GI bleed Status: Acute (2) Myelodysplasia (myelodysplastic syndrome) Status: Chronic (3) Afib Status: Chronic (4) Hypertension Status: Chronic Hospital Course Date of Admission: Aug 17, 2022 at 14:23 Admission Diagnosis : Family Physician/Provider: [facility] Date of Discharge: 08/19/22 Discharge Diagnosis: [ ] Hospital Course: Patient is an 82-year-old female with a history of myelodysplastic syndrome, HTN, and afib who presented to the ED on 08/17 with chief complaint of bright red blood per rectum. The patient states that when she went to the bathroom this morning she noticed the blood on the toilet paper and quite a bit in the bowl. The patient states the bleeding continued for approximately 30 minutes while she tried to slow the bleeding with a maxi pad. She had never had a prior episode of hematochezia. She reports her last colonoscopy was in 2019 for anemia and showed diverticulosis, but no areas of active bleeding. The patient additionally reported feeling fatigued on admission, but had no other complaints. The patient follows with an oncologist in [place] for her myelodysplastic syndrome and receives blood transfusions as needed. Her labs are checked every 2 weeks and she reports her last transfusion was at the end of May and required 4 bags. Her hemoglobin was measured at 8.8 on 08/12 and was 7.6 on admission. The patient was given one unit of PRBCs which improved her hemoglobin to 8.4 and remained in that range for the rest of her hospital stay. The patient is on pradaxa for her afib, and this was held during her stay due to the GI bleed. Surgery was consulted and the patient was found to have a small external hemorrhoid that had appeared to have been punctured and had a small continuous amount of blood draining from it. This was packed with gauze and surgicell, and no further bleeding was noted. On 08/18, the patient began having diarrhea and knocked the gauze out, however, the patient reports that there was no blood in the bowl or on the toilet paper. The area was not repacked with gauze and no further bleeding has been seen. Edema was noted b/l in the lower extremities which the patient states is a chronic issue and did improve slightly throughout her stay. Cardiology was consulted due to the patient's history. The patient's BUN and creatinine were found to be elevated on admission at 40 and 2.93, this improved throughout the course of her stay after IV fluid resuscitation and is currently 34 and 2.33. The patient was found to have a UTI with a urine culture growing gram negative rods, and the patient was started on IV antibiotics. The patient is preparing for discharge home today with her son. [facility] Labs and Pending Lab Test: Laboratory Tests 08/18/22 12:21: Lab Scanned Report Transfusion Reaction Form 08/18/22 14:50: White Blood Count 23.9H, Red Blood Count 2.44L, Hemoglobin 8.2L, Hematocrit 26L, Mean Corpuscular Volume 107H, Mean Corpuscular Hemoglobin 34, Mean Corpuscular Hemoglobin Concent 31L, Red Cell Distribution Width 20.5H, Platelet Count 712H, Mean Platelet Volume 11.5, Immature Granulocyte % (Auto) 4, Neutrophils (%) (Auto) 83H, Lymphocytes (%) (Auto) 7L, Monocytes (%) (Auto) 3, Eosinophils (%) (Auto) 3, Basophils (%) (Auto) 1, Neutrophils # (Auto) 19.7H, Lymphocytes # (Auto) 1.7, Monocytes # (Auto) 0.8, Eosinophils # (Auto) 0.7H, Basophils # (Auto) 0.1, Immature Granulocyte # (Auto) 0.8H, Neutrophils % (Manual) 89, Lymphocytes % (Manual) 4, Monocytes % (Manual) 2, Eosinophils % (Manual) 5, Polychromasia SLIGHT, Elliptocytes MODERATE 08/18/22 18:57: Urine Color YELLOW, Urine Clarity CLOUDY, Urine pH 5.5, Urine Specific [place] 1.020, Urine Protein NEGATIVE, Urine Glucose (UA) NEGATIVE, Urine Ketones NEGATIVE, Urine Nitrite NEGATIVE, Urine Bilirubin NEGATIVE, Urine Urobilinogen 0.2, Urine Leukocyte Esterase 1+H, Urine RBC (Auto) TRACE-IH, Urine RBC NONE, Urine WBC 5-10H, Urine Squamous Epithelial Cells RARE, Urine Crystals PRESENTH, Urine Uric Acid Crystals RAREH, Urine Amorphous Sediment RARE TATE URATESH, Urine Bacteria TRACE, Urine Casts NONE, Urine Mucus NEGATIVE, Urine Culture Indicated YES 08/19/22 05:06: White Blood Count 28.2H, Red Blood Count 2.52L, Hemoglobin 8.5L, Hematocrit 27L, Mean Corpuscular Volume 108H, Mean Corpuscular Hemoglobin 34, Mean Corpuscular Hemoglobin Concent 31L, Red Cell Distribution Width 21.0H, Platelet Count 797H, Mean Platelet Volume 11.8, Immature Granulocyte % (Auto) 4, Neutrophils (%) (Auto) 81H, Lymphocytes (%) (Auto) 8L, Monocytes (%) (Auto) 3, Eosinophils (%) (Auto) 3, Basophils (%) (Auto) 1, Neutrophils # (Auto) 22.8H, Lymphocytes # (Auto) 2.2, Monocytes # (Auto) 0.9, Eosinophils # (Auto) 0.8H, Basophils # (Auto) 0.2H, Immature Granulocyte # (Auto) 1.2H, Sodium Level 140, Potassium Level 4.2, Chloride Level 110H, Carbon Dioxide Level 20L, Anion Gap 10, Blood Urea Nitrogen 34H, Creatinine 2.33H, Estimat Glomerular Filtration Rate 21, BU N/Creatinine Ratio 15, Glucose Level 85, Calcium Level 8.0L, Corrected Calcium 9.0, Magnesium Level 2.0, Total Bilirubin 0.7, Aspartate Amino Transf (AST/SGOT) 12, Alanine Aminotransferase (ALT/SGPT) < 6, Alkaline Phosphatase 92, Total Protein 5.4L, Albumin 2.8L Microbiology 08/18/22 Urine Culture - Preliminary, Resulted Gram Negative Sherwin See Comments 08/17/22 Blood Culture - Preliminary, Resulted No growth Home Meds Active Pantoprazole Sodium 40 Mg Tablet.dr 40 Mg PO HS Reported Ibuprofen 200 Mg Tablet 400 Mg PO Q8H PRN Vitamin D3 (Cholecalciferol (Vitamin D3)) 50 Mcg (2000 Unit) Capsule 50 Mcg PO DAILY Potassium Chloride 10 Meq Tab.er.prt 10 Meq PO DAILY Levothyroxine Sodium 125 Mcg Tablet 125 Mcg PO DAILY LAST FILLED 02-23-2022 #90/90 DAY SUPPLY Pradaxa (Dabigatran Etexilate Mesylate) 150 Mg Capsule 150 Mg PO BID Metoprolol Tartrate 25 Mg Tablet 25 Mg PO BID Furosemide 20 Mg Tablet 40 Mg PO DAILY TAKES 2 (20MG) TABS Assessment/Pt Instructions PCP in 1 week Discharge Planning: <30 minutes discharge planning Discharge Physical Examination Vital Signs Vital Signs Date Time Temp Pulse Resp B/P (MAP) Pulse Ox O2 Delivery O2 Flow Rate FiO2 08/19/22 11:44 36.5 92 18 132/77 (95) 96 08/19/22 09:24 Nasal Cannula 2.00 08/17/22 16:47 21 General Appearance: No Apparent Distress, WD/WN, Chronically ill, Thin Allergies: Coded Allergies: Penicillins (Unverified Allergy, Unknown, 02/16/20) Discharge Summary Date of Admission Aug 17, 2022 at 14:23 Date of Discharge Discharge Date: Aug 19, 2022 Admission Diagnosis Assessment: GI bleed Atrial fibrillation Chronic renal failure Myelodysplastic syndrome Advanced age Frail status Plan: Supportive care Transfuse General surgery consulted Cardiology consult Discharge Diagnosis Clinical Quality Measures DVT/VTE Risk/Contraindication: Contraindications-Pharm: Other *list below* Other: HERLINDA PORRAS DO Aug 19, 2022 12:06
[2022-08-19 15:45] VITALS: BP 132/77
--- NOTE | 2022-08-19 20:31 | Physician Query Clarification ---
Physician Query-General Query to Physician: The medical record reflects the following clinical evidence: Clinical Indicators: BRBPR, GI bleed likely due to bleeding external hemorrhoid, possibly from small puncture, which required gauze/surgicell to control bleeding "hemoglobin was measured at 8.8 on 08/12 and is currently 7.6." INR 7.6, .HGB improved to 8.4, Risk Factor(s): Myelodysplastic syndrome with chronic anemia, On Pradaxa, never had Hematochezia before, Treatment: Pradaxa Held, Surgicell, 1 unit PRBC's, INR and H and H monitoring, 1. Hemorrhagic disorder due to extrinsic circulating anticoagulants, present on admission 2. Other explanation of clinical findings 3. Unable to determine (no explanation for clinical findings) Please clarify and document your clinical opinion in the progress notes and discharge summary including the definitive and/or presumptive diagnosis, (suspected or probable), related to the above clinical findings. Please include clinical findings supporting your diagnosis. Kelly Hernandez RN, MSN [phone] [email or web address] PHYSICIAN RESPONSE: Based on the clinical findings in the record, please respond to the query above on this document as an addendum. Physician Response: Physician Response 1 If you have questions please contact: Range Rider: Ext: Thank you for your time and cooperation. Clinical Supervisor Sterile Processing/Range Rider This is a permanent part of the medical record KELLY HERNANDEZ Aug 19, 2022 20:31 HERLINDA CHÁVEZ DO Aug 20, 2022 05:21
--- NOTE | 2022-08-19 20:59 | Physician Query Clarification ---
Physician Query-General Query to Physician: The medical record reflects the following clinical evidence: Clinical Indicators: Blood pressure on admission () 98/44 remained to 80s to 90 systolic despite fluids blood and Norepi gtt, hemoglobin down to 7.4, creatinine 2.93, Risk Factor(s): Myelodysplastic syndrome, GI bleed, INR 7.6 Treatment: Central line, NS 250 bolus X 2, and 1 unit PRBC's , 1L NS and Norepi for approx 12 hours, on the 1. Possible Hypovolemic shock, now resolved 2. Other explanation of clinical findings 3. Unable to determine (no explanation for clinical findings) Please clarify and document your clinical opinion in the progress notes and discharge summary including the definitive and/or presumptive diagnosis, (suspected or probable), related to the above clinical findings. Please include clinical findings supporting your diagnosis. Kelly Hernandez RN, MSN Clinical Finance Effectiveness Manager [phone] [email or web address] PHYSICIAN RESPONSE: Based on the clinical findings in the record, please respond to the query above on this document as an addendum. Physician Response: Physician Response 1 If you have questions please contact: Project Management Engineer: Ext: Thank you for your time and cooperation. Clinical Finance Effectiveness Manager/Project Management Engineer This is a permanent part of the medical record KELLY HERNANDEZ Aug 19, 2022 20:59 HERLINDA CHÁVEZ DO Aug 20, 2022 05:21
== END 2022-08-19 13:45 | disposition home or self-care (01) | DRG 813 ==
LOC: EDUNIT# 12:16 → ER 12:18 → 4TH 14:23 → ICU 15:33 → 4TH 08-18 17:31
PROVIDERS: ADMIT Internal Medicine; ATTEND Internal Medicine
PROC: 02HV33Z Insertion of Infusion Device into Superior Vena Cava, Percutaneous Approach (ICD-10-PCS; principal; 2022-08-17)
DX: D68.32 Hemorrhagic disorder due to extrinsic circulating anticoagulants (principal); R57.1 Hypovolemic shock; N17.9 Acute kidney failure, unspecified; E46 Unspecified protein-calorie malnutrition; I48.20 Chronic atrial fibrillation, unspecified; M19.90 Unspecified osteoarthritis, unspecified site; D46.9 Myelodysplastic syndrome, unspecified; K57.90 Diverticulosis of intestine, part unspecified, without perforation or abscess without bleeding; E03.9 Hypothyroidism, unspecified; G47.33 Obstructive sleep apnea (adult) (pediatric); N18.9 Chronic kidney disease, unspecified; R54 Age-related physical debility; I27.20 Pulmonary hypertension, unspecified; Z79.01 Long term (current) use of anticoagulants; I12.9 Hypertensive chronic kidney disease with stage 1 through stage 4 chronic kidney disease, or unspecified chronic kidney disease; K64.4 Residual hemorrhoidal skin tags; I65.23 Occlusion and stenosis of bilateral carotid arteries; Z68.25 Body mass index [BMI] 25.0-25.9, adult
CPT/HCPCS: 36415; 71045; 80053; 81000; 82805; 83605; 83735; 83880; 84100; 84145; 85007; 85025; 85027; 85610; 85730; 86850; 86900; 86901; 86920; 87040; 87088; 94760

== ENCOUNTER → 2022-09-22 | Outpatient (CLI) | payer MEDICARE, OTHER ==
[~2022-09-22] MED LIST changes: +CHOL20002 PO; +IBUP-2473 PO; +LEVO125T6 PO; +POTA-177 PO
--- NOTE | 2022-09-22 18:33 | Diagnostic Imaging Report ---
HISTORY: Right foot pain TECHNIQUE: 3 views of the right foot COMPARISON: None FINDINGS: Bone mineral density is diffusely low. There is mild hallux valgus. No cortical erosions are seen. There is subtle lateral angulation at the 4th metatarsal neck. There is a small plantar calcaneal enthesophyte. There is moderate soft tissue swelling about the right foot. Mild degenerative changes are seen about the right foot. IMPRESSION: 1. Subtle angulation at the right 4th metatarsal neck. This is likely chronic, but correlation with point tenderness is recommended to evaluate for an acute nondisplaced fracture. 2. Hallux valgus. Dictated by: Dictated on workstation # [id number]
== END ==
LOC: RAD FS 15:07
PROVIDERS: ATTEND Nurse Practitioner Family
DX: M20.11 Hallux valgus (acquired), right foot (principal)
CPT/HCPCS: 73630

== ENCOUNTER → 2022-10-01 | Outpatient (CLI) | payer MEDICARE, OTHER ==
[~2022-10-01] MED LIST changes: +ACHD5005 PO
--- NOTE | 2022-10-01 18:44 | Diagnostic Imaging Report ---
INDICATION: Left shoulder pain FINDINGS: Two view left shoulder performed. No fracture, dislocation, or acute appearing bone or joint pathology found. IMPRESSION: Unremarkable two-view left shoulder. Dictated by: Dictated on workstation # [id number]
== END ==
LOC: RAD FS 13:28
PROVIDERS: ATTEND Student in an Organized Health Care Education/Training Program
DX: M25.512 Pain in left shoulder (principal)
CPT/HCPCS: 73030

== ENCOUNTER 2022-10-06 14:37 | Emergency (ER) | payer MEDICARE, OTHER ==
[~2022-10-06] VITALS: Ht 157.5 cm; Wt 55.8 kg
[~2022-10-06 14:37] MED LIST changes: -ACHD5005 PO
[2022-10-06 15:28] LABS: BILIRUBIN,URINE NEGATIVE (NEGATIVE); CLARITY,URINE CLEAR; COLOR,URINE YELLOW; GLUCOSE, URINE (UA) NEGATIVE (NEGATIVE); KETONES,URINE NEGATIVE (NEGATIVE); LEUKOCYTE ESTERASE ,URINE TRACE (NEGATIVE); NITRITE,URINE NEGATIVE (NEGATIVE); PH,URINE 5.5 (5-9); PROTEIN,URINE 1+ (NEGATIVE)
[2022-10-06 15:34] LABS: WBC,URINE 0-2 /HPF
[2022-10-06 15:35] LABS: BACTERIA,URINE TRACE /HPF; SQUAMOUS EPITHELIAL CELL,UR 0-2 /HPF
--- NOTE | 2022-10-06 15:35 | ED GU-Female ---
General Chief Complaint: - Reproductive Stated Complaint: KIDNEY ISSUES | UTI Nursing Triage Note: PT TO ED BY POV WITH FAMILY WITH C/O SWELLING/PAIN IN KNUCKLES, PAIN IN R SHOULDER, AND UTI. FAMILY REPORTS PT WAS SENT BY PCP WHO IS CONCERNED ABOUT PT KIDNEY FUNCTION AND WANTED NEPHROLOGY CONSULT. PT REPORTS SLIGHT BURNING WITH URINATION, DENIES FEVER, ABD PAIN, N/V. PITTING EDEMA NOTED UPON ARRIVAL, PT AND FAMILY REPORT THIS IS NORMAL FOR PT AND IT GOES AWAY WHEN PT ELEVATES FEET. PT DID NOT TAKE LASIX THIS MORNING BECAUSE SHE HAD AN APPOINTMENT AND DID NOT WANT TO URINATE IN THE CAR. Source: patient Exam Limitations: no limitations History of Present Illness Date Seen by Provider: Oct 06, 2022 Time Seen by Provider: 15:35 Initial Comments This is an 82-year-old female with a history of myelodysplastic disorder, CHF, CKD who presented to the ER via POV with complaints of left hand swelling, pain in her knuckles and left wrist. States she was seen at [facility] in [place] and referred to the ER for nephrology consult. Daughter and son at bedside and informed initial concern for gout and informed they were unable to treat due to her renal function. Family had requested nephrology consultation in [place], however they were not aware that we do not have nephrology services available. Family states that she has congestive heart failure and is not a candidate for bone marrow transplant and is currently managed with supportive care. Was on Jakfi but had to discontinue a couple months ago due to side effects. Daughter states her primary care provider would like to start her on gout but is concerned with her renal function. She was given Prednisone 2 weeks ago which did improve her symptoms briefly however they returned after discontinuing the Prednisone. No falls or trauma to arm/hand. Has generalized joint pain in bilateral hands, worse in left today. Has swelling of her right 2nd PIP. Allergies and Home Medications Allergies Coded Allergies: Penicillins (Unverified Allergy, Unknown, 02/16/20) Patient Home Medication List Home Medication List Reviewed: Yes Cholecalciferol (Vitamin D3) (Vitamin D3) 50 Mcg (2000 Unit) Capsule, 50 MCG PO DAILY, (Reported) Entered as Reported by: HAILEE GONZALEZ on 08/18/22 6407 Furosemide (Furosemide) 20 Mg Tablet, 40 MG PO DAILY, (Reported) Entered as Reported by: JAYLEN MCKOY on 06/05/20 0909 Hydrocodone/Acetaminophen (Hydrocodone-Acetamin 5-325 mg) 5 Mg-325 Mg Tablet, 0.5 TAB PO Q6H PRN for PAIN-MODERATE (5-7) Prescribed by: DEE TITUS on 10/06/22 1735 Levothyroxine Sodium (Levothyroxine Sodium) 125 Mcg Tablet, 125 MCG PO DAILY, (Reported) Entered as Reported by: HAILEE GONZALEZ on 08/18/22 1107 Metoprolol Tartrate (Metoprolol Tartrate) 25 Mg Tablet, 25 MG PO BID, (Reported) Entered as Reported by: HAILEE GONZALEZ on 07/04/21 1143 Pantoprazole Sodium (Pantoprazole Sodium) 40 Mg Tablet.dr, 40 MG PO HS Prescribed by: HERLINDA CHÁVEZ on 08/19/22 1205 Potassium Chloride (Potassium Chloride) 10 Meq Tab.er.prt, 10 MEQ PO DAILY, (Reported) Entered as Reported by: HAILEE GONZALEZ on 08/18/22 1107 Review of Systems Review of Systems Constitutional: no symptoms reported Past Ubwwwtd-Khiiod-Blabpt Hx Patient Social History Tobacco Use?: No Use of E-Cig and/or Vaping dev: No Substance use?: No Alcohol Use?: No Pt feels they are or have been: No Immunizations Up To Date Influenza Vaccine Up-to-Date: No; Not Current First/Initial COVID19 Vaccinat: NA Second COVID19 Vaccination Boom: NA Third COVID19 Vaccination Date: NA Seasonal Allergies Seasonal Allergies: No Past Medical History Surgery/Hospitalization HX: AFIB, CHF, THYROID, TYPE OF LEUKEMIA HYSTO, APPY, JOVI, BLADDER MESH Surgeries: Yes Appendectomy, Bladder Surgery, Gallbladder, Hysterectomy, Oophorectomy Respiratory: Yes Pneumonia, Sleep Apnea Currently Using CPAP: Yes Cardiac: Yes Atrial Fibrillation, High Cholesterol, Hypertension Neurological: Yes Concussion Genitourinary: Yes Renal Failure Gastrointestinal: Yes Diverticulosis Musculoskeletal: Yes Arthritis Endocrine: Yes HEENT: No Cancer: Yes (Meylodysplastic syndrome) Psychosocial: No Integumentary: No Blood Disorders: Yes (MYELDYSPLASTIC SYNDROME, anemia) Family Medical History No Pertinent Family Hx Physical Exam Vital Signs Vital Signs - First Documented 10/06/22 14:42 Temp 36.1 Pulse 95 Resp 18 B/P (MAP) 100/71 (81) Pulse Ox 95 O2 Delivery Room Air Capillary Refill : Height, Weight, BMI Height: '" Weight: lbs. oz. kg; 22.00 BMI Method: General Appearance: WD/WN, no apparent distress HEENT: PERRL/EOMI, normal ENT inspection, pharynx normal Neck: full range of motion, normal inspection Cardiovascular: normal peripheral pulses, gallop/S4, irregularly irregular Respiratory: lungs clear, normal breath sounds, no respiratory distress, no accessory muscle use Gastrointestinal: normal bowel sounds, non tender, soft Extremities: normal range of motion, non-tender, normal inspection Neurologic/Psychiatric: no motor/sensory deficits, alert, normal mood/affect, oriented x 3 Skin: normal color, warm/dry Focused Exam Lactate Level 10/06/22 15:55: Lactic Acid Level 1.20 Lactic Acid Level Progress/Results/Core Measures Suspected Sepsis SIRS Temperature: Pulse: 95 Respiratory Rate: 18 Laboratory Tests 10/06/22 15:55: White Blood Count 22.8H Blood Pressure 100 /71 Mean: 81 10/06/22 15:55: Lactic Acid Level 1.20 Laboratory Tests 10/06/22 15:55: Creatinine 2.43H, INR Comment 1.5H, Platelet Count 1233*H, Total Bilirubin 0.8 Results/Orders Lab Results My Orders Medications Given in ED Vital Signs/I&O Capillary Refill : Blood Pressure Mean: 81 Departure Impression Primary Impression: Myelodysplasia (myelodysplastic syndrome) Additional Impression: Arthralgia of hand, left Disposition: 01 HOME, SELF-CARE Condition: Improved Departure-Patient Inst. Decision time for Depature: 17:29 Referrals: TILA SHARMA APRN (PCP) Primary Care Physician [facility] (Family) Primary Care Physician Patient Instructions: Joint Pain, Hand Pain Add. Discharge Instructions: Plan: 1. Take half hydrocodone every 6 hours as needed for severe pain. 2. You can take [id number] Tylenol as directed per package, do not exceed 3000mg in a 24 hour period. 3. Drink plenty of fluids to stay hydrated, limit sodium intake to less than 1500mg per day. 4. Return to ER for any new, concerning, or worsening symptoms. 5. We cultured your urine and will notify you if any bacteria results. All discharge instructions reviewed with patient and/or family. Voiced understanding. Scripts Hydrocodone/Acetaminophen (Hydrocodone-Acetamin 5-325 mg) 5 Mg-325 Mg Tablet 0.5 TAB PO Q6H PRN for PAIN-MODERATE (5-7), #14 TAB 0 Refills Prov: DEE TITUS PIG CONVEYOR OPERATOR 10/06/22 DEE TITUS PIG CONVEYOR OPERATOR Oct 06, 2022 15:35
[2022-10-06] MEDS ORDERED: HYDROcodone/APAP 5 MG/325 MG (LORTAB) TAB PO ONE (15:45)
[2022-10-06 16:06] LABS: BASOPHILS # (AUTO) 0.2 10^3/uL (0.0-0.1); BASOPHILS % (AUTO) 1 % (0-10); EOSINOPHILS # (AUTO) 0.6 10^3/uL (0.0-0.3); HEMOGLOBIN 9.8 g/dL (11.5-16.0); LYMPHOCYTES % (AUTO) 7 % (12-44); MEAN PLATELET VOLUME 11.4 fL (9.0-12.2); MONOCYTES % (AUTO) 2 % (0-12)
[2022-10-06 16:07] LABS: EOSINOPHILS % (AUTO) 3 % (0-10); HEMATOCRIT 31 % (35-52); LYMPHOCYTES # (AUTO) 1.5 10^3/uL (1.0-4.0); MEAN CORPUSCULAR HEMOGLOBIN 33 pg (25-34); MEAN CORPUSCULAR HGB CONC 31 g/dL (32-36); MEAN CORPUSCULAR VOLUME 105 fL (80-99); MONOCYTES # (AUTO) 0.5 10^3/uL (0.0-1.0); NEUTROPHILS # (AUTO) 19.2 10^3/uL (1.8-7.8); NEUTROPHILS % (AUTO) 84 % (42-75); WHITE BLOOD COUNT 22.8 10^3/uL (4.3-11.0)
[2022-10-06 16:10] LABS: PLATELET COUNT 1233 10^3/uL (130-400)
[2022-10-06 16:15] LABS: ALBUMIN 3.7 GM/DL (3.2-4.5)
[2022-10-06 16:16] LABS: POTASSIUM 4.2 MMOL/L (3.6-5.0)
[2022-10-06 16:17] LABS: CALCIUM 9.4 MG/DL (8.5-10.1)
[2022-10-06 16:18] LABS: INR 1.5 (0.8-1.4); PROTHROMBIN TIME PATIENT 18.6 SEC (12.2-14.7); TOTAL PROTEIN 6.8 GM/DL (6.4-8.2)
[2022-10-06 16:20] LABS: BILIRUBIN,TOTAL 0.8 MG/DL (0.1-1.0)
[2022-10-06 16:22] LABS: CREATININE SERUM 2.43 MG/DL (0.60-1.30)
--- NOTE | 2022-10-06 16:24 | Diagnostic Imaging Report ---
INDICATION: Sepsis. TECHNIQUE: Frontal chest obtained at 03:54 p.m. and compared to 08/18/2022. FINDINGS: There is cardiomegaly. There is mild central vascular congestion without focal consolidation. There is no pneumothorax or pleural fluid. IMPRESSION: Cardiomegaly and central vascular congestion without focal consolidation or pleural fluid. Dictated by: Dictated on workstation # [id number]
--- NOTE | 2022-10-06 16:25 | Diagnostic Imaging Report ---
INDICATION: Left hand pain and swelling. AP, oblique, and lateral views of the left hand are obtained. There is generalized demineralization. There is extensive degenerative change throughout the interphalangeal joints and MTP joints. There is degenerative change in the 1st carpometacarpal joint and radiocarpal joint. No acute fracture or erosive bony lesion is seen IMPRESSION: Generalized demineralization and multifocal degenerative change. No fracture or erosive bony lesion. Dictated by: Dictated on workstation # [id number]
[2022-10-06 16:28] LABS: ANISOCYTOSIS MODERATE; LYMPHOCYTES % (MANUAL) 3 %; MONOCYTES % (MANUAL) 6 %; NEUTROPHILS % (MANUAL) 91 %; POLYCHROMASIA MODERATE; TARGET CELLS SLIGHT
--- NOTE | 2022-10-06 16:44 | Diagnostic Imaging Report ---
INDICATION: Pain and swelling FINDINGS: Three view wrist shows bony demineralization and arthritis. There is swelling diffusely about the wrist most notably dorsally. The distal radius and ulna appeared nonacute. The carpal bones show degenerative disease but no acute appearing abnormality. There is no dislocation. IMPRESSION: No fracture or dislocation, however, there is substantial swelling and bony demineralization with underlying arthritis. Dictated by: Dictated on workstation # [id number]
[2022-10-06] MEDS ORDERED: ACHD5005 PO (17:35)
[2022-10-06 17:48] VITALS: BP 96/75
== END 2022-10-06 17:53 | disposition home or self-care (01) ==
LOC: EDUNIT# 14:37 → ER 14:39
DX: D46.9 Myelodysplastic syndrome, unspecified (principal); M25.542 Pain in joints of left hand; G47.30 Sleep apnea, unspecified; Z99.89 Dependence on other enabling machines and devices; Z28.310 Unvaccinated for COVID-19
CPT/HCPCS: 36415; 71045; 73110; 73130; 80053; 81000; 83605; 85007; 85027; 85610; 85652; 85730; 86141; 87040; 87077; 87088

== ENCOUNTER → 2022-10-15 | Outpatient (CLI) | payer MEDICARE, OTHER ==
[~2022-10-15] MED LIST changes: +ACHD5005 PO
--- NOTE | 2022-10-15 16:15 | Diagnostic Imaging Report ---
INDICATION: Left wrist pain. TIME OF EXAM: 11:48 AM. COMPARISON: Correlation is made with prior radiograph from 10/06/2022. Diffuse demineralization of the wrist and hand is noted. The distal radius and ulna appear to be intact. The carpal bones and metacarpals appear intact. No fracture is seen. IMPRESSION: Demineralization. No acute bony abnormality is detected. Dictated by: Dictated on workstation # [id number]
--- NOTE | 2022-10-15 18:10 | Diagnostic Imaging Report ---
INDICATION: Right foot pain AP, oblique, and lateral views of the right foot are obtained. Comparison made with 09/22/2022. There is generalized osteopenia. There is no definite acute fracture or acute bony abnormality. There is a mild hallux valgus deformity. There is plantar calcaneal spurring. There are vascular calcifications. IMPRESSION: Generalized demineralization with mild hallux valgus deformity. No acute bony abnormality. Dictated by: Dictated on workstation # [id number]
== END ==
LOC: RAD FS 11:31
PROVIDERS: ATTEND Nurse Practitioner
DX: M20.11 Hallux valgus (acquired), right foot (principal); M25.532 Pain in left wrist
CPT/HCPCS: 73110; 73630

== ENCOUNTER → 2022-10-15 | Outpatient (CLI) | payer MEDICARE, OTHER ==
--- NOTE | 2022-10-15 12:02 | Diagnostic Imaging Report ---
PROCEDURE: US Renal Bilateral. TECHNIQUE: Multiple real-time grayscale images were obtained over the kidneys in various projections bilaterally. INDICATION: Chronic kidney disease stage IV. Right kidney measures 9.0 x 4.5 x 4.8 cm and the left kidney measures 8.2 x 4.0 x 3.7 cm. Cortical echogenicity appears normal. There is some cortical thinning bilaterally. No calculi are seen. There is no hydronephrosis identified. Bladder is unremarkable. Note is made of enlarged spleen measuring approximately 17.5 cm. IMPRESSION: 1. Bilateral renal cortical thinning. No calculi or hydronephrosis is detected. 2. Splenomegaly. Dictated by: Dictated on workstation # [id number]
== END ==
LOC: RAD FS 10:27
PROVIDERS: ATTEND Internal Medicine
DX: R16.1 Splenomegaly, not elsewhere classified (principal); N18.4 Chronic kidney disease, stage 4 (severe)
CPT/HCPCS: 76770

== ENCOUNTER 2023-02-02 13:13 | Emergency (ER) | payer MEDICARE, OTHER ==
[2023-02-02] MEDS ORDERED: fentaNYL INJ 100 MCG/2 ML AMP ONE (15:25)
[2023-02-02 15:43] LABS: HEMOGLOBIN 11.4 g/dL (11.5-16.0); MEAN PLATELET VOLUME 11.4 fL (9.0-12.2)
[2023-02-02 15:45] LABS: BASOPHILS # (AUTO) 0.2 10^3/uL (0.0-0.1); BASOPHILS % (AUTO) 1 % (0-10); EOSINOPHILS % (AUTO) 3 % (0-10); HEMATOCRIT 37 % (35-52); LYMPHOCYTES # (AUTO) 1.3 10^3/uL (1.0-4.0); LYMPHOCYTES % (AUTO) 4 % (12-44); MEAN CORPUSCULAR HEMOGLOBIN 32 pg (25-34); MEAN CORPUSCULAR HGB CONC 31 g/dL (32-36); MEAN CORPUSCULAR VOLUME 103 fL (80-99); MONOCYTES % (AUTO) 3 % (0-12); NEUTROPHILS % (AUTO) 84 % (42-75)
[2023-02-02 15:57] LABS: POTASSIUM 3.5 MMOL/L (3.6-5.0)
[2023-02-02 15:58] LABS: CALCIUM 9.2 MG/DL (8.5-10.1)
[2023-02-02 16:03] LABS: CREATININE SERUM 1.66 MG/DL (0.60-1.30)
[2023-02-02 16:35] LABS: PLATELET COUNT 1337 10^3/uL (130-400)
[2023-02-02] MEDS ORDERED: fentaNYL INJ 100 MCG/2 ML AMP IVP ONE ×2 (16:45→18:30)
--- NOTE | 2023-02-02 17:20 | Diagnostic Imaging Report ---
PROCEDURE: CT head without contrast. TECHNIQUE: Multiple contiguous axial images were obtained through the brain without the use of intravenous contrast. Auto Exposure Controls were utilized during the CT exam to meet ALARA standards for radiation dose reduction. INDICATION: Left jaw pain. COMPARISON: None available. FINDINGS: No acute intracranial hemorrhage. The graves-white matter differentiation is preserved. No intracranial mass or fluid collection. No midline shift or mass effect. The ventricles and cortical sulci are normal. Opacification of the left sphenoid sinus. The mastoids and orbits are clear. The skull is normal. IMPRESSION: No acute intracranial hemorrhage. No large vascular territory middleton-white loss. No intracranial mass, midline shift, or hydrocephalus. Opacification of the left sphenoid sinus may be seen with sinusitis. Mild chronic small vessel ischemic disease. Mild global volume loss. Dictated by: Dictated on workstation # [id number]
--- NOTE | 2023-02-02 17:23 | Diagnostic Imaging Report ---
PROCEDURE: CT neck soft tissue without contrast. TECHNIQUE: Multiple contiguous axial images were obtained through the neck without the use of intravenous contrast. Auto Exposure Controls were utilized during the CT exam to meet ALARA standards for radiation dose reduction. INDICATION: Jaw pain. FINDINGS: Included intracranial structures are normal. Redemonstration of opacification of the left sphenoid sinus. The nasopharynx, oropharynx, hypopharynx, and larynx are normal. The thyroid gland, submandibular gland, and parotid glands are normal. No pathologically enlarged lymph nodes. Bilateral carotid atherosclerosis. Included views of the chest demonstrates biapical scarring. The osseous structures demonstrate mild multilevel degenerative changes. IMPRESSION: No acute findings in the neck. Dictated by: Dictated on workstation # [id number]
[2023-02-02 17:34] LABS: ANISOCYTOSIS MARKED; BAND NEUTROPHILS 5 %; BASOPHILS % (MANUAL) 0 %; EOSINOPHILS % (MANUAL) 3 %; LYMPHOCYTES % (MANUAL) 2 %; METAMYELOCYTES % 1 %; MONOCYTES % (MANUAL) 0 %; NEUTROPHILS % (MANUAL) 89 %; POLYCHROMASIA SLIGHT
--- NOTE | 2023-02-02 17:42 | ED General ---
General Chief Complaint: Oral/Throat Problems Stated Complaint: JAW PAIN Nursing Triage Note: PT TO TRIAGE BY WC WITH CC OF L JAW PAIN SINCE 829 TODAY. PT REPORTS CONTACTED PCP AND WAS SENT TO ED FOR CARDIAC CONCERN. PT STATES HAS BEEN UNABLE TO OPEN MOUTH. PT DENIES JAW PAIN RADIATION. PT DENIES CHEST PAIN. DAUGHTER AT BEDSIDE REPORTS MILD SWELLING OF L FACE. Source of Information: Patient, Family Exam Limitations: No Limitations History of Present Illness Date Seen by Provider: February 02, 2023 Allergies and Home Medications Allergies Coded Allergies: Penicillins (Unverified Allergy, Unknown, 02/16/20) Patient Home Medication List Carbamazepine (Carbamazepine) 200 Mg Tablet, 200 MG PO DAILY Prescribed by: GORDY YOUNG on 02/02/231907 Cholecalciferol (Vitamin D3) (Vitamin D3) 50 Mcg (2000 Unit) Capsule, 50 MCG PO DAILY, (Reported) Entered as Reported by: HAILEE GONZALEZ on 08/18/22 1107 Furosemide (Furosemide) 20 Mg Tablet, 40 MG PO DAILY, (Reported) Entered as Reported by: JAYLEN MCKOY on 06/05/20 0909 Hydrocodone/Acetaminophen (Hydrocodone-Acetamin 5-325 mg) 5 Mg-325 Mg Tablet, 0.5 TAB PO Q6H PRN for PAIN-MODERATE (5-7) Prescribed by: DEE TITUS on 10/06/22 1735 Hydrocodone/Acetaminophen (Hydrocodone-Acetamin 5-325 mg) 5 Mg-325 Mg Tablet, 1 TAB PO Q4H PRN for PAIN-MODERATE (5-7) Prescribed by: GORDY YOUNG on 02/02/231909 Levothyroxine Sodium (Levothyroxine Sodium) 125 Mcg Tablet, 125 MCG PO DAILY, (Reported) Entered as Reported by: HAILEE GONZALEZ on 08/18/22 1107 Metoprolol Tartrate (Metoprolol Tartrate) 25 Mg Tablet, 25 MG PO BID, (Reported) Entered as Reported by: HAILEE GONZALEZ on 07/04/21 1143 Pantoprazole Sodium (Pantoprazole Sodium) 40 Mg Tablet.dr, 40 MG PO HS Prescribed by: HERLINDA CHÁVEZ on 08/19/22 1205 Potassium Chloride (Potassium Chloride) 10 Meq Tab.er.prt, 10 MEQ PO DAILY, (Reported) Entered as Reported by: HAILEE GONZALEZ on 08/18/22 1107 Valacyclovir HCl (Valacyclovir) 1,000 Mg Tablet, 1,000 MG PO Q8H Prescribed by: GORDY YOUNG on 02/02/23 1908 Past Vkvdyha-Pbfcqg-Efaomn Hx Patient Social History Tobacco Use?: No Substance use?: No Alcohol Use?: No Pt feels they are or have been: No Immunizations Up To Date First/Initial COVID19 Vaccinat: NA Second COVID19 Vaccination Boom: NA Third COVID19 Vaccination Date: NA Seasonal Allergies Seasonal Allergies: No Past Medical History Surgery/Hospitalization HX: AFIB, CHF, THYROID, TYPE OF LEUKEMIA HYSTO, APPY, JOVI, BLADDER MESH Surgeries: Yes Appendectomy, Bladder Surgery, Gallbladder, Hysterectomy, Oophorectomy Respiratory: Yes Pneumonia, Sleep Apnea Currently Using CPAP: Yes Cardiac: Yes Atrial Fibrillation, High Cholesterol, Hypertension Neurological: Yes Concussion Genitourinary: Yes Renal Failure Gastrointestinal: Yes Diverticulosis Musculoskeletal: Yes Arthritis Endocrine: Yes HEENT: No Cancer: Yes (Meylodysplastic syndrome) Psychosocial: No Integumentary: No Blood Disorders: Yes (MYELDYSPLASTIC SYNDROME, anemia) Family Medical History No Pertinent Family Hx Physical Exam Vital Signs Vital Signs - First Documented 02/02/23 13:30 Pulse 83 Resp 20 B/P (MAP) 125/75 (92) Pulse Ox 97 O2 Delivery Room Air Capillary Refill : Less Than 3 Seconds Height, Weight, BMI Height: '" Weight: lbs. oz. kg; 22.00 BMI Method: Progress/Results/Core Measures Suspected Sepsis SIRS Temperature: Pulse: 83 Respiratory Rate: 20 Laboratory Tests 02/02/23 15:39: White Blood Count 32.0*H Blood Pressure 125 /75 Mean: 92 Laboratory Tests 02/02/23 15:39: Creatinine 1.66H, Platelet Count 1337*H Results/Orders Lab Results Laboratory Tests Test 02/02/23 15:39 Range/Units White Blood Count 32.0 *H 4.3-11.0 10^3/uL Red Blood Count 3.61 L 3.80-5.11 10^6/uL Hemoglobin 11.4 L 11.5-16.0 g/dL Hematocrit 37 35-52 % Mean Corpuscular Volume 103 H 80-99 fL Mean Corpuscular Hemoglobin 32 25-34 pg Mean Corpuscular Hemoglobin Concent 31 L 32-36 g/dL Red Cell Distribution Width 19.9 H 10.0-14.5 % Platelet Count 1337 *H 130-400 10^3/uL Mean Platelet Volume 11.4 9.0-12.2 fL Immature Granulocyte % (Auto) 5 % Neutrophils (%) (Auto) 84 H 42-75 % Lymphocytes (%) (Auto) 4 L 12-44 % Monocytes (%) (Auto) 3 0-12 % Eosinophils (%) (Auto) 3 0-10 % Basophils (%) (Auto) 1 0-10 % Neutrophils # (Auto) 27.0 H 1.8-7.8 10^3/uL Lymphocytes # (Auto) 1.3 1.0-4.0 10^3/uL Monocytes # (Auto) 1.0 0.0-1.0 10^3/uL Eosinophils # (Auto) 1.0 H 0.0-0.3 10^3/uL Basophils # (Auto) 0.2 H 0.0-0.1 10^3/uL Immature Granulocyte # (Auto) 1.6 H 0.0-0.1 10^3/uL Neutrophils % (Manual) 89 % Lymphocytes % (Manual) 2 % Monocytes % (Manual) 0 % Eosinophils % (Manual) 3 % Basophils % (Manual) 0 % Metamyelocytes % 1 % Band Neutrophils 5 % Percent Immature Platelet Fraction 10.1 H 0.0-7.6 % Polychromasia SLIGHT Anisocytosis MARKED Sodium Level 139 135-145 MMOL/L Potassium Level 3.5 L 3.6-5.0 MMOL/L Chloride Level 99 98-107 MMOL/L Carbon Dioxide Level 24 21-32 MMOL/L Anion Gap 16 H 5-14 MMOL/L Blood Urea Nitrogen 43 H 7-18 MG/DL Creatinine 1.66 H 0.60-1.30 MG/DL Estimat Glomerular Filtration Rate 31 BUN/Creatinine Ratio 26 Glucose Level 91 70-105 MG/DL Calcium Level 9.2 8.5-10.1 MG/DL Magnesium Level 2.0 1.6-2.4 MG/DL C-Reactive Protein High Sensitivity 0.26 0.00-0.50 MG/DL My Orders Orders - GORDY URBINA MD Fentanyl Inj (Sublimaze Injection) (02/02/23 15:25) Cbc With Automated Diff (02/02/23 15:39) Basic Metabolic Panel (02/02/23 15:39) Hs C Reactive Protein (02/02/23 15:39) Magnesium (02/02/23 15:39) Manual Differential (02/02/23 15:39) Fentanyl Inj (Sublimaze Injection) (02/02/23 16:45) Ct Head Wo (02/02/23 16:38) Ct Neck (Soft Tissue) Wo (02/02/23 16:38) Ekg Tracing (02/02/23 16:48) Acyclovir Capsule/Tablet (Zovirax Caps (02/02/23 19:00) Medications Given in ED Vital Signs/I&O 02/02/23 02/02/23 13:30 19:32 Pulse 83 85 Resp 20 20 B/P (MAP) 125/75 (92) 107/80 Pulse Ox 97 97 O2 Delivery Room Air Room Air Capillary Refill : Less Than 3 Seconds Blood Pressure Mean: 92 ECG Initial ECG Impression Date: February 02, 2023 Initial ECG Impression Time: 13:54 Initial ECG Rate: 88 Initial ECG Rhythm: A Fib/Flutter Initial ECG Impression: Atrial Fibrillation Comment Atrial fibrillation with no ST elevation or depression to suggest ischemia. No significant abnormal intervals or axis deviation Departure Impression Primary Impression: Left-sided face pain Additional Impression: Myelodysplasia (myelodysplastic syndrome) Disposition: 01 HOME, SELF-CARE Condition: Improved Departure-Patient Inst. Decision time for Depature: 19:02 Referrals: TILA SHARMA APRN (PCP) Primary Care Physician [facility] (Family) Primary Care Physician Patient Instructions: Shingles, Trigeminal Neuralgia Add. Discharge Instructions: The exact cause of your pain is uncertain but shingles or trigeminal neuralgia are possibilities. You may use hydrocodone as prescribed for control of pain tonight. Start valacyclovir (antiviral) tomorrow for possible shingles. If hydrocodone is not controlling your pain and you do not develop a shingles rash, consider starting carbamazepine which is treatment for trigeminal neuralgia. Please contact your primary care provider first thing tomorrow morning and arrange follow-up. Return to care if you have uncontrolled or worsening symptoms that need further management. Please be advised that contact with the affected areas may trigger further pain. Contact that triggers pain may even be gentle such as chewing soft food or wearing dentures. Speak with your oncologist and/or primary care provider about management of the myelodysplastic syndrome. All discharge instructions reviewed with patient and/or family. Voiced understanding. Scripts Hydrocodone/Acetaminophen (Hydrocodone-Acetamin 5-325 mg) 5 Mg-325 Mg Tablet 1 TAB PO Q4H PRN for PAIN-MODERATE (5-7), #20 TAB Prov: GORDY URBINA MD 02/03/23 Carbamazepine (Carbamazepine) 200 Mg Tablet 200 MG PO DAILY, #20 TAB Increase to BID if morning dose does not evectively treat into the night after the first couple of days. Prov: GORDY URBINA MD 02/02/23 Valacyclovir HCl (Valacyclovir) 1,000 Mg Tablet 1000 MG PO Q8H, #20 TAB Prov: GORDY URBINA MD 02/02/23 Copy Copies To 1: [facility] GORDY URBINA MD February 02, 2023 17:42
[2023-02-02] MEDS ORDERED: ACYCLOVIR 400 MG TABLET (ZOVIRAX) PO ONE (19:00)
[2023-02-02] MEDS ORDERED: CARB200T6 PO (19:08)
[2023-02-02] MEDS ORDERED: VALA10007 PO (19:08)
[2023-02-02] MEDS ORDERED: ACHD5005 PO (19:08)
[2023-02-02 19:32] VITALS: BP 107/80
[2023-02-03] MEDS ORDERED: ACHD5005 PO (14:39)
== END 2023-02-02 19:35 | disposition home or self-care (01) ==
LOC: EDUNIT# 13:13 → ER 13:14
DX: R51.9 Headache, unspecified (principal); D46.9 Myelodysplastic syndrome, unspecified; G47.30 Sleep apnea, unspecified; Z28.310 Unvaccinated for COVID-19; Z99.89 Dependence on other enabling machines and devices
CPT/HCPCS: 36415; 70450; 70490; 80048; 83735; 85007; 85027; 86141; 93005